=== PATIENT | female | born 1935 | race Caucasian/White ===

== ENCOUNTER → 2017-02-04 | Outpatient (CLI) | payer BC ==
[~2017-02-04] MED LIST: ACET325T30 PO; ALPR-411 PO; AMLO-110 PO; CLOP1TAB15 PO; GABA1CAP5 PO; HYDR2.5L TOP; LEVO50TA6 PO; MRLP17X PO; ONDA4TAB46 PO; OXYC15TA89 PO; OXYSR10 PO; PLV75 PO; POTA99TA PO; PRVC/10 PO; RXC/5 PO; SERT50TA PO; THY30 PO; WARF5TAB7 PO; ZNTT/150 PO
--- NOTE | 2017-02-04 15:18 | DIAGNOSTIC IMAGING REPORT ---
RIGHT FOOT 3 VIEWS CLINICAL HISTORY: Right foot pain. FINDINGS: 3 views of the right foot are obtained. No prior studies are available for comparison at the time of dictation. The skeletal structures are demineralized. No acute/distracted fracture is seen. Mild periostitis is suggested along the second metatarsal shaft on the oblique view. Mild arthritic change is identified at the first metatarsophalangeal joint. Minimal degenerative spurring is seen along the dorsal aspect of the tarsal bones. Diffuse soft tissue edema is noted throughout the foot and ankle. IMPRESSION: 1. Soft tissue edema with no clear radiographic evidence of acute/distracted fracture. 2. Mild periostitis is suggested along the shaft of the second metatarsal. This is nonspecific and could represent stress reaction. Correlate clinically for point tenderness at this site. 3. And mild arthritic change as above. Electronically signed by: El Baez M.D. 02/04/2017 3:16 PM Dictated Date/Time: 02/04/2017 3:13 PM
== END | disposition home or self-care (01) ==
LOC: C.RAD1850 15:02
PROVIDERS: ATTEND Family Medicine
DX: M79.671 Pain in right foot (principal); R60.9 Edema, unspecified

== ENCOUNTER → 2017-02-16 | Outpatient (CLI) | payer BC | END | disposition home or self-care (01) | LOC: C.RDSM 13:58 | PROVIDERS: ATTEND Orthopaedic Surgery Sports Medicine | DX: M79.671 Pain in right foot (principal) ==

== ENCOUNTER → 2017-04-02 | Outpatient (CLI) | payer BC ==
[~2017-04-02] MED LIST changes: -WARF5TAB7 PO
--- NOTE | 2017-04-02 14:39 | DIAGNOSTIC IMAGING REPORT ---
ULTRASOUND RIGHT VENOUS DOPP LOWER EXT UNILAT CLINICAL HISTORY: Right leg swelling COMPARISON STUDY: No previous studies for comparison. FINDINGS: There is a mixed attenuation collection measuring 81 x 52 x 109 mm within the right groin, likely represent a hematoma. Clinical and imaging follow-up is recommended. There is nonocclusive thrombus within the common femoral vein. There is occlusive thrombus within the superficial femoral vein. No thrombus is visualized in the popliteal vein. The proximal trifurcation veins of the calf appear patent. The patient reports she has a known extensive right lower extremity DVT IMPRESSION: 1. Thrombus within the right common femoral vein and right superficial femoral vein. By history, this is subacute/chronic. 2. Large complex right inguinal collection measuring 10 cm in maximal diameter. This likely represents a hematoma Electronically signed by: Johnathan Forde M.D. 04/02/2017 2:37 PM Dictated Date/Time: 04/02/2017 2:30 PM
--- NOTE | 2017-04-02 14:43 | DIAGNOSTIC IMAGING REPORT ---
ULTRASOUND ART DOP LOWER EXT BILAT CLINICAL HISTORY: RIGHT LEG R/O DVT COMPARISON STUDY: None FINDINGS: Real-time as well as Doppler evaluation of the arterial structures of the lower legs was performed. Blood pressures could not be obtained due to extensive deep venous thrombosis. Left leg shows biphasic waveforms throughout the bulk of the arterial structures. Right leg shows monophasic waveforms throughout as well as dampened waveform characteristics. This is suggestive of inflow disease. IMPRESSION: 1. Limited exam 2. Monophasic waveforms throughout the right leg with findings consistent with that of compromised blood flow to the right lower extremity. 3. This is consistent with inflow disease to the right leg 4. No significant stenotic process of the left leg. Electronically signed by: Denzel Bearden M.D. 04/02/2017 2:41 PM Dictated Date/Time: 04/02/2017 2:38 PM
== END | disposition home or self-care (01) ==
LOC: C.ULTR 11:43
PROVIDERS: ATTEND Physician Assistant
DX: M79.604 Pain in right leg (principal); M79.89 Other specified soft tissue disorders; I82.511 Chronic embolism and thrombosis of right femoral vein

== ENCOUNTER → 2017-04-06 | Outpatient (CLI) | payer BC ==
[~2017-04-06] MED LIST changes: +OPTIRAY 320 IV PRN
--- NOTE | 2017-04-06 15:28 | DIAGNOSTIC IMAGING REPORT ---
CT ANGIOGRAM OF THE ABDOMEN AND PELVIS COMBO; CT ANGIOGRAM OF THE LOWER EXTREMITIES COMBO CLINICAL HISTORY: Atherosclerosis. COMPARISON STUDY: Abdominal CT dated 07/26/2016 and 03/20/2016. Bilateral lower extremity arterial ultrasound dated 04/02/2017. TECHNIQUE: Before and following the IV administration of 93 cc of Optiray 320, CT angiogram of the abdomen, pelvis, and lower extremities was performed from the lung bases the distal femora. Images are reviewed in the axial, sagittal, and coronal planes. 3-D MIPS images are created and assessed. IV contrast was administered without complication. The examination is degraded by streak artifact from the left arm which could not be elevated above the abdomen. CT DOSE: 739.47 mGy.cm FINDINGS: Lower chest: The heart is normal in size and without pericardial effusion. There is patchy consolidation and nodularity in the right lower lobe is new from 07/26/2016. Linear scarring in the left lower lobe is unchanged. No pleural effusion is identified. Liver: The contrast-enhanced liver is normal in size, contour, and attenuation. There is mild central intrahepatic or ductal dilatation. The main portal veins appear patent. Gallbladder: Surgically absent noting clips in the gallbladder fossa. Spleen: Normal in size and attenuation noting heterogeneous arterial phase enhancement. Pancreas: Unremarkable. Adrenal glands: Unremarkable. Kidneys: 2 punctate nonobstructing calculi are identified in each kidney on the unenhanced series. The contrast enhanced kidneys are atrophic and without hydronephrosis. The kidneys enhance symmetrically. Abdominal aorta and iliac arteries: There is mild atherosclerotic calcification of the abdominal aorta which is normal in caliber. The abdominal aorta is widely patent. The left common iliac artery, as is a left internal and external iliac arteries are widely patent. Left lower extremity: There is mild to moderate atherosclerotic plaque seen involving the arteries of the left thigh. The left common femoral artery and the left profunda femoris artery are widely patent. The left superficial femoral artery is patent to the level of the distal femur. Right lower extremity: There is mild to moderate atherosclerotic plaque seen involving the arteries of the right thigh. The right common iliac artery is widely patent, as is the right internal iliac artery. There is complete thrombosis of the right external iliac artery which originates approximately 1 cm below the iliac bifurcation. The right common femoral artery is completely occluded. There is reconstitution of flow just below the common femoral artery bifurcation within both the superficial femoral artery and the profundus femoris artery. The remainder of the superficial femoral artery is patent noting significant atherosclerotic plaque and irregularity distally. Major branches of the abdominal aorta: The celiac trunk, superior mesenteric, and inferior mesenteric arteries are widely patent. The hepatic artery arises directly from the abdominal aorta. The splenic artery is patent. There are 2 renal arteries on the left and 3 renal arteries on the right. The renal arteries are widely patent. Bowel: The small bowel and colon are normal in course and caliber. A small duodenal diverticulum is incidentally noted. There is moderate colonic fecal retention. The appendix is normal as visualized. Peritoneum: There is no intraperitoneal free air or abdominal ascites. There is a small fat-containing umbilical hernia. Lymphadenopathy: None. Pelvic viscera: Evaluation of the pelvis is degraded by streak artifact from a right hip arthroplasty. The bladder, uterus, and adnexa are normal as visualized. There is asymmetric atrophy of the right iliopsoas musculature as compared to left as well as the right thigh musculature. There is diffuse induration and thickening of the soft tissues surrounding the right hip. This likely represents a complex joint effusion. This is increasingly complex is compared to 07/26/2016 examination and causes mild mass effect upon the right aspect of the pelvis. This measures approximately 11 x 7.5 cm in maximum axial dimension, and this encases the occluded right lower extremity arteries at this level. Skeletal structures: The Skeletal structures are osteopenic. Mild to moderate lumbosacral spondylosis is observed. Postoperative change is identified in the lumbar spine. No lytic or blastic bony lesions are seen. A right hip arthroplasty is in place. IMPRESSION: 1. There is complete thrombosis of the right external iliac artery and the right common femoral artery with reconstitution just below the common femoral artery bifurcation. See above. 2. There is a large inflammatory process surrounding the right hip/hip arthroplasty. This appears to encase the occluded right lower extremity vessels discussed above and also appears increasingly complex as compared to the 07/26/2016 examination. Correlation with the patient's orthopedic history will be required. 3. Otherwise unremarkable CT angiogram of the abdominal aorta, the major branches of the abdominal aorta, and the visualized left lower extremity arteries. 4. There is patchy/nodular airspace consolidation at the right lung base which is new from 07/26/2016. Correlate clinically for evidence of an infectious/inflammatory pneumonitis. Radiographic follow-up to resolution is recommended. 5. Small bilateral nonobstructing renal calculi. 6. Additional findings as above. Electronically signed by: El Baez M.D. 04/06/2017 3:27 PM Dictated Date/Time: 04/06/2017 2:56 PM
== END | disposition home or self-care (01) ==
LOC: C.CTS 14:15
PROVIDERS: ATTEND Surgery Vascular Surgery
DX: I70.261 Atherosclerosis of native arteries of extremities with gangrene, right leg (principal)

== ENCOUNTER 2017-04-08 10:40 | Observation (INO) | payer BC ==
[2017-04-08] VITALS (11 sets, daily range): BP systolic 119–155; BP diastolic 57–78; PULSE 65–88; TEMP 36.5–36.8; O2SAT 94–99; Ht 160 cm; Wt 44.6 kg
[~2017-04-08] VITALS: Ht 160 cm; Wt 44.6 kg
[~2017-04-08 10:40] MED LIST changes: +CEFAZOLIN 1000MG/55 ML D5W IV SCH; -CLOP1TAB15 PO; -OPTIRAY 320 IV PRN; -OXYC15TA89 PO; -PLV75 PO; +SODIUM CHLORIDE 0.9% 1000ML 1,000 ML IV SCH
--- NOTE | 2017-04-08 11:11 | History and Physical ---
History & Physical Date of Service Apr 08, 2017. History & Physical CC: Right leg pain HPI: Ms. Ariadna Lance says that she is having pain in her right foot for approximately 2 months. She described the pain as constant and burning in nature. She additionally has periods where the pain becomes more intense. She has attempted to elevate her legs, but this has not improved her pain. She occasionally has her leg dependent but does not notice a significant improvement in her pain with this. She is not doing much walking as of late. She uses a walker to get from the bedroom to the bathroom but usually hops on her left leg. She uses a wheelchair for transportation for longer distances. She denies any symptoms of fevers or chills. She does say that she is very tired and fatigued lately. She is having difficulty sleeping due to the pain in her left foot. She denies any chest pain, shortness of breath, nausea, vomiting, fevers, chills. A 12 point review of systems is completed with pertinent positives and negatives as per above. 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 PAST SURGICAL HISTORY: Includes her hip surgeries and her back surgery. SOCIAL HISTORY: She is , lives with her . They just moved in to [facility]. She does not smoke. FAMILY HISTORY: Unobtainable from the patient and not really obtainable otherwise and certainly is clinically not relevant given the overall situation. ALLERGIES: No known drug allergies. Medications are reviewed and include gabapentin, sertraline, alprazolam, amlodipine, Zofran, pravastatin, [place] Thyroid, oxycodone, levothyroxine, potassium chloride, Tylenol, OxyContin, Zantac, MiraLAX. On physical exam, the patient's heart rate is 72 and blood pressure is 106/66. She is awake and alert. She appears uncomfortable. Her neck is supple and trachea is midline. Her lungs are clear to auscultation bilaterally. Her heart is regular rate and rhythm. Her abdomen is soft. Her left femoral pulse is palpable and strong. Her right groin is significant for a firm mass approximately 6 x 4 cm. I was unable to palpate a right femoral pulse. The patient has a palpable left dorsalis pedis pulse. The right lower extremity is significant for dependent rubor of the entire foot. There is half a centimeter eschar over the right eye. fifth toe. There is dusky discoloration at the plantar aspect of the right second toe. The patient has motor and sensation intact in the bilateral lower extremities. The patient underwent an arterial duplex of bilateral lower extremities on April 02, 2017. This was concerning for a lesion of the right common femoral artery with monophasic flow throughout the right leg. There may be concern for inflow disease based on this duplex. The left lower extremity appeared normal. Imp: Right femoral artery occlusion Plan: Patient is admitted for arteriography and possible intervention. I have discussed the risks options and benefits of the procedure with the patient. The patient understands the risks options and benefits and agrees to the procedure.
--- NOTE | 2017-04-08 11:13 | Procedure Note ---
Pre-Mod Sedation Assessment General Date of Moderate Sedation: Apr 08, 2017. Pre-Sedation Airway Assessment Smoking Status: Former Smoker Mallampati Classification: Class I ASA Classification: Class III Notes The planned sedation has been discussed with the patient and consent obtained. I have identified the patient, determined the appropriateness of sedation and have assessed the patient immediately prior to the procedure. All medicine(s) and interventions are by my order.
[2017-04-08] MEDS ORDERED: MIDAZOLAM HCL 1 MG/ML 2ML VIAL ONE ×2 (12:46→14:22)
[2017-04-08] MEDS ORDERED: HEPARIN SOD (PORCINE) 1000 UNIT/ML 10 ML VIAL ONE (12:46)
[2017-04-08] MEDS ORDERED: FENTANYL CITRATE INJ 50 MCG/1 ML 2 ML VIAL ONE ×2 (12:46→14:22)
[2017-04-08 12:58] LABS: BUN/CREATININE RATIO 19.4 (10-20); CREATININE 0.63 mg/dl (0.60-1.20)
[2017-04-08] MEDS ORDERED: MIDAZOLAM HCL 1 MG/ML 2ML VIAL IV ONE ×3 (13:23→14:22)
[2017-04-08] MEDS ORDERED: FENTANYL CITRATE INJ 50 MCG/1 ML 2 ML VIAL IV ONE ×6 (13:25→14:48)
[2017-04-08] MEDS ORDERED: LIDOCAINE HCL 1% 20 ML VIAL INJ ONE (13:29)
[2017-04-08] MEDS ORDERED: HEPARIN SOD (PORCINE) 1000 UNIT/ML 10 ML VIAL IV ONE (13:44)
[2017-04-08] MEDS ORDERED: SODIUM CHLORIDE 0.9% 1000ML 1,000 ML IV SCH (14:56)
[2017-04-08] MEDS ORDERED: ONDANSETRON 4 MG TAB PO PRN (15:00)
[2017-04-08] MEDS ORDERED: IODIXANOL (VISIPAQUE) 270 MG/ML 150ML FLUSH ONE (15:00)
[2017-04-08] MEDS ORDERED: MoRPHine SULFATE 4 MG/ML 1 ML CARP\\VIAL IV PRN (15:00)
[2017-04-08] MEDS ORDERED: ACETAMINOPHEN 325 MG TAB PO PRN (15:00)
[2017-04-08] MEDS ORDERED: CLOPIDOGREL BISULFATE 300 MG TAB PO SCH (15:00)
[2017-04-08] MEDS ORDERED: OXYCODONE HCL IR 5 MG TAB (IMMEDIATE RELEASE) PO PRN (15:00)
[2017-04-08] MEDS ORDERED: RANITIDINE HCL 150 MG TAB PO PRN (15:00)
--- NOTE | 2017-04-08 15:02 | Procedure Note ---
Post-Moderate Sedation Plan General Date of Moderate Sedation Apr 08, 2017. Vital Signs: Vital Signs Past 12 Hours Date Time Temp Pulse Resp B/P (MAP) Pulse Ox O2 Delivery O2 Flow Rate FiO2 04/08/17 13:05 36.7 65 20 142/57 97 Room Air 04/08/17 13:01 04/08/17 11:22 36.7 65 20 142/57 (85) 97 Room Air Review - Discharge Plan Post Moderate Sedation Plan: On clinical assessment, the patient appears to have tolerated the conscious sedation without complications. Patient is recovering as anticipated. Patient will continue to be monitored by nursing and may be discharged when conscious sedation discharge criteria are met.
--- NOTE | 2017-04-08 15:04 | [facility] Post Operative Brief Note ---
Immediate Operative Summary Operative Date Apr 08, 2017. Pre-Operative Diagnosis right common femoral artery and external iliac artery occlusion Post-Operative Diagnosis same Procedure(s) Performed Right Lower Extremity Angiogram, Mechanical Atherectomy Right External Iliac and Common Femoral Artery, Percutaneous Transluminal Angioplasty Right External iliac and Common Femoral Artery, Mechanical Closure Left Femoral Artery, Moderate Concious Sedation 132[address] Pritchard Operations Specialist Surgeon(s) Mariposa Giang MD Estimated Blood Loss 5 ml Findings patent metal model builder and ext iliac artery Specimens none Anesthesia Local with conscious sedation Complication(s) None Disposition
[2017-04-08] MEDS ORDERED: DiphenhydrAMINE HCL 50 MG/ML VIAL ONE (15:06)
[2017-04-08] MEDS ORDERED: DiphenhydrAMINE HCL 50 MG/ML VIAL IV ONE (15:08)
[2017-04-08] MEDS ORDERED: IV FLUIDS COMPLETED PRN (15:45)
--- NOTE | 2017-04-08 15:54 | DIAGNOSTIC IMAGING REPORT ---
DATE OF PROCEDURE: 04/08/2017 PREOPERATIVE DIAGNOSES: Right lower extremity critical limb ischemia with right common femoral and right external iliac artery occlusions. POSTOPERATIVE DIAGNOSES: Right lower extremity critical limb ischemia with right common femoral and right external iliac artery occlusions. PROCEDURES: Left common femoral access, Right lower extremity angiogram, mechanical atherectomy of right external iliac and common femoral arteries, angioplasty of right external iliac and common femoral arteries with 5 x 80 balloon, mechanical closure of the left femoral artery, conscious sedation 102 minutes. SURGEON: Dr. Christiano Pritchard. PROPULSION GENERATOR REPAIRER: Dr. Paula Giang. ESTIMATED BLOOD LOSS: 5 mL. ANESTHESIA: Sedation plus local. CONDITION: Stable. COMPLICATIONS: None. INDICATIONS: Mrs. Ariadna Lance is an 81-year-old woman with history of osteoarthritis of the right hip with possible septic right hip status post hip replacement who was seen in our clinic with 2 months of right foot pain. Her symptoms were consistent with rest pain of the right foot as well as 2 areas, one on her fifth toe and one on her second toe concerning for dry gangrene. She underwent duplex, which showed right common femoral artery occlusion. A CTA was obtained which showed occlusion of the external iliac and common femoral arteries on the right side. The patient was recommended to undergo angiogram with possible atherectomy of her right external iliac and common femoral arteries. Risks, benefits and alternatives were discussed with the patient and she consented to the procedure. DESCRIPTION OF PROCEDURE: The patient was taken to the [facility] OR and placed in the supine position. Her bilateral groins were prepped and draped in the usual sterile fashion. Sedation was administered. She had a strongly palpable left common femoral pulse. An 18 gauge access needle was used to access the left common femoral. A 5-Bur[place] sheath was placed in the left common femoral artery. An 0.035 Glidewire was placed through the 5-[place]ian sheath followed by a pigtail catheter. This was used to obtain a distal abdominal aortogram. The pigtail was changed for a rim catheter which was used to cross the aortic bifurcation. The 0.035 Glidewire was able to be passed into the right internal iliac. The 5-Burundian sheath was upsized for an 8-Bur[place]ian destination sheath. A 0.035 Glidewire was then used to cross the occluded external iliac and common femoral artery. This was passed all the way down into the right superficial femoral artery. A Quick-Cross catheter was placed over the 0.035 Glidewire and the Glidewire removed. An angiogram was obtained that confirmed intraluminal placement in the SFA. The 0.014 Jetstream wire was then passed through the Quick-Cross and the Quick-Cross removed. A 2.1/3.0 mm Jetstream device was brought onto the sterile field. This was placed into the proximal external iliac. We began our mechanical atherectomy there and extended it down to the common femoral artery into the origin of the superficial femoral artery. Several passes were made with the atherectomy device. We then increased to the 3 mm configuration and used this to atherectomize again the external iliac and common femoral arteries. The Jetstream catheter was removed and the angiogram was obtained. There was still some residual areas of stenosis that looked amenable to angioplasty. A 5 x 80 mm [place] balloon was chosen. This was placed into the proximal superficial femoral artery and common femoral artery and was inflated to 4 atmospheres with profiling of the balloon. The remainder of the common femoral and external iliac were also angioplastied with the 5 x 80 balloon. Completion angiogram showed resolution of the areas of disease following angioplasty. Right lower extremity angiogram was obtained which showed SFA was patent as well as the above knee and below-knee popliteal and origins of all 3 tibials. The anterior tibial and posterior tibial were patent to the foot. The peroneal occluded mid tibia. The destination sheath was removed, and a StarClose device used to close the arteriotomy. Manual pressure was held for approximately 10 minutes with good hemostasis. Prior to the procedure, the patient did not have a palpable right common femoral pulse. Following the procedure she did have a palpable right common femoral pulse. She had a weak Doppler signal in her anterior tibial and posterior tibial arteries at the close of the case. The patient was transferred to the PACU in stable condition. There were no immediate complications. Dr. Christiano Pritchard was present for the entire procedure. I, Dr. Pritchard was present and scrubed for the entire procedure. PINKY
[2017-04-08] MEDS: OXYCODONE HCL 10 MG TABCR (OXYCONTIN) PO SCH (20:19)
[2017-04-08] MEDS: ALPRAZOLAM 0.5 MG TAB PO SCH (20:19)
[2017-04-08] MEDS: GABAPENTIN 400 MG CAP PO SCH ×2 (20:20→23:36)
[2017-04-09] MEDS: GABAPENTIN 400 MG CAP PO SCH ×2 (04:10→07:52)
[2017-04-09 04:47] VITALS: BP 106/51; PULSE 67; TEMP 36.8; O2SAT 97
[2017-04-09] MEDS ORDERED: ARMOUR THYROID 30 MG TAB PO SCH (06:00)
[2017-04-09] MEDS ORDERED: LEVOTHYROXINE 50 MCG TAB PO SCH (06:00)
[2017-04-09] MEDS: OXYCODONE HCL 10 MG TABCR (OXYCONTIN) PO SCH (07:52)
[2017-04-09] MEDS: ALPRAZOLAM 0.5 MG TAB PO SCH (07:52)
[2017-04-09 08:03] VITALS: BP 100/65; PULSE 75; TEMP 37.1; O2SAT 97
[2017-04-09] MEDS ORDERED: PRAVASTATIN SOD 10 MG TAB PO SCH (09:00)
[2017-04-09] MEDS ORDERED: AMLODIPINE BESYLATE 5 MG TAB PO SCH (09:00)
[2017-04-09] MEDS ORDERED: POLYETHYLENE (MIRALAX) 17 GM PACK PO SCH (09:00)
[2017-04-09] MEDS ORDERED: POTASSIUM 198 MG PO SCH (09:00)
[2017-04-09] MEDS ORDERED: SERTRALINE HCL 50 MG TAB PO SCH (09:00)
[2017-04-09] MEDS ORDERED: PLV75 PO (09:00)
--- NOTE | 2017-04-09 09:02 | Discharge Instructions ---
Discharge Instructions Date of Service Apr 09, 2017. 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 Instructions / Follow-Up Instructions / Follow-Up SPECIAL CARE INSTRUCTIONS: Medications: * Continue to take your medications as directed. If you have been given a prescription for Plavix, please fill it immediately and take as directed. Incision Care: * Your puncture site may have some bruising and minor swelling for about one week. * You will have a small dressing covering your puncture site. You may remove the dressing after 24 hours and shower. You may let the warm soapy water run over it, but be sure to dry the puncture site well and keep it dry. * DO NOT IMMERSE THE INCISION IN A TUB/POOL/etc. UNTIL HEALED. * Puncture sites should be kept covered with a band-aid until it begins to heal. Restrictions: * Depending on whether you leg or arm was punctured to access the arteries, you will be required to lay flat, hold your arm still, or both, for about 4 hours after the procedure to prevent bleeding. * Limit your activity for the first 48 hours. You may walk and go up and down steps. Avoid excessive bending or movement at the puncture site. Possible Complications: * Excessive Swelling - after blood flow is improved you may notice increased swelling in the lower legs. This is a normal response. This usually depends on the amount of blockages in the leg, how long they have been there prior to your procedure and how much blood flow was restored. Elevating your legs will help to improve this. Please notify our office ([phone] ) if the swelling does not go away after lying in bed overnight. * Infection/Drainage/Bleeding - Drainage or bleeding from the puncture site should be minimal. If you have excessive bleeding or drainage, call our office ([phone]) right away. * Pain - You may experience some mild pain or soreness at your puncture site. If your pain does not improve, please contact our office ([phone]). Call your doctor and seek emergent treatment if you develop: * Temperature above 101 degrees * Any fever or chills * Any redness or purulent drainage from the puncture site * Any new dusky/blue colored toes or feet with coolness or sharp or aching pain. SKIN IRRITATION: * You may experience some redness and/or swelling in the area where radiation was administered. If any skin irritation occurs, please contact your family physician. FOLLOW UP VISIT: Keep any scheduled doctor appointments. Current Hospital Diet Patient's current hospital diet: AHA Diet (Heart Healthy) Discharge Diet Recommended Diet: AHA Diet (Heart Healthy) Procedures Procedures Performed: Right Lower Extremity Angiogram, Mechanical Atherectomy Right External Iliac and Common Femoral Artery, Percutaneous Transluminal Angioplasty Right External iliac and Common Femoral Artery, Mechanical Closure Left Femoral Artery, Moderate Concious Sedation 1323 to 1500 Pending Studies Studies pending at discharge: no Medical Emergencies . Who to Call and When: Medical Emergencies: If at any time you feel your situation is an emergency, please call 911 immediately. . Non-Emergent Contact Non-Emergency issues call your: Primary Care Provider . "Provider Documentation" section prepared by Norma Hollins. . VTE Core Measure Inpt VTE Proph given/why not?: Enoxaparin (Lovenox) [place] Drug Monitoring Program Search Results: patient reviewed within database
--- NOTE | 2017-04-09 09:09 | Progress Note ---
Progress Note Date of Service: Apr 09, 2017. Subjective 81 yo f with multiple medical problems, POD # 1 after R iliac/ comm fem art atherectomy and HOME CARE NURSE, seen in f/u today. Pt states pain in R foot much improved. Denies any other new complaints. Problem List Medical Problems: (1) LLQ abdominal pain Status: Acute (2) Stroke Status: Acute Objective Vital Signs Vital Signs Past 12 Hours Date Time Temp Pulse Resp B/P (MAP) Pulse Ox O2 Delivery O2 Flow Rate FiO2 04/09/17 08:03 37.1 75 16 100/65 (77) 97 Room Air 04/09/17 08:00 Room Air 04/09/17 04:47 36.8 67 18 106/51 (69) 97 Room Air 04/09/17 04:00 Room Air 04/08/17 23:59 Room Air 04/08/17 23:27 36.8 85 18 119/63 (81) 94 Room Air Exam CONST: A&O x3, NAD, chronically ill appearing female, frail CHEST: RRR lungs decreased, but ctab ABD: soft, nontender, + bs x 4 quad EXT: L groin C/D/I, no blood on dressing. + 2 femoral BL, nonpalpable RLE distal pulses, but + DP and PT with doppler. Toes remain ischemic in appearance , + refill in 3rd toe. 5th toe early dry gangrene. R calf soft, nontender, mild erythema from knee to toes. R foot warm Laboratory and Microbiology Results Past 24 Hours Test 04/08/17 11:50 Range/Units Blood Urea Nitrogen 12 7-18 mg/dl Creatinine 0.63 0.60-1.20 mg/dl Est Creatinine Clear Calc Drug Dose 48.6 ml/min Estimated GFR () 96.1 Estimated GFR (Non- 82.9 BUN/Creatinine Ratio 19.4 10-20 ASSESSMENT and PLAN: s/p R iliac and comm fem art atherectomy/HOME CARE NURSE Severe RLE ischemia with rest pain Pt doing well post op. Pain resolved, pulses present. D/C home today( apartment at [facility]). Will see in office in 2 weeks.
[2017-04-09 09:38] VITALS: BP 100/65; PULSE 75; TEMP 37.1; O2SAT 97
[2017-04-09] MEDS ORDERED: CLOPIDOGREL BISULFATE 75 MG TAB PO SCH (17:00)
--- NOTE | 2017-04-10 00:38 | DISCHARGE SUMMARY ---
ADMISSION DIAGNOSIS: Right femoral artery occlusion with rest pain. DISCHARGE DIAGNOSES: 1. Status post mechanical atherectomy and percutaneous transluminal angioplasty of the right external iliac and common femoral arteries. 2. 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 DISCHARGE CONDITION: Stable. CONSULTATIONS IN THE HOSPITAL: Included none. PROCEDURES IN THE HOSPITAL: Included right lower extremity angiography with mechanical atherectomy and DEAF TEACHER of the right external iliac and common femoral arteries performed on 04/08/2017 without any significant complications and an EBL of 5 mL. HISTORY OF PRESENT ILLNESS: Mrs. Lance is an 81-year-old female who began having pain in her right foot approximately 2 months prior. She stated that the pain would become intense at certain times and had not particularly had any color changes until recently. She began having difficulty sleeping due to the pain in her leg when she was lying flat. She primarily has been using a wheelchair for longer distances and has been having difficulty ambulating on her right leg as well due to the discomfort. She was seen in the office after having an arterial ultrasound and was noted to have right common femoral artery occlusion with minimal monophasic flow throughout the right leg. At that point, she was recommended to undergo right lower extremity angiography somewhat urgently, and the procedure, risks, benefits and alternatives were discussed with her as well as her daughter and . The patient expressed understanding and agreement to proceed. HOSPITAL COURSE: The patient was admitted 04/08/2017 after undergoing her right iliac and common femoral artery angiography with intervention. As I said, this was performed without significant complications. She did have distal Dopplers present, although her foot and toe discoloration remained. The patient did have significant decrease in pain in her right foot. She did well postoperatively without any signs of compartment syndrome the following day postop. She did have some improvement in the discoloration of her lower leg and proximal foot. She was felt to be stable enough for discharge at that time. PHYSICAL EXAMINATION: VITAL SIGNS: On day of discharge, her vital signs are as follows: Temperature of 37.1, pulse of 75, respiratory rate of 16, blood pressure of 100/65, pulse oximetry of 97% on room air. CONSTITUTIONAL AND GENERAL: The patient is a thin, frail, chronically ill-appearing elderly female in no acute distress. HEAD: Normocephalic, atraumatic. EYES: EOMI. ENMT: Demonstrates no hearing loss, rhinorrhea, or pharyngeal erythema. NECK: Supple, nontender, with a midline trachea, without masses or crepitus. LUNGS: Demonstrate no dyspnea. They are clear to auscultation bilaterally, although are decreased throughout. CARDIOVASCULAR: Demonstrates nondisplaced apical impulse with a regular rate and rhythm, without murmurs, lifts, heaves, thrills or gallops. Peripheral pulses are full and equal in all extremities unless otherwise noted, specifically they are normal in her carotid, brachial, radial and femoral pulses. Her left lower extremity, distal pulses are present with the Doppler and +2. Her right lower extremity, DP and PT pulses are monophasic but present. She has capillary refill to the toes of her left foot which is nice and warm. Her right foot does have warmth noted until just proximal to her toes. Toes remain purple and mottled. Capillary refill is not present in 4 of her 5 toes and there is early dry gangrene noted on her right fifth toe. ABDOMEN: Soft, nontender, with normoactive bowel sounds in all 4 quadrants, without guarding or rebound. There is no flank or CVA tenderness. EXTREMITIES: Her left groin puncture site is well approximated and no bleeding is noted. NEUROLOGIC: The patient has grossly intact cranial nerves and grossly intact sensation everywhere except her right toes. DIET: Should be a low-cholesterol AHA diet. MEDICATIONS: Were reconciled in the chart and are as per her discharge instruction with the addition of Plavix. FOLLOWUP: Should be with Dr. Pritchard or his PA, Norma Hollins within 2 weeks for reevaluation. The patient was advised to call the office with any other questions or concerns. Thank you for allowing us to participate in the care of this patient.
[2017-04-28] MEDS ORDERED: OXYC15TA89 PO (11:52)
[2017-04-28] MEDS ORDERED: CLOP1TAB15 PO (11:52)
== END 2017-04-09 10:54 | disposition home or self-care (01) ==
LOC: C.ACU 10:40 → UNDOADMOB 15:01 → C.2T 15:01 → ENRESERV 16:56
PROVIDERS: ADMIT Surgery Vascular Surgery; ATTEND Surgery Vascular Surgery
DX: I77.1 Stricture of artery (principal); I99.8 Other disorder of circulatory system; I74.5 Embolism and thrombosis of iliac artery; I74.8 Embolism and thrombosis of other arteries; I96 Gangrene, not elsewhere classified; E03.9 Hypothyroidism, unspecified; F41.9 Anxiety disorder, unspecified

== ENCOUNTER → 2017-04-09 | Day surgery (SDC) | payer BC, OTHER ==
[~2017-04-09] MED LIST changes: +CLOP1TAB15 PO; -HYDR2.5L TOP; +LACTATED RINGER'S 1000ML 1,000 ML IV SCH; +OXYC15TA89 PO; +PLV75 PO
== END ==
LOC: C.ACU 08:04
PROVIDERS: ATTEND Surgery Vascular Surgery

== ENCOUNTER → 2017-04-21 | Outpatient (CLI) | payer BC ==
[~2017-04-21] MED LIST changes: -CEFAZOLIN 1000MG/55 ML D5W IV SCH; -LACTATED RINGER'S 1000ML 1,000 ML IV SCH; -SODIUM CHLORIDE 0.9% 1000ML 1,000 ML IV SCH
--- NOTE | 2017-04-21 13:26 | DIAGNOSTIC IMAGING REPORT ---
RIGHT TOE(S) MIN 2 VIEWS CLINICAL HISTORY: 81 years-old Female presenting with NON HEALING WOUND R 5TH TOE. TECHNIQUE: Frontal and lateral views of the right fifth toe were obtained. COMPARISON: 02/16/2017. FINDINGS: Diffuse osteopenia as on prior exam. This partially limits evaluation for fracture or osteolysis. The phalanges of the fifth toe are intact, best demonstrated on lateral view. No convincing evidence of osteolysis or periosteal reaction to suggest osteomyelitis. No malalignment or radiopaque foreign body. IMPRESSION: 1. Allowing for diffuse osteopenia, no acute osseous injury or evidence of osteomyelitis. Electronically signed by: Dimitri Toribio 04/21/2017 1:25 PM Dictated Date/Time: 04/21/2017 1:21 PM
== END | disposition home or self-care (01) ==
LOC: C.RAD 12:55
PROVIDERS: ATTEND Emergency Medicine
DX: S91.104A Unspecified open wound of right lesser toe(s) without damage to nail, initial encounter (principal); X58.XXXA Exposure to other specified factors, initial encounter

== ENCOUNTER → 2017-04-23 | Outpatient (CLI) | payer BC ==
--- NOTE | 2017-04-23 14:37 | DIAGNOSTIC IMAGING REPORT ---
RIGHT HIP UNILATERAL 2 VIEWS HISTORY:82 yearsFemalePAIN IN RIGHT HIP Right COMPARISON: CTA abdomen and pelvis 04/06/2017, pelvis and right hip radiographs 06/16/2016. The bones are moderately demineralized. TECHNIQUE: 2 views of the right hip. FINDINGS: Right total hip arthroplasty noted. There is no evidence of hardware fracture or loosening. No acute bony fracture or dislocation is seen.No radiopaque foreign body. IMPRESSION: Right hip arthroplasty without evidence of hardware fracture or loosening. No acute fracture or dislocation of the right hip. The above report was generated using voice recognition software. It may contain grammatical, syntax or spelling errors. Electronically signed by: Sergio Montes 04/23/2017 2:35 PM Dictated Date/Time: 04/23/2017 2:32 PM
--- NOTE | 2017-04-23 14:52 | DIAGNOSTIC IMAGING REPORT ---
ARTERIAL DOPPLER ULTRASOUND OF THE RIGHT LOWER EXTREMITY CLINICAL HISTORY: Atherosclerosis with gangrene COMPARISON STUDY: 03/23/2017 FINDINGS: No flow is visualized within the right common femoral artery. There is monophasic flow within the right superficial femoral artery with a delayed upstroke. There is monophasic flow within the popliteal artery, posterior tibial artery, peroneal artery, and anterior tibial artery. No high velocity jets were visualized. There is a large complex right groin mass measuring 15.6 x 9.2 x 13 cm. IMPRESSION: 1. Right common femoral artery occlusion 2. No evidence of superficial femoral artery, popliteal artery, anterior tibial artery, posterior tibial artery, or peroneal artery stenosis 3. Large complex right groin mass. Electronically signed by: Johnathan Forde M.D. 04/23/2017 2:51 PM Dictated Date/Time: 04/23/2017 2:47 PM
--- NOTE | 2017-04-23 14:53 | DIAGNOSTIC IMAGING REPORT ---
DUPLEX AORTA/IVC/ILIACS LTD HISTORY:82 yearsFemaleATHEROSCLEROSIS OF [place] ARTERIES OF EXTREMITIES COMPARISON: CTA 04/06/2017. TECHNIQUE: Multiple real-time sonographic images of the aorta were obtained assessing grayscale appearance, color and spectral flow. FINDINGS: Proximal abdominal aorta measures 1.6 cm, mid abdominal measures 1.4 cm and distal abdominal aorta measures 1.5 cm in AP dimension. Normal waveforms are seen within the abdominal aorta and bilateral iliac vasculature. Peak systolic velocity of the abdominal aorta measures 72 cm/s. Is minimal after trauma plaquing of the abdominal aorta. Evaluation of the iliac arteries however is limited secondary to obscuring bowel gas. The right iliac artery measures 0.9 cm with biphasic waveforms. Peak systolic velocity measured at 114 cm/s. The left iliac artery measures 0.9 cm with peak systolic velocity also measured at 114 cm/s. IVC is patent. IMPRESSION: 1. Minimal atherosclerotic plaquing of the abdominal aorta without evidence of aneurysm. 2. Visualized iliac arteries are within normal limits, however are not well seen secondary to obscuring bowel gas. The above report was generated using voice recognition software. It may contain grammatical, syntax or spelling errors. Electronically signed by: Sergio Montes 04/23/2017 2:52 PM Dictated Date/Time: 04/23/2017 2:46 PM
== END | disposition home or self-care (01) ==
LOC: C.ULTR 13:07
PROVIDERS: ATTEND Physician Assistant
DX: I70.261 Atherosclerosis of native arteries of extremities with gangrene, right leg (principal); M25.551 Pain in right hip; Z96.641 Presence of right artificial hip joint; I74.3 Embolism and thrombosis of arteries of the lower extremities; R22.9 Localized swelling, mass and lump, unspecified

== ENCOUNTER 2017-04-30 07:09 | Inpatient (IN) | payer BC, OTHER ==
[2017-04-28 11:53] VITALS: BMI 19.0
--- NOTE | 2017-04-28 12:50 | PAT Medication Instructions ---
Service Date Apr 28, 2017. Current Home Medication List Acetaminophen (Acetaminophen), 650 MG PO Q6H PRN for Pain Alprazolam (Xanax), 0.5 MG PO TID Amlodipine (Norvasc), 5 MG PO QPM Clopidogrel (Plavix), 75 MG PO QAM Gabapentin (Neurontin), 400 MG PO six times daily Levothyroxine Sodium (Levothyroxine Sodium), 1 TAB PO QAM Ondansetron Hcl (Zofran), 4 MG PO Q8 PRN for Nausea Oxycodone HCl (Oxycodone HCl), 5 MG PO Q12 PRN for Pain Oxycodone Hcl (Oxycontin), 15 MG PO Q8 Polyethylene (Miralax), 1 DOSE PO QAM Potassium (Potassium), 198 MG PO BID Pravastatin Sod (Pravastatin Sodium), 10 MG PO QPM Ranitidine (Zantac), 1 TAB PO DAILY PRN for Nausea Sertraline (Zoloft), 50 MG PO HS Medication Instructions For Your Scheduled Surgery - Per surgeon instructions (last dose of Plavix was 04/26/17): Clopidogrel (Plavix), 75 MG PO QAM - Hold the following medications the morning of surgery: Ranitidine (Zantac), 1 TAB PO DAILY PRN for Nausea Polyethylene (Miralax), 1 DOSE PO QAM Potassium (Potassium), 198 MG PO BID - Take the following medications the morning of surgery with a sip of water: Gabapentin (Neurontin), 400 MG PO six times daily Levothyroxine Sodium (Levothyroxine Sodium), 1 TAB PO QAM Ondansetron Hcl (Zofran), 4 MG PO Q8 PRN for Nausea (if needed) Oxycodone HCl (Oxycodone HCl), 5 MG PO Q12 PRN for Pain (okay to take up to 4 hours prior to surgery if needed) Oxycodone Hcl (Oxycontin), 15 MG PO Q8 (okay to take up to 4 hours prior to surgery if needed) Alprazolam (Xanax), 0.5 MG PO TID Acetaminophen (Acetaminophen), 650 MG PO Q6H PRN for Pain (if needed) - Take the following medications as scheduled the night before surgery: Sertraline (Zoloft), 50 MG PO HS Ranitidine (Zantac), 1 TAB PO DAILY PRN for Nausea (if needed) Pravastatin Sod (Pravastatin Sodium), 10 MG PO QPM Potassium (Potassium), 198 MG PO BID Ondansetron Hcl (Zofran), 4 MG PO Q8 PRN for Nausea (if needed) Oxycodone HCl (Oxycodone HCl), 5 MG PO Q12 PRN for Pain (if needed) Oxycodone Hcl (Oxycontin), 15 MG PO Q8 (if needed) Gabapentin (Neurontin), 400 MG PO six times daily (if needed) Amlodipine (Norvasc), 5 MG PO QPM Alprazolam (Xanax), 0.5 MG PO TID Acetaminophen (Acetaminophen), 650 MG PO Q6H PRN for Pain (if needed) If you have any questions please call us at [phone] or [phone] or [phone]
--- NOTE | 2017-04-28 13:27 | DIAGNOSTIC IMAGING REPORT ---
CHEST PREADMISSION(PA/LAT) CLINICAL HISTORY: PAT preoperative evaluation COMPARISON STUDY: 05/21/2016 FINDINGS: The bones soft tissues and hemidiaphragms are normal. The cardiomediastinal silhouette is normal. The lungs are clear. The pulmonary vasculature is normal. Chronic atelectatic change infrahilar region on the right. IMPRESSION: Chronic change. No acute process. Electronically signed by: Denzel Bearden M.D. 04/28/2017 1:26 PM Dictated Date/Time: 04/28/2017 1:25 PM
[2017-04-28 13:39] LABS: BASO % 1.1 %; BASO ABS # 0.05 K/uL (0-0.2); COMPLETE YES; EOS % 1.3 %; HEMATOCRIT 42.9 % (37-47); IG% 0.2 %; LYMPH % 27.5 %; LYMPH ABS # 1.27 K/uL (1.2-3.4); MEAN CELL VOLUME 86.5 fL (80-100); MEAN CORPUSCULAR HEMOGLOBIN 29.8 pg (25-34); MEAN CORPUSCULAR HGB CONC 34.5 g/dl (32-36); MEAN PLATELET VOLUME 9.4 fL (7.4-10.4); MONO % 18.6 %; NEUT % 51.3 %; PLATELET COUNT 166 K/uL (130-400); RED BLOOD COUNT 4.96 M/uL (4.2-5.4); WHITE BLOOD COUNT 4.62 K/uL (4.8-10.8)
[2017-04-28 13:42] LABS: PARTIAL THROMBOPLASTIN RATIO 1.4; PROTHROMBIN TIME (PATIENT) 10.7 SECONDS (9.0-12.0)
[2017-04-28 14:01] LABS: BUN/CREATININE RATIO 15.3 (10-20); CALCIUM 9.5 mg/dl (8.5-10.1); CREATININE 0.59 mg/dl (0.60-1.20); POTASSIUM 3.9 mmol/L (3.5-5.1)
[~2017-04-30] VITALS: Ht 152.4 cm; Wt 46.7 kg
[2017-04-30] VITALS (37 sets, daily range): BP systolic 107–162; BP diastolic 40–79; PULSE 60–105; TEMP 36.5–37.7; O2SAT 89–100; Ht 152.4 cm; Wt 46.7 kg
[~2017-04-30 07:09] MED LIST changes: +LACTATED RINGER'S 1000ML 1,000 ML IV SCH; -OXYSR10 PO; -PLV75 PO; -THY30 PO
--- NOTE | 2017-04-30 07:17 | History and Physical ---
History & Physical Date of Service Apr 30, 2017. History & Physical CC: Right foot rest pain and gangrene 5th toe HPI: Ms. Ariadna Lance says that she is having pain in her right foot for approximately 2 months. She described the pain as constant and burning in nature. She additionally has periods where the pain becomes more intense. She has attempted to elevate her legs, but this has not improved her pain. She occasionally has her leg dependent but does not notice a significant improvement in her pain with this. She is not doing much walking as of late. She uses a walker to get from the bedroom to the bathroom but usually hops on her left leg. She uses a wheelchair for transportation for longer distances. She underwent mechanical athrectomy of her right ext iliac and common femoral artery with good results. This has subsequently occluded. Now admitted for a limb salvage cross fem bypass. She denies any symptoms of fevers or chills. She does say that she is very tired and fatigued lately. She is having difficulty sleeping due to the pain in her left foot. She denies any chest pain , shortness of breath, nausea, vomiting, fevers, chills. A 12 point review of systems is completed with pertinent positives and negatives as per above. 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 PAST SURGICAL HISTORY: Includes her hip surgeries and her back surgery. SOCIAL HISTORY: She is , lives with her . They just moved in to [facility]. She does not smoke. FAMILY HISTORY: Unobtainable from the patient and not really obtainable otherwise and certainly is clinically not relevant given the overall situation. ALLERGIES: No known drug allergies. Medications are reviewed and include gabapentin, sertraline, alprazolam, amlodipine, Zofran, pravastatin, Gilson Thyroid, oxycodone, levothyroxine, potassium chloride, Tylenol, OxyContin, Zantac, MiraLAX. On physical exam, the patient's heart rate is 72 and blood pressure is 106/66. She is awake and alert. She appears uncomfortable. Her neck is supple and trachea is midline. Her lungs are clear to auscultation bilaterally. Her heart is regular rate and rhythm. Her abdomen is soft. Her left femoral pulse is palpable and strong. Her right groin is significant for a firm mass approximately 6 x 4 cm. I was unable to palpate a right femoral pulse. The patient has a palpable left dorsalis pedis pulse. The right lower extremity is significant for dependent rubor of the entire foot. There is half a centimeter eschar over the right fifth toe with gangrene. There is dusky discoloration at the plantar aspect of the right second toe. The patient has motor and sensation intact in the bilateral lower extremities. Imp: Right external iliac and common femoral artery occlusion Plan: Patient is admitted for a cross fem bypass. I have discussed the risks options and benefits of the procedure with the patient. The patient understands the risks options and benefits and agrees to the procedure.
[2017-04-30] MEDS ORDERED: ATROPINE SULFATE 0.1 MG/ML 5ML SYR IV PRN (07:45)
[2017-04-30] MEDS ORDERED: HYDROmorphone INJ 1 MG/ML SYR IV PRN (07:45)
[2017-04-30] MEDS ORDERED: ONDANSETRON INJ 2 MG/ML 2 ML VIAL IV PRN ×2 (07:45→10:45)
[2017-04-30] MEDS ORDERED: EpHEDrine SULFATE INJ 50 MG/ML AMP IV PRN (07:45)
[2017-04-30] MEDS ORDERED: CEFAZOLIN SOD 1000MG/55 ML D5W IV ONE (08:30)
[2017-04-30] MEDS ORDERED: GELATIN SPONGE SZ 100 ONE (08:35)
[2017-04-30] MEDS ORDERED: THROMBIN 5000 UNITS KIT ONE (08:36)
[2017-04-30] MEDS ORDERED: IODIXANOL (VISIPAQUE) 270 MG/ML 50ML ONE (08:36)
[2017-04-30] MEDS ORDERED: HEPARIN SOD (PORCINE) 1000 UNIT/ML 10 ML VIAL ONE ×2 (08:36→10:33)
[2017-04-30] MEDS ORDERED: PAPAVERINE HCL INJ 30 MG/ML 2 ML VIAL ONE (08:36)
[2017-04-30] MEDS ORDERED: CEFAZOLIN SOD 1 GM VIAL ONE (08:36)
[2017-04-30] MEDS ORDERED: LIDOCAINE HCL 1% 20 ML VIAL ONE (08:36)
[2017-04-30] MEDS ORDERED: PROPOFOL IV EMULSION 10 MG/ML 20 ML VIAL IV ONE (08:39)
[2017-04-30] MEDS ORDERED: PHENYLEPHRINE HCL INJ 10 MG/ML VIAL ONE ×2 (08:39→10:33)
[2017-04-30] MEDS ORDERED: ROCURONIUM BROMIDE 10 MG/ML 5 ML VIAL ONE (08:39)
[2017-04-30] MEDS ORDERED: LIDOCAINE HCL 2% 2 ML VIAL (20MG/ML) ONE (08:39)
[2017-04-30] MEDS ORDERED: FENTANYL CITRATE INJ 50 MCG/1 ML 2 ML VIAL ONE ×2 (08:39→10:33)
[2017-04-30] MEDS ORDERED: NEOSTIGMINE METHYLSULFATE 5 MG/5 ML SYR ONE (08:39)
[2017-04-30] MEDS ORDERED: ONDANSETRON INJ 2 MG/ML 2 ML VIAL ONE (08:39)
[2017-04-30] MEDS ORDERED: GLYCOPYRROLATE INJ 0.2 MG/ML VIAL ONE (08:39)
[2017-04-30] MEDS ORDERED: BUPIVACAINE/EPINEPHRINE 0.5% MPF 1:200,000 10 ML VIAL ONE (08:39)
[2017-04-30] MEDS ORDERED: THROMBIN FOR SOLN 20000 UNIT KIT ONE (09:00)
[2017-04-30] MEDS ORDERED: ESMOLOL HCL 10 MG/ML 10 ML VIAL ONE (10:33)
[2017-04-30] MEDS ORDERED: PROTAMINE SULFATE 10 MG/ML 5 ML VIAL IV ONE (10:41)
[2017-04-30] MEDS ORDERED: RANITIDINE HCL 150 MG TAB PO PRN (10:45)
[2017-04-30] MEDS ORDERED: ACETAMINOPHEN 325 MG TAB PO PRN (10:45)
--- NOTE | 2017-04-30 10:45 | [facility] Post Operative Brief Note ---
Immediate Operative Summary Operative Date Apr 30, 2017. Pre-Operative Diagnosis Right external iliac and common femoral artery occlusion Post-Operative Diagnosis Right external iliac and common femoral artery occlusion Procedure(s) Performed Cross Femoral Bypass Left to Right Surgeon Dr. Pritchard Lead Military Analyst Surgeon(s) Norma Mullins Estimated Blood Loss 50 cc Findings palpable right DP Specimens none per surgeon Anesthesia Gen Complication(s) None Disposition Recovery Room / PACU
[2017-04-30] MEDS: FENTANYL CITRATE INJ 50 MCG/1 ML 2 ML VIAL IV PRN ×4 (11:39→11:54)
--- NOTE | 2017-04-30 12:08 | Anesthesiology Progress Note ---
Anesthesia Post Op Note Date & Time Apr 30, 2017 at 12:08 Vital Signs Pain Intensity: 7 Vital Signs Past 12 Hours Date Time Temp Pulse Resp B/P (MAP) Pulse Ox O2 Delivery O2 Flow Rate FiO2 04/30/17 11:18 36.2 89 14 133/71 100 Mask 10 04/30/17 07:34 97 Room Air Notes Mental Status: alert / awake / arousable, participated in evaluation Pt Amnestic to Procedure: Yes Nausea / Vomiting: adequately controlled Pain: adequately controlled Airway Patency, RR, SpO2: stable & adequate BP & HR: stable & adequate Hydration State: stable & adequate Anesthetic Complications: no major complications apparent plan to discharge to ICU.
--- NOTE | 2017-04-30 12:16 | Anesthesiology Progress Note ---
Anesthesia Progress Note Date of Service Apr 30, 2017. Progress Notes Arterial line placed in ASU II at 905 AM in preparation for fem fem bypass with Dr. Pritchard. Right wrist prepped with cholorhexidine and draped with sterile towels. Site infiltrated with 0.25 cc of 2% lidocaine. 20 G angiocath placed under sterile technique utilizing sterile gloves, surgical hats and masks. Catheter threaded using seldinger technique with return of pulsatile, bright red blood. Site covered with occlusive dressing and taped in place. Waveform consistent with correct arterial placement. After placement, fingers of right hand had normal perfusion. Patient tolerated procedure well without complications. Shyla Gusman MD, PhD Anesthesiologist
[2017-04-30] MEDS ORDERED: D5W AND 1/2NSS 1,000 ML IV SCH (13:15)
[2017-04-30 13:21] LABS: BASO % 0.4 %; BASO ABS # 0.03 K/uL (0-0.2); COMPLETE YES; EOS % 0.5 %; HEMATOCRIT 36.6 % (37-47); IG% 0.3 %; LYMPH % 20.5 %; LYMPH ABS # 1.51 K/uL (1.2-3.4); MEAN CELL VOLUME 86.7 fL (80-100); MEAN CORPUSCULAR HEMOGLOBIN 30.1 pg (25-34); MEAN CORPUSCULAR HGB CONC 34.7 g/dl (32-36); MEAN PLATELET VOLUME 9.1 fL (7.4-10.4); MONO % 16.4 %; NEUT % 61.9 %; PLATELET COUNT 143 K/uL (130-400); RED BLOOD COUNT 4.22 M/uL (4.2-5.4); WHITE BLOOD COUNT 7.36 K/uL (4.8-10.8)
[2017-04-30] MEDS: MoRPHine SULFATE 4 MG/ML 1 ML CARP\\VIAL IV PRN ×2 (13:23→17:29)
[2017-04-30] MEDS: GABAPENTIN 400 MG CAP PO SCH ×4 (13:54→21:34)
[2017-04-30] MEDS: CEFAZOLIN IV 1,000 MG in DEXTROSE 5% 50ML 50 ML IV SCH ×2 (13:55→21:08)
[2017-04-30] MEDS: OXYCODONE HCL 15 MG TABCR (OXYCONTIN) PO SCH ×2 (14:00→21:34)
--- NOTE | 2017-04-30 14:43 | [facility] Operative Report ---
Operative Report Operative Date Apr 30, 2017. Pre-Operative Diagnosis Right external iliac and common femoral artery occlusion Post-Operative Diagnosis Right external iliac and common femoral artery occlusion Procedure(s) Performed Cross Femoral Bypass Left to Right Surgeon Dr. Pritchard Instructional Technology Coach Surgeon(s) Norma Mullins, SOFIA Estimated Blood Loss 50 cc Findings Palpable right DP pulse Specimens none per surgeon Anesthesia Gen Complication(s) None Disposition Recovery Room / PACU Indications This is an 82-year-old white female who had rest pain in her right foot and gangrenous changes to the right fifth toe. Due to her medical condition she had underwent a mechanical atherectomy of her right external iliac artery and common femoral artery with good results. This unfortunately subsequently occluded and she has developed severe rest pain in right foot and worsening of the gangrenous changes of her right fifth toe. Description of Procedure The patient was taken to the operating room placed in supine position. After both groins were prepped and draped in a sterile manner a longitudinal groin incision was made in the left groin. The dissection was carried down through the femoral sheath where the common femoral artery was identified. This was isolated the dissection was carried down past the bifurcation of the common femoral artery into the profunda and superficial femoral arteries. Proximally the common femoral artery was isolated to the inguinal ligament level. The common femoral artery was of good caliber and fairly soft. There is a good pulse in the left common femoral artery Incision was made in the right lower extremity approximately 15-20 cm below the inguinal ligament due to the firm mass that was present anterior and lateral to the right groin. This dissection was carried downward till the superficial femoral artery was identified. It was isolated for proximally 5 cm. At that point the patient was adequately heparinized. An 8 mm ringed propatent graft was brought to the operative field. A counter incision was made above the inguinal ligament on the right side. An 8mm ringed propaten thin walled gore graft was passed from the left groin through the counter incision down to the right thigh incision. The right superficial femoral artery was then clamped proximally and distally. A longitudinal arteriotomy was then made. There is mild plaque seen at that level. A #3 Ravin was then used and was passed proximal and distally. No clot was retrieved. Next the [place]-Sinan graft was then beveled in the appropriate fashion and an end to side anastomosis was accomplished between the Fruit[place]-Sinan graft and the right superficial femoral artery using a CV 6 [place]-Sinan suture. This was done in the usual vascular fashion. Prior to completing the closure back bleeding and forebleeding was allowed to occur. The final few sutures were placed and securely tied. Clamps are then removed. There was flow noticed coming up through the bypass graft. The bypass graft was then irrigated with heparinized saline and clamped at the anastomotic site. Next the left common femoral profunda and superficial femoral arteries were clamped. A longitudinal arteriotomy was started on the common femoral artery and extended downward slightly through the origin of the superficial femoral artery. The [place]-Sinan graft was then pulled the appropriate length and beveled in usual fashion. An end-to-side anastomosis was accomplished between the Fruit[place]-Sinan graft and the left common femoral artery using a CV5 [place]-Sinan suture again in the usual vascular fashion. Prior to completing the closure back bleeding and fore bleeding was allowed to occur. The final few sutures were then placed and securely tied. Clamps were then removed. Good flow was seen through the bypass graft. There was 2 areas of bleeding from the suture site on the left side between 2 sutures. These were controlled with interrupted CV 6 sutures. At that point adequate hemostasis was noted of both suture lines. All 3 wounds showed adequate hemostasis and they were closed in usual fashion using a running 3-0 Vicryl suture for the femoral sheath and a running 3-0 Vicryl suture was for the subcutaneous layer. Mireya were used for skin edges. The heparin was reversed with 10 mg of protamine at the end of procedure. Sterile dressings were applied to the wound. There was a palpable dorsalis pedis pulse in the right foot at the end of this procedure. There was also a palpable pulse in the left dorsalis pedis pulse at the end of the procedure. Patient left the operative room satisfactory condition tolerated procedure well. Norma Hollins Pac assisted due to lack of resident availability and was necessary for prepping, draping, retraction, wound closure defects, subQ and skin closure and was necessary for the case. I attest to the content of the Intraoperative Record and any orders documented therein. Any exceptions are noted below.
[2017-04-30] MEDS: ALPRAZOLAM 0.5 MG TAB PO SCH ×3 (14:55→21:08)
--- NOTE | 2017-04-30 16:20 | Critical Care Consultation ---
Critical Care Consultation Date of Consultation: Apr 30, 2017. Attending Physician: Christiano Pritchard M.D. Reason for Consultation: Vascular Surgery Perioperative monitoring History of Present Illness She was evaluated for worsening limb pain and found to have substantial vascular disease and ischemia. A Cross/Fem Bypass was performed for limb salvage. History is significant for DVT in the past. Other issues include PVD, Chronic Pain, Hx Septic Hip with 6 week course of antibiotics. Other issues include hypothyroidism, constipation and anemia. She is comfortable at the time of my evaluation. No worsening limb pain. No GI/ complaints. No cardiopulmonary complaints. She is appropriate with questioning. Family at bedside to assist. She appears appropriate for the postoperative setting at this time. Past Medical/Surgical History Septic Hip OA Chronic Pain Hypothyroidism Constipation PVD Discogenic Pain and hx of spine surgery Social History Smoking Status: Former Smoker Drug Use: none Marital Status: Occupation Status: retired Allergies Coded Allergies: Adhesives (Verified Allergy, Mild, skin irritation, 04/30/17) bandaids Home Medications Scheduled Alprazolam (Xanax), 0.5 MG PO TID Amlodipine (Norvasc), 5 MG PO QPM Clopidogrel (Plavix), 75 MG PO QAM Gabapentin (Neurontin), 400 MG PO six times daily Levothyroxine Sodium (Levothyroxine Sodium), 1 TAB PO QAM Oxycodone Hcl (Oxycontin), 15 MG PO Q8 Polyethylene (Miralax), 1 DOSE PO QAM Potassium (Potassium), 198 MG PO BID Pravastatin Sod (Pravastatin Sodium), 10 MG PO QPM Sertraline (Zoloft), 50 MG PO HS Scheduled PRN Acetaminophen (Acetaminophen), 650 MG PO Q6H PRN for Pain Ondansetron Hcl (Zofran), 4 MG PO Q8 PRN for Nausea Oxycodone HCl (Oxycodone HCl), 5 MG PO Q12 PRN for Pain Ranitidine (Zantac), 1 TAB PO DAILY PRN for Nausea Current Inpatient Medications Current Inpatient Medications Medications (Trade) Dose Ordered Sig/Jacinta Route Start Time Stop Time Status Last Admin Dose Admin Lactated Ringer's 1,000 ml @ 15 mls/hr Q24H IV 04/30/17 06:00 05/01/17 05:59 04/30/17 07:52 15 MLS/HR Lactated Ringer's 1,000 ml @ 80 mls/hr [id number] IV 04/30/17 06:00 04/30/17 18:00 Morphine Sulfate (MoRPHine SULFATE INJ) If PO analgesic is orde... Q2H PRN IV 04/30/17 10:45 05/14/17 10:44 04/30/17 13:23 2 MG Ondansetron HCl (Zofran Inj) 4 mg Q6H PRN IV 04/30/17 10:45 05/30/17 10:44 Cefazolin Sodium 1000 mg/Dextrose 55 ml @ 100 mls/hr Q8H IV 04/30/17 13:15 04/30/17 21:47 04/30/17 13:55 100 MLS/HR Heparin Sodium (Porcine) (Heparin Sq 5000 Unit/0.5ml) 5,000 unit Q12 SQ 04/30/17 21:00 05/30/17 20:59 Dextrose/Sodium Chloride 1,000 ml @ 125 mls/hr Q8H IV 04/30/17 13:15 04/30/17 21:14 04/30/17 13:33 125 MLS/HR Acetaminophen (Tylenol Tab) 650 mg Q6H PRN PO 04/30/17 10:45 05/30/17 10:44 Alprazolam (Xanax Tab) 0.5 mg TID PO 04/30/17 14:00 05/30/17 13:59 04/30/17 14:55 0.5 MG Amlodipine Besylate (Norvasc Tab) 5 mg QPM PO 04/30/17 21:00 05/30/17 20:59 Gabapentin (Neurontin Cap) 400 mg 6XDQ3H PO 04/30/17 13:00 05/30/17 12:59 04/30/17 13:54 400 MG Levothyroxine Sodium (Synthroid Tab) 50 mcg DAILYBB PO 05/01/17 06:00 05/31/17 05:59 Oxycodone HCl (Roxicodone Immediate Rel Tab) 5 mg Q12 PRN PO 04/30/17 10:45 05/14/17 10:44 Oxycodone HCl (Oxycontin Tab) 15 mg Q8 PO 04/30/17 14:00 05/14/17 13:59 Polyethylene (Miralax Powder Packet) 17 gm QAM PO 05/01/17 09:00 05/31/17 08:59 Pravastatin Sodium (Pravachol Tab) 10 mg QPM PO 04/30/17 21:00 05/30/17 20:59 Ranitidine HCl (zANTac TAB) 150 mg DAILY PRN PO 04/30/17 10:45 05/30/17 10:44 Sertraline HCl (Zoloft Tab) 50 mg HS PO 04/30/17 21:00 05/30/17 20:59 Review of Systems 14 point review negative for new neurological issues. No cardiopulmonary complaints. No GI/ complaints. Pain control is adequate at this point. Extensive polypharm noted. Remains 14 point review is negative. Physical Exam Date Time Temp Pulse Resp B/P (MAP) Pulse Ox O2 Delivery O2 Flow Rate FiO2 04/30/17 14:01 70 20 118/55 (81) 96 137/49 04/30/17 14:00 36.6 70 20 118/55 (76) 96 Room Air 145/53 (83) 04/30/17 13:55 66 21 (76) 94 130/48 04/30/17 13:40 36.7 67 20 (76) 95 128/48 04/30/17 13:31 60 15 107/55 (74) 130/45 04/30/17 13:25 66 20 (83) 98 143/52 04/30/17 13:16 36.6 71 15 133/64 (83) 156/57 04/30/17 13:10 79 12 (90) 99 148/58 04/30/17 13:01 70 13 140/61 (97) 97 147/53 04/30/17 12:55 66 15 (92) 98 160/56 04/30/17 12:46 64 21 122/55 (76) 89 159/51 04/30/17 12:41 126/54 (86) 04/30/17 12:40 Room Air 04/30/17 12:40 36.5 62 20 112/79 (90) 100 Nasal Cannula 2.0 162/46 (84) 04/30/17 12:11 36.7 69 20 122/51 100 Nasal Cannula 2 04/30/17 12:08 60 12 100 04/30/17 12:08 60 12 100 7/14/17 12:08 59 12 7/14/17 12:08 59 12 7/14/17 12:06 114/61 7/14/17 12:06 114/61 7/14/17 12:03 66 23 7/14/17 12:03 67 23 99 7/14/17 12:03 66 23 7/14/17 12:03 67 23 99 7/14/17 12:01 112/53 7/14/17 12:01 112/53 7/14/17 11:58 63 14 7/14/17 11:58 62 14 100 7/14/17 11:58 62 14 100 7/14/17 11:58 63 14 7/14/17 11:56 118/53 7/14/17 11:56 118/53 7/14/17 11:53 62 13 7/14/17 11:53 61 13 100 7/14/17 11:53 61 13 100 7/14/17 11:53 62 13 7/14/17 11:51 127/58 7/14/17 11:51 127/58 7/14/17 11:48 61 14 100 7/14/17 11:48 61 14 7/14/17 11:48 61 14 7/14/17 11:48 61 14 100 7/14/17 11:46 127/56 7/14/17 11:46 127/56 7/14/17 11:43 63 18 100 7/14/17 11:43 62 18 7/14/17 11:43 62 18 7/14/17 11:43 63 18 100 7/14/17 11:41 125/60 7/14/17 11:41 125/60 7/14/17 11:38 64 14 7/14/17 11:38 64 14 100 7/14/17 11:38 64 14 100 7/14/17 11:38 64 14 7/14/17 11:36 138/63 7/14/17 11:36 138/63 7/14/17 11:33 73 14 7/14/17 11:33 73 14 7/14/17 11:33 72 14 100 7/14/17 11:33 72 14 100 7/14/17 11:31 131/65 7/14/17 11:31 131/65 7/14/17 11:28 80 15 100 7/14/17 11:28 80 15 100 04/30/17 11:28 80 15 04/30/17 11:28 80 15 04/30/17 11:26 137/67 04/30/17 11:26 137/67 04/30/17 11:23 82 25 04/30/17 11:23 83 25 100 04/30/17 11:23 82 25 04/30/17 11:23 83 25 100 04/30/17 11:21 132/62 04/30/17 11:21 132/62 04/30/17 11:19 133/71 04/30/17 11:19 133/71 04/30/17 11:18 36.2 89 14 133/71 100 Mask 10 04/30/17 07:34 97 Room Air Gen--frail and elderly woman HEENT--no new focal changes although asymmetry to the face which is chronic Respiratory--exchange is adequate Cardio--rate and volume ok. No JVD GI--OBR and monitor the response --no target issues Neuro--functional and nonfocal today Musculo--no new lesions, erythema, effusions Derm--noted Psych--calm and appropriate with me during the interview. Laboratory Results Last 24 Hours Test 04/30/17 13:09 White Blood Count 7.36 K/uL Red Blood Count 4.22 M/uL Hemoglobin 12.7 g/dL Hematocrit 36.6 % Mean Corpuscular Volume 86.7 fL Mean Corpuscular Hemoglobin 30.1 pg Mean Corpuscular Hemoglobin Concent 34.7 g/dl Platelet Count 143 K/uL Mean Platelet Volume 9.1 fL Neutrophils (%) (Auto) 61.9 % Lymphocytes (%) (Auto) 20.5 % Monocytes (%) (Auto) 16.4 % Eosinophils (%) (Auto) 0.5 % Basophils (%) (Auto) 0.4 % Neutrophils # (Auto) 4.55 K/uL Lymphocytes # (Auto) 1.51 K/uL Monocytes # (Auto) 1.21 K/uL Eosinophils # (Auto) 0.04 K/uL Basophils # (Auto) 0.03 K/uL RDW Standard Deviation 41.7 fL RDW Coefficient of Variation 13.0 % Immature Granulocyte % (Auto) 0.3 % Immature Granulocyte # (Auto) 0.02 K/uL Assessment & Plan PVD s/p revascularization procedure of the LE. She appears clinically compensated and comfortable. 1. Cardio--rate and volume ok. Will track 2. Pulmonary--toilette and track 3. GI--OBR and monitor the response 4. F/E/N--will track appropriates including renal performance. May require bolus of fluids 5. Polypharm--will not deviate from the routine but mindful of the narcotic and neurontin
[2017-04-30] MEDS ORDERED: NURSING VERBAL MED ORDER ONE ×2 (18:00→18:15)
[2017-04-30] MEDS ORDERED: OXYCODONE HCL 15 MG TABCR (OXYCONTIN) PO ONE (18:15)
[2017-04-30] MEDS ORDERED: ALPRAZOLAM 0.5 MG TAB PO ONE (18:15)
[2017-04-30] MEDS ORDERED: POTASSIUM 198 MG PO SCH (21:00)
[2017-04-30] MEDS: PRAVASTATIN SOD 10 MG TAB PO SCH (21:05)
[2017-04-30] MEDS: SERTRALINE HCL 50 MG TAB PO SCH (21:05)
[2017-04-30] MEDS: AMLODIPINE BESYLATE 5 MG TAB PO SCH (21:05)
[2017-04-30] MEDS: HEPARIN SOD 5000 UNIT/0.5 ML CARP SQ SCH (21:12)
[2017-05-01] VITALS (21 sets, daily range): BP systolic 90–136; BP diastolic 39–70; PULSE 81–112; TEMP 36.4–37.7; O2SAT 90–99
[2017-05-01] MEDS: OXYCODONE HCL IR 5 MG TAB (IMMEDIATE RELEASE) PO PRN (02:13)
[2017-05-01 05:35] LABS: BASO % 0.2 %; BASO ABS # 0.02 K/uL (0-0.2); COMPLETE YES; EOS % 0.4 %; HEMATOCRIT 34.5 % (37-47); IG% 0.3 %; LYMPH % 10.2 %; LYMPH ABS # 0.93 K/uL (1.2-3.4); MEAN CELL VOLUME 87.3 fL (80-100); MEAN CORPUSCULAR HEMOGLOBIN 29.1 pg (25-34); MEAN CORPUSCULAR HGB CONC 33.3 g/dl (32-36); MEAN PLATELET VOLUME 9.5 fL (7.4-10.4); MONO % 27.3 %; NEUT % 61.6 %; PLATELET COUNT 124 K/uL (130-400); RED BLOOD COUNT 3.95 M/uL (4.2-5.4); WHITE BLOOD COUNT 9.08 K/uL (4.8-10.8)
[2017-05-01] MEDS: LEVOTHYROXINE 50 MCG TAB PO SCH (05:37)
[2017-05-01] MEDS: OXYCODONE HCL 15 MG TABCR (OXYCONTIN) PO SCH ×3 (05:37→23:19)
[2017-05-01 05:55] LABS: BUN/CREATININE RATIO 12.7 (10-20); CALCIUM 8.1 mg/dl (8.5-10.1); CREATININE 0.61 mg/dl (0.60-1.20); POTASSIUM 3.7 mmol/L (3.5-5.1)
[2017-05-01] MEDS: GABAPENTIN 400 MG CAP PO SCH ×7 (06:32→23:11)
[2017-05-01] MEDS ORDERED: POLYETHYLENE (MIRALAX) 17 GM PACK ONE (07:34)
--- NOTE | 2017-05-01 08:31 | Progress Note ---
Progress Note Date of Service: May 01, 2017. Subjective Patient claims foot is feeling better, Much less pain in foot Problem List Medical Problems: (1) LLQ abdominal pain Status: Acute (2) Stroke Status: Acute Objective Vital Signs Vital Signs Past 12 Hours Date Time Temp Pulse Resp B/P (MAP) Pulse Ox O2 Delivery O2 Flow Rate FiO2 05/01/17 07:46 94 Room Air 05/01/17 07:46 37.7 112 20 122/59 (80) 94 122/52 (75) 05/01/17 06:01 103 20 111/53 (72) 05/01/17 06:00 101 21 115/45 (68) 93 05/01/17 05:01 81 18 108/56 (73) 93 121/42 (68) 05/01/17 05:00 100 22 111/39 (63) 93 05/01/17 04:02 95 Room Air 05/01/17 04:00 100 18 110/42 (64) 95 119/43 (68) 05/01/17 03:01 100 18 107/48 (67) 92 05/01/17 03:00 103 20 119/40 (66) 92 05/01/17 02:00 105 18 129/48 (75) 96 136/48 (77) 05/01/17 01:01 105 20 102/46 (64) 90 05/01/17 01:00 105 25 110/42 (64) 91 05/01/17 00:03 95 Room Air 05/01/17 00:01 107 18 115/61 (79) 95 05/01/17 00:00 37.4 108 17 103/43 (63) 94 102/40 (60) 04/30/17 23:02 105 21 117/52 (73) 04/30/17 23:00 105 25 126/41 (69) 98 04/30/17 22:01 97 17 127/60 (82) 95 123/40 (67) 04/30/17 22:00 105 19 132/42 (72) 95 04/30/17 21:01 98 21 109/48 (68) 04/30/17 21:00 97 20 127/41 (69) 95 Exam Awake and alert Low grade fever. VSS but slightly tachycardic at present. Right foot warm with palpable DP and excellent PT to doppler. Redness of foot much better There is slight erythema along the tunnel of the graft. Drsg intact without drainage Laboratory and Microbiology Results Past 24 Hours Test 04/30/17 13:09 04/30/17 16:08 05/01/17 05:20 Range/Units White Blood Count 7.36 9.08 4.8-10.8 K/uL Red Blood Count 4.22 3.95 4.2-5.4 M/uL Hemoglobin 12.7 11.5 12.0-16.0 g/dL Hematocrit 36.6 34.5 37-47 % Mean Corpuscular Volume 86.7 87.3 80-100 fL Mean Corpuscular Hemoglobin 30.1 29.1 25-34 pg Mean Corpuscular Hemoglobin Concent 34.7 33.3 32-36 g/dl Platelet Count 143 124 130-400 K/uL Mean Platelet Volume 9.1 9.5 7.4-10.4 fL Neutrophils (%) (Auto) 61.9 61.6 % Lymphocytes (%) (Auto) 20.5 10.2 % Monocytes (%) (Auto) 16.4 27.3 % Eosinophils (%) (Auto) 0.5 0.4 % Basophils (%) (Auto) 0.4 0.2 % Neutrophils # (Auto) 4.55 5.58 1.4-6.5 K/uL Lymphocytes # (Auto) 1.51 0.93 1.2-3.4 K/uL Monocytes # (Auto) 1.21 2.48 0.11-0.59 K/uL Eosinophils # (Auto) 0.04 0.04 0-0.5 K/uL Basophils # (Auto) 0.03 0.02 0-0.2 K/uL RDW Standard Deviation 41.7 41.7 36.4-46.3 fL RDW Coefficient of Variation 13.0 12.8 11.5-14.5 % Immature Granulocyte % (Auto) 0.3 0.3 % Immature Granulocyte # (Auto) 0.02 0.03 0.00-0.02 K/uL Bedside Glucose 142 70-90 mg/dl Sodium Level 137 136-145 mmol/L Potassium Level 3.7 3.5-5.1 mmol/L Chloride Level 106 98-107 mmol/L Carbon Dioxide Level 25 21-32 mmol/L Anion Gap 6.0 3-11 mmol/L Blood Urea Nitrogen 8 7-18 mg/dl Creatinine 0.61 0.60-1.20 mg/dl Est Creatinine Clear Calc Drug Dose 48.7 ml/min Estimated GFR () 96.5 Estimated GFR (Non- 83.2 BUN/Creatinine Ratio 12.7 10-20 Random Glucose 113 70-99 mg/dl Calcium Level 8.1 8.5-10.1 mg/dl Imp: Post op cross fem bypass Plan: Doing well. Will transfer to floor Will keep on antibiotics due to slight erythema of the graft tunnel.
[2017-05-01] MEDS: ALPRAZOLAM 0.5 MG TAB PO SCH ×4 (09:20→20:20)
[2017-05-01] MEDS: CEFAZOLIN IV 1,000 MG in DEXTROSE 5% 50ML 50 ML IV SCH ×2 (09:20→16:40)
[2017-05-01] MEDS: POLYETHYLENE (MIRALAX) 17 GM PACK PO SCH (09:22)
[2017-05-01] MEDS: HEPARIN SOD 5000 UNIT/0.5 ML CARP SQ SCH ×2 (09:23→20:17)
--- NOTE | 2017-05-01 09:25 | Critical Care Progress Note ---
Critical Care Progress Note Date of Service May 01, 2017. ICU Day ICU Day Number: 2 Attending Subjective She is calm and doing ok. No cardiopulmonary concerns. Some pain from the procedure but as expected. Perfusion is much better. I spoke with surgeon who is planning to move out of the ICU today. I find no critical care target today. Current SOFA Score SOFA Score Response (Comments) Value PaO2/FiO2 (mmHg) < 400 1 SaO2 / FIO2 221 - 301 1 Platelets (x10) > 150 0 Bilirubin (mg/dL) < 1.2 0 [place] Coma Score 15 0 Level of Hypotension No Hypotension 0 Creatinine (mg/dL) < 1.2 0 Total 2 Assessment & Plan Vascular surgery-- 1. Cardio--rate and volume ok. No additions or changes. 2. Pulmonary--toilette and track 3. GI--OBR 4. Neuro--complex med routine. No changes recommended at this time. Consults & Procedures Consultants: none Procedures: none Data Medications: Current Inpatient Medications Medications (Trade) Dose Ordered Sig/Jacinta Route Start Time Stop Time Status Last Admin Dose Admin Morphine Sulfate (MoRPHine SULFATE INJ) If PO analgesic is orde... Q2H PRN IV 04/30/17 10:45 05/14/17 10:44 04/30/17 17:29 2 MG Ondansetron HCl (Zofran Inj) 4 mg Q6H PRN IV 04/30/17 10:45 05/30/17 10:44 Heparin Sodium (Porcine) (Heparin Sq 5000 Unit/0.5ml) 5,000 unit Q12 SQ 04/30/17 21:00 05/30/17 20:59 04/30/17 21:12 5,000 UNIT Acetaminophen (Tylenol Tab) 650 mg Q6H PRN PO 04/30/17 10:45 05/30/17 10:44 05/01/17 07:38 650 MG Alprazolam (Xanax Tab) 0.5 mg TID PO 04/30/17 14:00 05/30/17 13:59 04/30/17 21:08 0.5 MG Amlodipine Besylate (Norvasc Tab) 5 mg QPM PO 04/30/17 21:00 05/30/17 20:59 04/30/17 21:05 5 MG Gabapentin (Neurontin Cap) 400 mg 6XDQ3H PO 04/30/17 13:00 05/30/17 12:59 05/01/17 06:32 400 MG Levothyroxine Sodium (Synthroid Tab) 50 mcg DAILYBB PO 05/01/17 06:00 05/31/17 05:59 05/01/17 05:37 50 MCG Oxycodone HCl (Roxicodone Immediate Rel Tab) 5 mg Q12 PRN PO 04/30/17 10:45 05/14/17 10:44 05/01/17 02:13 5 MG Oxycodone HCl (Oxycontin Tab) 15 mg Q8 PO 04/30/17 14:00 05/14/17 13:59 05/01/17 05:37 15 MG Polyethylene (Miralax Powder Packet) 17 gm QAM PO 05/01/17 09:00 05/31/17 08:59 Pravastatin Sodium (Pravachol Tab) 10 mg QPM PO 04/30/17 21:00 05/30/17 20:59 04/30/17 21:05 10 MG Ranitidine HCl (zANTac TAB) 150 mg DAILY PRN PO 04/30/17 10:45 05/30/17 10:44 Sertraline HCl (Zoloft Tab) 50 mg HS PO 04/30/17 21:00 05/30/17 20:59 04/30/17 21:05 50 MG Cefazolin Sodium 1000 mg/Dextrose 55 ml @ 100 mls/hr Q8H IV 05/01/17 09:00 05/11/17 08:59 Vital Signs: Date Time Temp Pulse Resp B/P (MAP) Pulse Ox O2 Delivery O2 Flow Rate FiO2 05/01/17 09:04 37.2 90 22 100/50 (67) 93 05/01/17 07:46 94 Room Air 05/01/17 07:46 37.7 112 20 122/59 (80) 94 122/52 (75) 05/01/17 06:01 103 20 111/53 (72) 05/01/17 06:00 101 21 115/45 (68) 93 05/01/17 05:01 81 18 108/56 (73) 93 121/42 (68) 05/01/17 05:00 100 22 111/39 (63) 93 05/01/17 04:02 95 Room Air 05/01/17 04:00 100 18 110/42 (64) 95 119/43 (68) 05/01/17 03:01 100 18 107/48 (67) 92 05/01/17 03:00 103 20 119/40 (66) 92 05/01/17 02:00 105 18 129/48 (75) 96 136/48 (77) 05/01/17 01:01 105 20 102/46 (64) 90 05/01/17 01:00 105 25 110/42 (64) 91 05/01/17 00:03 95 Room Air 05/01/17 00:01 107 18 115/61 (79) 95 05/01/17 00:00 37.4 108 17 103/43 (63) 94 102/40 (60) 04/30/17 23:02 105 21 117/52 (73) 04/30/17 23:00 105 25 126/41 (69) 98 04/30/17 22:01 97 17 127/60 (82) 95 123/40 (67) 04/30/17 22:00 105 19 132/42 (72) 95 04/30/17 21:01 98 21 109/48 (68) 04/30/17 21:00 97 20 127/41 (69) 95 04/30/17 20:01 105 25 119/51 (73) 89 119/41 (67) 04/30/17 20:00 95 Room Air 04/30/17 20:00 37.7 99 20 129/42 (71) 95 04/30/17 19:01 92 18 115/62 (79) 96 04/30/17 19:00 83 19 121/43 (69) 100 04/30/17 18:01 105 21 131/69 (103) 96 133/58 04/30/17 18:00 98 22 (83) 97 123/58 04/30/17 18:00 37.4 70 20 131/69 (89) 96 Room Air 134/58 (83) 04/30/17 17:01 83 20 122/64 (100) 96 136/55 04/30/17 17:00 88 19 (79) 96 123/56 04/30/17 16:30 82 25 (70) 90 113/48 04/30/17 16:01 76 14 111/60 (82) 133/56 04/30/17 16:00 Room Air 04/30/17 16:00 73 17 (84) 94 136/57 04/30/17 16:00 37.2 70 20 123/49 (73) 96 Room Air 116/46 (69) 04/30/17 15:32 76 23 129/60 (74) 92 121/47 04/30/17 15:30 70 16 (71) 113/45 04/30/17 15:02 74 17 123/49 (95) 98 135/56 04/30/17 15:00 72 28 (74) 95 128/47 04/30/17 14:31 69 26 119/52 (73) 137/47 04/30/17 14:30 71 20 (75) 98 134/46 04/30/17 14:01 70 20 118/55 (81) 96 137/49 04/30/17 14:00 36.6 70 20 118/55 (76) 96 Room Air 145/53 (83) 04/30/17 13:55 66 21 (76) 94 130/48 04/30/17 13:40 36.7 67 20 (76) 95 128/48 04/30/17 13:31 60 15 107/55 (74) 130/45 04/30/17 13:25 66 20 (83) 98 143/52 04/30/17 13:16 36.6 71 15 133/64 (83) 156/57 04/30/17 13:10 79 12 (90) 99 148/58 04/30/17 13:01 70 13 140/61 (97) 97 147/53 04/30/17 12:55 66 15 (92) 98 160/56 04/30/17 12:46 64 21 122/55 (76) 89 159/51 04/30/17 12:41 126/54 (86) 04/30/17 12:40 Room Air 04/30/17 12:40 36.5 62 20 112/79 (90) 100 Nasal Cannula 2.0 162/46 (84) 04/30/17 12:11 36.7 69 20 122/51 100 Nasal Cannula 2 04/30/17 12:08 60 12 100 04/30/17 12:08 60 12 100 04/30/17 12:08 59 12 04/30/17 12:08 59 12 7/14/17 12:06 114/61 7/14/17 12:06 114/61 7/14/17 12:03 66 23 7/14/17 12:03 67 23 99 7/14/17 12:03 66 23 7/14/17 12:03 67 23 99 7/14/17 12:01 112/53 7/14/17 12:01 112/53 7/14/17 11:58 63 14 7/14/17 11:58 62 14 100 7/14/17 11:58 62 14 100 7/14/17 11:58 63 14 7/14/17 11:56 118/53 7/14/17 11:56 118/53 7/14/17 11:53 62 13 7/14/17 11:53 61 13 100 7/14/17 11:53 61 13 100 7/14/17 11:53 62 13 7/14/17 11:51 127/58 7/14/17 11:51 127/58 7/14/17 11:48 61 14 100 7/14/17 11:48 61 14 7/14/17 11:48 61 14 7/14/17 11:48 61 14 100 7/14/17 11:46 127/56 7/14/17 11:46 127/56 7/14/17 11:43 63 18 100 7/14/17 11:43 62 18 7/14/17 11:43 62 18 7/14/17 11:43 63 18 100 7/14/17 11:41 125/60 7/14/17 11:41 125/60 7/14/17 11:38 64 14 7/14/17 11:38 64 14 100 7/14/17 11:38 64 14 100 7/14/17 11:38 64 14 7/14/17 11:36 138/63 7/14/17 11:36 138/63 7/14/17 11:33 73 14 7/14/17 11:33 73 14 7/14/17 11:33 72 14 100 7/14/17 11:33 72 14 100 7/14/17 11:31 131/65 7/14/17 11:31 131/65 7/14/17 11:28 80 15 100 7/14/17 11:28 80 15 100 7/14/17 11:28 80 15 7/14/17 11:28 80 15 04/30/17 11:26 137/67 04/30/17 11:26 137/67 04/30/17 11:23 82 25 04/30/17 11:23 83 25 100 04/30/17 11:23 82 25 04/30/17 11:23 83 25 100 04/30/17 11:21 132/62 04/30/17 11:21 132/62 04/30/17 11:19 133/71 04/30/17 11:19 133/71 04/30/17 11:18 36.2 89 14 133/71 100 Mask 10 Laboratory Results: Last 24 Hours Test 04/30/17 13:09 04/30/17 16:08 05/01/17 05:20 White Blood Count 7.36 K/uL 9.08 K/uL Red Blood Count 4.22 M/uL 3.95 M/uL Hemoglobin 12.7 g/dL 11.5 g/dL Hematocrit 36.6 % 34.5 % Mean Corpuscular Volume 86.7 fL 87.3 fL Mean Corpuscular Hemoglobin 30.1 pg 29.1 pg Mean Corpuscular Hemoglobin Concent 34.7 g/dl 33.3 g/dl Platelet Count 143 K/uL 124 K/uL Mean Platelet Volume 9.1 fL 9.5 fL Neutrophils (%) (Auto) 61.9 % 61.6 % Lymphocytes (%) (Auto) 20.5 % 10.2 % Monocytes (%) (Auto) 16.4 % 27.3 % Eosinophils (%) (Auto) 0.5 % 0.4 % Basophils (%) (Auto) 0.4 % 0.2 % Neutrophils # (Auto) 4.55 K/uL 5.58 K/uL Lymphocytes # (Auto) 1.51 K/uL 0.93 K/uL Monocytes # (Auto) 1.21 K/uL 2.48 K/uL Eosinophils # (Auto) 0.04 K/uL 0.04 K/uL Basophils # (Auto) 0.03 K/uL 0.02 K/uL RDW Standard Deviation 41.7 fL 41.7 fL RDW Coefficient of Variation 13.0 % 12.8 % Immature Granulocyte % (Auto) 0.3 % 0.3 % Immature Granulocyte # (Auto) 0.02 K/uL 0.03 K/uL Bedside Glucose 142 mg/dl Sodium Level 137 mmol/L Potassium Level 3.7 mmol/L Chloride Level 106 mmol/L Carbon Dioxide Level 25 mmol/L Anion Gap 6.0 mmol/L Blood Urea Nitrogen 8 mg/dl Creatinine 0.61 mg/dl Est Creatinine Clear Calc Drug Dose 48.7 ml/min Estimated GFR () 96.5 Estimated GFR (Non- 83.2 BUN/Creatinine Ratio 12.7 Random Glucose 113 mg/dl Calcium Level 8.1 mg/dl
--- NOTE | 2017-05-01 11:05 | Orthopedic Consultation ---
Orthopedic Consultation Date of Consultation: May 01, 2017. Attending Physician: Christiano Pritchard M.D. Reason for Consultation: Right hip replacement History of Present Illness Patient's an 82-year-old female. She is admitted to the hospital and had vascular bypass surgery involving her right lower extremity yesterday with Dr. Pritchard. She is a poor historian. She reports soreness in her right hip and thigh area which has been going on for many years. He also notes weakness in her right leg which is also been chronic and is at least been going on since she had revision hip surgery a few years ago. She had a right hip replacement done 20 years ago. She had a revision right hip replacement done several years ago in [place]. Some ill-defined time she has developed weakness in her right leg. She lives with her and gets assistance with her daughter she uses a walker. She denies any change in her hip recently in the past month or so. There is sometimes numbness in her right leg. She denies a history of dislocation or infection. Past Medical/Surgical History Medical Problems: (1) LLQ abdominal pain Status: Acute (2) Stroke Status: Acute Social History Lives with . Smoking Status: Former Smoker Drug Use: none Marital Status: Occupation Status: retired Allergies Coded Allergies: Adhesives (Verified Allergy, Mild, skin irritation, 04/30/17) bandaids Home Medications Scheduled Alprazolam (Xanax), 0.5 MG PO TID Amlodipine (Norvasc), 5 MG PO QPM Clopidogrel (Plavix), 75 MG PO QAM Gabapentin (Neurontin), 400 MG PO six times daily Levothyroxine Sodium (Levothyroxine Sodium), 1 TAB PO QAM Oxycodone Hcl (Oxycontin), 15 MG PO Q8 Polyethylene (Miralax), 1 DOSE PO QAM Potassium (Potassium), 198 MG PO BID Pravastatin Sod (Pravastatin Sodium), 10 MG PO QPM Sertraline (Zoloft), 50 MG PO HS Scheduled PRN Acetaminophen (Acetaminophen), 650 MG PO Q6H PRN for Pain Ondansetron Hcl (Zofran), 4 MG PO Q8 PRN for Nausea Oxycodone HCl (Oxycodone HCl), 5 MG PO Q12 PRN for Pain Ranitidine (Zantac), 1 TAB PO DAILY PRN for Nausea Current Inpatient Medications Current Inpatient Medications Medications (Trade) Dose Ordered Sig/Jacinta Route Start Time Stop Time Status Last Admin Dose Admin Morphine Sulfate (MoRPHine SULFATE INJ) If PO analgesic is orde... Q2H PRN IV 04/30/17 10:45 05/14/17 10:44 04/30/17 17:29 2 MG Ondansetron HCl (Zofran Inj) 4 mg Q6H PRN IV 04/30/17 10:45 05/30/17 10:44 Heparin Sodium (Porcine) (Heparin Sq 5000 Unit/0.5ml) 5,000 unit Q12 SQ 04/30/17 21:00 05/30/17 20:59 05/01/17 09:23 5,000 UNIT Acetaminophen (Tylenol Tab) 650 mg Q6H PRN PO 04/30/17 10:45 05/30/17 10:44 05/01/17 07:38 650 MG Alprazolam (Xanax Tab) 0.5 mg TID PO 04/30/17 14:00 05/30/17 13:59 05/01/17 09:20 0.5 MG Amlodipine Besylate (Norvasc Tab) 5 mg QPM PO 04/30/17 21:00 05/30/17 20:59 04/30/17 21:05 5 MG Gabapentin (Neurontin Cap) 400 mg 6XDQ3H PO 04/30/17 13:00 05/30/17 12:59 05/01/17 09:22 400 MG Levothyroxine Sodium (Synthroid Tab) 50 mcg DAILYBB PO 05/01/17 06:00 05/31/17 05:59 05/01/17 05:37 50 MCG Oxycodone HCl (Roxicodone Immediate Rel Tab) 5 mg Q12 PRN PO 04/30/17 10:45 05/14/17 10:44 05/01/17 02:13 5 MG Oxycodone HCl (Oxycontin Tab) 15 mg Q8 PO 04/30/17 14:00 05/14/17 13:59 05/01/17 05:37 15 MG Polyethylene (Miralax Powder Packet) 17 gm QAM PO 05/01/17 09:00 05/31/17 08:59 05/01/17 09:22 17 GM Pravastatin Sodium (Pravachol Tab) 10 mg QPM PO 04/30/17 21:00 05/30/17 20:59 04/30/17 21:05 10 MG Ranitidine HCl (zANTac TAB) 150 mg DAILY PRN PO 04/30/17 10:45 05/30/17 10:44 Sertraline HCl (Zoloft Tab) 50 mg HS PO 04/30/17 21:00 05/30/17 20:59 04/30/17 21:05 50 MG Cefazolin Sodium 1000 mg/Dextrose 55 ml @ 100 mls/hr Q8H IV 05/01/17 09:00 05/11/17 08:59 05/01/17 09:20 100 MLS/HR Physical Exam Date Time Temp Pulse Resp B/P (MAP) Pulse Ox O2 Delivery O2 Flow Rate FiO2 05/01/17 10:00 37.2 93 17 104/53 (70) 97 05/01/17 09:04 37.2 90 22 100/50 (67) 93 05/01/17 07:46 94 Room Air 05/01/17 07:46 37.7 112 20 122/59 (80) 94 122/52 (75) 05/01/17 06:01 103 20 111/53 (72) 05/01/17 06:00 101 21 115/45 (68) 93 05/01/17 05:01 81 18 108/56 (73) 93 121/42 (68) 05/01/17 05:00 100 22 111/39 (63) 93 05/01/17 04:02 95 Room Air 05/01/17 04:00 100 18 110/42 (64) 95 119/43 (68) 05/01/17 03:01 100 18 107/48 (67) 92 05/01/17 03:00 103 20 119/40 (66) 92 05/01/17 02:00 105 18 129/48 (75) 96 136/48 (77) 05/01/17 01:01 105 20 102/46 (64) 90 05/01/17 01:00 105 25 110/42 (64) 91 05/01/17 00:03 95 Room Air 05/01/17 00:01 107 18 115/61 (79) 95 05/01/17 00:00 37.4 108 17 103/43 (63) 94 102/40 (60) 04/30/17 23:02 105 21 117/52 (73) 04/30/17 23:00 105 25 126/41 (69) 98 04/30/17 22:01 97 17 127/60 (82) 95 123/40 (67) 04/30/17 22:00 105 19 132/42 (72) 95 04/30/17 21:01 98 21 109/48 (68) 04/30/17 21:00 97 20 127/41 (69) 95 04/30/17 20:01 105 25 119/51 (73) 89 119/41 (67) 04/30/17 20:00 95 Room Air 04/30/17 20:00 37.7 99 20 129/42 (71) 95 04/30/17 19:01 92 18 115/62 (79) 96 04/30/17 19:00 83 19 121/43 (69) 100 04/30/17 18:01 105 21 131/69 (103) 96 133/58 04/30/17 18:00 98 22 (83) 97 123/58 04/30/17 18:00 37.4 70 20 131/69 (89) 96 Room Air 134/58 (83) 04/30/17 17:01 83 20 122/64 (100) 96 136/55 04/30/17 17:00 88 19 (79) 96 123/56 04/30/17 16:30 82 25 (70) 90 113/48 04/30/17 16:01 76 14 111/60 (82) 133/56 04/30/17 16:00 Room Air 04/30/17 16:00 73 17 (84) 94 136/57 04/30/17 16:00 37.2 70 20 123/49 (73) 96 Room Air 116/46 (69) 04/30/17 15:32 76 23 129/60 (74) 92 121/47 04/30/17 15:30 70 16 (71) 113/45 04/30/17 15:02 74 17 123/49 (95) 98 135/56 04/30/17 15:00 72 28 (74) 95 128/47 04/30/17 14:31 69 26 119/52 (73) 137/47 04/30/17 14:30 71 20 (75) 98 134/46 04/30/17 14:01 70 20 118/55 (81) 96 137/49 04/30/17 14:00 36.6 70 20 118/55 (76) 96 Room Air 145/53 (83) 04/30/17 13:55 66 21 (76) 94 130/48 17 13:40 36.7 67 20 (76) 95 128/48 17 13:31 60 15 107/55 (74) 130/45 14/17 13:25 66 20 (83) 98 143/52 14/17 13:16 36.6 71 15 133/64 (83) 156/57 1417 13:10 79 12 (90) 99 148/58 04/30/17 13:01 70 13 140/61 (97) 97 147/53 04/30/17 12:55 66 15 (92) 98 160/56 04/30/17 12:46 64 21 122/55 (76) 89 159/51 04/30/17 12:41 126/54 (86) 04/30/17 12:40 Room Air 04/30/17 12:40 36.5 62 20 112/79 (90) 100 Nasal Cannula 2.0 162/46 (84) 04/30/17 12:11 36.7 69 20 122/51 100 Nasal Cannula 2 04/30/17 12:08 60 12 100 04/30/17 12:08 60 12 100 04/30/17 12:08 59 12 04/30/17 12:08 59 12 04/30/17 12:06 114/61 04/30/17 12:06 114/61 04/30/17 12:03 66 23 04/30/17 12:03 67 23 99 04/30/17 12:03 66 23 04/30/17 12:03 67 23 99 04/30/17 12:01 112/53 04/30/17 12:01 112/53 04/30/17 11:58 63 14 04/30/17 11:58 62 14 100 04/30/17 11:58 62 14 100 04/30/17 11:58 63 14 04/30/17 11:56 118/53 04/30/17 11:56 118/53 04/30/17 11:53 62 13 04/30/17 11:53 61 13 100 04/30/17 11:53 61 13 100 04/30/17 11:53 62 13 04/30/17 11:51 127/58 04/30/17 11:51 127/58 04/30/17 11:48 61 14 100 04/30/17 11:48 61 14 04/30/17 11:48 61 14 04/30/17 11:48 61 14 100 04/30/17 11:46 127/56 04/30/17 11:46 127/56 04/30/17 11:43 63 18 100 04/30/17 11:43 62 18 04/30/17 11:43 62 18 04/30/17 11:43 63 18 100 04/30/17 11:41 125/60 04/30/17 11:41 125/60 04/30/17 11:38 64 14 04/30/17 11:38 64 14 100 04/30/17 11:38 64 14 100 04/30/17 11:38 64 14 04/30/17 11:36 138/63 04/30/17 11:36 138/63 04/30/17 11:33 73 14 04/30/17 11:33 73 14 04/30/17 11:33 72 14 100 04/30/17 11:33 72 14 100 04/30/17 11:31 131/65 04/30/17 11:31 131/65 04/30/17 11:28 80 15 100 04/30/17 11:28 80 15 100 04/30/17 11:28 80 15 04/30/17 11:28 80 15 04/30/17 11:26 137/67 04/30/17 11:26 137/67 04/30/17 11:23 82 25 04/30/17 11:23 83 25 100 04/30/17 11:23 82 25 04/30/17 11:23 83 25 100 04/30/17 11:21 132/62 04/30/17 11:21 132/62 04/30/17 11:19 133/71 04/30/17 11:19 133/71 04/30/17 11:18 36.2 89 14 133/71 100 Mask 10 She is sitting in a bedside chair. She requires maximum assist of 2 persons to transfer bed to chair and bed to toilet. Dr. Macho BENJAMIN K of 4 examination of the right leg. She has some erythema of her right foot. She has grossly intact sensation. 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 Pedal pulses are not palpable. She has perhaps 3 out of 5 plantar flexion strength of the right leg. She has 0 out of 5 dorsiflexion strength and her right ankle is stiff. She does not wiggle her toes. She may have 2 out of 5 strength on knee flexion and has 0 or 1 out of 5 strength on knee extension. She can flex her hip slightly against gravity perhaps 3 out of 5. Equinus with hip extension. Hip adduction and abduction are each no more than 3 out of 5. She has a history knee flexion contracture. Her hip can be flexed to about 80. There is no crepitation. She I can internally and externally rotate her hip without difficulty. There is no evidence of instability. Her hip is not tender or warm or red. She does have complaint of discomfort in her right thigh area. Her knee bends to about 90. She is missing perhaps 10-20 of terminal hyperextension. She cannot do a leg raise. She cannot lift her foot off the bed. Laboratory Results Radiographs of the right hip done April 23 show a press-fit total hip arthroplasty without evidence of complication there is no fracture dislocation or obvious loosening or abnormal wear present. Last 24 Hours Test 04/30/17 13:09 04/30/17 16:08 05/01/17 05:20 White Blood Count 7.36 K/uL 9.08 K/uL Red Blood Count 4.22 M/uL 3.95 M/uL Hemoglobin 12.7 g/dL 11.5 g/dL Hematocrit 36.6 % 34.5 % Mean Corpuscular Volume 86.7 fL 87.3 fL Mean Corpuscular Hemoglobin 30.1 pg 29.1 pg Mean Corpuscular Hemoglobin Concent 34.7 g/dl 33.3 g/dl Platelet Count 143 K/uL 124 K/uL Mean Platelet Volume 9.1 fL 9.5 fL Neutrophils (%) (Auto) 61.9 % 61.6 % Lymphocytes (%) (Auto) 20.5 % 10.2 % Monocytes (%) (Auto) 16.4 % 27.3 % Eosinophils (%) (Auto) 0.5 % 0.4 % Basophils (%) (Auto) 0.4 % 0.2 % Neutrophils # (Auto) 4.55 K/uL 5.58 K/uL Lymphocytes # (Auto) 1.51 K/uL 0.93 K/uL Monocytes # (Auto) 1.21 K/uL 2.48 K/uL Eosinophils # (Auto) 0.04 K/uL 0.04 K/uL Basophils # (Auto) 0.03 K/uL 0.02 K/uL RDW Standard Deviation 41.7 fL 41.7 fL RDW Coefficient of Variation 13.0 % 12.8 % Immature Granulocyte % (Auto) 0.3 % 0.3 % Immature Granulocyte # (Auto) 0.02 K/uL 0.03 K/uL Bedside Glucose 142 mg/dl Sodium Level 137 mmol/L Potassium Level 3.7 mmol/L Chloride Level 106 mmol/L Carbon Dioxide Level 25 mmol/L Anion Gap 6.0 mmol/L Blood Urea Nitrogen 8 mg/dl Creatinine 0.61 mg/dl Est Creatinine Clear Calc Drug Dose 48.7 ml/min Estimated GFR () 96.5 Estimated GFR (Non- 83.2 BUN/Creatinine Ratio 12.7 Random Glucose 113 mg/dl Calcium Level 8.1 mg/dl Assessment & Plan Status post revision right total hip replacement Chronic right lower extremity weakness Chronic right leg pain Plan The patient has chronic discomfort in her right revision total hip. I don't see anything acute going on in terms of infection or instability. She is a fairly poor historian. He may have some underlying baseline confusion or dementia. Review of her records reveals that at some point in the last year she was admitted to [facility] and transferred to [place] with a stroke. Her right lower extremity weakness is chronic and could be due to a stroke or could be due to neurological insult related to her prior hip surgeries. I do not think anything needs to be done acutely. She can weight-bear as tolerated on her right leg although I think that she is at a very high risk for falling because of her profound right lower extremity weakness. Neurological consultation could be considered but given the chronic of findings this may not be necessary at this time. Further information could be gathered from the family and that might be helpful. I think that she would benefit from acute inpatient rehabilitation or custodial facility to facilitate her recovery. She may not be suitable for independent living. She can weight-bear as tolerated on her right leg. She might be able to pivot transfer with a walker. Bed to Chair mobility might be all that is possible at this time. She can follow up with my office or her operating surgeon as needed after her discharge.
[2017-05-01 17:30] LABS: HEMATOCRIT 41.4 % (37-47)
--- NOTE | 2017-05-01 18:03 | Medical Consult ---
Consultation Date of Consultation: May 01, 2017. Attending Physician: Christiano Pritchard M.D. History of Present Illness 82 y/o F Hx Chronic RLE pain due to PVD and ischemia. Pain had been intractable for a 2 month period and she was therefore scheduled for a cross- fem bypass. This was completed successfully 05/01. We are evaluating this pt for post-operative medical management. She denies excessive pain at the time of evaluation although she has had occasional significant pain - denies SOB, CP, nausea, vomiting, light- headedness. She had a max temp of 37.7 early AM. Per nursing she has been tachycardic since arriving from the unit with a HR of 100-120. The pt was sitting up and eating avidly as I entered the room. Past Medical/Surgical History 1) PVD - previous iliac, femoral atherectomy 2) CVA 3) Hypothyroid 4) Constipation 5) PVD 6) HTN Family History Could not provide details Social History Smoking Status: Former Smoker Drug Use: none Marital Status: Occupation Status: retired Allergies Coded Allergies: Adhesives (Verified Allergy, Mild, skin irritation, 04/30/17) bandaids Current Inpatient Medications Current Inpatient Medications Medications (Trade) Dose Ordered Sig/Jacinta Route Start Time Stop Time Status Last Admin Dose Admin Morphine Sulfate (MoRPHine SULFATE INJ) If PO analgesic is orde... Q2H PRN IV 04/30/17 10:45 05/14/17 10:44 04/30/17 17:29 2 MG Ondansetron HCl (Zofran Inj) 4 mg Q6H PRN IV 04/30/17 10:45 05/30/17 10:44 Heparin Sodium (Porcine) (Heparin Sq 5000 Unit/0.5ml) 5,000 unit Q12 SQ 04/30/17 21:00 05/30/17 20:59 05/01/17 09:23 5,000 UNIT Acetaminophen (Tylenol Tab) 650 mg Q6H PRN PO 04/30/17 10:45 05/30/17 10:44 05/01/17 07:38 650 MG Alprazolam (Xanax Tab) 0.5 mg TID PO 04/30/17 14:00 05/30/17 13:59 05/01/17 17:04 0.5 MG Amlodipine Besylate (Norvasc Tab) 5 mg QPM PO 04/30/17 21:00 05/30/17 20:59 04/30/17 21:05 5 MG Gabapentin (Neurontin Cap) 400 mg 6XDQ3H PO 04/30/17 13:00 05/30/17 12:59 05/01/17 16:00 400 MG Levothyroxine Sodium (Synthroid Tab) 50 mcg DAILYBB PO 05/01/17 06:00 05/31/17 05:59 05/01/17 05:37 50 MCG Oxycodone HCl (Roxicodone Immediate Rel Tab) 5 mg Q12 PRN PO 04/30/17 10:45 05/14/17 10:44 05/01/17 02:13 5 MG Oxycodone HCl (Oxycontin Tab) 15 mg Q8 PO 04/30/17 14:00 05/14/17 13:59 05/01/17 16:14 15 MG Polyethylene (Miralax Powder Packet) 17 gm QAM PO 05/01/17 09:00 05/31/17 08:59 05/01/17 09:22 17 GM Pravastatin Sodium (Pravachol Tab) 10 mg QPM PO 04/30/17 21:00 05/30/17 20:59 04/30/17 21:05 10 MG Ranitidine HCl (zANTac TAB) 150 mg DAILY PRN PO 04/30/17 10:45 05/30/17 10:44 Sertraline HCl (Zoloft Tab) 50 mg HS PO 04/30/17 21:00 05/30/17 20:59 04/30/17 21:05 50 MG Cefazolin Sodium 1000 mg/Dextrose 55 ml @ 100 mls/hr Q8H IV 05/01/17 09:00 05/11/17 08:59 05/01/17 16:40 100 MLS/HR Review of Systems Constitutional: No fever, No chills, No sweats Eyes: No worsening of vision, No eye pain ENT: No hearing loss, No nasal symptoms Respiratory: No cough, No sputum, No wheezing Cardiovascular: No chest pain, No orthopnea, No PND Abdomen: + pain (At entry site for surgery), No vomiting Musculoskeletal: No joint pain Genitourinary - Female: No dysuria, No urinary frequency, No urinary urgency Neurologic: + weakness, No memory loss, No paralysis Psychiatric: No depression symptoms Endocrine: No fatigue Hematologic / Lymphatic: No abnormal bleeding/bruising Integumentary: + rash (Reports erythema and bruising along LLE ) Allergic / Immunologic: No environmental allergies Physical Exam Date Time Temp Pulse Resp B/P (MAP) Pulse Ox O2 Delivery O2 Flow Rate FiO2 05/01/17 15:31 37.0 107 16 102/63 (76) 95 Room Air 05/01/17 12:00 Room Air 05/01/17 11:00 36.6 82 20 113/64 (80) 99 Room Air 05/01/17 10:00 37.2 93 17 104/53 (70) 97 05/01/17 09:04 37.2 90 22 100/50 (67) 93 05/01/17 07:46 94 Room Air 05/01/17 07:46 37.7 112 20 122/59 (80) 94 122/52 (75) 05/01/17 06:01 103 20 111/53 (72) 05/01/17 06:00 101 21 115/45 (68) 93 05/01/17 05:01 81 18 108/56 (73) 93 121/42 (68) 05/01/17 05:00 100 22 111/39 (63) 93 05/01/17 04:02 95 Room Air 05/01/17 04:00 100 18 110/42 (64) 95 119/43 (68) 05/01/17 03:01 100 18 107/48 (67) 92 05/01/17 03:00 103 20 119/40 (66) 92 05/01/17 02:00 105 18 129/48 (75) 96 136/48 (77) 05/01/17 01:01 105 20 102/46 (64) 90 05/01/17 01:00 105 25 110/42 (64) 91 05/01/17 00:03 95 Room Air 05/01/17 00:01 107 18 115/61 (79) 95 05/01/17 00:00 37.4 108 17 103/43 (63) 94 102/40 (60) 04/30/17 23:02 105 21 117/52 (73) 04/30/17 23:00 105 25 126/41 (69) 98 04/30/17 22:01 97 17 127/60 (82) 95 123/40 (67) 04/30/17 22:00 105 19 132/42 (72) 95 04/30/17 21:01 98 21 109/48 (68) 04/30/17 21:00 97 20 127/41 (69) 95 04/30/17 20:01 105 25 119/51 (73) 89 119/41 (67) 04/30/17 20:00 95 Room Air 04/30/17 20:00 37.7 99 20 129/42 (71) 95 04/30/17 19:01 92 18 115/62 (79) 96 04/30/17 19:00 83 19 121/43 (69) 100 04/30/17 18:01 105 21 131/69 (103) 96 133/58 04/30/17 18:00 98 22 (83) 97 123/58 04/30/17 18:00 37.4 70 20 131/69 (89) 96 Room Air 134/58 (83) General Appearance: WD/WN, no apparent distress Head: normocephalic Eyes: normal inspection, EOMI ENT: normal ENT inspection, hearing grossly normal, TMs normal Neck: supple, thyroid normal Respiratory/Chest: chest non-tender, lungs clear, normal breath sounds Cardiovascular: regular rate, rhythm, no edema, no gallop, no JVD, no murmur, normal peripheral pulses Abdomen/GI: normal bowel sounds, soft, + pertinent finding (There is tenderness at the surgical site) Back: normal inspection, no CVA tenderness, no muscle spasm, normal range of motion Extremities/Musculoskelatal: + pertinent finding (Erythema of RLE - dependent hematoma - skin is taught and warm - distal extrem is erythematous but apparently has improved and there is a good dorsal pulse - the 5th toe is necrotic which is again chronic - LLE shows no abnormalities) 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, no motor/sensory deficits, alert, normal mood/affect, normal reflexes, oriented x 3 Skin: normal color, warm/dry, no rash Laboratory Results Last 24 Hours Test 05/01/17 05:20 05/01/17 17:14 White Blood Count 9.08 K/uL Red Blood Count 3.95 M/uL Hemoglobin 11.5 g/dL 13.8 g/dL Hematocrit 34.5 % 41.4 % Mean Corpuscular Volume 87.3 fL Mean Corpuscular Hemoglobin 29.1 pg Mean Corpuscular Hemoglobin Concent 33.3 g/dl Platelet Count 124 K/uL Mean Platelet Volume 9.5 fL Neutrophils (%) (Auto) 61.6 % Lymphocytes (%) (Auto) 10.2 % Monocytes (%) (Auto) 27.3 % Eosinophils (%) (Auto) 0.4 % Basophils (%) (Auto) 0.2 % Neutrophils # (Auto) 5.58 K/uL Lymphocytes # (Auto) 0.93 K/uL Monocytes # (Auto) 2.48 K/uL Eosinophils # (Auto) 0.04 K/uL Basophils # (Auto) 0.02 K/uL RDW Standard Deviation 41.7 fL RDW Coefficient of Variation 12.8 % Immature Granulocyte % (Auto) 0.3 % Immature Granulocyte # (Auto) 0.03 K/uL Sodium Level 137 mmol/L Potassium Level 3.7 mmol/L Chloride Level 106 mmol/L Carbon Dioxide Level 25 mmol/L Anion Gap 6.0 mmol/L Blood Urea Nitrogen 8 mg/dl Creatinine 0.61 mg/dl Est Creatinine Clear Calc Drug Dose 48.7 ml/min Estimated GFR () 96.5 Estimated GFR (Non- 83.2 BUN/Creatinine Ratio 12.7 Random Glucose 113 mg/dl Calcium Level 8.1 mg/dl Assessment & Plan 82 y/o F Hx Chronic RLE pain due to PVD and ischemia. Pain had been intractable for a 2 month period and she was therefore scheduled for a cross- fem bypass. This was completed successfully 05/01. We are evaluating this pt for post-operative medical management. She denies excessive pain at the time of evaluation although she has had occasional significant pain - denies SOB, CP, nausea, vomiting, light- headedness. She had a max temp of 37.7 early AM. Per nursing she has been tachycardic since arriving from the unit with a HR of 100-120. 1) Post-op - pain control is adequate and there are no significant lab abnormalities post-op - should commence PT/OT - chemical DVT prophylaxis provided. restart Plavix and Statin therapy when possible. Leg is warm and taught with dependent hematoma which is likely expected - she is receiving antibiotics, however, she has had a temp this AM and we will touch base with vascular surgery to discuss clinical findings. Consider expanding coverage. 2) HTN - Cont Norvasc 3) Hypothyroid - cont Synthroid 4) Tachycardia - baseline is not clear - she has not had significant blood loss per labs and stated that her pain was controlled during exam - she has not had a significant temp since early AM. Will monitor and repeat her Hb as read went from 11.5 to 13.8 without transfusion so that we would assume one of the values is spurious. We can transfuse if needed. Total time for this consult including review of labs, meds, surgical and ICU notes - discussion with pt - 33 min - med to follow daily pending DC
[2017-05-01] MEDS ORDERED: NSS + 20MEQ KCL 1000ML 1,000 ML IV SCH (19:00)
[2017-05-01 19:36] LABS: HEMATOCRIT 34.8 % (37-47); MEAN CELL VOLUME 88.3 fL (80-100); MEAN CORPUSCULAR HEMOGLOBIN 29.7 pg (25-34); MEAN CORPUSCULAR HGB CONC 33.6 g/dl (32-36); MEAN PLATELET VOLUME 10.4 fL (7.4-10.4); PLATELET COUNT 114 K/uL (130-400); RED BLOOD COUNT 3.94 M/uL (4.2-5.4); WHITE BLOOD COUNT 9.23 K/uL (4.8-10.8)
[2017-05-01] MEDS: PRAVASTATIN SOD 10 MG TAB PO SCH (20:16)
[2017-05-01] MEDS: SERTRALINE HCL 50 MG TAB PO SCH (20:16)
[2017-05-01] MEDS: AMLODIPINE BESYLATE 5 MG TAB PO SCH (20:20)
[2017-05-02] MEDS: CEFAZOLIN IV 1,000 MG in DEXTROSE 5% 50ML 50 ML IV SCH ×4 (00:37→23:59)
[2017-05-02 04:20] VITALS: BP 93/53; PULSE 93; TEMP 37.1; O2SAT 93
[2017-05-02] MEDS: LEVOTHYROXINE 50 MCG TAB PO SCH (06:30)
[2017-05-02] MEDS: OXYCODONE HCL 15 MG TABCR (OXYCONTIN) PO SCH ×3 (06:30→22:16)
[2017-05-02 07:52] VITALS: BP 104/57; PULSE 85; TEMP 36.9; O2SAT 95
[2017-05-02] MEDS: GABAPENTIN 400 MG CAP PO SCH ×6 (08:09→22:16)
[2017-05-02] MEDS: POLYETHYLENE (MIRALAX) 17 GM PACK PO SCH ×2 (08:09→21:05)
[2017-05-02] MEDS: ALPRAZOLAM 0.5 MG TAB PO SCH ×3 (08:12→21:06)
[2017-05-02] MEDS: HEPARIN SOD 5000 UNIT/0.5 ML CARP SQ SCH ×2 (09:07→21:11)
[2017-05-02 11:04] VITALS: BP 92/52; PULSE 91; TEMP 36.9; O2SAT 94
--- NOTE | 2017-05-02 11:05 | Progress Note ---
Progress Note Date of Service: May 02, 2017. Subjective Slightly confused today. No other complaints. Says foot is better. Problem List Medical Problems: (1) LLQ abdominal pain Status: Acute (2) Stroke Status: Acute Objective Vital Signs Vital Signs Past 12 Hours Date Time Temp Pulse Resp B/P (MAP) Pulse Ox O2 Delivery O2 Flow Rate FiO2 05/02/17 08:00 Room Air 05/02/17 07:52 36.9 85 18 104/57 (73) 95 Room Air 05/02/17 04:20 37.1 93 16 93/53 (66) 93 Room Air 05/02/17 04:20 Room Air 05/02/17 00:00 Room Air 05/01/17 23:15 36.4 101 16 109/70 (83) 93 Room Air Exam Awake and alert. VSS Incisions dry and clean. Good distal flow. No changes in groin or lower abdominal exam. Laboratory and Microbiology Results Past 24 Hours Test 05/01/17 17:14 05/01/17 19:08 Range/Units Hemoglobin 13.8 11.7 12.0-16.0 g/dL Hematocrit 41.4 34.8 37-47 % White Blood Count 9.23 4.8-10.8 K/uL Red Blood Count 3.94 4.2-5.4 M/uL Mean Corpuscular Volume 88.3 80-100 fL Mean Corpuscular Hemoglobin 29.7 25-34 pg Mean Corpuscular Hemoglobin Concent 33.6 32-36 g/dl RDW Standard Deviation 41.7 36.4-46.3 fL RDW Coefficient of Variation 12.9 11.5-14.5 % Platelet Count 114 130-400 K/uL Mean Platelet Volume 10.4 7.4-10.4 fL Microbiology Results 05/01/17 Blood Culture, Received Pending 05/01/17 Blood Culture, Received Pending Imp: Post cross fem bypass Plan: Doing well. Will continue with PT/OT. Will try for rehab Lower abdominal and groin swelling most likely secondary to the tunneling. No evidence of infection.
[2017-05-02] MEDS ORDERED: BISACODYL 10 MG SUPP PR STA (11:09)
[2017-05-02] MEDS ORDERED: BISACODYL 10 MG SUPP PR PRN (11:15)
[2017-05-02] MEDS ORDERED: LACTULOSE SYRUP 20 GM/30 ML UDC PO STA (12:15)
--- NOTE | 2017-05-02 15:09 | Progress Note ---
Subjective Date of Service: May 02, 2017. Subjective Pt evaluation today including: conversation w/ patient, conversation w/ family , physical exam, review of inpatient medication list Pain: right foot pain, moderate PO Intake: adequate, drinking a lot Voiding: no voiding problems patient c/o right foot pain, unchanged since yesterday also, c/o constipation miralax and lactulose earlier, no response, discussed using suppository but she wants to hold off participating in therapy currently denies chest pain or dyspnea Problem List Medical Problems: (1) LLQ abdominal pain Status: Acute (2) Stroke Status: Acute Review of Systems Cardiac: + problem reported (painful and red right foot) Abdomen: + constipation Musculoskeletal: + joint pain (right foot) All Other Systems: Reviewed and Negative Medications Current Inpatient Medications Medications (Trade) Dose Ordered Sig/Jacinta Route Start Time Stop Time Status Last Admin Dose Admin Morphine Sulfate (MoRPHine SULFATE INJ) If PO analgesic is orde... Q2H PRN IV 04/30/17 10:45 05/14/17 10:44 04/30/17 17:29 2 MG Ondansetron HCl (Zofran Inj) 4 mg Q6H PRN IV 04/30/17 10:45 05/30/17 10:44 Heparin Sodium (Porcine) (Heparin Sq 5000 Unit/0.5ml) 5,000 unit Q12 SQ 04/30/17 21:00 05/30/17 20:59 05/02/17 09:07 5,000 UNIT Acetaminophen (Tylenol Tab) 650 mg Q6H PRN PO 04/30/17 10:45 05/30/17 10:44 05/01/17 07:38 650 MG Alprazolam (Xanax Tab) 0.5 mg TID PO 04/30/17 14:00 05/30/17 13:59 05/02/17 13:02 0.5 MG Amlodipine Besylate (Norvasc Tab) 5 mg QPM PO 04/30/17 21:00 05/30/17 20:59 04/30/17 21:05 5 MG Gabapentin (Neurontin Cap) 400 mg [id number] PO 04/30/17 13:00 05/30/17 12:59 05/02/17 12:52 400 MG Levothyroxine Sodium (Synthroid Tab) 50 mcg DAILYBB PO 05/01/17 06:00 8/14/17 05:59 05/02/17 06:30 50 MCG Oxycodone HCl (Roxicodone Immediate Rel Tab) 5 mg Q12 PRN PO 04/30/17 10:45 05/14/17 10:44 05/01/17 02:13 5 MG Oxycodone HCl (Oxycontin Tab) 15 mg Q8 PO 04/30/17 14:00 05/14/17 13:59 05/02/17 13:02 15 MG Pravastatin Sodium (Pravachol Tab) 10 mg QPM PO 04/30/17 21:00 05/30/17 20:59 05/01/17 20:16 10 MG Ranitidine HCl (zANTac TAB) 150 mg DAILY PRN PO 04/30/17 10:45 05/30/17 10:44 Sertraline HCl (Zoloft Tab) 50 mg HS PO 04/30/17 21:00 05/30/17 20:59 05/01/17 20:16 50 MG Cefazolin Sodium 1000 mg/Dextrose 55 ml @ 100 mls/hr Q8H IV 05/01/17 09:00 05/11/17 08:59 05/02/17 08:09 100 MLS/HR Bisacodyl (Dulcolax Supp) 10 mg DAILY PRN [place] 05/02/17 11:15 06/01/17 11:14 Polyethylene (Miralax Powder Packet) 17 gm BID PO 05/02/17 21:00 05/31/17 08:59 Objective Vital Signs Date Time Temp Pulse Resp B/P (MAP) Pulse Ox O2 Delivery O2 Flow Rate FiO2 05/02/17 12:06 Room Air 05/02/17 11:04 36.9 91 16 92/52 (65) 94 Room Air 05/02/17 08:00 Room Air 05/02/17 07:52 36.9 85 18 104/57 (73) 95 Room Air 05/02/17 04:20 37.1 93 16 93/53 (66) 93 Room Air 05/02/17 04:20 Room Air 05/02/17 00:00 Room Air 05/01/17 23:15 36.4 101 16 109/70 (83) 93 Room Air 05/01/17 20:00 Room Air 05/01/17 19:58 36.4 103 16 90/55 (67) 97 Room Air 05/01/17 16:00 Room Air 05/01/17 15:31 37.0 107 16 102/63 (76) 95 Room Air Physical Exam General Appearance: WD/WN, no apparent distress Neck: supple, no adenopathy, no JVD, trachea midline Respiratory/Chest: chest non-tender, lungs clear, normal breath sounds, no respiratory distress, no accessory muscle use Cardiovascular: regular rate, rhythm, no edema, no gallop, no JVD, no murmur Abdomen: normal bowel sounds, non tender, soft, no organomegaly Extremities: normal range of motion, no pedal edema, no calf tenderness, pelvis stable, + slow capillary refill, + pertinent finding (right foot erythematous and warm, pulses cannot be palpated but are easily found with doppler) Neurologic/Psychiatric: fine arts model II-XII nml as tested, no motor/sensory deficits, alert, normal mood/affect, oriented x 3 Skin: + pertinent finding (bruising right groin and thigh) Laboratory Results Last 24 Hours Test 05/01/17 17:14 05/01/17 19:08 Hemoglobin 13.8 g/dL 11.7 g/dL Hematocrit 41.4 % 34.8 % White Blood Count 9.23 K/uL Red Blood Count 3.94 M/uL Mean Corpuscular Volume 88.3 fL Mean Corpuscular Hemoglobin 29.7 pg Mean Corpuscular Hemoglobin Concent 33.6 g/dl RDW Standard Deviation 41.7 fL RDW Coefficient of Variation 12.9 % Platelet Count 114 K/uL Mean Platelet Volume 10.4 fL Assessment and Plan 82 y/o F Hx Chronic RLE pain due to PVD and ischemia. Pain had been intractable for a 2 month period and she was therefore scheduled for a cross- fem bypass. This was completed successfully 05/01. 1) s/p cross fem bypass: right foot is painful but good perfusion, foot red, some bruising and dependent edema in groin and thigh evaluated by Dr. Pritchard today, he is pleased continue empiric antibiotics management per Dr. Pritchard 2) HTN - Cont Norvasc 3) Hypothyroid - cont Synthroid 4) Tachycardia - no severe pain and H/H stable, HR slowly coming down, in the 90 's during my exam and when participating in therapy it was only up to low 100's 5) Constipation: continue miralax BID and can use suppository as needed, drinking fluids, increase activity good bowel sounds, not distended
[2017-05-02 15:33] VITALS: BP 113/65; PULSE 95; TEMP 37; O2SAT 97
[2017-05-02 19:02] VITALS: BP 95/51; PULSE 97; TEMP 37.6; O2SAT 95
[2017-05-02] MEDS: AMLODIPINE BESYLATE 5 MG TAB PO SCH (21:05)
[2017-05-02] MEDS: SERTRALINE HCL 50 MG TAB PO SCH (21:06)
[2017-05-02] MEDS: PRAVASTATIN SOD 10 MG TAB PO SCH (21:06)
[2017-05-02 23:42] VITALS: BP 93/44; PULSE 103; TEMP 36.8; O2SAT 95
[2017-05-03] VITALS (8 sets, daily range): BP systolic 90–112; BP diastolic 53–63; PULSE 83–99; TEMP 36.7–37; O2SAT 92–98
[2017-05-03 06:19] LABS: BASO % 0.3 %; BASO ABS # 0.02 K/uL (0-0.2); COMPLETE YES; EOS % 1.3 %; HEMATOCRIT 30.1 % (37-47); IG% 0.7 %; LYMPH % 15.9 %; LYMPH ABS # 1.08 K/uL (1.2-3.4); MEAN CORPUSCULAR HEMOGLOBIN 29.5 pg (25-34); MEAN CORPUSCULAR HGB CONC 33.6 g/dl (32-36); MEAN PLATELET VOLUME 10.2 fL (7.4-10.4); MONO % 33.1 %; NEUT % 48.7 %; PLATELET COUNT 118 K/uL (130-400); RED BLOOD COUNT 3.42 M/uL (4.2-5.4)
[2017-05-03] MEDS: LEVOTHYROXINE 50 MCG TAB PO SCH (06:27)
[2017-05-03] MEDS: GABAPENTIN 400 MG CAP PO SCH ×6 (06:27→21:22)
[2017-05-03] MEDS: OXYCODONE HCL 15 MG TABCR (OXYCONTIN) PO SCH ×3 (06:28→21:21)
[2017-05-03 06:46] LABS: BUN/CREATININE RATIO 9.3 (10-20); CALCIUM 8.2 mg/dl (8.5-10.1); CREATININE 0.43 mg/dl (0.60-1.20); PHOSPHORUS 2.3 mg/dl (2.5-4.9); POTASSIUM 3.7 mmol/L (3.5-5.1)
[2017-05-03] MEDS: ALPRAZOLAM 0.5 MG TAB PO SCH ×3 (07:31→21:21)
[2017-05-03] MEDS: POLYETHYLENE (MIRALAX) 17 GM PACK PO SCH ×2 (07:31→21:22)
[2017-05-03] MEDS: CEFAZOLIN IV 1,000 MG in DEXTROSE 5% 50ML 50 ML IV SCH ×3 (07:32→23:56)
[2017-05-03] MEDS: HEPARIN SOD 5000 UNIT/0.5 ML CARP SQ SCH ×2 (07:39→21:31)
--- NOTE | 2017-05-03 07:44 | Anesthesiology Progress Note ---
Anesthesia Post Op Note Date & Time May 03, 2017 at 07:43 Vital Signs Vital Signs Past 12 Hours Date Time Temp Pulse Resp B/P (MAP) Pulse Ox O2 Delivery O2 Flow Rate FiO2 05/03/17 04:29 36.9 99 18 112/57 (75) 98 Room Air 05/03/17 04:00 Room Air 05/03/17 00:01 Room Air 05/02/17 23:42 36.8 103 18 93/44 (60) 95 Room Air 05/02/17 20:00 Room Air Notes Mental Status: alert / awake / arousable, participated in evaluation Pt Amnestic to Procedure: Yes Nausea / Vomiting: adequately controlled Pain: adequately controlled Airway Patency, RR, SpO2: stable & adequate BP & HR: stable & adequate Hydration State: stable & adequate Anesthetic Complications: no major complications apparent
[2017-05-03] MEDS: MoRPHine SULFATE 4 MG/ML 1 ML CARP\\VIAL IV PRN (09:50)
[2017-05-03] MEDS: OXYCODONE HCL IR 5 MG TAB (IMMEDIATE RELEASE) PO PRN (11:26)
--- NOTE | 2017-05-03 12:48 | Hospitalist Progress Note ---
Hospitalist Progress Note Date of Service May 03, 2017. Subjective Pt evaluation today including: conversation w/ patient, physical exam, chart review, lab review, review of inpatient medication list Pain: c/o 10/10 pain currently PO Intake: Tolerating PO diet Voiding: no voiding problems Patient complains of severe pain in her abdomen and right foot. She complains of a 10/10 throbbing pain. She also complains of a headache. She also complains of numbness/tingling in her legs which remains unchanged. She complains of general weakness and fatigue. The patient is tolerating a PO diet and states she is moving her bowels and passing gas after surgery. She denies any problems with urination. The patient denies fevers, chills, sweats, chest pain, palpitations, claudication, cough, wheezing, shortness of breath, nausea, vomiting, dysuria, hematuria, urinary retention, paralysis. Additional Comments: See HPI for pertinent positives and negatives. All other systems reviewed and negative. Objective Vital Signs Date Time Temp Pulse Resp B/P (MAP) Pulse Ox O2 Delivery O2 Flow Rate FiO2 05/03/17 12:00 Room Air 05/03/17 08:00 Room Air 05/03/17 07:21 36.7 83 20 94/56 (69) 95 Room Air 05/03/17 04:29 36.9 99 18 112/57 (75) 98 Room Air 05/03/17 04:00 Room Air 05/03/17 00:01 Room Air 05/02/17 23:42 36.8 103 18 93/44 (60) 95 Room Air 05/02/17 20:00 Room Air 05/02/17 19:02 37.6 97 19 95/51 (66) 95 Room Air 05/02/17 16:32 Room Air 05/02/17 15:33 37.0 95 16 113/65 (81) 97 Room Air Physical Exam Notes: General appearance: +Thin. Well-developed, well-nourished, no apparent distress Head: Normocephalic, atraumatic Eyes: Normal inspection, PERRL, EOMI ENT: Normal ENT inspection, hearing grossly normal, pharynx normal Neck: Supple, no JVD, trachea midline Respiratory/Chest: +Decreased breath sounds. Lungs clear to auscultation, normal breath sounds, no respiratory distress Cardiovascular: Regular rate & rhythm, no gallop, no murmur Abdomen/GI: +Diffuse abdominal tenderness. Mild distention. Surgical sites closed with gregg, no erythema or drainage. Normal bowel sounds Extremities/Musculoskeletal: +Right foot with some erythema and edema. Slow cap refill. Pulses on doppler. Neurological/Psych: Alert, normal mood/affect, oriented x 3 Skin: Normal color, warm/dry, no rash Laboratory Results Last 24 Hours Test 05/03/17 05:10 White Blood Count 6.80 K/uL Red Blood Count 3.42 M/uL Hemoglobin 10.1 g/dL Hematocrit 30.1 % Mean Corpuscular Volume 88.0 fL Mean Corpuscular Hemoglobin 29.5 pg Mean Corpuscular Hemoglobin Concent 33.6 g/dl Platelet Count 118 K/uL Mean Platelet Volume 10.2 fL Neutrophils (%) (Auto) 48.7 % Lymphocytes (%) (Auto) 15.9 % Monocytes (%) (Auto) 33.1 % Eosinophils (%) (Auto) 1.3 % Basophils (%) (Auto) 0.3 % Neutrophils # (Auto) 3.31 K/uL Lymphocytes # (Auto) 1.08 K/uL Monocytes # (Auto) 2.25 K/uL Eosinophils # (Auto) 0.09 K/uL Basophils # (Auto) 0.02 K/uL RDW Standard Deviation 42.5 fL RDW Coefficient of Variation 13.0 % Immature Granulocyte % (Auto) 0.7 % Immature Granulocyte # (Auto) 0.05 K/uL Sodium Level 141 mmol/L Potassium Level 3.7 mmol/L Chloride Level 106 mmol/L Carbon Dioxide Level 30 mmol/L Anion Gap 5.0 mmol/L Blood Urea Nitrogen 4 mg/dl Creatinine 0.43 mg/dl Est Creatinine Clear Calc Drug Dose 65.6 ml/min Estimated GFR () 108.3 Estimated GFR (Non- 93.4 BUN/Creatinine Ratio 9.3 Random Glucose 90 mg/dl Calcium Level 8.2 mg/dl Phosphorus Level 2.3 mg/dl Magnesium Level 2.0 mg/dl Albumin 2.5 gm/dl Assessment and Plan 82 y/o female with a history of chronic RLE pain due to PVD and ischemia, HTN, HLD, hypothyroidism, peripheral neuropathy, and anxiety/depression who presents s/p cross femoral bypass with Dr. Pritchard on 04/30 for medical management. -Pain management, DVT prophylaxis, and PT/OT as per primary team -POD #3 Tachycardia--resolved, pt in SR with HR 80s-90s overnight Mild abdominal distention -Pt had bowel movements yesterday, continue to monitor HTN--stable/low normal -Continue Norvasc 5 mg PO qd HLD -Continue pravastatin 10 mg PO qd Hypothyroidism -Continue Synthroid 50 mcg PO qd Peripheral neuropathy -Continue gabapentin 400 mg PO q3h Anxiety/depression -Continue Zoloft 50 mg PO qd and Xanax 0.5 mg PO TID Thank you for this consultation. We will continue to follow.
--- NOTE | 2017-05-03 14:00 | Progress Note ---
Progress Note Date of Service: May 03, 2017. Subjective 82 yo f with multiple medical problems, POD #3 after L to R fem-fem BPG, seen in f/u today. Pt admits pain in lateral side of R foot, but denies any other toe pain. Admits discomfort in incisions. Taking PO well, participating in PT. Problem List Medical Problems: (1) LLQ abdominal pain Status: Acute (2) Stroke Status: Acute Objective Vital Signs Vital Signs Past 12 Hours Date Time Temp Pulse Resp B/P (MAP) Pulse Ox O2 Delivery O2 Flow Rate FiO2 05/03/17 12:00 Room Air 05/03/17 11:20 36.7 85 20 107/62 (77) 97 Room Air 05/03/17 08:00 Room Air 05/03/17 07:21 36.7 83 20 94/56 (69) 95 Room Air 05/03/17 04:29 36.9 99 18 112/57 (75) 98 Room Air 05/03/17 04:00 Room Air Exam CONST: A&O x4, NAD, chronically ill appearing female CHEST: RRR lungs CTAB ABD: soft, tenderness/edema over pelvic area from bypass tunnel. EXT: L groin C/D/I, R thigh wound C/D/I, + local tenderness and swelling. R foot red, warm, +2 edema. 5th toe black plantar surface and tender. Laboratory and Microbiology Results Past 24 Hours Test 05/03/17 05:10 Range/Units White Blood Count 6.80 4.8-10.8 K/uL Red Blood Count 3.42 4.2-5.4 M/uL Hemoglobin 10.1 12.0-16.0 g/dL Hematocrit 30.1 37-47 % Mean Corpuscular Volume 88.0 80-100 fL Mean Corpuscular Hemoglobin 29.5 25-34 pg Mean Corpuscular Hemoglobin Concent 33.6 32-36 g/dl Platelet Count 118 130-400 K/uL Mean Platelet Volume 10.2 7.4-10.4 fL Neutrophils (%) (Auto) 48.7 % Lymphocytes (%) (Auto) 15.9 % Monocytes (%) (Auto) 33.1 % Eosinophils (%) (Auto) 1.3 % Basophils (%) (Auto) 0.3 % Neutrophils # (Auto) 3.31 1.4-6.5 K/uL Lymphocytes # (Auto) 1.08 1.2-3.4 K/uL Monocytes # (Auto) 2.25 0.11-0.59 K/uL Eosinophils # (Auto) 0.09 0-0.5 K/uL Basophils # (Auto) 0.02 0-0.2 K/uL RDW Standard Deviation 42.5 36.4-46.3 fL RDW Coefficient of Variation 13.0 11.5-14.5 % Immature Granulocyte % (Auto) 0.7 % Immature Granulocyte # (Auto) 0.05 0.00-0.02 K/uL Sodium Level 141 136-145 mmol/L Potassium Level 3.7 3.5-5.1 mmol/L Chloride Level 106 98-107 mmol/L Carbon Dioxide Level 30 21-32 mmol/L Anion Gap 5.0 3-11 mmol/L Blood Urea Nitrogen 4 7-18 mg/dl Creatinine 0.43 0.60-1.20 mg/dl Est Creatinine Clear Calc Drug Dose 65.6 ml/min Estimated GFR () 108.3 Estimated GFR (Non- 93.4 BUN/Creatinine Ratio 9.3 10-20 Random Glucose 90 70-99 mg/dl Calcium Level 8.2 8.5-10.1 mg/dl Phosphorus Level 2.3 2.5-4.9 mg/dl Magnesium Level 2.0 1.8-2.4 mg/dl Albumin 2.5 3.4-5.0 gm/dl ASSESSMENT and PLAN: s/p L to R fem fem BPG 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 Continue PT/OT. Will consider d/c when place available in rehab.
[2017-05-03] MEDS: AMLODIPINE BESYLATE 5 MG TAB PO SCH (21:22)
[2017-05-03] MEDS: SERTRALINE HCL 50 MG TAB PO SCH (21:22)
[2017-05-03] MEDS: PRAVASTATIN SOD 10 MG TAB PO SCH (21:23)
[2017-05-04] VITALS (10 sets, daily range): BP systolic 87–107; BP diastolic 50–65; PULSE 72–95; TEMP 36.5–37; O2SAT 93–99
[2017-05-04] MEDS: GABAPENTIN 400 MG CAP PO SCH ×6 (06:34→21:44)
[2017-05-04] MEDS: OXYCODONE HCL 15 MG TABCR (OXYCONTIN) PO SCH ×3 (06:34→21:44)
[2017-05-04] MEDS: LEVOTHYROXINE 50 MCG TAB PO SCH (06:34)
[2017-05-04 07:46] LABS: HEMATOCRIT 31.2 % (37-47); MEAN CELL VOLUME 87.6 fL (80-100); MEAN CORPUSCULAR HEMOGLOBIN 28.4 pg (25-34); MEAN CORPUSCULAR HGB CONC 32.4 g/dl (32-36); PLATELET COUNT 143 K/uL (130-400); RED BLOOD COUNT 3.56 M/uL (4.2-5.4); WHITE BLOOD COUNT 5.25 K/uL (4.8-10.8)
[2017-05-04 08:11] LABS: BUN/CREATININE RATIO 13.1 (10-20); CALCIUM 8.3 mg/dl (8.5-10.1); CREATININE 0.48 mg/dl (0.60-1.20); POTASSIUM 3.8 mmol/L (3.5-5.1)
[2017-05-04] MEDS: POLYETHYLENE (MIRALAX) 17 GM PACK PO SCH ×2 (09:18→21:43)
[2017-05-04] MEDS: HEPARIN SOD 5000 UNIT/0.5 ML CARP SQ SCH ×2 (09:19→21:54)
[2017-05-04] MEDS: ALPRAZOLAM 0.5 MG TAB PO SCH ×3 (10:46→21:44)
[2017-05-04] MEDS: CEFAZOLIN IV 1,000 MG in DEXTROSE 5% 50ML 50 ML IV SCH ×2 (10:47→16:45)
--- NOTE | 2017-05-04 10:55 | Hospitalist Progress Note ---
Hospitalist Progress Note Date of Service May 04, 2017. Subjective Pt evaluation today including: conversation w/ patient, physical exam, chart review, lab review, review of inpatient medication list Pain: 10/10 aching pain PO Intake: Tolerating PO diet Voiding: no voiding problems Patient reports feeling the same as yesterday. She still complains of 10/10 aching pain diffusely across her abdomen/groin area and her right foot. She is tolerating a PO diet well after surgery and denies any difficulties urinating. She is passing gas and reports having several bowel movements yesterday after taking Miralax. The patient denies fevers, chills, sweats, chest pain, palpitations, claudication, cough, wheezing, shortness of breath, nausea, vomiting, dysuria, hematuria, urinary retention, paralysis, weakness, acute numbness and tingling. Additional Comments: See HPI for pertinent positives and negatives. All other systems reviewed and negative. Objective Vital Signs Date Time Temp Pulse Resp B/P (MAP) Pulse Ox O2 Delivery O2 Flow Rate FiO2 05/04/17 08:18 36.8 88 16 105/65 (78) 98 Room Air 05/04/17 08:00 Room Air 05/04/17 04:11 97 Room Air 05/04/17 03:58 36.5 85 14 97/57 (70) 94 Room Air 05/04/17 00:00 37.0 95 19 97/54 (68) 93 Room Air 05/03/17 23:59 97 Room Air 05/03/17 21:33 112/63 (79) 05/03/17 20:00 97 Room Air 05/03/17 19:27 37.0 93 18 90/53 (65) 97 Room Air 05/03/17 16:00 Room Air 05/03/17 15:54 36.9 98 20 98/60 (73) 92 Room Air 05/03/17 12:00 Room Air 05/03/17 11:20 36.7 85 20 107/62 (77) 97 Room Air Physical Exam Notes: General appearance: Well-developed, well-nourished, no apparent distress Head: Normocephalic, atraumatic Eyes: Normal inspection, PERRL, EOMI ENT: Normal ENT inspection, hearing grossly normal, pharynx normal Neck: Supple, no JVD, trachea midline Respiratory/Chest: Lungs clear to auscultation, normal breath sounds, no respiratory distress Cardiovascular: Regular rate & rhythm, no gallop, no murmur Abdomen/GI: +Incisions stapled, c/d/i. Lower abdomen diffusely TTP. Distention resolved. Normal bowel sounds, soft Extremities/Musculoskeletal: +Right foot erythematous with black on 5th toe. 1 + pitting edema RLE. RLE TTP. Good capillary refill. Pulses confirmed on doppler. Neurological/Psych: Alert, normal mood/affect, oriented x 3 Skin: Normal color, warm/dry, no rash Laboratory Results Last 24 Hours Test 05/04/17 07:06 White Blood Count 5.25 K/uL Red Blood Count 3.56 M/uL Hemoglobin 10.1 g/dL Hematocrit 31.2 % Mean Corpuscular Volume 87.6 fL Mean Corpuscular Hemoglobin 28.4 pg Mean Corpuscular Hemoglobin Concent 32.4 g/dl RDW Standard Deviation 42.2 fL RDW Coefficient of Variation 13.0 % Platelet Count 143 K/uL Mean Platelet Volume 10.0 fL Sodium Level 140 mmol/L Potassium Level 3.8 mmol/L Chloride Level 105 mmol/L Carbon Dioxide Level 29 mmol/L Anion Gap 6.0 mmol/L Blood Urea Nitrogen 6 mg/dl Creatinine 0.48 mg/dl Est Creatinine Clear Calc Drug Dose 62.7 ml/min Estimated GFR () 104.4 Estimated GFR (Non- 90.1 BUN/Creatinine Ratio 13.1 Random Glucose 83 mg/dl Calcium Level 8.3 mg/dl Assessment and Plan 82 y/o female with a history of chronic RLE pain due to PVD and ischemia, HTN, HLD, hypothyroidism, peripheral neuropathy, and anxiety/depression who presents s/p cross femoral bypass with Dr. Pritchard on 04/30 for medical management. -Pain management, DVT prophylaxis, and PT/OT as per primary team -POD #4 Tachycardia--resolved, pt in SR with HR 70s-90s overnight. Some faster rates shown on tele but these appear to be artifact Mild abdominal distention--resolved -Pt with several bowel movements, passing gas HTN--stable/low normal -Continue Norvasc 5 mg PO qd HLD -Continue pravastatin 10 mg PO qd Hypothyroidism -Continue Synthroid 50 mcg PO qd Peripheral neuropathy -Continue gabapentin 400 mg PO q3h Anxiety/depression -Continue Zoloft 50 mg PO qd and Xanax 0.5 mg PO TID Thank you for this consultation. We will continue to follow.
--- NOTE | 2017-05-04 13:41 | Progress Note ---
Progress Note Date of Service: May 04, 2017. Subjective No complaints. Problem List Medical Problems: (1) LLQ abdominal pain Status: Acute (2) Stroke Status: Acute Objective Vital Signs Vital Signs Past 12 Hours Date Time Temp Pulse Resp B/P (MAP) Pulse Ox O2 Delivery O2 Flow Rate FiO2 05/04/17 12:00 Room Air 05/04/17 11:33 36.5 72 18 90/50 (63) 95 05/04/17 08:18 36.8 88 16 105/65 (78) 98 Room Air 05/04/17 08:00 Room Air 05/04/17 04:11 97 Room Air 05/04/17 03:58 36.5 85 14 97/57 (70) 94 Room Air Exam Awake and alert Patient on commode. VSS Afebrile. Moderate swelling left leg Good distal flow Intake & Output 8-Hour Column 05/04/17 05/05/17 05/05/17 16:00 00:00 08:00 Intake Total 80 ml Balance 80 ml 24-Hour Column 05/05/17 08:00 Intake Total 80 ml Balance 80 ml Laboratory and Microbiology Results Past 24 Hours Test 05/04/17 07:06 Range/Units White Blood Count 5.25 4.8-10.8 K/uL Red Blood Count 3.56 4.2-5.4 M/uL Hemoglobin 10.1 12.0-16.0 g/dL Hematocrit 31.2 37-47 % Mean Corpuscular Volume 87.6 80-100 fL Mean Corpuscular Hemoglobin 28.4 25-34 pg Mean Corpuscular Hemoglobin Concent 32.4 32-36 g/dl RDW Standard Deviation 42.2 36.4-46.3 fL RDW Coefficient of Variation 13.0 11.5-14.5 % Platelet Count 143 130-400 K/uL Mean Platelet Volume 10.0 7.4-10.4 fL Sodium Level 140 136-145 mmol/L Potassium Level 3.8 3.5-5.1 mmol/L Chloride Level 105 98-107 mmol/L Carbon Dioxide Level 29 21-32 mmol/L Anion Gap 6.0 3-11 mmol/L Blood Urea Nitrogen 6 7-18 mg/dl Creatinine 0.48 0.60-1.20 mg/dl Est Creatinine Clear Calc Drug Dose 62.7 ml/min Estimated GFR () 104.4 Estimated GFR (Non- 90.1 BUN/Creatinine Ratio 13.1 10-20 Random Glucose 83 70-99 mg/dl Calcium Level 8.3 8.5-10.1 mg/dl Imp: Post fem fem bypass Plan: Will transfer to floor Await rehab eval
--- NOTE | 2017-05-04 15:47 | Progress Note ---
Progress Note Date of Service May 04, 2017. Progress Note I assisted Dr Pritchard with [facility] Femoral Bypass Left to Right on , d/t lack of resident availability.
[2017-05-04] MEDS: OXYCODONE HCL IR 5 MG TAB (IMMEDIATE RELEASE) PO PRN (16:48)
[2017-05-04] MEDS: PRAVASTATIN SOD 10 MG TAB PO SCH (21:45)
[2017-05-04] MEDS: SERTRALINE HCL 50 MG TAB PO SCH (21:45)
[2017-05-04] MEDS: AMLODIPINE BESYLATE 5 MG TAB PO SCH (21:45)
[2017-05-05] MEDS: CEFAZOLIN IV 1,000 MG in DEXTROSE 5% 50ML 50 ML IV SCH ×3 (01:29→17:33)
[2017-05-05] MEDS: OXYCODONE HCL 15 MG TABCR (OXYCONTIN) PO SCH ×3 (05:42→20:27)
[2017-05-05] MEDS: LEVOTHYROXINE 50 MCG TAB PO SCH (05:42)
[2017-05-05] MEDS: GABAPENTIN 400 MG CAP PO SCH ×6 (06:28→20:29)
[2017-05-05 07:40] LABS: HEMATOCRIT 31.9 % (37-47); MEAN CELL VOLUME 88.9 fL (80-100); MEAN CORPUSCULAR HEMOGLOBIN 28.4 pg (25-34); MEAN PLATELET VOLUME 9.9 fL (7.4-10.4); PLATELET COUNT 154 K/uL (130-400); RED BLOOD COUNT 3.59 M/uL (4.2-5.4); WHITE BLOOD COUNT 4.45 K/uL (4.8-10.8)
[2017-05-05 07:57] VITALS: BP 118/68; PULSE 74; TEMP 36.7; O2SAT 97
[2017-05-05 08:18] LABS: BUN/CREATININE RATIO 11.7 (10-20); CALCIUM 8.5 mg/dl (8.5-10.1); CREATININE 0.47 mg/dl (0.60-1.20); POTASSIUM 3.8 mmol/L (3.5-5.1)
[2017-05-05] MEDS: POLYETHYLENE (MIRALAX) 17 GM PACK PO SCH ×2 (08:55→20:21)
[2017-05-05] MEDS: ALPRAZOLAM 0.5 MG TAB PO SCH ×3 (08:55→20:27)
[2017-05-05] MEDS: HEPARIN SOD 5000 UNIT/0.5 ML CARP SQ SCH ×2 (08:58→20:38)
[2017-05-05 10:03] VITALS: O2SAT 97
--- NOTE | 2017-05-05 12:08 | Progress Note ---
Subjective Date of Service: May 05, 2017. Subjective Pt evaluation today including: conversation w/ patient, physical exam, chart review, lab review, review of studies, review of inpatient medication list Reported feeling tired after physical therapy, Was up and walk in the hallway with help Report right lower extremity pain has been fairly controlled Deny diarrhea or constipation, Generally has been improving Problem List Medical Problems: (1) LLQ abdominal pain Status: Acute (2) Stroke Status: Acute Review of Systems Constitutional: No fever, No chills, No sweats, No weight loss, No weakness, No fatigue, No problem reported Eyes: No worsening of vision, No eye pain, No redness, No discharge, No diplopia ENT: No hearing loss, No unusual epistaxis, No nasal symptoms, No sore throat, No tinnitus, No dental problems, No trouble swallowing Respiratory: No cough, No sputum, No wheezing, No shortness of breath, No dyspnea on exertion, No dyspnea at rest, No hemoptysis Cardiac: No chest pain, No orthopnea, No PND, No edema, No claudication, No palpitations Abdomen: No pain, No nausea, No vomiting, No diarrhea, No constipation Musculoskeletal: + see HPI, No joint pain, No muscle pain, No swelling, No calf pain Female : No dysuria, No urinary frequency, No hematuria, No incontinence, No abnormal vaginal bleeding, No vaginal discharge Neurologic: No memory loss, No paralysis, No weakness, No numbness/tingling, No vertigo, No balance problems Psychiatric: No depression symptoms, No anhedonism, No anxiety, No insomnia, No substance abuse Heme: No abnormal bleeding/bruising, No clotting problems, No swollen lymph nodes, No night sweats Endo: No fatigue, No excessive thirst, No excessive urination Skin: No rash, No itch, No new/changing skin lesions, No color change, No bleeding Objective Vital Signs Date Time Temp Pulse Resp B/P (MAP) Pulse Ox O2 Delivery O2 Flow Rate FiO2 05/05/17 10:03 97 Room Air 05/05/17 07:57 36.7 74 13 118/68 (85) 97 Room Air 05/04/17 23:46 Room Air 05/04/17 23:46 97/57 (70) 05/04/17 23:00 36.8 74 16 88/53 (65) 93 Room Air 87/50 (62) 05/04/17 21:40 74 100/60 (73) 05/04/17 16:00 Room Air 05/04/17 15:56 36.7 78 16 107/65 (79) 99 Room Air 05/04/17 13:54 36.5 72 18 95 2.0 Physical Exam General Appearance: WD/WN, no apparent distress, + thin Eyes: normal inspection, PERRL, EOMI, sclerae normal ENT: normal ENT inspection, hearing grossly normal, pharynx normal Neck: supple, no adenopathy, thyroid normal, no JVD, no carotid bruits, trachea midline Respiratory/Chest: chest non-tender, normal breath sounds, no respiratory distress, no accessory muscle use, + decreased breath sounds Cardiovascular: regular rate, rhythm, no edema, no gallop, no JVD, no murmur Abdomen: normal bowel sounds, non tender, soft, no organomegaly, no pulsatile mass Extremities: normal range of motion, non-tender, normal inspection, no calf tenderness, normal capillary refill, pelvis stable, + pertinent finding (right lower extremity and foot mild swelling, is not getting worse compared to yesterday) Neurologic/Psychiatric: 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, no motor/sensory deficits, alert, normal mood/affect, oriented x 3 Skin: normal color, warm/dry, no rash Lymphatic: no adenopathy Laboratory Results Last 24 Hours Test 05/05/17 07:20 White Blood Count 4.45 K/uL Red Blood Count 3.59 M/uL Hemoglobin 10.2 g/dL Hematocrit 31.9 % Mean Corpuscular Volume 88.9 fL Mean Corpuscular Hemoglobin 28.4 pg Mean Corpuscular Hemoglobin Concent 32.0 g/dl RDW Standard Deviation 41.8 fL RDW Coefficient of Variation 12.9 % Platelet Count 154 K/uL Mean Platelet Volume 9.9 fL Sodium Level 141 mmol/L Potassium Level 3.8 mmol/L Chloride Level 107 mmol/L Carbon Dioxide Level 29 mmol/L Anion Gap 5.0 mmol/L Blood Urea Nitrogen 6 mg/dl Creatinine 0.47 mg/dl Est Creatinine Clear Calc Drug Dose 64.0 ml/min Estimated GFR () 105.1 Estimated GFR (Non- 90.7 BUN/Creatinine Ratio 11.7 Random Glucose 85 mg/dl Calcium Level 8.5 mg/dl Assessment and Plan 82 y/o female s/p cross femoral bypass with Dr. Pritchard on 04/30, hospitalist team was consulted for medical management. History of chronic RLE pain due to PVD and ischemia, HTN, HLD, hypothyroidism, peripheral neuropathy, and anxiety/depression -Post op , Pain management, DVT prophylaxis, and PT/OT and discharge plan as per primary team -POD #5 Tachycardia--resolved, Mild abdominal distention, resolved HTN, stable HLD Hypothyroidism Peripheral neuropathy Anxiety/depression The above condition is stable, continue current care Patient reported has toe problem, I recommended her to be seen by podiatry, she would like to talk to her family doctor and then go Discharge planning: uncertain (this will be per primary team)
--- NOTE | 2017-05-05 14:21 | Progress Note ---
Progress Note Date of Service: May 05, 2017. Subjective No complaints. Ambulated around [place] today. Problem List Medical Problems: (1) LLQ abdominal pain Status: Acute (2) Stroke Status: Acute Objective Vital Signs Vital Signs Past 12 Hours Date Time Temp Pulse Resp B/P (MAP) Pulse Ox O2 Delivery O2 Flow Rate FiO2 05/05/17 10:03 97 Room Air 05/05/17 07:57 36.7 74 13 118/68 (85) 97 Room Air Exam VSS Afebrile Incisions clean Right foot with palp DP Foot looks better Right fifth toe gangrenous on plantar surface only. Intake & Output 8-Hour Column 05/05/17 05/06/17 05/06/17 16:00 00:00 08:00 Intake Total 360 ml Balance 360 ml 24-Hour Column 05/06/17 08:00 Intake Total 360 ml Balance 360 ml Laboratory and Microbiology Results Past 24 Hours Test 05/05/17 07:20 Range/Units White Blood Count 4.45 4.8-10.8 K/uL Red Blood Count 3.59 4.2-5.4 M/uL Hemoglobin 10.2 12.0-16.0 g/dL Hematocrit 31.9 37-47 % Mean Corpuscular Volume 88.9 80-100 fL Mean Corpuscular Hemoglobin 28.4 25-34 pg Mean Corpuscular Hemoglobin Concent 32.0 32-36 g/dl RDW Standard Deviation 41.8 36.4-46.3 fL RDW Coefficient of Variation 12.9 11.5-14.5 % Platelet Count 154 130-400 K/uL Mean Platelet Volume 9.9 7.4-10.4 fL Sodium Level 141 136-145 mmol/L Potassium Level 3.8 3.5-5.1 mmol/L Chloride Level 107 98-107 mmol/L Carbon Dioxide Level 29 21-32 mmol/L Anion Gap 5.0 3-11 mmol/L Blood Urea Nitrogen 6 7-18 mg/dl Creatinine 0.47 0.60-1.20 mg/dl Est Creatinine Clear Calc Drug Dose 64.0 ml/min Estimated GFR () 105.1 Estimated GFR (Non- 90.7 BUN/Creatinine Ratio 11.7 10-20 Random Glucose 85 70-99 mg/dl Calcium Level 8.5 8.5-10.1 mg/dl Imp: Post cross fem bypass Plan: Continue PT. Await rehab placement.
[2017-05-05 15:20] VITALS: BP 97/60; PULSE 83; TEMP 36.7; O2SAT 96
[2017-05-05] MEDS: SERTRALINE HCL 50 MG TAB PO SCH (20:28)
[2017-05-05] MEDS: OXYCODONE HCL IR 5 MG TAB (IMMEDIATE RELEASE) PO PRN (20:28)
[2017-05-05] MEDS: AMLODIPINE BESYLATE 5 MG TAB PO SCH (20:28)
[2017-05-05] MEDS: PRAVASTATIN SOD 10 MG TAB PO SCH (20:29)
[2017-05-05 20:34] VITALS: BP 114/58; PULSE 87
[2017-05-05 23:30] VITALS: BP_SYST 91; BP_SYST 92; BP_DIAS 53; PULSE 77; TEMP 37; O2SAT 96
[2017-05-06] MEDS: CEFAZOLIN IV 1,000 MG in DEXTROSE 5% 50ML 50 ML IV SCH ×2 (01:32→09:54)
[2017-05-06] MEDS: LEVOTHYROXINE 50 MCG TAB PO SCH (05:49)
[2017-05-06] MEDS: OXYCODONE HCL 15 MG TABCR (OXYCONTIN) PO SCH ×3 (05:50→21:15)
[2017-05-06] MEDS: GABAPENTIN 400 MG CAP PO SCH ×6 (06:28→21:15)
[2017-05-06 06:57] LABS: HEMATOCRIT 32.2 % (37-47); MEAN CELL VOLUME 89.7 fL (80-100); MEAN CORPUSCULAR HEMOGLOBIN 29.5 pg (25-34); MEAN CORPUSCULAR HGB CONC 32.9 g/dl (32-36); MEAN PLATELET VOLUME 9.9 fL (7.4-10.4); PLATELET COUNT 167 K/uL (130-400); RED BLOOD COUNT 3.59 M/uL (4.2-5.4); WHITE BLOOD COUNT 4.54 K/uL (4.8-10.8)
[2017-05-06 07:27] LABS: BUN/CREATININE RATIO 15.2 (10-20); CALCIUM 8.7 mg/dl (8.5-10.1); CREATININE 0.46 mg/dl (0.60-1.20); POTASSIUM 4.3 mmol/L (3.5-5.1)
[2017-05-06 07:51] VITALS: BP 98/62; PULSE 71; TEMP 36.5; O2SAT 98
[2017-05-06 08:05] VITALS: O2SAT 98
[2017-05-06] MEDS: POLYETHYLENE (MIRALAX) 17 GM PACK PO SCH ×2 (09:00→21:08)
[2017-05-06] MEDS: HEPARIN SOD 5000 UNIT/0.5 ML CARP SQ SCH ×2 (09:54→21:18)
[2017-05-06] MEDS: ALPRAZOLAM 0.5 MG TAB PO SCH ×3 (09:54→21:15)
--- NOTE | 2017-05-06 11:13 | Progress Note ---
Subjective Date of Service: May 06, 2017. Subjective Pt evaluation today including: conversation w/ patient, physical exam, chart review, lab review, review of studies, review of inpatient medication list Reportedly was having diarrhea yesterday, seems getting worse today, Feeling mild generalized weakness Eating okay, deny abdominal pain Problem List Medical Problems: (1) LLQ abdominal pain Status: Acute (2) Stroke Status: Acute Review of Systems Constitutional: + fatigue, No fever, No chills, No sweats, No weight loss, No weakness, No problem reported Eyes: No worsening of vision, No eye pain, No redness, No discharge, No diplopia ENT: No hearing loss, No unusual epistaxis, No nasal symptoms, No sore throat, No tinnitus, No dental problems, No trouble swallowing Respiratory: No cough, No sputum, No wheezing, No shortness of breath, No dyspnea on exertion, No dyspnea at rest, No hemoptysis Cardiac: No chest pain, No orthopnea, No PND, No edema, No claudication, No palpitations Abdomen: + diarrhea, No pain, No nausea, No vomiting, No constipation Musculoskeletal: No joint pain, No muscle pain, No swelling, No calf pain Female : No dysuria, No urinary frequency, No hematuria, No incontinence, No abnormal vaginal bleeding, No vaginal discharge Neurologic: No memory loss, No paralysis, No weakness, No numbness/tingling, No vertigo, No balance problems Psychiatric: No depression symptoms, No anhedonism, No anxiety, No insomnia, No substance abuse Heme: No abnormal bleeding/bruising, No clotting problems, No swollen lymph nodes, No night sweats Endo: No fatigue, No excessive thirst, No excessive urination Skin: No rash, No itch, No new/changing skin lesions, No color change, No bleeding Objective Vital Signs Date Time Temp Pulse Resp B/P (MAP) Pulse Ox O2 Delivery O2 Flow Rate FiO2 05/06/17 08:05 98 Room Air 05/06/17 07:51 36.5 71 14 98/62 (74) 98 Room Air 05/05/17 23:40 Room Air 05/05/17 23:30 37.0 77 16 92/53 (66) 96 Room Air 91/53 (66) 05/05/17 20:34 87 114/58 (76) 05/05/17 15:30 Room Air 05/05/17 15:20 36.7 83 16 97/60 (72) 96 Room Air Physical Exam General Appearance: WD/WN, no apparent distress, + thin Eyes: normal inspection, PERRL, EOMI, sclerae normal ENT: normal ENT inspection, hearing grossly normal, pharynx normal Neck: supple, no adenopathy, thyroid normal, no JVD, no carotid bruits, trachea midline Respiratory/Chest: chest non-tender, normal breath sounds, no respiratory distress, no accessory muscle use, + decreased breath sounds Cardiovascular: regular rate, rhythm, no edema, no gallop, no JVD, no murmur Abdomen: normal bowel sounds, non tender, soft, no organomegaly, no pulsatile mass Extremities: normal range of motion, non-tender, normal inspection, no pedal edema, no calf tenderness, normal capillary refill, pelvis stable 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, no motor/sensory deficits, alert, normal mood/affect, oriented x 3 Skin: normal color, warm/dry, no rash, + pertinent finding (no obvious red/hot in right lower ext) Lymphatic: no adenopathy Laboratory Results Last 24 Hours Test 05/06/17 06:26 05/06/17 11:02 White Blood Count 4.54 K/uL Red Blood Count 3.59 M/uL Hemoglobin 10.6 g/dL Hematocrit 32.2 % Mean Corpuscular Volume 89.7 fL Mean Corpuscular Hemoglobin 29.5 pg Mean Corpuscular Hemoglobin Concent 32.9 g/dl RDW Standard Deviation 42.7 fL RDW Coefficient of Variation 13.0 % Platelet Count 167 K/uL Mean Platelet Volume 9.9 fL Sodium Level 142 mmol/L Potassium Level 4.3 mmol/L Chloride Level 107 mmol/L Carbon Dioxide Level 30 mmol/L Anion Gap 5.0 mmol/L Blood Urea Nitrogen 7 mg/dl Creatinine 0.46 mg/dl Est Creatinine Clear Calc Drug Dose 65.4 ml/min Estimated GFR () 105.9 Estimated GFR (Non- 91.3 BUN/Creatinine Ratio 15.2 Random Glucose 85 mg/dl Calcium Level 8.7 mg/dl Assessment and Plan 82 y/o female s/p cross femoral bypass with Dr. Pritchard on 04/30, hospitalist team was consulted for medical management. History of chronic RLE pain due to PVD and ischemia, HTN, HLD, hypothyroidism, peripheral neuropathy, and anxiety/depression -Post op , Pain management, DVT prophylaxis, and PT/OT and discharge plan as per primary team -POD #6 - Right lower extremity mild red, was thought possible cellulitis, has been on Ancef for 6 days, I have been watching patient for 3 days, I don't believe there was cellulitis going on, therefore was stop Ancef IV. diarrhea, will check Cdiff in stool, check bmp, mag Tachycardia--resolved, Mild abdominal distention, resolved HTN, stable HLD Hypothyroidism Peripheral neuropathy Anxiety/depression The above condition is stable, continue current care Patient reported has toe problem, I recommended her to be seen by podiatry, she would like to talk to her family doctor Continued [facility] stay due to: home environment unsafe for pt Discharge planning: rehab hospital, uncertain (this will be per primary team)
[2017-05-06 12:19] LABS: BUN/CREATININE RATIO 13.8 (10-20); CALCIUM 8.4 mg/dl (8.5-10.1); CREATININE 0.53 mg/dl (0.60-1.20); POTASSIUM 3.9 mmol/L (3.5-5.1)
[2017-05-06] MEDS: OXYCODONE HCL IR 5 MG TAB (IMMEDIATE RELEASE) PO PRN (12:38)
[2017-05-06 15:00] VITALS: BP 95/56; PULSE 80; TEMP 36.6; O2SAT 98
--- NOTE | 2017-05-06 15:02 | Progress Note ---
Progress Note Date of Service: May 06, 2017. Subjective 82 yo f s/p L - R fem fem Bypass, POD #6, seen in f/u today. Denies any new complaints. Problem List Medical Problems: (1) LLQ abdominal pain Status: Acute (2) Stroke Status: Acute Objective Vital Signs Vital Signs Past 12 Hours Date Time Temp Pulse Resp B/P (MAP) Pulse Ox O2 Delivery O2 Flow Rate FiO2 05/06/17 09:00 Room Air 05/06/17 08:05 98 Room Air 05/06/17 07:51 36.5 71 14 98/62 (74) 98 Room Air Exam CONST: A&O x3, NAD, chronically ill appearing female CHEST: RR lungs decreased, but ctab ABD: soft, nontender, + bs x 4 quad EXT: incisions c/d/i, no erythema or ecchymosis noted over incisions. R foot/ leg significantly less erythema and edema. still with +2 edema lower leg and ankle. +2 DP and dopplerable, 5th toe gangrenous plantar surface. Warm and pink Intake & Output 8-Hour Column 05/06/17 05/07/17 05/07/17 16:00 00:00 08:00 Intake Total 280 ml Balance 280 ml 24-Hour Column 05/07/17 08:00 Intake Total 280 ml Balance 280 ml Laboratory and Microbiology Results Past 24 Hours Test 05/06/17 06:26 05/06/17 11:49 Range/Units White Blood Count 4.54 4.8-10.8 K/uL Red Blood Count 3.59 4.2-5.4 M/uL Hemoglobin 10.6 12.0-16.0 g/dL Hematocrit 32.2 37-47 % Mean Corpuscular Volume 89.7 80-100 fL Mean Corpuscular Hemoglobin 29.5 25-34 pg Mean Corpuscular Hemoglobin Concent 32.9 32-36 g/dl RDW Standard Deviation 42.7 36.4-46.3 fL RDW Coefficient of Variation 13.0 11.5-14.5 % Platelet Count 167 130-400 K/uL Mean Platelet Volume 9.9 7.4-10.4 fL Sodium Level 142 141 136-145 mmol/L Potassium Level 4.3 3.9 3.5-5.1 mmol/L Chloride Level 107 107 98-107 mmol/L Carbon Dioxide Level 30 29 21-32 mmol/L Anion Gap 5.0 5.0 3-11 mmol/L Blood Urea Nitrogen 7 7 7-18 mg/dl Creatinine 0.46 0.53 0.60-1.20 mg/dl Est Creatinine Clear Calc Drug Dose 65.4 56.8 ml/min Estimated GFR () 105.9 101.1 Estimated GFR (Non- 91.3 87.2 BUN/Creatinine Ratio 15.2 13.8 10-20 Random Glucose 85 146 70-99 mg/dl Calcium Level 8.7 8.4 8.5-10.1 mg/dl Magnesium Level 2.0 1.8-2.4 mg/dl ASSESSMENT adn PLAN: 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 Ok for d/c to [facility] when bed available.
[2017-05-06] MEDS: AMLODIPINE BESYLATE 5 MG TAB PO SCH (21:09)
[2017-05-06] MEDS: PRAVASTATIN SOD 10 MG TAB PO SCH (21:12)
[2017-05-06] MEDS: SERTRALINE HCL 50 MG TAB PO SCH (21:13)
[2017-05-06 21:19] VITALS: BP 102/62; PULSE 79
[2017-05-06 22:53] VITALS: BP 110/62; PULSE 73; TEMP 36.8; O2SAT 95
[2017-05-07] MEDS: OXYCODONE HCL 15 MG TABCR (OXYCONTIN) PO SCH ×3 (06:35→21:58)
[2017-05-07] MEDS: LEVOTHYROXINE 50 MCG TAB PO SCH (06:35)
[2017-05-07] MEDS: GABAPENTIN 400 MG CAP PO SCH ×6 (06:35→22:03)
[2017-05-07 06:48] LABS: HEMATOCRIT 35.2 % (37-47); MEAN CELL VOLUME 88.9 fL (80-100); MEAN CORPUSCULAR HGB CONC 32.7 g/dl (32-36); MEAN PLATELET VOLUME 9.2 fL (7.4-10.4); PLATELET COUNT 170 K/uL (130-400); RED BLOOD COUNT 3.96 M/uL (4.2-5.4)
[2017-05-07 07:57] VITALS: BP 126/68; PULSE 72; TEMP 36.6; O2SAT 97
[2017-05-07] MEDS: POLYETHYLENE (MIRALAX) 17 GM PACK PO SCH ×2 (08:24→22:04)
[2017-05-07] MEDS: ALPRAZOLAM 0.5 MG TAB PO SCH ×3 (08:27→21:58)
[2017-05-07] MEDS: HEPARIN SOD 5000 UNIT/0.5 ML CARP SQ SCH ×2 (08:28→22:05)
--- NOTE | 2017-05-07 10:41 | Hospitalist Progress Note ---
Hospitalist Progress Note Date of Service May 07, 2017. Subjective Pt evaluation today including: conversation w/ patient, physical exam, chart review, lab review, review of inpatient medication list Pain: 7/10 aching pain PO Intake: Tolerating PO diet Voiding: no voiding problems Patient reports feeling okay. She complains of a 7/10 aching pain in her lower abdomen, right groin and right foot. She states that the pain and redness in her right foot has been improving. She notes having some diarrhea yesterday, but states she has not had a bowel movement since then. She also notes numbness /tingling in her RLE that in unchanged from before the surgery. She complains of weakness and fatigue. The patient denies fevers, chills, sweats, chest pain , palpitations, claudication, cough, wheezing, shortness of breath, nausea, vomiting, dysuria, hematuria, urinary retention, paralysis, new/acute numbness and tingling. Additional Comments: See HPI for pertinent positives and negatives. All other systems reviewed and negative. Objective Vital Signs Date Time Temp Pulse Resp B/P (MAP) Pulse Ox O2 Delivery O2 Flow Rate FiO2 05/07/17 07:57 36.6 72 16 126/68 (87) 97 Room Air 05/06/17 23:23 Room Air 05/06/17 22:53 36.8 73 14 110/62 (78) 95 Room Air 05/06/17 21:19 79 102/62 (75) 05/06/17 15:15 Room Air 05/06/17 15:00 36.6 80 16 95/56 (69) 98 Room Air Physical Exam Notes: General appearance: Well-developed, well-nourished, no apparent distress Head: Normocephalic, atraumatic Eyes: Normal inspection, PERRL, EOMI ENT: Normal ENT inspection, hearing grossly normal, pharynx normal Neck: Supple, no JVD, trachea midline Respiratory/Chest: Lungs clear to auscultation, normal breath sounds, no respiratory distress Cardiovascular: Regular rate & rhythm, no gallop, no murmur Abdomen/GI: +Lower abdomen TTP, especially at incision sites. Incisions w/ gregg, c/d/i. RLQ incision site has several small vesicles with erythematous base around incision. These are new and had not been present at my last evaluation 05/04. Normal bowel sounds, soft Extremities/Musculoskeletal: +RLE TTP. 1-2+ pitting edema. Erythema of right foot improved. Right 5th toe black. Neurological/Psych: Alert, normal mood/affect, oriented x 3 Skin: Normal color, warm/dry, no rash Laboratory Results Last 24 Hours Test 05/06/17 11:49 05/07/17 06:23 Sodium Level 141 mmol/L Potassium Level 3.9 mmol/L Chloride Level 107 mmol/L Carbon Dioxide Level 29 mmol/L Anion Gap 5.0 mmol/L Blood Urea Nitrogen 7 mg/dl Creatinine 0.53 mg/dl Est Creatinine Clear Calc Drug Dose 56.8 ml/min Estimated GFR () 101.1 Estimated GFR (Non- 87.2 BUN/Creatinine Ratio 13.8 Random Glucose 146 mg/dl Calcium Level 8.4 mg/dl Magnesium Level 2.0 mg/dl White Blood Count 5.80 K/uL Red Blood Count 3.96 M/uL Hemoglobin 11.5 g/dL Hematocrit 35.2 % Mean Corpuscular Volume 88.9 fL Mean Corpuscular Hemoglobin 29.0 pg Mean Corpuscular Hemoglobin Concent 32.7 g/dl RDW Standard Deviation 42.6 fL RDW Coefficient of Variation 13.0 % Platelet Count 170 K/uL Mean Platelet Volume 9.2 fL Assessment and Plan 82 y/o female with a history of chronic RLE pain due to PVD and ischemia, HTN, HLD, hypothyroidism, peripheral neuropathy, and anxiety/depression who presents s/p cross femoral bypass with Dr. Pritchard on 04/30 for medical management. -Pain management, DVT prophylaxis, and PT/OT as per primary team -POD #7 -Awaiting [facility] Tachycardia--resolved. Moved to med/surg Mild abdominal distention--resolved -Pt with several bowel movements, passing gas Diarrhea--appears to be resolved -C. diff pending if able to move bowels HTN--stable/low normal -Continue Norvasc 5 mg PO qd HLD -Continue pravastatin 10 mg PO qd Hypothyroidism -Continue Synthroid 50 mcg PO qd Peripheral neuropathy -Continue gabapentin 400 mg PO q3h Anxiety/depression -Continue Zoloft 50 mg PO qd and Xanax 0.5 mg PO TID Thank you for this consultation. We will continue to follow.
--- NOTE | 2017-05-07 13:48 | Discharge Instructions ---
Discharge Instructions Date of Service May 07, 2017. 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 Additional Information Patient informed of condition: Yes Advance Directives: No DNR: No Level of Care: Acute Rehab Communicable Disease: No Prognosis: Improving Marcum Catheter: No Instructions / Follow-Up Instructions / Follow-Up Call [phone] to schedule a follow up appointment if one not already scheduled. ACTIVITY RECOMMENDATIONS: See Above SPECIAL CARE INSTRUCTIONS: Call your doctor if: * Temperature above 101 degrees * Pain not relieved by pain medicine ordered * There is increased drainage or redness from any incision * You have any unanswered questions or concerns. Current Hospital Diet Patient's current hospital diet: AHA Diet (Heart Healthy) Discharge Diet Recommended Diet: AHA Diet (Heart Healthy) Procedures Procedures Performed: Cross Femoral Bypass Left to Right Pending Studies Studies pending at discharge: no Medical Emergencies . Who to Call and When: Medical Emergencies: If at any time you feel your situation is an emergency, please call 911 immediately. . Non-Emergent Contact Non-Emergency issues call your: Primary Care Provider, Surgeon Call Non-Emergent contact if: temperature is above 101, wound has increased drainage, wound has increased redness . . "Provider Documentation" section prepared by Christiano Pritchard. . Core Measure Problem Core Measures: None [place] Drug Monitoring Program Search Results: no issues identified
--- NOTE | 2017-05-07 14:33 | Progress Note ---
Progress Note Date of Service: May 07, 2017. Subjective Ambulated in [place] today VSS Afebrile Incision clean and dry Good distal flow Problem List Medical Problems: (1) LLQ abdominal pain Status: Acute (2) Stroke Status: Acute Objective Vital Signs Vital Signs Past 12 Hours Date Time Temp Pulse Resp B/P (MAP) Pulse Ox O2 Delivery O2 Flow Rate FiO2 05/07/17 08:15 Room Air 05/07/17 07:57 36.6 72 16 126/68 (87) 97 Room Air Intake & Output 8-Hour Column 05/07/17 05/08/17 05/08/17 16:00 00:00 08:00 Intake Total 420 ml Balance 420 ml 24-Hour Column 05/08/17 08:00 Intake Total 420 ml Balance 420 ml Laboratory and Microbiology Results Past 24 Hours Test 05/07/17 06:23 Range/Units White Blood Count 5.80 4.8-10.8 K/uL Red Blood Count 3.96 4.2-5.4 M/uL Hemoglobin 11.5 12.0-16.0 g/dL Hematocrit 35.2 37-47 % Mean Corpuscular Volume 88.9 80-100 fL Mean Corpuscular Hemoglobin 29.0 25-34 pg Mean Corpuscular Hemoglobin Concent 32.7 32-36 g/dl RDW Standard Deviation 42.6 36.4-46.3 fL RDW Coefficient of Variation 13.0 11.5-14.5 % Platelet Count 170 130-400 K/uL Mean Platelet Volume 9.2 7.4-10.4 fL Imp: Post cross fem bypass Plan: Await rehab placement
[2017-05-07 15:17] VITALS: BP 96/56; PULSE 82; TEMP 36.8; O2SAT 96
[2017-05-07] MEDS: OXYCODONE HCL IR 5 MG TAB (IMMEDIATE RELEASE) PO PRN (15:47)
--- NOTE | 2017-05-07 16:17 | Progress Note ---
Progress Note Date of Service May 07, 2017. Progress Note Patient will be covered by the hospitalist group starting today at 5pm. I will be unavailable from that time. Her d/c paper work is completed. She will just need a d/c order from them to transfer her to rehab.
[2017-05-07 22:01] VITALS: BP 110/60
[2017-05-07] MEDS: AMLODIPINE BESYLATE 5 MG TAB PO SCH (22:01)
[2017-05-07] MEDS: PRAVASTATIN SOD 10 MG TAB PO SCH (22:03)
[2017-05-07] MEDS: SERTRALINE HCL 50 MG TAB PO SCH (22:03)
[2017-05-07 23:18] VITALS: BP 108/56; PULSE 78; TEMP 36.7; O2SAT 95
[2017-05-08] MEDS: OXYCODONE HCL 15 MG TABCR (OXYCONTIN) PO SCH ×3 (05:58→22:08)
[2017-05-08] MEDS: LEVOTHYROXINE 50 MCG TAB PO SCH (05:58)
[2017-05-08] MEDS: GABAPENTIN 400 MG CAP PO SCH ×6 (05:58→21:57)
[2017-05-08 07:06] VITALS: BP 93/53; PULSE 63; TEMP 36.6; O2SAT 91
[2017-05-08] MEDS: POLYETHYLENE (MIRALAX) 17 GM PACK PO SCH ×2 (08:54→21:50)
[2017-05-08] MEDS: HEPARIN SOD 5000 UNIT/0.5 ML CARP SQ SCH ×2 (08:56→22:09)
[2017-05-08] MEDS: ALPRAZOLAM 0.5 MG TAB PO SCH ×3 (09:01→21:55)
--- NOTE | 2017-05-08 10:23 | Hospitalist Progress Note ---
Hospitalist Progress Note Date of Service May 08, 2017. Subjective Pt evaluation today including: conversation w/ patient, physical exam, chart review, lab review, review of inpatient medication list Pain: 5/10 abdominal pain, 7/10 right foot pain PO Intake: Tolerating PO diet Voiding: no voiding problems Patient reports feeling well. She states that her abdominal pain has improved and is currently a 5/10 aching pain in the lower abdomen at the incision sites. She states that her right foot pain remains unchanged and is a 7/10 aching pain, and this is exacerbated when she bears weight on the right foot. The weakness in her RLE is the same. She states she did not sleep well last night, but is otherwise fine. She is tolerating a PO diet well and urinating without difficulties. She denies any more diarrhea. She states she had a bowel movement yesterday and today, and the stool was more formed and normal. The patient denies fevers, chills, sweats, chest pain, palpitations, claudication, cough, wheezing, shortness of breath, nausea, vomiting, dysuria, hematuria, urinary retention, paralysis, acute/new numbness and tingling. Additional Comments: See HPI for pertinent positives and negatives. All other systems reviewed and negative. Objective Vital Signs Date Time Temp Pulse Resp B/P (MAP) Pulse Ox O2 Delivery O2 Flow Rate FiO2 05/08/17 08:45 Room Air 05/08/17 07:06 36.6 63 16 93/53 (66) 91 Room Air 05/07/17 23:32 Room Air 05/07/17 23:18 36.7 78 18 108/56 (73) 95 05/07/17 22:01 110/60 (77) 05/07/17 15:35 Room Air 05/07/17 15:17 36.8 82 16 96/56 (69) 96 Room Air Physical Exam Notes: General appearance: Well-developed, well-nourished, no apparent distress Head: Normocephalic, atraumatic Eyes: Normal inspection, PERRL, EOMI ENT: Normal ENT inspection, hearing grossly normal, pharynx normal Neck: Supple, no JVD, trachea midline Respiratory/Chest: Lungs clear to auscultation, normal breath sounds, no respiratory distress Cardiovascular: Regular rate & rhythm, no gallop, no murmur Abdomen/GI: +Lower abdomen mildly TTP around incisions. Incisions w/gregg, c /d/i. The small vesicles around the RLQ incision site today appear to be scab- like. Normal bowel sounds, soft Extremities/Musculoskeletal: +RLE TTP. 1+ pitting edema. Erythema of right foot improved. Right 5th toe black. Neurological/Psych: Alert, normal mood/affect, oriented x 3 Skin: Normal color, warm/dry, no rash Assessment and Plan 82 y/o female with a history of chronic RLE pain due to PVD and ischemia, HTN, HLD, hypothyroidism, peripheral neuropathy, and anxiety/depression who presents s/p cross femoral bypass with Dr. Pritchard on 04/30 for medical management. -Pain management, DVT prophylaxis, and PT/OT as per primary team -POD #8 -Awaiting [facility] insurance authorization Tachycardia--resolved. Moved to med/surg Mild abdominal distention--resolved -Pt with several bowel movements, passing gas Diarrhea--appears to be resolved -C. diff pending HTN--stable/low normal -Continue Norvasc 5 mg PO qd HLD -Continue pravastatin 10 mg PO qd Hypothyroidism -Continue Synthroid 50 mcg PO qd Peripheral neuropathy -Continue gabapentin 400 mg PO q3h Anxiety/depression -Continue Zoloft 50 mg PO qd and Xanax 0.5 mg PO TID Thank you for this consultation. We will continue to follow.
[2017-05-08 15:18] VITALS: BP 93/64; PULSE 76; TEMP 36.7; O2SAT 97
[2017-05-08] MEDS: SERTRALINE HCL 50 MG TAB PO SCH (21:55)
[2017-05-08] MEDS: PRAVASTATIN SOD 10 MG TAB PO SCH (21:56)
[2017-05-08] MEDS: AMLODIPINE BESYLATE 5 MG TAB PO SCH (21:56)
[2017-05-08 22:00] VITALS: BP 127/74; PULSE 74
[2017-05-08 23:00] VITALS: BP 109/64; PULSE 77; TEMP 36.6; O2SAT 94
[2017-05-09] MEDS: LEVOTHYROXINE 50 MCG TAB PO SCH (06:09)
[2017-05-09] MEDS: GABAPENTIN 400 MG CAP PO SCH ×6 (06:10→21:44)
[2017-05-09] MEDS: OXYCODONE HCL 15 MG TABCR (OXYCONTIN) PO SCH ×3 (06:11→21:44)
[2017-05-09 07:09] VITALS: BP 108/62; PULSE 73; TEMP 36.7; O2SAT 95
[2017-05-09] MEDS: ALPRAZOLAM 0.5 MG TAB PO SCH ×3 (08:35→21:05)
[2017-05-09] MEDS: POLYETHYLENE (MIRALAX) 17 GM PACK PO SCH ×2 (08:36→20:50)
[2017-05-09] MEDS: HEPARIN SOD 5000 UNIT/0.5 ML CARP SQ SCH ×2 (08:39→20:52)
--- NOTE | 2017-05-09 09:28 | Hospitalist Progress Note ---
Hospitalist Progress Note Date of Service May 09, 2017. Subjective Pt evaluation today including: conversation w/ patient, physical exam, chart review, lab review, review of inpatient medication list Pain: 4/10 cramping upper abdominal pain PO Intake: Tolerating PO diet Voiding: no voiding problems Patient reports feeling tired. She states she did not sleep well again last night. She had developed some crampy upper abdominal pain last night that she rated an 8/10. She also noted some mild nausea at that time. This morning, she states the pain is better and is currently a 4/10 cramping pain. Her nausea has also resolved and she is eating breakfast. The patient was concerned about constipation as she states she hasn't had a bowel movement in a few days, but nursing reports that she did in fact move her bowels yesterday. She states the areas of her incisions are no longer bothering her much unless palpated. Her right foot pain, numbness and tingling has remained the same, and she describes walking on that foot as "walking on broken glass." The patient denies fevers, chills, sweats, chest pain, palpitations, claudication, cough, wheezing, shortness of breath, vomiting, dysuria, hematuria, urinary retention, paralysis, weakness. Additional Comments: See HPI for pertinent positives and negatives. All other systems reviewed and negative. Objective Vital Signs Date Time Temp Pulse Resp B/P (MAP) Pulse Ox O2 Delivery O2 Flow Rate FiO2 05/09/17 07:09 36.7 73 16 108/62 (77) 95 Room Air 05/08/17 23:00 36.6 77 16 109/64 (79) 94 Room Air 05/08/17 22:50 Room Air 05/08/17 22:00 74 127/74 (91) 05/08/17 15:50 Room Air 05/08/17 15:18 36.7 76 18 93/64 (74) 97 Room Air Physical Exam Notes: General appearance: Well-developed, well-nourished, no apparent distress Head: Normocephalic, atraumatic Eyes: Normal inspection, PERRL, EOMI ENT: Normal ENT inspection, hearing grossly normal, pharynx normal Neck: Supple, no JVD, trachea midline Respiratory/Chest: Lungs clear to auscultation, normal breath sounds, no respiratory distress Cardiovascular: Regular rate & rhythm, no gallop, no murmur Abdomen/GI: +Lower abdomen mildly TTP around incisions. Upper abdomen non- tender. Incisions w/gregg, c/d/i. The small vesicles around the RLQ incision site appear to be scab-like. Normal bowel sounds, soft Extremities/Musculoskeletal: +RLE TTP. 1+ pitting edema. Erythema of right foot improved. Right 5th toe black. Neurological/Psych: +Disoriented to time. Knew the year but not the month, stating it was July. Alert, normal mood/affect, oriented x 2 Skin: Normal color, warm/dry, no rash Assessment and Plan 82 y/o female with a history of chronic RLE pain due to PVD and ischemia, HTN, HLD, hypothyroidism, peripheral neuropathy, and anxiety/depression who presents s/p cross femoral bypass with Dr. Pritchard on 04/30 for medical management. -Pain management, DVT prophylaxis, and PT/OT as per primary team -POD #9 -Awaiting [facility] insurance authorization Tachycardia--resolved. Moved to med/surg Mild abdominal distention--resolved -Pt with several bowel movements, passing gas Diarrhea--appears to be resolved -C. diff pending HTN--stable/low normal -Continue Norvasc 5 mg PO qd HLD -Continue pravastatin 10 mg PO qd Hypothyroidism -Continue Synthroid 50 mcg PO qd Peripheral neuropathy -Continue gabapentin 400 mg PO q3h Anxiety/depression -Continue Zoloft 50 mg PO qd and Xanax 0.5 mg PO TID Thank you for this consultation. We will continue to follow.
[2017-05-09 15:24] VITALS: BP 110/65; PULSE 86; TEMP 36.8; O2SAT 94
[2017-05-09 20:51] VITALS: BP 111/58
[2017-05-09] MEDS: PRAVASTATIN SOD 10 MG TAB PO SCH (20:54)
[2017-05-09] MEDS: SERTRALINE HCL 50 MG TAB PO SCH (20:54)
[2017-05-09] MEDS: AMLODIPINE BESYLATE 5 MG TAB PO SCH (20:55)
[2017-05-10 00:15] VITALS: BP 122/65; PULSE 80; TEMP 36.6; O2SAT 95
[2017-05-10] MEDS: LEVOTHYROXINE 50 MCG TAB PO SCH (06:19)
[2017-05-10] MEDS: GABAPENTIN 400 MG CAP PO SCH ×6 (06:19→21:23)
[2017-05-10] MEDS: OXYCODONE HCL 15 MG TABCR (OXYCONTIN) PO SCH ×3 (06:27→21:23)
[2017-05-10 07:14] LABS: HEMATOCRIT 33.4 % (37-47); MEAN CELL VOLUME 88.8 fL (80-100); MEAN CORPUSCULAR HGB CONC 32.6 g/dl (32-36); MEAN PLATELET VOLUME 9.4 fL (7.4-10.4); PLATELET COUNT 177 K/uL (130-400); RED BLOOD COUNT 3.76 M/uL (4.2-5.4); WHITE BLOOD COUNT 4.42 K/uL (4.8-10.8)
[2017-05-10] MEDS: POLYETHYLENE (MIRALAX) 17 GM PACK PO SCH ×2 (08:16→21:00)
[2017-05-10] MEDS: HEPARIN SOD 5000 UNIT/0.5 ML CARP SQ SCH ×2 (08:19→21:18)
[2017-05-10] MEDS: ALPRAZOLAM 0.5 MG TAB PO SCH ×3 (08:19→21:23)
[2017-05-10 08:24] VITALS: BP 108/64; PULSE 65; TEMP 36.5; O2SAT 99
--- NOTE | 2017-05-10 09:37 | Progress Note ---
Progress Note Date of Service: May 10, 2017. Subjective 82 yo f S/P L to R fem fem BPG, seen in f/u today. Pt admits chronic pain and numbness of RLE, but states nothing new. Ambulating in hallway presently. Problem List Medical Problems: (1) LLQ abdominal pain Status: Acute (2) Stroke Status: Acute Objective Vital Signs Vital Signs Past 12 Hours Date Time Temp Pulse Resp B/P (MAP) Pulse Ox O2 Delivery O2 Flow Rate FiO2 05/10/17 08:24 36.5 65 16 108/64 (79) 99 Room Air 05/10/17 07:55 Room Air 05/10/17 00:15 36.6 80 18 122/65 (84) 95 Room Air 05/10/17 00:15 Room Air Exam CONST: A&O x3, NAD, frail, chronically ill appearing female CHEST: RRR lungs decreased, but ctab ABD: soft, + bs x 4 quad, Mildly tender over bypass tunnel with mild edema as well EXT: Incisions C/D/I with gregg with mild local edema and tenderness. No significant periwound erythema or drainage noted. BLE palpable distal pulses. R foot warm and pink, 5th toe plantar surface with dry gangrene. Toes erythematous/ruborous, brisk cap refill Laboratory and Microbiology Results Past 24 Hours Test 05/10/17 06:38 Range/Units White Blood Count 4.42 4.8-10.8 K/uL Red Blood Count 3.76 4.2-5.4 M/uL Hemoglobin 10.9 12.0-16.0 g/dL Hematocrit 33.4 37-47 % Mean Corpuscular Volume 88.8 80-100 fL Mean Corpuscular Hemoglobin 29.0 25-34 pg Mean Corpuscular Hemoglobin Concent 32.6 32-36 g/dl RDW Standard Deviation 42.5 36.4-46.3 fL RDW Coefficient of Variation 13.1 11.5-14.5 % Platelet Count 177 130-400 K/uL Mean Platelet Volume 9.4 7.4-10.4 fL ASSESSMENT and PLAN: s/p L to R fem fem BPG Severe PAD/comm fem art occlusion with rest pain Pt improving daily. Ambulating well. Ready for d/c to rehab when placed.
[2017-05-10 09:45] VITALS: BP 121/62; PULSE 88
[2017-05-10] MEDS: OXYCODONE HCL IR 5 MG TAB (IMMEDIATE RELEASE) PO PRN (12:10)
[2017-05-10 15:31] VITALS: BP 110/58; PULSE 82; TEMP 36.8; O2SAT 96
--- NOTE | 2017-05-10 16:03 | Progress Note ---
Subjective Date of Service: May 10, 2017. Subjective Pt evaluation today including: conversation w/ patient, physical exam, lab review, conversation w/ method consultant, review of inpatient medication list Pain: controlled PO Intake: adequate Voiding: no voiding problems discussed with Vascular Surgery this AM, Dr. Pritchard out of town, asked to take over as primary since attending not available agreed to take patient on service, d/w vascular PA who will write d/c summary patient doing well, moving bowels, looking to go to rehab d/w CM, denial of rehab was overturned, can go to [facility] tomorrow Problem List Medical Problems: (1) LLQ abdominal pain Status: Acute (2) Stroke Status: Acute Review of Systems Constitutional: + weakness, + fatigue All Other Systems: Reviewed and Negative Medications Current Inpatient Medications Medications (Trade) Dose Ordered Sig/Jacinta Route Start Time Stop Time Status Last Admin Dose Admin Morphine Sulfate (MoRPHine SULFATE INJ) If PO analgesic is orde... Q2H PRN IV 04/30/17 10:45 05/14/17 10:44 05/03/17 09:50 1 MG Ondansetron HCl (Zofran Inj) 4 mg Q6H PRN IV 04/30/17 10:45 05/30/17 10:44 Heparin Sodium (Porcine) (Heparin Sq 5000 Unit/0.5ml) 5,000 unit Q12 SQ 04/30/17 21:00 05/30/17 20:59 05/10/17 08:19 5,000 UNIT Acetaminophen (Tylenol Tab) 650 mg Q6H PRN PO 04/30/17 10:45 05/30/17 10:44 05/01/17 07:38 650 MG Alprazolam (Xanax Tab) 0.5 mg TID PO 04/30/17 14:00 05/30/17 13:59 05/10/17 13:48 0.5 MG Gabapentin (Neurontin Cap) 400 mg [id number] PO 04/30/17 13:00 05/30/17 12:59 05/10/17 15:50 400 MG Levothyroxine Sodium (Synthroid Tab) 50 mcg DAILYBB PO 05/01/17 06:00 05/31/17 05:59 05/10/17 06:19 50 MCG Oxycodone HCl (Roxicodone Immediate Rel Tab) 5 mg Q12 PRN PO 04/30/17 10:45 05/14/17 10:44 05/10/17 12:10 5 MG Oxycodone HCl (Oxycontin Tab) 15 mg Q8 PO 04/30/17 14:00 05/14/17 13:59 05/10/17 13:48 15 MG Pravastatin Sodium (Pravachol Tab) 10 mg QPM PO 04/30/17 21:00 05/30/17 20:59 05/09/17 20:54 10 MG Ranitidine HCl (zANTac TAB) 150 mg DAILY PRN PO 04/30/17 10:45 05/30/17 10:44 05/09/17 20:54 150 MG Sertraline HCl (Zoloft Tab) 50 mg HS PO 04/30/17 21:00 05/30/17 20:59 05/09/17 20:54 50 MG Bisacodyl (Dulcolax Supp) 10 mg DAILY PRN VA 05/02/17 11:15 06/01/17 11:14 Polyethylene (Miralax Powder Packet) 17 gm BID PO 05/02/17 21:00 05/31/17 08:59 05/10/17 08:16 17 GM Amlodipine Besylate (Norvasc Tab) 2.5 mg QPM PO 05/06/17 21:00 05/30/17 20:59 05/09/17 20:55 2.5 MG Objective Vital Signs Date Time Temp Pulse Resp B/P (MAP) Pulse Ox O2 Delivery O2 Flow Rate FiO2 05/10/17 15:31 36.8 82 16 110/58 (75) 96 Room Air 05/10/17 09:45 88 05/10/17 08:24 36.5 65 16 108/64 (79) 99 Room Air 05/10/17 07:55 Room Air 05/10/17 00:15 36.6 80 18 122/65 (84) 95 Room Air 05/10/17 00:15 Room Air 05/09/17 20:51 111/58 (75) Physical Exam General Appearance: WD/WN, no apparent distress Eyes: normal inspection, EOMI, sclerae normal Respiratory/Chest: chest non-tender, lungs clear, normal breath sounds, no respiratory distress, no accessory muscle use Cardiovascular: regular rate, rhythm, no edema, no gallop, no JVD, no murmur Abdomen: normal bowel sounds, non tender, soft, no organomegaly Extremities: normal range of motion, non-tender, normal inspection, no pedal edema, no calf tenderness, pelvis stable Neurologic/Psychiatric: 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 tested, alert, normal mood/affect, oriented x 3, + motor weakness (generalized) Skin: normal color, warm/dry, no rash Laboratory Results Last 24 Hours Test 05/10/17 06:38 White Blood Count 4.42 K/uL Red Blood Count 3.76 M/uL Hemoglobin 10.9 g/dL Hematocrit 33.4 % Mean Corpuscular Volume 88.8 fL Mean Corpuscular Hemoglobin 29.0 pg Mean Corpuscular Hemoglobin Concent 32.6 g/dl RDW Standard Deviation 42.5 fL RDW Coefficient of Variation 13.1 % Platelet Count 177 K/uL Mean Platelet Volume 9.4 fL Assessment and Plan 82 y/o female with a history of chronic RLE pain due to PVD and ischemia, HTN, HLD, hypothyroidism, peripheral neuropathy, and anxiety/depression who presents s/p cross femoral bypass with Dr. Pritchard on 04/30 for medical management. -Pain management, DVT prophylaxis, and PT/OT as per vascular surgery -POD #10 -Awaiting [facility] insurance authorization, denial overturned today, to [facility] tomorrow Tachycardia--resolved Mild abdominal distention--resolved -Pt with several bowel movements, passing gas Diarrhea--appears to be resolved -C. diff pending, no sample as of yet HTN--stable/low normal -Continue Norvasc 5 mg PO qd HLD -Continue pravastatin 10 mg PO qd Hypothyroidism -Continue Synthroid 50 mcg PO qd Peripheral neuropathy -Continue gabapentin 400 mg PO q3h Anxiety/depression -Continue Zoloft 50 mg PO qd and Xanax 0.5 mg PO TID took over as primary today, plan to d/c tomorrow Continued [facility] stay due to: home environment unsafe for pt Discharge planning: rehab hospital, uncertain (this will be per primary team)
[2017-05-10 21:20] VITALS: BP 114/65; PULSE 70
[2017-05-10] MEDS: AMLODIPINE BESYLATE 5 MG TAB PO SCH (21:22)
[2017-05-10] MEDS: SERTRALINE HCL 50 MG TAB PO SCH (21:23)
[2017-05-10] MEDS: PRAVASTATIN SOD 10 MG TAB PO SCH (21:23)
[2017-05-10 23:30] VITALS: BP 118/65; PULSE 71; TEMP 36.9; O2SAT 96
[2017-05-11] MEDS: OXYCODONE HCL 15 MG TABCR (OXYCONTIN) PO SCH (06:20)
[2017-05-11] MEDS: GABAPENTIN 400 MG CAP PO SCH ×2 (06:20→10:18)
[2017-05-11] MEDS: LEVOTHYROXINE 50 MCG TAB PO SCH (06:20)
[2017-05-11] MEDS: POLYETHYLENE (MIRALAX) 17 GM PACK PO SCH (07:19)
[2017-05-11 08:10] VITALS: BP 120/60; PULSE 72; TEMP 36.4; O2SAT 98
[2017-05-11] MEDS: HEPARIN SOD 5000 UNIT/0.5 ML CARP SQ SCH (08:54)
[2017-05-11] MEDS: ALPRAZOLAM 0.5 MG TAB PO SCH (08:55)
[2017-05-11] MEDS: OXYCODONE HCL IR 5 MG TAB (IMMEDIATE RELEASE) PO PRN (09:13)
--- NOTE | 2017-05-11 09:45 | Progress Note ---
Progress Note Date of Service: May 11, 2017. Subjective 82 yo f s/p L to R fem fem BPG, seen in f/u today. Pt very anxious, states is worried about going to rehab. States had large BM this morning. Denies any new pain or new complaints. Problem List Medical Problems: (1) LLQ abdominal pain Status: Acute (2) Stroke Status: Acute Objective Vital Signs Vital Signs Past 12 Hours Date Time Temp Pulse Resp B/P (MAP) Pulse Ox O2 Delivery O2 Flow Rate FiO2 05/11/17 08:10 36.4 72 12 120/60 (80) 98 05/11/17 00:55 Room Air 05/10/17 23:30 36.9 71 16 118/65 (82) 96 Room Air Exam CONST: A&O x3, NAD, frail, chronically ill appearing female CHEST: RRR lungs clear ABD: soft, + mild tenderness over bypass graft low abd/pelvis. EXT: Incisions C/D/I with gregg. Gregg removed today, no dehiscence. Steri strips placed. R foot with +2 DP pulse and excellent doppler signals. ASSESSMENT and PLAN: s/p fem fem BPG Severe PAD/ comm fem art occlusion with rest pain/gangrene Pt doing well post op. OK for d/c from vascular standpoint. Will see pt in office in another 2 weeks.
[2017-05-11 11:14] VITALS: BP 120/60; PULSE 72; TEMP 36.4; O2SAT 98
--- NOTE | 2017-05-12 07:29 | Discharge Summary ---
Discharge Summary Date of Service May 11, 2017. Discharge Summary Admission Date: Apr 30, 2017 at 09:12 Discharge Date: May 11, 2017 Discharge Disposition: Rehab Principal Diagnosis: Severe peripheral vascular disease, s/p cross femoral bypass Problems/Secondary Diagnoses: Constipation HTN Anxiety Procedures: Cross femoral bypass Consultations: Vascular surgery Medication Reconciliation Continued Medications: Acetaminophen (Acetaminophen) 325 Mg Tab 650 MG PO Q6H PRN for Pain Alprazolam (Xanax) 0.5 Mg Tab 0.5 MG PO TID, TAB Amlodipine (Norvasc) 5 Mg Tab 5 MG PO QPM, TAB Clopidogrel (Plavix) 75 Mg Tab 75 MG PO QAM, TAB last dose april 26, 2017 - stopped per dr rico (pr pt and family report) Gabapentin (Neurontin) 400 Mg Cap 400 MG PO six times daily , CAP 2 cap in am 2 cap at 2 pm 2 cap at 8 pm Levothyroxine Sodium (Levothyroxine Sodium) 50 Mcg Tab 1 TAB PO QAM for 30 Days, #30 TAB 5 Refills Ondansetron Hcl (Zofran) 4 Mg Tab 4 MG PO Q8 PRN for Nausea, TAB Oxycodone HCl (Oxycodone HCl) 5 Mg Tab 5 MG PO Q12 PRN for Pain Oxycodone Hcl (Oxycontin) 15 Mg Tab 15 MG PO Q8, TAB Polyethylene (Miralax) 17 Gm Pow 1 DOSE PO QAM Potassium (Potassium) 99 Mg Tab 198 MG PO BID Pravastatin Sod (Pravastatin Sodium) 10 Mg Tab 10 MG PO QPM Ranitidine (Zantac) 150 Mg Tab 1 TAB PO DAILY PRN for Nausea for 30 Days, #30 TAB 3 Refills Sertraline (Zoloft) 50 Mg Tab 50 MG PO HS, TAB Discharge Exam Patient feeling well the morning of discharge, she had a large BM so no issues with constipation. She was ambulating around the room with assistance. She admitted to being nervous about going to rehab but I assured her it was in her best interest. Family at the bedside. Review of Systems: Constitutional: No fever, No chills, No sweats, No weight loss, No weakness , No fatigue, No problem reported Eyes: No worsening of vision, No eye pain, No redness, No discharge, No diplopia, No problem reported ENT: No hearing loss, No unusual epistaxis, No nasal symptoms, No sore throat, No tinnitus, No dental problems, No trouble swallowing, No problem reported Respiratory: No cough, No sputum, No wheezing, No shortness of breath, No dyspnea on exertion, No dyspnea at rest, No hemoptysis, No problem reported Cardiovascular: No chest pain, No orthopnea, No PND, No edema, No claudication, No palpitations, No problem reported Abdomen: + constipation (resolved today), No pain, No nausea, No vomiting, No diarrhea, No GI bleeding, No problem reported Musculoskeletal: + joint pain (right leg), No muscle pain, No swelling, No calf pain, No problem reported Genitourinary - Female: No dysuria, No urinary frequency, No urinary urgency , No urinary incontinence Neurologic: + numbness/tingling (feet), No memory loss, No paralysis, No weakness, No vertigo, No balance problems, No problem reported Psychiatric: + anxiety, No depression symptoms, No anhedonism, No insomnia, No substance abuse, No problem reported Endocrine: No fatigue, No excessive thirst, No excessive urination, No problem reported Hematologic / Lymphatic: No abnormal bleeding/bruising, No clotting problems , No swollen lymph nodes, No night sweats, No problem reported Integumentary: No rash, No itch, No new/changing skin lesions, No color change, No bleeding, No problem reported Physical Exam: General Appearance: WD/WN, no apparent distress Eyes: normal inspection, EOMI, sclerae normal ENT: normal ENT inspection, hearing grossly normal, pharynx normal Neck: supple, no adenopathy, no JVD, trachea midline Respiratory/Chest: chest non-tender, lungs clear, normal breath sounds, no respiratory distress, no accessory muscle use Cardiovascular: regular rate, rhythm, no edema, no gallop, no JVD, no murmur , normal peripheral pulses Abdomen / GI: normal bowel sounds, non tender, soft, no organomegaly Extremities: normal inspection, no calf tenderness, normal capillary refill , no pedal edema, normal range of motion, pelvis stable Neurologic/Psychiatric: principal statistical scientist II-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 Rico on 04/30 s/p Cross Femoral Bypass: refer to operative record for full details of the procedure -Pain management, DVT prophylaxis, and PT/OT as per vascular surgery -POD #11 - patient did reasonably well after surgery, she had some issues with constipation that resolved with Miralax - she participated with therapy - recommended for rehab, initially insurance denied [facility] but the decision was overturned in appeal - discharged to [facility] in stable condition on 05/11 Tachycardia--resolved Mild abdominal distention--resolved -Pt moved bowels the morning of discharge Diarrhea--appears to be resolved - C diff was ordered but no sample provided, doubt C diff since diarrhea resolved HTN--stable/low normal -Continue Norvasc 5 mg PO qd HLD -Continue pravastatin 10 mg PO qd Hypothyroidism -Continue Synthroid 50 mcg PO qd Peripheral neuropathy -Continue gabapentin 400 mg PO q3h Anxiety/depression -Continue Zoloft 50 mg PO qd and Xanax 0.5 mg PO TID Total Time Spent: Less than 30 minutes This includes examination of the patient, discharge planning, medication reconciliation, and communication with other providers. Discharge Instructions Please refer to the electronic Patient Visit Report (Discharge Instructions) for additional information. Follow-Up Dr. Rico in 1-2 weeks Additional Copies To Rowan Herrera M.D.; Christiano Rico M.D.
== END 2017-05-11 11:45 | DRG 254 ==
LOC: C.ACU 07:09 → C.MSICU 09:12 → ENRESERV 12:15 → C.2T 05-01 08:38 → ENRESERV 05-01 10:46 → C.MSN 05-04 15:58
PROVIDERS: ADMIT Surgery Vascular Surgery; ATTEND Internal Medicine
PROC: 041L0JH Bypass Left Femoral Artery to Right Femoral Artery with Synthetic Substitute, Open Approach (ICD-10-PCS; principal; 2017-04-30 09:00)
DX: I70.261 Atherosclerosis of native arteries of extremities with gangrene, right leg (principal); M16.10 Unilateral primary osteoarthritis, unspecified hip; Z86.73 Personal history of transient ischemic attack (TIA), and cerebral infarction without residual deficits; I10 Essential (primary) hypertension; Z87.891 Personal history of nicotine dependence; E03.9 Hypothyroidism, unspecified; R00.0 Tachycardia, unspecified; G62.9 Polyneuropathy, unspecified; E78.5 Hyperlipidemia, unspecified

== ENCOUNTER → 2017-06-23 | Outpatient (CLI) | payer BC ==
[~2017-06-23] MED LIST changes: -LACTATED RINGER'S 1000ML 1,000 ML IV SCH
--- NOTE | 2017-06-23 11:33 | DIAGNOSTIC IMAGING REPORT ---
RIGHT FOOT MIN 3 VIEWS ROUTINE CLINICAL HISTORY: FOOT INJURY Right trauma. Pain. COMPARISON: None. DISCUSSION: Diffuse osteoporosis. Mild generalized soft tissue edema. Possible hairline nondisplaced cortical fractures bases proximal phalanges of the second and third toes. No evidence of dislocation. Degenerative change of the interphalangeal joints throughout. IMPRESSION: 1. Diffuse osteoporosis. 2. Generalized degenerative change. 3. Probable nondisplaced cortical hairline fractures bases of the second and third proximal phalanges. The above report was generated using voice recognition software. It may contain grammatical, syntax or spelling errors. Electronically signed by: Denzel Bearden M.D. 06/23/2017 11:31 AM Dictated Date/Time: 06/23/2017 11:30 AM
== END | disposition home or self-care (01) ==
LOC: C.RAD 11:04
PROVIDERS: ATTEND Internal Medicine Gastroenterology
DX: S99.921A Unspecified injury of right foot, initial encounter (principal); X58.XXXA Exposure to other specified factors, initial encounter; M81.0 Age-related osteoporosis without current pathological fracture; R93.7 Abnormal findings on diagnostic imaging of other parts of musculoskeletal system

== ENCOUNTER → 2017-07-13 | Outpatient (CLI) | payer BC ==
--- NOTE | 2017-07-13 16:14 | DIAGNOSTIC IMAGING REPORT ---
R LOWER EXT NONJOINT W/O CLINICAL HISTORY: 82 years-old Female with RT FOOT PAIN,PLANTAR FASCIITIS. Acute right hindfoot and ankle pain with redness and tenderness. An within the region of the plantar fascia and fifth toe. COMPARISON: Right foot radiographs 06/23/2017. TECHNIQUE: Multiplanar, multi sequence MRI of the right hindfoot was performed without contrast. FINDINGS: LATERAL LIGAMENT COMPLEX: The anterior talofibular ligament is thickened with intermediate signal compatible with chronic sprain. The calcaneofibular ligament and posterior talofibular ligaments are intact. SYNDESMOTIC LIGAMENTS: The anterior-inferior tibiofibular ligament, interosseous membrane and posterior-inferior tibiofibular ligaments are intact. DELTOID LIGAMENT COMPLEX: The superficial and deep components of the deltoid ligament are intact. ANTERIOR TENDONS: The tibialis anterior, extensor hallucis longus and extensor digitorum longus tendons are normal in position, morphology and signal. LATERAL TENDONS: The peroneus longus is thickened with intermediate signal along its inferomalleolar course compatible with moderate tendinosis. The peroneus brevis tendon appears intact. MEDIAL TENDONS: There is thickening with intermediate signal of the tibialis posterior tendon along its inframalleolar course compatible with moderate tendinosis. The Flexor digitorum longus and flexor hallucis longus tendons are intact. PLANTAR FASCIA: There is spurring of the plantar attachment site about the calcaneus with moderate thickening of both the medial and lateral bundles of the plantar fascia with moderate degree of surrounding edema compatible with acute on chronic plantar fasciitis. No evidence of plantar fascial nodules. ACHILLES TENDON: The Achilles tendon is normal in position, morphology and signal. No associated bursitis. SINUS TARSI: There is normal fat signal within the sinus tarsi. The interosseous and cervical ligaments are normal. The navicular-calcaneal (spring) ligament is without acute abnormality. TARSAL TUNNEL: There are no obstructing lesions within the tarsal tunnel. BONE MARROW: Multifocal degenerative changes are noted throughout the midfoot and hindfoot. Multifocal areas of mild to moderate edema like marrow signal are noted throughout the mid foot. There is severe bone marrow edema noted involving the calcaneus at the posterior facet with a linear nondisplaced fracture line seen on image 10 of the sagittal PD series involving the calcaneus just inferior to the posterior facet. Multifocal joint space narrowing and marginal spurring is also noted throughout the midfoot and hindfoot. No osteochondral defect of the talar dome identified. No intra-articular body. SOFT TISSUES: There is moderate to extensive soft tissue edema throughout the lower leg and foot with moderate atrophy of the intrinsic musculature about the foot. IMPRESSION: 1. Acute to subacute appearing nondisplaced fracture of the posterior calcaneal body just inferior to the posterior facet with extensive associated bone marrow edema. 2. Nonspecific moderate to extensive soft tissue edema about the lower leg and foot. Differential considerations would include cellulitis, venous stasis or lymphedema. 3. Moderate atrophy of the intrinsic musculature of the foot which can be seen in cases of long-standing diabetes mellitus. 4. Multifocal degenerative changes as above with acute on chronic plantar fasciitis. 5. Tibialis posterior and peroneal longus tendinosis. The above report was generated using voice recognition software. It may contain grammatical, syntax or spelling errors. Electronically signed by: Sergio Montes M.D. 07/13/2017 4:12 PM Dictated Date/Time: 07/13/2017 3:24 PM
== END | disposition home or self-care (01) ==
LOC: C.MRI 13:56
PROVIDERS: ATTEND Podiatrist Primary Podiatric Medicine
DX: S96.811A Strain of other specified muscles and tendons at ankle and foot level, right foot, initial encounter (principal); S82.891A Other fracture of right lower leg, initial encounter for closed fracture; X58.XXXA Exposure to other specified factors, initial encounter

== ENCOUNTER → 2017-12-21 | Outpatient (CLI) | payer OTHER ==
[~2017-12-21] MED LIST changes: +ACET-1346 PO; -ACET325T30 PO; +GABA-1220 PO; -GABA1CAP5 PO; +RANI150T85 PO; -ZNTT/150 PO
--- NOTE | 2017-12-21 15:30 | DIAGNOSTIC IMAGING REPORT ---
CT SCAN OF THE RIGHT FOOT WITHOUT IV CONTRAST CLINICAL HISTORY: Calcaneal fracture. COMPARISON STUDY: Radiographs of the right foot dated 06/23/2017. MRI of the right foot dated 07/13/2017. TECHNIQUE: CT scan of the right foot is performed from the ankle joint to the base of the foot. Images are reviewed in the axial, sagittal, and coronal planes. IV contrast was not administered for this examination. A dose lowering technique was utilized adhering to the principles of ALARA. CT DOSE: 255.83 mGy.cm FINDINGS: The skeletal structures are heterogeneously osteopenic. This significantly degrades the examination. Subtle nondistracted fracture is suggested involving the anterior process of the calcaneus. Fracture is also likely seen within the anterior and mid body of the calcaneus. No significant periostitis is identified. There is no significant loss of height. Subtle fractures are suggested involving the shafts of the second and third proximal phalanges. No additional fracture is clearly identified; however, this is not well evaluated. The ankle mortise appears intact. No fracture is suspected at the ankle joint. There is no ankle joint effusion. Soft tissue swelling is present throughout the forefoot, greatest dorsally. IMPRESSION: 1. There is severe heterogeneous osteopenia which significantly compromise is the examination and degrades diagnostic utility. 2. No distracted fracture is seen. 3. Subtle calcaneal fracture is questioned, but difficult to assess. This was much better seen on the 06/23/2017 MRI. There is no periostitis identified. 4. Subtle fractures of the second and third phalanges are suggested. These were better characterized on previous x-rays. Dictated: 12/21/2017 3:10 PM Transcribed: 12/21/2017 3:29 PM SHERLEY_Michael Electronically signed by: El Baez M.D. 12/21/2017 3:33 PM Dictated Date/Time: 12/21/2017 3:10 PM
== END | disposition home or self-care (01) ==
LOC: C.CTS 14:46
PROVIDERS: ATTEND Podiatrist Primary Podiatric Medicine
DX: M85.871 Other specified disorders of bone density and structure, right ankle and foot (principal)

== ENCOUNTER → 2018-05-10 | Outpatient (CLI) | payer OTHER ==
[~2018-05-10] MED LIST changes: -AMLO-110 PO; +AMLO5TAB3 PO
--- NOTE | 2018-05-12 18:39 | DIAGNOSTIC IMAGING REPORT ---
LUMBAR SPINE 3 VIEWS HISTORY: LOW BACK PAIN COMPARISON: Right hip 04/23/2017. FINDINGS: There is no fracture. Prior cholecystectomy. The sacrum appears intact. There is a Coflex device at the L3-L4 interspinous space. This appears to be in good position. There is mild disc space narrowing at L3-L4. Mild facet degenerative changes seen within the lower lumbar spine. There is 3 mm of anterolisthesis of L3 on L4. There appears to be a permeative appearance to the right acetabulum superiorly. This appears to have progressed. 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 IMPRESSION: 1. No fractures within the lumbar spine. 2. Mild degenerative disc disease at L3-L4 with grade I anterolisthesis. This is likely chronic. 3. There appears to be a permeative appearance to the right acetabulum superiorly. This appears to have progressed. This could be related to foreign body reaction from the right hip prosthesis. However, a pathologic lesion could also have a similar appearance. Electronically signed by: Jose Thompson M.D. 05/12/2018 6:38 PM Dictated Date/Time: 05/12/2018 6:32 PM
== END | disposition home or self-care (01) ==
LOC: C.RDSM 13:58
PROVIDERS: ATTEND Orthopaedic Surgery
DX: M25.551 Pain in right hip (principal); M54.5 Low back pain; M51.36 Other intervertebral disc degeneration, lumbar region; M25.561 Pain in right knee

== ENCOUNTER → 2018-05-31 | Outpatient (CLI) | payer OTHER ==
[~2018-05-31] MED LIST changes: +GADAVIST IV PRN
--- NOTE | 2018-05-31 16:32 | DIAGNOSTIC IMAGING REPORT ---
LUMBAR SPINE COMBINATION HISTORY: Pain LOW BACK AND RIGHT LEG PAIN TECHNIQUE: Multiplanar multisequence MRI of the lumbar spine was performed both before and after the intravenous administration of contrast. COMPARISON: None. FINDINGS: For the purpose of the report the L5-S1 disc space will be located on axial image 23 of 25. Moderate degenerative disc change throughout. Grade 1 anterolisthesis L3 on L4. 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 No major compromise of the spinal canal based on the sagittal images. Operative changes consistent with posterior laminectomy at the L3 level. L1-L2: No significant central canal or neural foraminal narrowing. L2-L3: Minimal disc bulge. L3-L4: Findings of posterior laminectomy and fusion. Mild postoperative deformity of the thecal sac. Mild broad-based disc bulge. Findings a slightly accentuated by the grade 1 anterolisthesis of L3 on L4. Minimal narrowing neuroforamina bilaterally. L4-L5: No significant central canal or neural foraminal narrowing. L5-S1: No significant central canal or neural foraminal narrowing. IMPRESSION: 1. Grade 1 anterolisthesis of L3 on L4 with evidence for posterior laminectomy and fusion at the L3-L4 level. 2. Mild deformity of the thecal sac at L3-L4 and a postoperative basis, with a minimal disc bulge at L2-L3. 3. No evidence for significant component of spinal or foraminal stenosis. The above report was generated using voice recognition software. It may contain grammatical, syntax or spelling errors. Electronically signed by: Denzel Bearden M.D. 05/31/2018 4:30 PM Dictated Date/Time: 05/31/2018 4:25 PM
== END | disposition home or self-care (01) ==
LOC: C.MRI 14:56
PROVIDERS: ATTEND Orthopaedic Surgery
DX: M54.5 Low back pain (principal); M79.604 Pain in right leg

== ENCOUNTER 2019-06-26 21:14 | Inpatient (IN) ==
[2019-06-26] MEDS ORDERED: SODIUM CHLORIDE 0.9% 500 ML IV SCH (22:00)
[2019-06-26 22:17] LABS: Basophils # (auto) 0.03 K/uL (0-0.2); Basophils % (auto) 0.3 %; Eosinophils # (auto) 0.07 K/uL (0-0.5); Eosinophils % (auto) 0.7 %; Hemoglobin 17.1 g/dL (12.0-16.0); Immature Granulocytes # (auto) 0.04 K/uL (0.00-0.02); Immature Granulocytes % (auto) 0.4 %; Lymphocytes # (auto) 1.35 K/uL (1.2-3.4); Lymphocytes % (auto) 13.1 %; Mean Corpuscular Hgb Conc 35.6 g/dL (32-36); Mean Corpuscular Volume 86.2 fL (80-100); Monocytes # (auto) 1.16 K/uL (0.11-0.59); Monocytes % (auto) 11.3 %; Neutrophils # (auto) 7.62 K/uL (1.4-6.5); Neutrophils % (auto) 74.2 %; Platelet Count 159 K/uL (130-400); RDW Coefficient of Variation 13.9 % (11.5-14.5); RDW Standard Deviation 43.5 fL (36.4-46.3); Red Blood Count 5.57 M/uL (4.2-5.4); White Blood Count 10.27 K/uL (4.8-10.8)
[2019-06-26] MEDS ORDERED: IOVERSOL 100ml IV PRN (22:20)
[2019-06-26 22:22] LABS: iSTAT Creatinine 0.6 mg/dl (0.6-1.3); iSTAT Hemoglobin 16.3 g/dl (12.0-16.0); iSTAT Ionized Calcium 1.06 mmol/l (1.12-1.32); iSTAT Potassium 3.7 mEq/L (3.3-5.0)
--- NOTE | 2019-06-26 22:47 | CT Scan Report ---
CT abd pelvis IV con only CLINICAL HISTORY: 84 years-old Female presenting with eval for bowel obst. TECHNIQUE: Multidetector CT of the abdomen and pelvis was performed after the administration of intra venous contrast. IV contrast: 94 mL of Optiray 320. One or more dose lowering techniques were used co nsistent with the principles of ALARA (as low as reasonably achievable), including automatic exposure control, mA or kV adjustment to individual patient size, and/or use of iterative reconstruction. COMPARISON: 04/06/2017. CT DOSE (mGy.cm): The estimated cumulative dose is 231.56 mGy.cm. 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 Cholecystectomy clips. Image quality is limited by a portion of the hepatic dome and a portion of the spleen excluded from f [id number] due to elevation of the hemidiaphragms at the time of image acquisition. Lung bases: Normal heart size. No pericardial or pleural effusion. Minimal dependent changes likely a telectasis. Liver: Normal morphology. No liver lesion. Patent hepatic vasculature. Biliary: Mild biliary ductal prominence likely a reservoir effect in the post cholecystectomy state. Gallbladder surgically absent. Pancreas: Normal. Mild prominence of the pancreatic duct diffusely. Spleen: Normal. Adrenal glands: Normal. Kidneys and ureters: Few cysts noted. Punctate nonobstructing calculi in the left kidney. No hydronep hrosis. Ureters nondistended. No evidence of a recently passed calculus. Bladder: The configuration of the bladder suggests pelvic ligamentous laxity. Bladder otherwise stevo l. Pelvic organs: Uterus and ovaries grossly normal though poorly evaluated given the phase of contrast. Bowel: Mild stool burden throughout normal caliber colon. The appendix is grossly normal and unchange d from prior. Distended loop of small bowel in the superior pelvis with a diameter of 4 cm. Feces wit hin this loop of small bowel consistent with delayed transit. Focal downstream stenosis with decompre ssed the stool ileum in the right mid abdomen. There may be wall thickening at the site of stenosis s uggesting a stricture. A discontinuous loop of small bowel slightly more superiorly is slightly less distended though with a somewhat similar appearance containing feces and measuring nearly 3 cm in serg meter. There is an apparent peritoneal nodule or a cystic outpouching adjacent to this second transit ion site measuring 13 mm (series 3 image 193). Peritoneal cavity: Small free fluid in the pelvis. No free intraperitoneal gas. Lymph nodes: No enlarged lymph nodes in the abdomen or pelvis. Vasculature: Atherosclerosis of the normal caliber abdominal aorta. IVC patent. A femoral-femoral byp ass graft is patent. Occlusion of the right external iliac artery. Abdominal wall: Normal. Musculoskeletal: Total right hip arthroplasty. Osteopenia. Postsurgical changes of the lumbar spine w ithin the interspinous spacer. IMPRESSION: 1. Partial small bowel obstruction at 2 sites in the ileum, where there is distention and focal fece s. 2. At the more severe site of partial small bowel obstruction, suspected stricture versus, less like ly, adhesions. Stricture is favored given the appearance of small bowel wall thickening at the downst ream site of stenosis. 3. The etiology of the apparent second site of partial small bowel obstruction is not as clear. It m ay be related to the adjacent cystic peritoneal implant or focal outpouching. Differential considerat ions include a metastatic peritoneal implant or small bowel diverticulum or Meckel's diverticulum. 4. Patent femoral-femoral bypass graft. Electronically signed by: Dimitri Toribio M.D. 06/26/2019 10:44 PM
[2019-06-26 22:56] LABS: Albumin Globulin Ratio 0.9 (0.9-2); Albumin Level 3.9 gm/dl (3.4-5.0); BUN Creatinine Ratio 18.9 (10-20); Bilirubin,Total 0.6 mg/dl (0.2-1); Calcium 9.7 mg/dl (8.5-10.1); Creatinine Clr Calc Pharmacy 39.7 ml/min; Est GFR (African American) 86.4; Est GFR (Non-African American) 74.6; Globulin 4.2 gm/dl (2.5-4.0); Potassium 3.7 mmol/L (3.5-5.1); Total Protein 8.1 gm/dl (6.4-8.2)
--- NOTE | 2019-06-27 00:24 | Emergency Department Note ---
Entered by Gisselle Lynch acting as a scribe for Rodo Burleson MD History of Present Illness General Chief complaint: Abdominal Pain Stated complaint: AB PAIN Time Seen by Provider: 06/26/19 21:34 Source: patient and family History of Present Illness Onset (ago): hour(s) 6 Location: abdomen Severity: severe and similar to prior episodes Pain Consistency: + other (Worsening) Maximum Pain Intensity: 2 Quality: + other (Abdominal pain) Exacerbated By: + movement Associated symptoms: + nausea/vomiting (Positive nausea. Negative vomiting.), + shortness of breath and + other (Positive back pain. Negative abnormal urinary symptoms, bloody stool and any recent abdominal trauma.); no chest pain The patient is a 84 year old female presenting to the Emergency Department complaining of worsening abdominal pain starting 6 hours ago. The patient reports that she has severe abdominal pain. She explains that she is nauseous. She states that she has experienced these symptoms before and when she last experienced these symptoms she was diagnosed with a partial bowel obstruction. She notes that she feels like she needs to have a bowel movement but cant go. She adds that she become short of breath when she walks around. The patients family reports that the patient regularly takes Plavix. They state that the patient last had a bowel obstruction 4 years ago. They note that the patient resides at [facility]. They add that the patient had lumbar surgery and sometimes complains of back pain. The patient denies vomiting, chest pain, abnormal urinary symptoms, bloody stool and any recent abdominal trauma. Home Medications Home Medications Medication Instructions Recorded Confirmed Type alprazolam 0.5 mg tablet 0.5 mg PO BID PRN tab 05/30/19 06/26/19 History amlodipine 2.5 mg tablet 2.5 mg PO QPM tab 05/30/19 06/27/19 History clopidogrel 75 mg tablet 75 mg PO QAM tab 05/30/19 06/27/19 History levothyroxine 50 mcg tablet 50 mcg PO QAM tab 05/30/19 06/27/19 History oxycodone 5 mg capsule 5 mg PO DIRECTED PRN cap MDD 5 05/30/19 06/26/19 History TABS/DAY polyethylene glycol 3350 17 17 g PO QAM gm 05/30/19 06/27/19 History gram/dose oral powder pravastatin 10 mg tablet 10 mg PO QPM tab 05/30/19 06/27/19 History ranitidine 150 mg capsule 150 mg PO DIRECTED PRN cap 05/30/19 06/26/19 H istory sertraline 50 mg tablet 50 mg PO QPM #30 tab 05/30/19 06/27/19 History B complex-minerals [Stress B Plus 1 tab PO DAILY 06/26/19 06/27/19 History Zinc] Ultra-Ostivone 2 tab PO DAILY 06/26/19 06/27/19 History acetaminophen [Tylenol] 650 mg PO Q6H PRN 06/26/19 06/26/19 History ascorbic acid (vitamin C) [Vitamin 500 mg PO DAILY 06/26/19 06/27/19 History C] cholecalciferol (vitamin D3) 1,000 unit PO DAILY 06/26/19 06/27/19 History [Vitamin D3] cranberry 1,000 mg PO DAILY 06/26/19 06/27/19 History gabapentin 300 mg PO BID 06/26/19 06/27/19 History multivitamin 1 tab PO DAILY 06/26/19 06/27/19 History omega 3-fih-[id number]-fish oil [Fish Oil] 1 cap PO DAILY 06/26/19 06/27/19 History ondansetron HCl [Zofran] 4 mg PO Q8 PRN 06/26/19 06/26/19 History potassium 99 mg PO BID 06/26/19 06/27/19 History vit A-vit [id number] [Zinc 1 beck PO DAILY 06/26/19 06/27/19 History (with A and C) Lozenges] vitamin K2 120 mcg PO DAILY 06/26/19 06/27/19 History Allergies Allergy/AdvReac Type Severity Reaction Status Date / Time adhesive Allergy Mild skin Verified 06/26/19 23:53 irritation Past Med/Surg History Medical History Allergic rhinitis due to dust Allergic rhinitis due to pollen Bilateral sensorineural hearing loss Hearing difficulty of both ears Hearing loss Hearing loss of left ear due to cerumen impaction Impacted cerumen of left ear Diffuse pain in right lower extremity Lumbosacral radiculopathy at L5 Small vessel disease, cerebrovascular Anemia (Chronic) DVT (deep venous thrombosis) (Resolved) History of small bowel obstruction Peripheral vascular disease Surgical History History of hip replacement (Resolved) History of back surgery History of cholecystectomy History of ear surgery History of tubal ligation Family History Sister FHx: deafness or hearing loss Mother Breast cancer Cardiac disorder Father Cardiac disorder Other Family history non-contributory Social History Current Living Situation: Alf current occupational status: retired Feels Safe at Home: Yes Smoking Status: Former smoker Review of Systems See HPI for pertinent positives & negatives. and A total of 10 systems reviewed and were otherwise negative Physical Exam Vital Signs Vital Signs - 24 hr 06/26/19 21:21 06/26/19 23:30 Temperature 36.3 C L Temperature Source Oral Sepsis Recent Fever Within 48 Hours No Sepsis New/Unexplained Change in Mental Status No Sepsis Action Taken by Nursing No Action Required Pulse Rate 82 Pulse Rate [Finger] 82 80 Pulse Rhythm [Finger] Regular Pulse Strength [Finger] Normal Respiratory Rate 18 16 Respiratory Effort / Characteristics Non-Labored Respiratory Depth Normal Respiratory Pattern Regular Blood Pressure 146/74 H Blood Pressure [Right Arm] 146/74 H 160/87 H Blood Pressure Mean 98 Blood Pressure Mean [Right Arm] 98 111 Blood Pressure Position [Right Arm] Lying Pulse Oximetry 99 95 Oxygen Delivery Method Room Air Room Air General: Non-ill appearing older female in no acute distress. HEENT: Normal cephalic atraumatic. Pupils are equal round and reactive to light. Extraocular movements are intact. Oropharynx is pink with moist mucous membranes. No swelling of the mouth lips or tongue. Neck: Supple with a midline trachea. No meningeal signs or stiffness, no JVD or bruits. No Stridor. Chest: Clear to auscultation bilaterally. No wheezes or rhonchi. No increased work of breathing. Heart: regular rate and rhythm. Abdomen: Soft nontender, nondistended without rebound guarding or rigidity. Gortex graph felt above the lower abdomen. Extremities: No cyanosis clubbing or edema. No calf tenderness or asymmetry. Well perfused appearing. Good capillary refill. Spine/Back. Non tender to palpation. No CVA tenderness Skin: Good turgor without rashes. Neurologic exam: Cranial nerves two through 12 are intact. Motor and sensation are intact and symmetrical throughout. Course 2135: The patient was evaluated in room B11B, and a complete history and physical examination were performed. 2329: I reevaluated the patient at this time. 4: I discussed the patients case with Dr. Winnie HUNTER hospitalist. He will evaluate the patient for further management. Consultations Consultation #1: I discussed the patients case with Dr. Winnie HUNTER hospitalist. He will evaluate the patient for further management. Time: 23:34 Administered Medications Ioversol (Optiray 320 100ml) 94 ml IV ONCE PRN PRN Reason: Interaction Checking Stop: 06/30/19 22:19 Last Admin: 06/26/19 22:20 Dose: 94 ml Documented by: [id number] Discontinued Medications Sodium Chloride (Nss) 500 mls @ 999 mls/hr IV .Q31M ROLLY Stop: 06/26/19 22:30 Last Infusion: 06/26/19 23:17 Dose: 0 mls/hr Documented by: [id number] Admin: 06/26/19 22:12 Dose: 999 mls/hr Documented by: [id number] Medical Decision Making Differential Diagnosis Differentials include bowel obstruction, anyeurism, infection, cardiac disease and electrolyte or metabolic abnormality amongst others. Medical Records Attestation: I reviewed the patient's medical records. Home Medications Current Medication List: was personally reviewed by me Laboratory Data Attestation: I reviewed the patient's lab results. Result diagrams: 06/26/19 22:10 06/26/19 22:10 Lab Results 06/26/19 06/26/19 06/26/19 Range/Units 22:08 22:10 22:10 WBC 10.27 (4.8-10.8) K/uL RBC 5.57 H (4.2-5.4) M/uL Hgb 17.1 H (12.0-16.0) g/dL POC Hgb 16.3 H (12.0-16.0) g/dl Hct 48.0 H (37-47) % POC Hct 48 H (37-47) % MCV 86.2 (80-100) fL MCH 30.7 (25-34) pg MCHC 35.6 (32-36) g/dL RDW Std Deviation 43.5 (36.4-46.3) fL RDW Coeff of Apollo 13.9 (11.5-14.5) % Plt Count 159 (130-400) K/uL MPV 10.0 (7.4-10.4) fL Immature Gran % (Auto) 0.4 % Neut % (Auto) 74.2 % Lymph % (Auto) 13.1 % Hardeman % (Auto) 11.3 % Eos % (Auto) 0.7 % Baso % (Auto) 0.3 % Immature Gran # (Auto) 0.04 H (0.00-0.02) K/uL Neut # (Auto) 7.62 H (1.4-6.5) K/uL Lymph # (Auto) 1.35 (1.2-3.4) K/uL Hardeman # (Auto) 1.16 H (0.11-0.59) K/uL Eos # (Auto) 0.07 (0-0.5) K/uL Baso # (Auto) 0.03 (0-0.2) K/uL POC Sodium 141 (135-144) mEq/L Sodium 141 (136-145) mmol/L POC Potassium 3.7 (3.3-5.0) mEq/L Potassium 3.7 (3.5-5.1) mmol/L POC Chloride 102 (101-112) mEq/L Chloride 105 (98-107) mmol/L Carbon Dioxide 27 (21-32) mmol/L POC Total CO2 23 L (24-31) mEq/l Anion Gap 10.0 (3-11) POC Anion Gap 20.0 (16-25) mmol/L POC BUN 14 (7-18) mg/dl BUN 14 (7-18) mg/dl Creatinine 0.73 (0.6-1.2) mg/dl POC Creatinine 0.6 (0.6-1.3) mg/dl Est Cr Clr Drug Dosing 39.7 ml/min Est GFR ( Amer) 86.4 Est GFR (Non-Af Amer) 74.6 BUN/Creatinine Ratio 18.9 (10-20) Glucose 101 H (70-99) mg/dl POC Glucose (other) 105 H (70-99) mg/dl Calcium 9.7 (8.5-10.1) mg/dl POC Ioniz Calcium Tate 1.06 L (1.12-1.32) mmol/l Total Bilirubin 0.6 (0.2-1) mg/dl AST 16 (15-37) U/L ALT 19 (12-78) U/L Alkaline Phosphatase 90 (45-117) U/L Troponin I (0-0.045) ng/ml Total Protein 8.1 (6.4-8.2) gm/dl Albumin 3.9 (3.4-5.0) gm/dl Globulin 4.2 H (2.5-4.0) gm/dl Albumin/Globulin Ratio 0.9 (0.9-2) Lipase 85 (73-393) U/L Urine Color Urine Appearance (Clear) Urine pH (4.5-7.5) Ur Specific Barnard (1.000-1.030) Urine Protein (Negative) Urine Glucose (UA) (Negative) Urine Ketones (Negative) Urine Blood (Negative) Urine Nitrite (Negative) Urine Bilirubin (Negative) Urine Urobilinogen (Negative) Ur Leukocyte Esterase (Negative) Urine WBC (Auto) (0-5) /hpf Urine RBC (Auto) (0-4) /hpf U Hyaline Cast (Auto) (0-5) /lpf U Epithel Cells (Auto) (0-5) /lpf Urine Bacteria (Auto) (Negative) 06/26/19 06/27/19 Range/Units 22:10 00:02 WBC (4.8-10.8) K/uL RBC (4.2-5.4) M/uL Hgb (12.0-16.0) g/dL POC Hgb (12.0-16.0) g/dl Hct (37-47) % POC Hct (37-47) % MCV (80-100) fL MCH (25-34) pg MCHC (32-36) g/dL RDW Std Deviation (36.4-46.3) fL RDW Coeff of Apollo (11.5-14.5) % Plt Count (130-400) K/uL MPV (7.4-10.4) fL Immature Gran % (Auto) % Neut % (Auto) % Lymph % (Auto) % Hardeman % (Auto) % Eos % (Auto) % Baso % (Auto) % Immature Gran # (Auto) (0.00-0.02) K/uL Neut # (Auto) (1.4-6.5) K/uL Lymph # (Auto) (1.2-3.4) K/uL Hardeman # (Auto) (0.11-0.59) K/uL Eos # (Auto) (0-0.5) K/uL Baso # (Auto) (0-0.2) K/uL POC Sodium (135-144) mEq/L Sodium (136-145) mmol/L POC Potassium (3.3-5.0) mEq/L Potassium (3.5-5.1) mmol/L POC Chloride (101-112) mEq/L Chloride (98-107) mmol/L Carbon Dioxide (21-32) mmol/L POC Total CO2 (24-31) mEq/l Anion Gap (3-11) POC Anion Gap (16-25) mmol/L POC BUN (7-18) mg/dl BUN (7-18) mg/dl Creatinine (0.6-1.2) mg/dl POC Creatinine (0.6-1.3) mg/dl Est Cr Clr Drug Dosing ml/min Est GFR ( Amer) Est GFR (Non-Af Amer) BUN/Creatinine Ratio (10-20) Glucose (70-99) mg/dl POC Glucose (other) (70-99) mg/dl Calcium (8.5-10.1) mg/dl POC Ioniz Calcium Tate (1.12-1.32) mmol/l Total Bilirubin (0.2-1) mg/dl AST (15-37) U/L ALT (12-78) U/L Alkaline Phosphatase (45-117) U/L Troponin I < 0.015 (0-0.045) ng/ml Total Protein (6.4-8.2) gm/dl Albumin (3.4-5.0) gm/dl Globulin (2.5-4.0) gm/dl Albumin/Globulin Ratio (0.9-2) Lipase (73-393) U/L Urine Color Yellow Urine Appearance Clear (Clear) Urine pH >= 9.0 H (4.5-7.5) Ur Specific Barnard 1.044 H (1.000-1.030) Urine Protein Negative (Negative) Urine Glucose (UA) Negative (Negative) Urine Ketones Negative (Negative) Urine Blood Negative (Negative) Urine Nitrite Negative (Negative) Urine Bilirubin Negative (Negative) Urine Urobilinogen Negative (Negative) Ur Leukocyte Esterase 2+ H (Negative) Urine WBC (Auto) >30 H (0-5) /hpf Urine RBC (Auto) 0-4 (0-4) /hpf U Hyaline Cast (Auto) 0 (0-5) /lpf U Epithel Cells (Auto) 0-5 (0-5) /lpf Urine Bacteria (Auto) 4+ H (Negative) Imaging Data Radiologist's Impression: Radiology results as stated below per my review and the radiologist's interpretation: CT abd pelvis IV con only CLINICAL HISTORY: 84 years-old Female presenting with eval for bowel obst. TECHNIQUE: Multidetector CT of the abdomen and pelvis was performed after the administration of intravenous contrast. IV contrast: 94 mL of Optiray 320. One or more dose lowering techniques were used consistent with the principles of ALARA (as low as reasonably achievable), including automatic exposure control, mA or kV adjustment to individual patient size, and/or use of iterative reconstruction. COMPARISON: 04/06/2017. CT DOSE (mGy.cm): The estimated cumulative dose is 231.56 mGy.cm. FINDINGS: Grain Sampler topogram: Orthopedic hardware. Cholecystectomy clips. Image quality is limited by a portion of the hepatic dome and a portion of the spleen excluded from [id number] due to elevation of the hemidiaphragms at the time of image acquisition. Lung bases: Normal heart size. No pericardial or pleural effusion. Minimal dependent changes likely atelectasis. Liver: Normal morphology. No liver lesion. Patent hepatic vasculature. Biliary: Mild biliary ductal prominence likely a reservoir effect in the post cholecystectomy state. Gallbladder surgically absent. Pancreas: Normal. Mild prominence of the pancreatic duct diffusely. Spleen: Normal. Adrenal glands: Normal. Kidneys and ureters: Few cysts noted. Punctate nonobstructing calculi in the left kidney. No hydronephrosis. Ureters nondistended. No evidence of a recently passed calculus. Bladder: The configuration of the bladder suggests pelvic ligamentous laxity. Bladder otherwise normal. Pelvic organs: Uterus and ovaries grossly normal though poorly evaluated given the phase of contrast. Bowel: Mild stool burden throughout normal caliber colon. The appendix is grossly normal and unchanged from prior. Distended loop of small bowel in the superior pelvis with a diameter of 4 cm. Feces within this loop of small bowel consistent with delayed transit. Focal downstream stenosis with decompressed the stool ileum in the right mid abdomen. There may be wall thickening at the site of stenosis suggesting a stricture. A discontinuous loop of small bowel slightly more superiorly is slightly less distended though with a somewhat similar appearance containing feces and measuring nearly 3 cm in diameter. There is an apparent peritoneal nodule or a cystic outpouching adjacent to this second transition site measuring 13 mm (series 3 image 193). Peritoneal cavity: Small free fluid in the pelvis. No free intraperitoneal gas. Lymph nodes: No enlarged lymph nodes in the abdomen or pelvis. Vasculature: Atherosclerosis of the normal caliber abdominal aorta. IVC patent. A femoral-femoral bypass graft is patent. Occlusion of the right external iliac artery. Abdominal wall: Normal. Musculoskeletal: Total right hip arthroplasty. Osteopenia. Postsurgical changes of the lumbar spine within the interspinous spacer. IMPRESSION: 1. Partial small bowel obstruction at 2 sites in the ileum, where there is distention and focal feces. 2. At the more severe site of partial small bowel obstruction, suspected stricture versus, less likely, adhesions. Stricture is favored given the appearance of small bowel wall thickening at the downstream site of stenosis. 3. The etiology of the apparent second site of partial small bowel obstruction is not as clear. It may be related to the adjacent cystic peritoneal implant or focal outpouching. Differential considerations include a metastatic peritoneal implant or small bowel diverticulum or Meckel's diverticulum. 4. Patent femoral-femoral bypass graft. Electronically signed by: Dimitri Toribio M.D. 06/26/2019 10:44 PM ECG Data Attestation: I personally reviewed and interpreted this ECG as follows: Indication: abdominal pain Rate (beats per minute): 75 Rhythm: normal sinus Findings: + other (Poor R wave progression); no acute ischemic change and no ectopy Comparison ECG Date: from () Change: no significant change Blood Pressure Blood Pressure Findings: Elevated blood pressure Blood Pressure Disposition: further management by hospitalist [facility] Narrative This patient comes in as described above. She has had intermittent significant abdominal pain today. She has a history of having small bowel obstructions and adhesions. She did have a tubal ligation but no other abdominal surgeries according to her son-in-law who is a physician. She has had intermittent small bowel obstructions but the last one was 3 or 4 years ago. She presented similarly. She was fine earlier today. No fever or chills. No fall or trauma. No recent illness. IV access was established and she was hydrated with a 500 cc IV normal saline bolus. She was kept n.p.o. She has no white count or fever to suggest infection. She has no acute electrolyte or metabolic abnormalities. EKG does not suggest acute coronary syndrome or any significant arrhythmia. Her CAT scan does show partial small bowel obstruction with 2 areas where she has either adhesions or strictures. I do think she needs to be admitted for bowel rest and IV hydration. The family is in agreement with this. I have consult Dr. Minor who will see her in the ER for these measures. Impression & Plan SBO (small bowel obstruction), Diffuse abdominal pain, joint terminal attack controller (current) use of antithrombotics/antiplatelets, Adhesion of intestine Discharge Plan Visit Data *Final* Discharge Date/Time: 06/27/19 00:54 Chief Complaint: Abdominal Pain Stated Complaint: AB PAIN ED Provider: Rodo Burleson Discharge Problem: SBO (small bowel obstruction), Diffuse abdominal pain, senior care (current) use of antithrombotics/antiplatelets, Adhesion of intestine Patient Disposition: Admitted As Inpatient Discharge Instructions Interventions: ED Discharge Assessment Last Done: 06/27/19 00:54 The scribe's documentation has been prepared under my direction and personally reviewed by me in its entirety. I confirm that the note above accurately reflects all work, treatment, procedures, and medical decision making performed by me.
--- NOTE | 2019-06-27 00:34 | History & Physical Report ---
Date of Service June 27, 2019 Assessment & Plan (1) SBO (small bowel obstruction): Mrs. Lance is a very pleasant 84 year old female with a past medical history of recurrent small bowel obstruction, hypothyroidism, hypertension, peripheral vascular disease, history of DVT, and depression who presents to the emergency department due to abdominal pain. ED course: 500 mL bolus of normal saline Partial small bowel obstruction -Admit to med/surg -CT abdomen and pelvis showed a partial small bowel obstruction at two sites in the ileum -> Suspected cause of the more severe site is stricture (more likely) versus adhesions -> Suspected cause of the second site of obstruction -> cystic peritoneal implant versus small bowel diverticulum -No vomiting, no electrolyte abnormalities noted. Patient had BM earlier today -N.p.o. with maintenance IVF at 80 mls per hour -No indication for NG tube at this time -IV Acetaminophen ordered for pain control -> can increase regimen if pt reports pain, however appeared comfortable at the time of my assessment -General surgery consulted, appreciate recommendations Positive UA -Urine positive for leukocyte esterase, white blood cells, bacteria -> sent for culture -Patient asymptomatic, no indication for treatment Hypothyroidism -Continue home Synthroid Peripheral vascular disease -s/p femoralfemoral bypass graft -Continue home Plavix and pravastatin Hypertension -Continue home amlodipine Low back pain with radiculopathy -Continue home gabapentin -hold home prn oxycodone given SBO Depression and anxiety -Continue home sertraline and PRN alprazolam Ambulatory dysfunction -Secondary to prior calcaneal fracture of right foot, in addition to fractures of second and third phalanges -Patient uses walker to ambulate History of DVT -Not currently on anticoagulation CODE STATUS: Full DVT prophylaxis: 30 mg Lovenox SQ daily Disposition: Admit to med/surg (2) Hypothyroidism: (3) Peripheral vascular disease: (4) Hypertension: (5) Depression: (6) Low back pain: (7) Ambulatory dysfunction: History of Present Illness Chief Complaint: Abdominal Pain Primary Care Provider: Rowan Herrera MD Mrs. Lance is a very pleasant 84 year old female with a past medical history of recurrent small bowel obstruction, hypothyroidism, hypertension, peripheral vascular disease, history of DVT, and depression who presents to the emergency department due to abdominal pain. Mrs. Lance states that the abdominal pain began suddenly at 3 PM this afternoon. She states that the pain was initially intermittent, however at approximately 6:45 PM, it worsened, prompting her to come to the emergency department. She states that she has had numerous small bowel obstructions in the past, and used to get them approximately twice per year. She states that her last small bowel obstruction was 5 years ago. She states that the pain that she is feeling is similar to her prior bowel obstructions. She reports nausea, but denies any vomiting. She states her last bowel movement was this morning, and she typically has a bowel movement twice a day. She states that she has felt the urge to have a bowel movement, but has not been able to since this morning. With regards to her prior bowel obstructions, she used to follow with GI in [place]. There was no cause found for her recurrent bowel obstructions. There was speculation that it may be related to Crohn's disease, and she took a one-week course of steroids, which she states helped, and that she did not have trouble with bowel obstructions for years after that. Past medical history: Recurrent small bowel obstruction, hypothyroidism, hypertension, peripheral vascular disease, history of DVT, low back pain, R foot fracture, and depression Past surgical history: Tubal ligation, cholecystectomy, right hip replacement with revision, back surgery, arterial fem-fem bypass Medications: Alprazolam, amlodipine, clopidogrel, gabapentin, levothyroxine, oxycodone, potassium chloride, pravastatin, sertraline, Zantac Allergies: No known drug allergies Social history: Lives at home, and assisted living with her . Occasional smoker, smoking 2 to 3 cigarettes/day, quit several years ago. Minimal alcohol use. No recreational drugs. Allergies Allergy/AdvReac Type Severity Reaction Status Date / Time adhesive Allergy Mild skin Verified 06/26/19 23:53 irritation Home Medications Home Medications Medication Instructions Recorded Confirmed Type alprazolam 0.5 mg tablet 0.5 mg PO BID PRN tab 05/30/19 06/26/19 History amlodipine 2.5 mg tablet 2.5 mg PO QPM tab 05/30/19 06/27/19 History clopidogrel 75 mg tablet 75 mg PO QAM tab 05/30/19 06/27/19 History levothyroxine 50 mcg tablet 50 mcg PO QAM tab 05/30/19 06/27/19 History oxycodone 5 mg capsule 5 mg PO DIRECTED PRN cap MDD 5 05/30/19 06/26/19 History TABS/DAY polyethylene glycol 3350 17 17 g PO QAM gm 05/30/19 06/27/19 History gram/dose oral powder pravastatin 10 mg tablet 10 mg PO QPM tab 05/30/19 06/27/19 History ranitidine 150 mg capsule 150 mg PO DIRECTED PRN cap 05/30/19 06/26/19 History sertraline 50 mg tablet 50 mg PO QPM #30 tab 05/30/19 06/27/19 History B complex-minerals [Stress B Plus 1 tab PO DAILY 06/26/19 06/27/19 History Zinc] Ultra-Ostivone 2 tab PO DAILY 06/26/19 06/27/19 History acetaminophen [Tylenol] 650 mg PO Q6H PRN 06/26/19 06/26/19 History ascorbic acid (vitamin C) [Vitamin 500 mg PO DAILY 06/26/19 06/27/19 History C] cholecalciferol (vitamin D3) 1,000 unit PO DAILY 06/26/19 06/27/19 History [Vitamin D3] cranberry 1,000 mg PO DAILY 06/26/19 06/27/19 History gabapentin 300 mg PO BID 06/26/19 06/27/19 History multivitamin 1 tab PO DAILY 06/26/19 06/27/19 History omega 9-hht-lls-fish oil [Fish Oil] 1 cap PO DAILY 06/26/19 06/27/19 History ondansetron HCl [Zofran] 4 mg PO Q8 PRN 06/26/19 06/26/19 History potassium 99 mg PO BID 06/26/19 06/27/19 History vit A-vit P-lzca-ryofhqqj [Zinc 1 beck PO DAILY 06/26/19 06/27/19 History (with A and C) Lozenges] vitamin K2 120 mcg PO DAILY 06/26/19 06/27/19 History Past Med/Surg History Medical History Allergic rhinitis due to dust Allergic rhinitis due to pollen Bilateral sensorineural hearing loss Hearing difficulty of both ears Hearing loss Hearing loss of left ear due to cerumen impaction Impacted cerumen of left ear Diffuse pain in right lower extremity Lumbosacral radiculopathy at L5 Small vessel disease, cerebrovascular Anemia (Chronic) DVT (deep venous thrombosis) (Resolved) History of small bowel obstruction Peripheral vascular disease Surgical History History of hip replacement (Resolved) History of back surgery History of cholecystectomy History of ear surgery History of tubal ligation Family History Sister FHx: deafness or hearing loss Mother Breast cancer Cardiac disorder Father Cardiac disorder Other Family history non-contributory Social History Preferred Language: Faroese 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: Effective 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 Beliefs That Will Affect Care: None Current Living Situation: Spouse and Personal Care Facility Current Living Situation Comment: assisted living at [facility] current occupational status: retired Other Information That Helps Us Care for You: No Feels Safe at Home: Yes Safety Concerns: Feels Safe At This Time Smoking Status: Former smoker Do You Dip or Chew Tobacco: No ; Second Hand Exposure: Yes (, quit years ago) ; Tobacco Cessation Education Requested by Patient: No Hx Alcohol Use: Yes Alcohol type: wine Hx Substance Use: Yes substance use type: marijuana and other Last Used Substance Other:: medical marijuana over a year ago, Hemp 3 months ago Review of Systems Constitutional: + weight loss (4-5 pounds over several months); no fever, no chills, no fatigue, no weakness and no anorexia Respiratory: no cough, no dyspnea and no wheezing Cardiovascular: no chest pain, no palpitations, no syncope, no edema and no calf pain Gastrointestinal: + abdominal pain and + nausea; no vomiting and no diarrhea/loose stools Genitourinary: no dysuria, no urinary frequency and no urinary urgency Integumentary: no rash Physical Exam Constitutional: WD/WN, vitals as above cooperative and comfortable Eyes: PERRL, conjunctivae normal, anicteric sclerae ENMT: external ear and nose normal, oropharynx normal Respiratory: normal respiratory effort, lungs clear to auscultation Cardiovascular: RRR, no murmur, no edema Gastrointestinal (Abdomen): Inspection/Auscultation: abdomen not distended Percussion/Palpation: + abdomen tender (TTP across upper abdomen) and abdomen soft; no guarding and abdomen not rigid Skin: no rashes, warm and dry Neurologic: 5/5 power in b/l UE and left LE. Right LE w/4/5 power - pt states secondary to fracture and resultant weakness of right leg Psychiatric: A+Ox3, euthymic affect Results & Data Vital Signs (Past 12 Hours) Vital Signs Temp Pulse Pulse Resp BP BP Pulse Ox 06/26/19 21:21 36.3 C L 82 82 18 146/74 H 146/74 H 99 Code Status & VTE Plan VTE Prophylaxis Plan VTE Prophylaxis will be ordered: Yes Supervising Physician Co-Signing Physician Notes Patient was seen and examined by me personally. I reviewed the chart, the orders and discussed the case in detail with Dr. Stormy Lancaster MD . I read this H&P and agree with its contents to entirety. PG Care Time/CCT Total # of Minutes Spent Total Time Spent with Patient: Total time spent is greater than 50% in coordination of care (as documented) at patient's floor/unit and/or counseling patient: Resident Activity Tracking Resident Involvement: Resident Care Provided Care Provided: Adult Hospital Medicine
[2019-06-27 00:40] LABS: Appearance Urine Clear (Clear); Bacteria Urine Automated 4+ (Negative); Bilirubin Urine Negative (Negative); Blood Urine Negative (Negative); Cast Urine Automated 0 /lpf (0-5); Color Urine Yellow; Epithelial Cell Urine Auto 0-5 /lpf (0-5); Glucose Urine UA Negative (Negative); Ketones Urine Negative (Negative); Leukocyte Esterase Urine 2+ (Negative); Nitrite Urine Negative (Negative); Protein Urine Negative (Negative); RBC Urine Automated 0-4 /hpf (0-4); Specific Gravity Urine 1.044 (1.000-1.030); Urobilinogen Urine Negative (Negative); WBC Urine Automated >30 /hpf (0-5); pH Urine >= 9.0 (4.5-7.5)
[2019-06-27] MEDS ORDERED: ACETAMINOPHEN 650 MG/65 ML VIAL IV PRN (01:12)
[2019-06-27] MEDS ORDERED: ONDANSETRON INJ 2 MG/ML 2 ML VIAL IV PRN (01:12)
[2019-06-27] MEDS ORDERED: ALPRAZolam 0.5 MG TABLET PO PRN (01:12)
[2019-06-27] MEDS: LACTATED RINGER'S 1,000 ML IV SCH ×2 (01:30→13:50)
[2019-06-27] MEDS: LEVOTHYROXINE SODIUM 50 MCG TABLET PO SCH (06:02)
[2019-06-27] MEDS: ENOXAPARIN INJ 30 MG/0.3 ML SYR SQ SCH (08:49)
[2019-06-27 09:03] LABS: Hematocrit (blood only) 45.3 % (37-47); Hemoglobin 15.9 g/dL (12.0-16.0); Mean Corpuscular Hgb Conc 35.1 g/dL (32-36); Mean Corpuscular Volume 86.3 fL (80-100); Mean Platelet Volume 10.1 fL (7.4-10.4); Platelet Count 142 K/uL (130-400); RDW Coefficient of Variation 13.9 % (11.5-14.5); RDW Standard Deviation 43.5 fL (36.4-46.3); Red Blood Count 5.25 M/uL (4.2-5.4); White Blood Count 7.44 K/uL (4.8-10.8)
--- NOTE | 2019-06-27 09:24 | Surgery Consultation ---
Date of Consultation June 27, 2019 Assessment & Plan (1) Partial small bowel obstruction: This is an 84y F who presents to the [facility] on 06/26 with complaints of abdominal pain. Workup in the ED included a CT scan that revealed partial small bowel obstruction at two sites with concern for suspected stricture vs adhesions. Currently the patient endorses that her pain is much improved, denies nausea, and is passing flatus. She feels as though she may need to have a bowel movement. No indication for NGT right now. Recommend patient be connected with a reconcilement clerk as an outpatient. Would await return of meaningful bowel function and recommend slow diet advancement. We will follow along with you, no need for surgical intervention at this time as patient is progressing. Supervising Physician Co-Signing Physician Notes Patient seen and examined, labs and imaging reviewed, agree with above. 84-year-old female with history of bowel obstructions in the past, at one point believed to be secondary to Crohn's disease. She has not had an episode in 5 years, however yesterday she started having abdominal cramping and obstipation. She had a CT scan which showed equalization of the small bowel and possible stricture in her distal ileum consistent with a small bowel obstruction. It did appear to be chronic in nature. Today she feels a little bit better she is tolerating clear liquids. She has not passed flatus, however her abdomen is less distended and she is not having as much pain. Abdomen soft, minimally distended, nontender Labs unremarkable CT scan reviewed Recurrent small bowel obstruction, no urgent operative indication at this time Continue clear liquids until return of bowel function Recommend GI consultation either as an inpatient or outpatient. Surgery will follow History of Present Illness Attending Physician: Zenaida Nina MD History of Present Illness This is an 84y F with a PMH of PVD and fem-fem bypass on plavix, DVT, hip replacement, hypothyroidism, and depression who presents to the [facility] ED on the evening of 06/26/19 with severe abdominal pain. The patient states that her pain developed around 3pm yesterday and progressively worsened prompting her to be evaluated in the ED. She states that the pain feels like a ripping/twisting feeling like a band across her upper abdomen. She has a significant history of similar attacks in the past, her first starting in 2005, occurring 1-3 times a year until 2013. Per her report she always experiences this same pain and it is associated with vomiting. She states that these episodes have always been treated conservatively without operative intervention, sometimes requiring an NGT. She states that she was worked up at extensively at [place] and per patient they never found an answer to why this was happening. At one point there was concern for Crohns and the patient says she agreed to a 1 wk treatment with steroids and has not had an episode until this current hospitalization. She was followed by a GI in the past in [facility] in [place] and since moving here 3 years ago has not established care with a GI physician. She reports her last colonoscopy was 4 years ago. Abdominal surgical history includes a cholecystectomy and tubal ligation. Patient reports passing a bowel movement yesterday and that historically they are regular at home, and she does takes Miralax a couple times a week. She endorsed some nausea with this episode and distention, but no emesis. Her last meal was yesterday around 2pm and she ate chicken, mashed potatoes, and asparagus. Surgery was consulted as her CT scan in the ED revealed concern for partial small bowel obstruction at 2 sites in the ileum, at the more severe site of partial small bowel obstruction, suspected stricture versus, less likely, adhesions. Allergies Allergy/AdvReac Type Severity Reaction Status Date / Time adhesive Allergy Mild skin Verified 06/26/19 23:53 irritation Home Medications Home Medications Medication Instructions Recorded Confirmed Type alprazolam 0.5 mg tablet 0.5 mg PO BID PRN tab 05/30/19 06/26/19 History amlodipine 2.5 mg tablet 2.5 mg PO QPM tab 05/30/19 06/27/19 History clopidogrel 75 mg tablet 75 mg PO QAM tab 05/30/19 06/27/19 History levothyroxine 50 mcg tablet 50 mcg PO QAM tab 05/30/19 06/27/19 History oxycodone 5 mg capsule 5 mg PO DIRECTED PRN cap MDD 5 05/30/19 06/26/19 History TABS/DAY polyethylene glycol 3350 17 17 g PO QAM gm 05/30/19 06/27/19 History gram/dose oral powder pravastatin 10 mg tablet 10 mg PO QPM tab 05/30/19 06/27/19 History ranitidine 150 mg capsule 150 mg PO DIRECTED PRN cap 05/30/19 06/26/19 History sertraline 50 mg tablet 50 mg PO QPM #30 tab 05/30/19 06/27/19 History B complex-minerals [Stress B Plus 1 tab PO DAILY 06/26/19 06/27/19 History Zinc] Ultra-Ostivone 2 tab PO DAILY 06/26/19 06/27/19 History acetaminophen [Tylenol] 650 mg PO Q6H PRN 06/26/19 06/26/19 History ascorbic acid (vitamin C) [Vitamin 500 mg PO DAILY 06/26/19 06/27/19 History C] cholecalciferol (vitamin D3) 1,000 unit PO DAILY 06/26/19 06/27/19 History [Vitamin D3] cranberry 1,000 mg PO DAILY 06/26/19 06/27/19 History gabapentin 300 mg PO BID 06/26/19 06/27/19 History multivitamin 1 tab PO DAILY 06/26/19 06/27/19 History omega 6-toz-nik-fish oil [Fish Oil] 1 cap PO DAILY 06/26/19 06/27/19 History ondansetron HCl [Zofran] 4 mg PO Q8 PRN 06/26/19 06/26/19 History potassium 99 mg PO BID 06/26/19 06/27/19 History vit A-vit M-iisd-otdsekuv [Zinc 1 beck PO DAILY 06/26/19 06/27/19 History (with A and C) Lozenges] vitamin K2 120 mcg PO DAILY 06/26/19 06/27/19 History Patient History Medical History Allergic rhinitis due to dust Allergic rhinitis due to pollen Bilateral sensorineural hearing loss Hearing difficulty of both ears Hearing loss Hearing loss of left ear due to cerumen impaction Impacted cerumen of left ear Diffuse pain in right lower extremity Lumbosacral radiculopathy at L5 Small vessel disease, cerebrovascular Anemia (Chronic) DVT (deep venous thrombosis) (Resolved) History of small bowel obstruction Peripheral vascular disease Surgical History History of hip replacement (Resolved) History of back surgery History of cholecystectomy History of ear surgery History of tubal ligation Family History Sister FHx: deafness or hearing loss Mother Breast cancer Cardiac disorder Father Cardiac disorder Other Family history non-contributory Social History Preferred Language: Swedish 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: 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 Beliefs That Will Affect Care: None marital status: Current Living Situation: Spouse and Personal Care Facility Current Living Situation Comment: assisted living at [facility] current occupational status: retired Other Information That Helps Us Care for You: No Feels Safe at Home: Yes Safety Concerns: Feels Safe At This Time Smoking Status: Former smoker Do You Dip or Chew Tobacco: No ; Second Hand Ex posure: Yes (, quit years ago) ; Tobacco Cessation Education Requested by Patient: No Hx Alcohol Use: Yes Alcohol type: wine Hx Substance Use: Yes substance use type: marijuana and other Last Used Sub stance Other:: medical marijuana over a year ago, Hemp 3 months ago Review of Systems Constitutional: as per Subjective / HPI Gastrointestinal: + abdominal pain (across upper abdomen), + bloating and + nausea; no vomiting Physical Exam Physical Exam: awake/alert/ mobile to and from the restroom with assistance of her walker Constitutional: well developed, well nourished, cooperative and comfortable; no acute distress and not ill appearing Respiratory: normal respiratory effort; no respiratory distress Cardiovascular: Rate/Rhythm: regular rate Gastrointestinal (Abdomen): Inspection/Auscultation: abdomen normal to inspection; abdomen not distended Percussion/Palpation: + abdomen tender (mildly) and abdomen soft Results & Data Vital Signs (Past 12 Hours) Vital Signs Temp Pulse Pulse Resp BP BP Pulse Ox 06/27/19 08:19 36.4 C L 70 16 107/58 L 97 06/27/19 01:05 36.6 C 86 18 149/107 H 100 06/27/19 00:54 79 18 132/66 97 06/26/19 23:30 80 16 160/87 H 95 06/26/19 21:21 36.3 C L 82 82 18 146/74 H 146/[address] abd pelvis IV con only CLINICAL HISTORY: 84 years-old Female presenting with eval for bowel obst. TECHNIQUE: Multidetector CT of the abdomen and pelvis was performed after the administration of intravenous contrast. IV contrast: 94 mL of Optiray 320. One or more dose lowering techniques were used consistent with the principles of ALARA (as low as reasonably achievable), including automatic exposure control, mA or kV adjustment to individual patient size, and/or use of iterative reconstruction. COMPARISON: 04/06/2017. CT DOSE (mGy.cm): The estimated cumulative dose is 231.56 mGy.cm. FINDINGS: Promotions Intern topogram: Orthopedic hardware. Cholecystectomy clips. Image quality is limited by a portion of the hepatic dome and a portion of the spleen excluded from [id number] due to elevation of the hemidiaphragms at the time of image acquisition. Lung bases: Normal heart size. No pericardial or pleural effusion. Minimal dependent changes likely atelectasis. Liver: Normal morphology. No liver lesion. Patent hepatic vasculature. Biliary: Mild biliary ductal prominence likely a reservoir effect in the post cholecystectomy state. Gallbladder surgically absent. Pancreas: Normal. Mild prominence of the pancreatic duct diffusely. Spleen: Normal. Adrenal glands: Normal. Kidneys and ureters: Few cysts noted. Punctate nonobstructing calculi in the left kidney. No hydronephrosis. Ureters nondistended. No evidence of a recently passed calculus. Bladder: The configuration of the bladder suggests pelvic ligamentous laxity. Bladder otherwise normal. Pelvic organs: Uterus and ovaries grossly normal though poorly evaluated given the phase of contrast. Bowel: Mild stool burden throughout normal caliber colon. The appendix is grossly normal and unchanged from prior. Distended loop of small bowel in the superior pelvis with a diameter of 4 cm. Feces within this loop of small bowel consistent with delayed transit. Focal downstream stenosis with decompressed the stool ileum in the right mid abdomen. There may be wall thickening at the site of stenosis suggesting a stricture. A discontinuous loop of small bowel slightly more superiorly is slightly less distended though with a somewhat similar appearance containing feces and measuring nearly 3 cm in diameter. There is an apparent peritoneal nodule or a cystic outpouching adjacent to this second transition site measuring 13 mm (series 3 image 193). Peritoneal cavity: Small free fluid in the pelvis. No free intraperitoneal gas. Lymph nodes: No enlarged lymph nodes in the abdomen or pelvis. Vasculature: Atherosclerosis of the normal caliber abdominal aorta. IVC patent. A femoral-femoral bypass graft is patent. Occlusion of the right external iliac artery. Abdominal wall: Normal. Musculoskeletal: Total right hip arthroplasty. Osteopenia. Postsurgical changes of the lumbar spine within the interspinous spacer. IMPRESSION: 1. Partial small bowel obstruction at 2 sites in the ileum, where there is distention and focal feces. 2. At the more severe site of partial small bowel obstruction, suspected stricture versus, less likely, adhesions. Stricture is favored given the appearance of small bowel wall thickening at the downstream site of stenosis. 3. The etiology of the apparent second site of partial small bowel obstruction is not as clear. It may be related to the adjacent cystic peritoneal implant or focal outpouching. Differential considerations include a metastatic peritoneal implant or small bowel diverticulum or Meckel's diverticulum. 4. Patent femoral-femoral bypass graft. Electronically signed by: Dimitri Toribio M.D. 06/26/2019 10:44 PM PG Care Time/CCT Total # of Minutes Spent Total Time Spent with Patient: Total time spent is greater than 50% in coordination of care (as documented) at patient's floor/unit and/or counseling patient:
[2019-06-27 09:31] LABS: BUN Creatinine Ratio 16.1 (10-20); Calcium 9.1 mg/dl (8.5-10.1); Creatinine Clr Calc Pharmacy 46.5 ml/min; Est GFR (African American) 94.6; Est GFR (Non-African American) 81.6; Magnesium 2.3 mg/dl (1.8-2.4); Potassium 3.9 mmol/L (3.5-5.1)
[2019-06-27] MEDS: OMEGA-3 (PURIFIED FISH OIL) 1 GM CAP PO SCH (12:23)
[2019-06-27] MEDS: MULTIVITAMIN TAB PO SCH (12:23)
[2019-06-27] MEDS: ASCORBIC ACID 500 MG TAB PO SCH (12:24)
[2019-06-27] MEDS: GABAPENTIN 300 MG CAP PO SCH ×2 (12:24→20:21)
[2019-06-27] MEDS: CLOPIDOGREL BISULFATE 75 MG TAB PO SCH (12:25)
[2019-06-27] MEDS: OXYCODONE HCL IR 5 MG TAB (IMMEDIATE RELEASE) PO SCH ×2 (14:14→18:19)
--- NOTE | 2019-06-27 14:48 | History & Physical Bridge Note ---
Date of Service June 27, 2019 History & Physical Bridge Note I have examined the patient, reviewed the History & Physical and in the interval since the performance of the History & Physical I have noted the following changes of clinical significance: Abdominal pain is improving. Pt. is passing gas but has not had a BM yet. Denies nausea/vomiting. Advanced to CLD for lunch -- will continue this diet for dinner. Will need close outpatient follow up with GI - pt. plans to establish care with Dr. Velásquez for evaluation. She has not been evaluated by GI in this area. Will discuss need to possible exploratory laparoscopy with general surgery to evaluate multiple findings, including adjacent cystic peritoneal implant vs. focal outpouching (?metastatic peritoneal implant vs. diverticuli) and stricture related to ?IBD. Plan to monitor patient over the next 24 hours; possible discharge on 06/28 pend ing improvement in SBO. Will order KUB and labs in the AM. Supervising Physician Co-Signing Physician Notes PA Supervision Note: I did not personally see or examine the patient today, but I verified all nayak points of NASREEN Sibley's assessment and plan with the following exceptions/additions: None
[2019-06-27] MEDS: SERTRALINE HCL 50 MG TABLET PO SCH ×2 (20:21→20:32)
[2019-06-27] MEDS ORDERED: PRAVASTATIN SOD 10 MG TAB PO SCH (21:00)
[2019-06-27] MEDS ORDERED: AMLODIPINE BESYLATE 5 MG TAB PO SCH (21:00)
[2019-06-28] MEDS: LACTATED RINGER'S 1,000 ML IV SCH (02:30)
[2019-06-28] MEDS: LEVOTHYROXINE SODIUM 50 MCG TABLET PO SCH (06:09)
[2019-06-28 06:12] LABS: Hemoglobin 14.1 g/dL (12.0-16.0); Mean Corpuscular Hgb Conc 34.4 g/dL (32-36); Mean Corpuscular Volume 86.7 fL (80-100); Platelet Count 125 K/uL (130-400); RDW Coefficient of Variation 14.2 % (11.5-14.5); RDW Standard Deviation 44.6 fL (36.4-46.3); Red Blood Count 4.73 M/uL (4.2-5.4); White Blood Count 6.33 K/uL (4.8-10.8)
[2019-06-28 06:44] LABS: Albumin Level 3.1 gm/dl (3.4-5.0); Calcium 8.5 mg/dl (8.5-10.1); Creatinine Clr Calc Pharmacy 54.4 ml/min; Est GFR (African American) 99.6; Magnesium 2.2 mg/dl (1.8-2.4); Potassium 3.4 mmol/L (3.5-5.1)
[2019-06-28 06:54] LABS: Bilirubin,Total 0.7 mg/dl (0.2-1); Globulin 3.2 gm/dl (2.5-4.0); Total Protein 6.3 gm/dl (6.4-8.2)
--- NOTE | 2019-06-28 07:11 | XRay Report ---
XR KUB/Abdomen 1 view CLINICAL HISTORY: Rule out obstruction pain COMPARISON STUDY: No previous studies for comparison. FINDINGS: Nonobstructive bowel pattern. Air-filled small bowel suggests mild nonobstructive ileus. Postoperative changes of the lower lumbar spine and right hip. IMPRESSION: Minimal to very mild nonobstructive ileus. The above report was generated using voice recognition software. It may contain grammatical, syntax or spelling errors. Electronically signed by: Denzel Bearden M.D. 06/28/2019 7:10 AM
[2019-06-28] MEDS ORDERED: POTASSIUM CHLORIDE 20 MEQ TABCR PO ONE (08:09)
[2019-06-28] MEDS: CLOPIDOGREL BISULFATE 75 MG TAB PO SCH (09:26)
[2019-06-28] MEDS: OMEGA-3 (PURIFIED FISH OIL) 1 GM CAP PO SCH (09:26)
[2019-06-28] MEDS: MULTIVITAMIN TAB PO SCH (09:26)
[2019-06-28] MEDS: GABAPENTIN 300 MG CAP PO SCH (09:27)
[2019-06-28] MEDS: ASCORBIC ACID 500 MG TAB PO SCH (09:27)
[2019-06-28] MEDS: ENOXAPARIN INJ 30 MG/0.3 ML SYR SQ SCH (11:36)
--- NOTE | 2019-06-28 11:48 | Surgery Progress Note ---
Date of Service June 28, 2019 Assessment & Plan (1) Partial small bowel obstruction: KUB this AM revealed minimal to very mild non obstructive ileus Patient endorses passing a large BM today after KUB She is tolerating clears without pain or nausea. Okay to advance diet slowly as tolerates Encourage activity as able with assistance Will need GI follow up as outpatient No acute surgical needs at this time Supervising Physician Co-Signing Physician Notes pnt s&e, agree with above. resolved sbo, h/o multiple in past. advance diet, outpatient GI follow up. Surgery will sign off. Subjective Patient endorses passing a large bowel movement this morning. Tolerating a clear liquid diet without nausea. States she has not had any abdominal pains today and says she feels less distended. Wishes to ambulate the halls with assistance if able. Physical Exam Physical Exam: awake/alert/conversational/sitting in chair Gastrointestinal (Abdomen): Inspection/Auscultation: + abdomen distended (mildly) Percussion/Palpation: abdomen soft Results & Data Vital Signs (Past 12 Hours) Vital Signs Temp Pulse Resp BP Pulse Ox 06/28/19 07:44 36.3 C L 79 16 117/63 96 XR KUB/Abdomen 1 view CLINICAL HISTORY: Rule out obstruction pain COMPARISON STUDY: No previous studies for comparison. FINDINGS: Nonobstructive bowel pattern. Air-filled small bowel suggests mild nonobstructive ileus. Postoperative changes of the lower lumbar spine and right hip. IMPRESSION: Minimal to very mild nonobstructive ileus. The above report was generated using voice recognition software. It may contain grammatical, syntax or spelling errors. Electronically signed by: Denzel Bearden M.D. 06/28/2019 7:10 AM PG Care Time/CCT Total # of Minutes Spent Total Time Spent with Patient: Total time spent is greater than 50% in coordination of care (as documented) at patient's floor/unit and/or counseling patient:
--- NOTE | 2019-06-28 17:37 | Discharge Summary ---
Date of Service June 28, 2019 Admission HPI Per Admitting Provider Mrs. Lance is a very pleasant 84 year old female with a past medical history of recurrent small bowel obstruction, hypothyroidism, hypertension, peripheral vascular disease, history of DVT, and depression who presents to the emergency department due to abdominal pain. Mrs. Lance states that the abdominal pain began suddenly at 3 PM this afternoon. She states that the pain was initially intermittent, however at approximately 6:45 PM, it worsened, prompting her to come to the emergency department. She states that she has had numerous small bowel obstructions in the past, and used to get them approximately twice per year. She states that her last small bowel obstruction was 5 years ago. She states that the pain that she is feeling is similar to her prior bowel obstructions. She reports nausea, but denies any vomiting. She states her last bowel movement was this morning, and she typically has a bowel movement twice a day. She states that she has felt the urge to have a bowel movement, but has not been able to since this morning. With regards to her prior bowel obstructions, she used to follow with GI in [place]. There was no cause found for her recurrent bowel obstructions. There was speculation that it may be related to Crohn's disease, and she took a one-week course of steroids, which she states helped, and that she did not have trouble with bowel obstructions for years after that. Admission Exam Per Admitting Provider Constitutional: WD/WN, vitals as above cooperative and comfortable Eyes: PERRL, conjunctivae normal, anicteric sclerae ENMT: external ear and nose normal, oropharynx normal Respiratory: normal respiratory effort, lungs clear to auscultation Cardiovascular: RRR, no murmur, no edema Gastrointestinal (Abdomen): Inspection/Auscultation: abdomen not distended Percussion/Palpation: + abdomen tender (TTP across upper abdomen) and abdomen soft; no guarding and abdomen not rigid Skin: no rashes, warm and dry Neurologic: 5/5 power in b/l UE and left LE. Right LE w/4/5 power - pt states secondary to fracture and resultant weakness of right leg Psychiatric: A+Ox3, euthymic affect Principal Diagnosis Small Bowel Obstruction Discharge Exam General: Resting comfortably HEENT: NC/AT; PERRLA with EOMI; [place] conjunctiva, MMM. No erythema of posterior pharynx Neck: Supple and nontender Cardiac: RRR Lungs: CTA bilaterally Abdomen: Bowel normoactive X 4; Nontender to palpation Extremities: Warm. No edema present Neuro: No focal weakness Skin: No rash Discharge Data Allergies Allergy/AdvReac Type Severity Reaction Status Date / Time adhesive Allergy Mild skin Verified 06/26/19 23:53 irritation Consultations 06/26/19 23:24 ED Decision to Admit Stat 06/27/19 01:12 Consult General Surgery Routine Ordered Studies 06/26/19 21:46 CT abd pelvis IV con only Stat KUB 06/28/19 Hospital Course (1) SBO (small bowel obstruction): CT abdomen and pelvis showed a partial small bowel obstruction at two sites in the ileum; concern for stricture along with peritoneal implant or focal outpouching -- CT reported possible metastatic peritoneal lesion as per Radiology. Gen surg consulted, appreciate input. Pt. did not require NG tube. NPO with IV fluids at admission; advanced to CLD on 06/27. Had a BM on 06/28; advanced to FLD then regular diet on 06/28. UC pos for 70K colonies gram neg bacilli; she was asymptomatic - no indication for treatment. Recommend follow up with GI for further evaluation -- appt with Dr. Velásquez scheduled on 07/05. Will need to consider exploratory laparotomy due to CT findings. (2) Hypothyroidism: Continued home med. (3) Peripheral vascular disease: S/p femoralfemoral bypass graft Continued home statin and Plavix. (4) Hypertension: Continued home Amlodipine. (5) Depression: Continued home sertraline with benzo prn. (6) Low back pain: Continued home gabapentin. Resumed Oxycodone due to chronic pain. (7) Ambulatory dysfunction: Secondary to prior calcaneal fracture of right foot, in addition to fractures of second and third phalanges Did not require PT/OT evaluation. (8) History of DVT (deep vein thrombosis): Lovenox daily. Discharged to home on 06/28/19. Total Time Total Time Spent Total Time Spent (In Minutes): >30 minutes Discharge Plan Discharge Items Patient Disposition: Home - Self-Care Reason For Visit: SBO Discharge Diagnosis: Small Bowel Obstruction Condition on Discharge: Good Activity: As commented below Exercise/Sports: Gradually increase as tolerated Non-emergency contact: Primary Care Provider and Water Service Dispatcher Call non-emergency contact if: you have any medication questions, your symptoms worsen, your pain is not controlled, your pain is worsening, your pain is unusual for you, your pain is concerning for you and you have a fever Follow-up/Referrals: Rodo Velásquez [Physician] - 07/05/19 11:00 am (Please, follow up with Dr. Velásquez on WednesdayJuly 05 at 11:00 am. *If you need to change this appointment, call the office at [phone].) Rowan Herrear MD [Primary Care Provider] - 07/06/19 10:50 am (Please, follow up at Dr. Rowan Herrera' office with her dental chairside assistant, Kiersten Hong PA-C, on July 06 at 10:50 am. *If you need to change this appointment, call the office at [phone].) Diet: Regular Diet Comment: Advance diet as tolerated very slowly at home. Addtl Attending Provider Instructions: 1. Small Bowel Obstruction * Now resolved, no indication for further monitoring. * Please continue regular diet at home. * Please follow up with Dr. Velásquze as scheduled on 07/05/19. 2. Please follow up with primary care provider on 07/06/19. Pending Studies at Discharge: Yes Studies:: Urine culture is pending. Stand-Alone Forms: My [facility] Medications and DC Order Prescriptions: Continued sertraline 50 mg tablet 50 mg PO QPM Qty: 30 RF: 0 polyethylene glycol 3350 17 gram/dose powder 17 g PO QAM RF: 0 ranitidine HCl 150 mg capsule 150 mg PO DIRECTED PRN (Reason: ABD PAIN) RF: 0 oxycodone 5 mg capsule 5 mg PO DIRECTED MDD 5 TABS/DAY PRN (Reason: Pain) RF: 0 levothyroxine 50 mcg tablet 50 mcg PO QAM RF: 0 pravastatin 10 mg tablet 10 mg PO QPM RF: 0 alprazolam [Xanax] 0.5 mg tablet 0.5 mg PO BID PRN (Reason: PANIC ATTACKS) RF: 0 clopidogrel 75 mg tablet 75 mg PO QAM RF: 0 amlodipine 2.5 mg tablet 2.5 mg PO QPM RF: 0 ondansetron HCl [Zofran] 4 mg Tablet 4 mg PO Q8 PRN (Reason: Nausea And Vomiting) RF: 0 potassium 99 mg Tablet 99 mg PO BID RF: 0 gabapentin 300 mg Capsule 300 mg PO BID RF: 0 multivitamin Tablet 1 tab PO DAILY RF: 0 acetaminophen [Tylenol] 325 mg Tablet 650 mg PO Q6H PRN (Reason: Pain) RF: 0 ascorbic acid (vitamin C) [Vitamin C] 500 mg Tablet 500 mg PO DAILY RF: 0 Stress B Plus Zinc Tablet 1 tab PO DAILY RF: 0 cranberry 500 mg Capsule 1,000 mg PO DAILY RF: 0 cholecalciferol (vitamin D3) [Vitamin D3] 1,000 unit Capsule 1,000 unit PO DAILY RF: 0 Zinc (with A and C) Lozenges Lozenge 1 beck PO DAILY RF: 0 omega [id number]-fish oil [Fish Oil] 1,000 mg (120 mg-180 mg) Capsule 1 cap PO DAILY RF: 0 vitamin K2 40 mcg Tablet 120 mcg PO DAILY RF: 0 Ultra-Ostivone 2 tab PO DAILY RF: 0 Discharge Orders: Discharge Order (Routine); Ordered 06/28/19 Ordered By: Mary Davidson/Other Patient Handouts: Obstruction Sm Bowel Admission Data Admit Date/Time: 06/27/19 00:20 Attending Provider: Zenaida Nina Admit Provider: Stormy Lancaster Primary Care Provider: Rowan Herrera Other Providers: Ronn Minor ; Tavares Lai Other Interventions: Discharge Summary Assessment (RN) Last Done: 06/28/19 18:45 DC Date/Time DO NOT enter until pt leaves facility: 06/28/19 20:38 Supervising Physician Co-Signing Physician Notes PA Supervision Note: I did not personally see or examine the patient today, but I verified all nayak points of NASREEN Sibley's assessment and plan with the following exceptions/additions: None
== END 2019-06-28 20:38 | disposition home or self-care (01) | DRG 390 ==
LOC: ED 21:14 → 3E 06-27 00:20 → SUATTDRO 06-27 00:20 → 3E 06-27 00:54

== ENCOUNTER 2022-09-30 11:45 | Observation (INO) ==
[2022-09-30] MEDS: SODIUM CHLORIDE 0.9% 1000ML 1,000 ML IV SCH ×2 (14:03→23:06)
[2022-09-30 14:15] LABS: Basophils # (auto) 0.05 K/uL (0-0.2); Basophils % (auto) 0.5 %; Eosinophils # (auto) 0.13 K/uL (0-0.50); Eosinophils % (auto) 1.4 %; Hematocrit (blood only) 38.5 % (34.1-44.9); Hemoglobin 13.5 g/dl (12.0-16.0); Immature Granulocytes # (auto) 0.05 K/uL (0.00-0.02); Immature Granulocytes % (auto) 0.5 %; Lymphocytes # (auto) 1.27 K/uL (1.2-3.4); Lymphocytes % (auto) 13.7 %; Mean Corpuscular Hgb Conc 35.1 g/dL (32.0-36.0); Mean Corpuscular Volume 85.6 fL (80.0-100.0); Monocytes # (auto) 1.72 K/uL (0.24-0.82); Monocytes % (auto) 18.6 %; Neutrophils # (auto) 6.02 K/uL (1.4-6.5); Neutrophils % (auto) 65.3 %; Platelet Count 149 K/uL (130-400); RDW Coefficient of Variation 13.2 % (11.5-14.5); RDW Standard Deviation 41.3 fL (36.4-46.3); White Blood Count 9.24 K/ul (4.8-10.8)
[2022-09-30] MEDS ORDERED: oxyCODONE/APAP 7.5/325MG TAB PO STA (14:29)
[2022-09-30] MEDS ORDERED: fentaNYL citrate 100 MCG/2 ML VIAL IV STA ×2 (14:29→16:54)
[2022-09-30] MEDS ORDERED: GABAPENTIN 300 MG CAP PO STA (14:29)
--- NOTE | 2022-09-30 14:30 | XRay Report ---
XR chest 1V portable HISTORY: 87 years-old Female trauma acute chest trauma COMPARISON: 04/28/2017 TECHNIQUE: Semisupine AP view of the chest FINDINGS: Cardiac silhouette is within normal limits. Unchanged hilar contours. There is no pneumothorax, pleur al effusion, airspace consolidation or overt pulmonary edema. Degenerative changes of the shoulders a nd spine. IMPRESSION: No acute process. ACT 112: Negative or not required by law. The above report was generated using voice recognition software. It may contain grammatical, syntax o r spelling errors. Electronically signed by: Robin Montes M.D. 09/30/2022 2:29 PM
--- NOTE | 2022-09-30 14:35 | Emergency Department Note ---
History of Present Illness General Chief complaint: Fall Stated complaint: FALL, KNEE INJURY, FOOT INJURY Time Seen by Provider: 09/30/22 12:48 Source: patient Mode of arrival: ambulatory Limitations: no limitations History of Present Illness Provider complaint: Altered mental status Maximum Pain Intensity: 7 This is an 87-year-old female brought in with family at bedside due to concern for altered mentation that began last night. They state patient did fall on Wednesday, however seemed at baseline after the fall. Patient does have chronic back pain and difficulty using the right lower extremity. It is mostly unusable and she tends to use it only to help with balance and otherwise drags it with walking. It is held chronically in external rotation per family. She states when she fell she leaned forward over her walker too far and fell forward becoming twisting up on the walker. She denies head injury or LOC. Patient states she was able to get up with assistance. Patient did recently have a spinal stimulator placed due to her chronic spine issues and chronic pain. This was removed yesterday at [place]. No recent fevers or URI symptoms. Patient denies chest pain, abdominal pain, headache. Family states patient did complain of a headache earlier. No nausea or vomiting. Patient states she does have pain at the right knee ever since the fall with attempts at moving it. She was noted to have an abrasion on the right lanza. Given the recent procedure, her Plavix had been stopped. This was supposed to be restarted today. Patient was also recently started on Flexeril due to her low back pain and failure of any improvement in her pain with the spinal stimulator. Patient does use several medications daily for pain including gabapentin and Percocet. Home Medications Medication Instructions Recorded Confirmed Type alprazolam 0.5 mg tablet (Xanax) 0.5 mg PO DIRECTED PRN 05/30/19 09/30/22 History NERVOUSNESS/SLEEP clopidogrel 75 mg tablet 75 mg PO QAM 05/30/19 09/30/22 History levothyroxine 50 mcg tablet 50 mcg PO QAM 05/30/19 09/30/22 History polyethylene glycol 3350 17 17 g PO QAM 05/30/19 09/30/22 History gram/dose oral powder pravastatin 10 mg tablet 10 mg PO QPM 05/30/19 09/30/22 History acetaminophen 325 mg tablet 650 mg PO Q6H PRN Pain 06/26/19 09/30/22 History (Tylenol) gabapentin 300 mg capsule See Rx Instructions .Route .COMPLEX 06/26/19 09/30/22 History Magic Mouthwash Liquid 15 ml PO Q2H PRN MOUTH ULCERS 09/30/22 09/30/22 History cyclobenzaprine 5 mg tablet 5 mg PO DIRECTED PRN RIGHT SIDE 09/30/22 09/30/22 History NECK PAIN diclofenac sodium 1 % topical gel 4 g topical Q12H PRN Pain 09/30/22 09/30/22 History famotidine 20 mg tablet 20 mg PO HS 09/30/22 09/30/22 History nystatin 100,000 unit/gram topical 1 applic topical BID PRN SKIN 09/30/22 09/30/22 History powder IRRITATION UNDER BREASTS nystatin-triamcinolone 100,000 1 applic topical BID PRN 09/30/22 09/30/22 History unit/g-0.1 % topical cream CANDIDIASIS ondansetron HCl 4 mg tablet 4 mg PO Q8H PRN NAUSEA/VOMITING 09/30/22 09/30/22 History oxycodone-acetaminophen 2.5 mg-325 1 tab PO DAILY PRN BREAKTHROUGH 09/30/22 09/30/22 History mg tablet (Percocet) PAIN oxycodone-acetaminophen 5 mg-325 0.5 tab PO BID 09/30/22 09/30/22 History mg tablet (Percocet) oxycodone-acetaminophen 7.5 mg-325 1 tab PO TID PRN Pain 09/30/22 09/30/22 History mg tablet (Percocet) oxymetazoline 0.05 % nasal spray 3 spray intranasal Q8H PRN 09/30/22 09/30/22 History (Afrin (oxymetazoline)) EPISTAXIS psyllium husk 0.52 gram capsule 0.52 g PO DAILY PRN Constipation 09/30/22 09/30/22 History (Fiber (psyllium husk)) sodium chloride-aloe vera nasal 1 applic topical Q6H PRN EPISTAXIS 09/30/22 09/30/22 History gel (Arboles Saline nasal gel) Allergies Allergy/AdvReac Type Severity Reaction Status Date / Time adhesive Allergy Mild skin Verified 09/30/22 16:24 irritation Past Med/Surg History Medical History Allergic rhinitis due to dust Bilateral sensorineural hearing loss DVT (deep venous thrombosis) History of small bowel obstruction Lumbosacral radiculopathy at L5 Peripheral vascular disease Sensorineural hearing loss of both ears Small vessel disease, cerebrovascular Surgical History History of back surgery History of cholecystectomy History of ear surgery History of hip replacement History of tubal ligation Family History Sister FHx: deafness or hearing loss Mother Breast cancer Cardiac disorder Father Cardiac disorder Other Family history non-contributory Social History Smoking Status: Former smoker Smoking End Date: 1959; Second Hand Exposure: No; Hx Alcohol Use: Yes Alcohol type: wine Hx Substance Use: No Preferred Language: Belgian 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: Effective 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: No Beliefs That Will Affect Care: None marital status: Current Living Situation: Spouse and Personal Care Facility Current Living Situation Comment: assisted living at [facility] current occupational status: retired Other Information That Helps Us Care for You: No Feels Safe at Home: Yes Safety Concerns: Feels Safe At This Time Assistive Devices: Walker Review of Systems A total of 10 systems reviewed and were otherwise negative All systems reviewed & are unremarkable except as noted in HPI & below Physical Exam Vital Signs Vital Signs - 24 hr 09/30/22 11:58 09/30/22 12:34 09/30/22 12:35 Temperature 36.1 C L Temperature Source Temporal Artery Scan Pulse Rate 100 H 100 H 108 H Pulse Rate from SpO2 Sensor 104 H Pulse Rhythm Regular Pulse Strength Normal Respiratory Rate 20 19 19 Respiratory Effort / Characteristics Non-Labored Spontaneous Respiratory Depth Normal Respiratory Pattern Regular Blood Pressure 145/79 H 154/64 H Blood Pressure Mean 101 94 Blood Pressure Position Sitting Pulse Oximetry 98 98 96 Oxygen Delivery Method Room Air Room Air Sepsis Recent Fever Within 48 Hours No Sepsis New/Unexplained Change in Mental Status No Sepsis Action Taken by Nursing No Action Required 09/30/22 12:40 09/30/22 12:50 09/30/22 13:00 Temperature Temperature Source Pulse Rate 88 88 Pulse Rate from SpO2 Sensor 88 88 Pulse Rhythm Pulse Strength Respiratory Rate 18 16 Respiratory Effort / Characteristics Respiratory Depth Respiratory Pattern Blood Pressure 146/69 H Blood Pressure Mean 94 Blood Pressure Position Pulse Oximetry 97 97 Oxygen Delivery Method Sepsis Recent Fever Within 48 Hours Sepsis New/Unexplained Change in Mental Status Sepsis Action Taken by Nursing 09/30/22 13:00 09/30/22 13:10 09/30/22 13:20 Temperature Temperature Source Pulse Rate 88 105 H 92 H Pulse Rate from SpO2 Sensor 89 105 H 89 Pulse Rhythm Pulse Strength Respiratory Rate 20 22 16 Respiratory Effort / Characteristics Respiratory Depth Respiratory Pattern Blood Pressure Blood Pressure Mean Blood Pressure Position Pulse Oximetry 96 99 100 Oxygen Delivery Method Sepsis Recent Fever Within 48 Hours Sepsis New/Unexplained Change in Mental Status Sepsis Action Taken by Nursing 09/30/22 13:30 09/30/22 13:30 09/30/22 13:40 Temperature Temperature Source Pulse Rate 91 H 84 Pulse Rate from SpO2 Sensor 89 83 Pulse Rhythm Pulse Strength Respiratory Rate 13 20 Respiratory Effort / Characteristics Respiratory Depth Respiratory Pattern Blood Pressure 143/63 H Blood Pressure Mean 89 Blood Pressure Position Pulse Oximetry 99 97 Oxygen Delivery Method Sepsis Recent Fever Within 48 Hours Sepsis New/Unexplained Change in Mental Status Sepsis Action Taken by Nursing 09/30/22 13:50 09/30/22 14:00 09/30/22 14:00 Temperature Temperature Source Pulse Rate 89 95 H Pulse Rate from SpO2 Sensor 88 Pulse Rhythm Pulse Strength Respiratory Rate 23 17 Respiratory Effort / Characteristics Respiratory Depth Respiratory Pattern Blood Pressure 145/70 H Blood Pressure Mean 95 Blood Pressure Position Pulse Oximetry 96 Oxygen Delivery Method Sepsis Recent Fever Within 48 Hours Sepsis New/Unexplained Change in Mental Status Sepsis Action Taken by Nursing 09/30/22 14:10 09/30/22 14:20 09/30/22 14:38 Temperature Temperature Source Pulse Rate 86 95 H 134 H Pulse Rate from SpO2 Sensor Pulse Rhythm Pulse Strength Respiratory Rate 24 27 H 20 Respiratory Effort / Characteristics Respiratory Depth Respiratory Pattern Blood Pressure Blood Pressure Mean Blood Pressure Position Pulse Oximetry Oxygen Delivery Method Sepsis Recent Fever Within 48 Hours Sepsis New/Unexplained Change in Mental Status Sepsis Action Taken by Nursing 09/30/22 14:40 09/30/22 14:50 09/30/22 15:00 Temperature Temperature Source Pulse Rate 110 H 115 H 109 H Pulse Rate from SpO2 Sensor 110 H Pulse Rhythm Pulse Strength Respiratory Rate 21 30 H 28 H Respiratory Effort / Characteristics Respiratory Depth Respiratory Pattern Blood Pressure Blood Pressure Mean Blood Pressure Position Pulse Oximetry 100 Oxygen Delivery Method Sepsis Recent Fever Within 48 Hours Sepsis New/Unexplained Change in Mental Status Sepsis Action Taken by Nursing 09/30/22 15:10 09/30/22 15:20 09/30/22 15:30 Temperature Temperature Source Pulse Rate 103 H 102 H 102 H Pulse Rate from SpO2 Sensor 103 H 102 H 101 H Pulse Rhythm Pulse Strength Respiratory Rate 23 20 17 Respiratory Effort / Characteristics Respiratory Depth Respiratory Pattern Blood Pressure Blood Pressure Mean Blood Pressure Position Pulse Oximetry 99 97 99 Oxygen Delivery Method Sepsis Recent Fever Within 48 Hours Sepsis New/Unexplained Change in Mental Status Sepsis Action Taken by Nursing 09/30/22 15:40 09/30/22 15:43 09/30/22 15:43 Temperature Temperature Source Pulse Rate 110 H 106 H Pulse Rate from SpO2 Sensor 107 H 105 H Pulse Rhythm Pulse Strength Respiratory Rate 29 H 18 Respiratory Effort / Characteristics Respiratory Depth Respiratory Pattern Blood Pressure 154/74 H Blood Pressure Mean 100 Blood Pressure Position Pulse Oximetry 95 98 Oxygen Delivery Method Sepsis Recent Fever Within 48 Hours Sepsis New/Unexplained Change in Mental Status Sepsis Action Taken by Nursing 09/30/22 15:50 09/30/22 16:00 09/30/22 16:01 Temperature Temperature Source Pulse Rate 99 H 97 H Pulse Rate from SpO2 Sensor 99 H 97 H Pulse Rhythm Pulse Strength Respiratory Rate 21 23 Respiratory Effort / Characteristics Respiratory Depth Respiratory Pattern Blood Pressure 124/48 L Blood Pressure Mean 73 Blood Pressure Position Pulse Oximetry 100 100 Oxygen Delivery Method Sepsis Recent Fever Within 48 Hours Sepsis New/Unexplained Change in Mental Status Sepsis Action Taken by Nursing 09/30/22 16:01 09/30/22 16:10 09/30/22 16:20 Temperature Temperature Source Pulse Rate 97 H 91 H 95 H Pulse Rate from SpO2 Sensor 98 H 92 H 94 H Pulse Rhythm Pulse Strength Respiratory Rate 24 18 23 Respiratory Effort / Characteristics Respiratory Depth Respiratory Pattern Blood Pressure Blood Pressure Mean Blood Pressure Position Pulse Oximetry 98 100 93 Oxygen Delivery Method Sepsis Recent Fever Within 48 Hours Sepsis New/Unexplained Change in Mental Status Sepsis Action Taken by Nursing 09/30/22 16:30 09/30/22 16:30 Temperature Temperature Source Pulse Rate 95 H Pulse Rate from SpO2 Sensor 94 H Pulse Rhythm Pulse Strength Respiratory Rate 16 Respiratory Effort / Characteristics Respiratory Depth Respiratory Pattern Blood Pressure 129/62 Blood Pressure Mean 84 Blood Pressure Position Pulse Oximetry 90 Oxygen Delivery Method Sepsis Recent Fever Within 48 Hours Sepsis New/Unexplained Change in Mental Status Sepsis Action Taken by Nursing GENERAL: alert, well appearing, well nourished, no distress, non-toxic HEAD: nc/at, no berrios signs, no raccoon eyes EYE EXAM: normal conjunctiva, PERRL and EOM's grossly intact OROPHARYNX: no exudate, no erythema, lips, buccal mucosa, and tongue normal and mucous membranes are moist NECK: supple, no nuchal rigidity, no adenopathy, non-tender LUNGS: Clear to auscultation. Normal chest wall mechanics, no w/r/r HEART: no murmurs, S1 normal and S2 normal CHEST WALL: No crepitus, no step-off, no pain with palpation over the ribs ABDOMEN: abdomen soft, non-tender, normo-active bowel sounds, no masses, no rebound or guarding. BACK: Back is symmetrical on inspection and there is no deformity, no midline tenderness, no CVA tenderness. Bandaid over puncture site removed and area well appearing, no surrounding erythema, no discharge or drainage. SKIN: no rashes and no bruising UPPER EXTREMITIES: upper extremities are grossly normal. FROM, nml pulses b/l. LOWER EXTREMITIES: No pitting edema. nml pulses b/l. Right lower extremity held in external rotation which family states is chronic. Obvious edema and joint effusion noted at the right knee, no ecchymosis, tender with palpation, decreased range of motion secondary to pain. Superficial abrasion noted to right pretibial region. Right ankle wrapped with an Jean Claude wrap, upon removing this and inspecting the area, no obvious deformity or trauma. Patient had no bony tenderness with palpation at the ankle or right foot. Sensation intact, patient able to wiggle toes NEURO EXAM: Normal sensorium, cranial nerves II-XII grossly intact, normal speech, no gross weakness of arms, no gross weakness of legs. Gross sensation intact. Course Course 1522: Family updated on results. We did roll the patient to examine her back, back is nontender with palpation, small puncture wound noted in the left paraspinal region, no surrounding erythema, no crepitus, no drainage. 1555: CARIN Fish who works with Dr. Wilson called back. He will make him aware of patient to advise. 1615: Discussed with Dr. Wilson who recommends transfer for surgery. 1625: Updated patient and daughter at bedside. Daughter concerned due to advanced age, comorbidities, and risk of surgery. She did put her on speaker phone and we updated him. He would like to discuss with a surgical colleague prior to making decision. 1640: Family decided they would not likely patient transferred and would like to pursue conservative treatment instead of surgery. Patient also does not want surgery. Will admit here for pain control and ortho eval and likely placement into rehab. They feel confusion noted last night and this morning has resolved and feel it was likely from the initiation of flexeril. Hospitalist contacted and Dr. Wilson updated. Positive COVID noted, however likely residual positive from known COVID infection in August. Administered Medications Acetaminophen (Acetaminophen 325 Mg Tab) 650 mg PO Q6H PRN PRN Reason: Pain Stop: 10/30/22 17:50 Last Admin: 09/30/22 23:10 Dose: 650 mg Documented By: CATHI Clopidogrel Bisulfate ([facility]opidogrel Bis[facility]ate 75 Mg Tab) [facility] [place]: 10/31/22 08:59 Last Admin: 10/02/22 09:02 Dose: 75 mg Documented By: FRANCISCO J Admin: 10/01/22 14:54 Dose: 75 mg Documented By: [id number] Cyclobenzaprine HCl (Cyclobenzaprine Hcl 5 Mg Tab) 5 mg PO DAILY PRN PRN Reason: RIGHT SIDE NECK PAIN Stop: 10/30/22 17:50 Last Admin: 09/30/22 23:05 Dose: 5 mg Documented By: CATHI Enoxaparin Sodium (Enoxaparin Inj 40 Mg/0.4 Ml Syr) 40 mg SQ [facility] Stop: 10/30/22 22:14 Last Admin: 10/01/22 20:05 Dose: 40 mg Documented By: Admin: 09/30/22 22:49 Dose: 40 mg Documented By: CATHI Famotidine (Famotidine 20 Mg Tab) 20 mg PO [facility] Stop: 10/30/22 20:59 Last Admin: 10/01/22 20:05 Dose: 20 mg Documented By: Admin: 09/30/22 22:45 Dose: 20 mg Documented By: CATHI Gabapentin (Gabapentin 300 Mg Cap) [facility] [place]: 10/31/22 08:59 Last Admin: 10/02/22 09:02 Dose: 600 mg Documented By: FRANCISCO J Admin: 10/01/22 08:43 Dose: 600 mg Documented By: [id number] Gabapentin (Gabapentin 300 Mg Cap) 300 mg PO BID@1400,1800 [facility] Stop: 10/31/22 18:50 Last Admin: 10/01/22 19:18 Dose: Not Given Documented By: [id number] Sodium Chloride (Nss 1000ml) 1,000 mls @ 125 mls/hr IV .Q8H [facility] Stop: 10/30/22 13:44 Last Admin: 10/02/22 04:33 Dose: 125 mls/hr Documented By: Infusion: 10/02/22 01:49 Dose: 0 mls/hr Documented By: Admin: 10/01/22 17:49 Dose: 125 mls/hr Documented By: [id number] Infusion: 10/01/22 17:49 Dose: 125 mls/hr Documented By: [id number] Admin: 10/01/22 17:41 Dose: 125 mls/hr Documented By: [id number] Infusion: 10/01/22 16:31 Dose: 125 mls/hr Documented By: [id number] Admin: 10/01/22 07:12 Dose: 125 mls/hr Documented By: Infusion: 10/01/22 07:06 Dose: 125 mls/hr Documented By: Admin: 09/30/22 23:06 Dose: 125 mls/hr Documented By: Infusion: 09/30/22 22:03 Dose: 125 mls/hr Documented By: Admin: 09/30/22 14:03 Dose: 125 mls/hr Documented By: [facility] Levothyroxine Sodium (Levothyroxine Sodium 50 Mcg Tablet) 50 mcg PO DAILYBB [facility] Stop: 10/31/22 06:29 Last Admin: 10/02/22 05:24 Dose: 50 mcg Documented By: Admin: 10/01/22 07:12 Dose: 50 mcg Documented By: ESG Oxycodone/Acetaminophen (Oxycodone/Apap 7.5/325mg Tab) 1 tab PO DAILY@1400,1800 [facility] Stop: 10/15/22 17:59 Last Admin: 10/01/22 17:48 Dose: 1 tab Documented By: [id number] Oxycodone/Acetaminophen (Oxycodone/Acetaminophen 5mg/325mg Tab) 0.5 tab PO 0600,1000,2200 [facility] Stop: 10/15/22 21:59 Last Admin: 10/02/22 09:15 Dose: 0.5 tab Documented By: FRANCISCO J Admin: 10/02/22 05:24 Dose: 0.5 tab Documented By: Admin: 10/01/22 22:20 Dose: 0.5 tab Documented By: NANY Polyethylene Glycol (Polyethylene (Miralax) 17 Gm Pack) 17 gm PO QAM [facility] Stop: 10/31/22 08:59 Last Admin: 10/02/22 09:03 Dose: Not Given Documented By: FRANCISCO J Admin: 10/01/22 14:55 Dose: Not Given Documented By: [id number] Pravastatin Sodium (Pravastatin Sod 10 Mg Tab) 10 mg PO QPM [facility] Stop: 10/30/22 20:59 Last Admin: 10/01/22 20:05 Dose: 10 mg Documented By: Admin: 09/30/22 22:46 Dose: 10 mg Documented By: CATHI Discontinued Medications Fentanyl Citrate (Fentanyl Citrate 100 Mcg/2 Ml Vial) 25 mcg IV NOW STA Stop: 09/30/22 14:30 Last Admin: 09/30/22 14:48 Dose: 25 mcg Documented By: RAMEZ Fentanyl Citrate (Fentanyl Citrate 100 Mcg/2 Ml Vial) 25 mcg IV NOW STA Stop: 09/30/22 16:55 Last Admin: 09/30/22 17:13 Dose: 25 mcg Documented By: RAMEZ Gabapentin (Gabapentin 300 Mg Cap) 300 mg PO NOW STA Stop: 09/30/22 14:30 Last Admin: 09/30/22 14:51 Dose: 300 mg Documented By: RAMEZ Gabapentin (Gabapentin 300 Mg Cap) 300 mg PO BID@1400,2100 [facility] Stop: 10/30/22 21:59 Last Admin: 10/01/22 18:44 Dose: 300 mg Documented By: [id number] Admin: 10/01/22 14:54 Dose: 300 mg Documented By: [id number] Admin: 09/30/22 22:46 Dose: 300 mg Documented By: CATHI Morphine Sulfate (Morphine Sulfate 2 Mg/Ml Carp) Confirm Administered Dose 2 mg .ROUTE .STK-MED ONE Stop: 09/30/22 21:27 Last Admin: 09/30/22 21:30 Dose: 2 mg Documented By: CATHI Oxycodone/Acetaminophen (Oxycodone/Apap 7.5/325mg Tab) 1 tab PO NOW STA Stop: 09/30/22 14:30 Last Admin: 09/30/22 14:51 Dose: 1 tab Documented By: RAMEZ Oxycodone/Acetaminophen (Oxycodone/Apap 7.5/325mg Tab) 1 tab PO TID PRN PRN Reason: Pain Stop: 10/14/22 17:50 Last Admin: 10/01/22 15:08 Dose: 1 tab Documented By: [id number] Oxycodone/Acetaminophen (Oxycodone/Acetaminophen 5mg/325mg Tab) 0.5 tab PO BID [facility] Stop: 10/14/22 21:59 Last Admin: 10/01/22 10:40 Dose: 0.5 tab Documented By: [id number] Admin: 09/30/22 22:47 Dose: 0.5 tab Documented By: CATHI Medical Decision Making Differential Diagnosis Differential diagnoses includes but is not limited to toxic, metabolic, infectious, traumatic, cardiac, neurologic, hematologic, psychiatric and inflammatory etiologies. Medical Records Attestation: I reviewed the patient's medical records. Home Medications Current Medication List: was personally reviewed by me Laboratory Data Attestation: I reviewed the patient's lab results. Result diagrams: 10/02/22 07:11 10/02/22 07:11 Lab Results 09/30/22 09/30/22 09/30/22 Range/Units 14:00 14:00 14:00 WBC 9.24 (4.8-10.8) K/ul RBC 4.50 (3.93-5.22) M/uL Hgb 13.5 (12.0-16.0) g/dl Hct 38.5 (34.1-44.9) % MCV 85.6 (80.0-100.0) fL MCH 30.0 (25.0-34.0) pg MCHC 35.1 (32.0-36.0) g/dL RDW Std Deviation 41.3 (36.4-46.3) fL RDW Coeff of Apollo 13.2 (11.5-14.5) % Plt Count 149 (130-400) K/uL MPV 10.0 (9.4-12.3) fL Immature Gran % (Auto) 0.5 % Neut % (Auto) 65.3 % Lymph % (Auto) 13.7 % Griggs % (Auto) 18.6 % Eos % (Auto) 1.4 % Baso % (Auto) 0.5 % Neut # (Auto) 6.02 (1.4-6.5) K/uL Lymph # (Auto) 1.27 (1.2-3.4) K/uL Griggs # (Auto) 1.72 H (0.24-0.82) K/uL Eos # (Auto) 0.13 (0-0.50) K/uL Baso # (Auto) 0.05 (0-0.2) K/uL Immature Gran # (Auto) 0.05 H (0.00-0.02) K/uL Sodium 137 (136-145) mmol/L Potassium 4.3 (3.5-5.1) mmol/L Chloride 101 (98-107) mmol/L Carbon Dioxide 28 (21-32) mmol/L Anion Gap 8 (3-11) BUN 11 (6-23) mg/dl Creatinine 0.58 L (0.6-1.2) mg/dl Est Cr Clr Drug Dosing 51.4 ml/min Est GFR ( Amer) 94.7 ml/min Est GFR (Non-Af Amer) 81.7 ml/min BUN/Creatinine Ratio 19.0 (10-20) Glucose 101 H (70-99(Fasting)) mg/dl Calcium 9.2 (8.5-10.1) mg/dl Magnesium 2.2 (1.7-2.4) mg/dl Total Bilirubin 0.9 (0.2-1.0) mg/dl AST 13 (13-39) U/L ALT 11 (7-52) U/L Alkaline Phosphatase 68 (34-104) U/L Troponin I High Sens 4.3 (0-14) pg/ml Total Protein 7.7 (6.0-8.3) gm/dl Albumin 4.3 (3.4-5.0) gm/dl Globulin 3.4 (2.5-4.0) gm/dl Albumin/Globulin Ratio 1.3 (0.9-2) Lipase 7 L (11-82) U/L TSH 0.980 (0.300-4.500) uIu/ml Urine Color Urine Appearance (Clear) Urine pH (4.5-7.5) Ur Specific Sophia (1.000-1.030) Urine Protein (Negative) Urine Glucose (UA) (Negative) Urine Ketones (Negative) Urine Blood (Negative) Urine Nitrite (Negative) Urine Bilirubin (Negative) Urine Urobilinogen (Negative) Ur Leukocyte Esterase (Negative) SARS-CoV-2 (PCR) (Negative) Influenza Type A (PCR) (Neg) Influenza Type B (PCR) (Neg) RSV (RT-PCR) (Neg) 09/30/22 09/30/22 Range/Units 15:39 15:44 WBC (4.8-10.8) K/ul RBC (3.93-5.22) M/uL Hgb (12.0-16.0) g/dl Hct (34.1-44.9) % MCV (80.0-100.0) fL MCH (25.0-34.0) pg MCHC (32.0-36.0) g/dL RDW Std Deviation (36.4-46.3) fL RDW Coeff of Apollo (11.5-14.5) % Plt Count (130-400) K/uL MPV (9.4-12.3) fL Immature Gran % (Auto) % Neut % (Auto) % Lymph % (Auto) % Griggs % (Auto) % Eos % (Auto) % Baso % (Auto) % Neut # (Auto) (1.4-6.5) K/uL Lymph # (Auto) (1.2-3.4) K/uL Griggs # (Auto) (0.24-0.82) K/uL Eos # (Auto) (0-0.50) K/uL Baso # (Auto) (0-0.2) K/uL Immature Gran # (Auto) (0.00-0.02) K/uL Sodium (136-145) mmol/L Potassium (3.5-5.1) mmol/L Chloride (98-107) mmol/L Carbon Dioxide (21-32) mmol/L Anion Gap (3-11) BUN (6-23) mg/dl Creatinine (0.6-1.2) mg/dl Est Cr Clr Drug Dosing ml/min Est GFR ( Amer) ml/min Est GFR (Non-Af Amer) ml/min BUN/Creatinine Ratio (10-20) Glucose (70-99(Fasting)) mg/dl Calcium (8.5-10.1) mg/dl Magnesium (1.7-2.4) mg/dl Total Bilirubin (0.2-1.0) mg/dl AST (13-39) U/L ALT (7-52) U/L Alkaline Phosphatase (34-104) U/L Troponin I High Sens (0-14) pg/ml Total Protein (6.0-8.3) gm/dl Albumin (3.4-5.0) gm/dl Globulin (2.5-4.0) gm/dl Albumin/Globulin Ratio (0.9-2) Lipase (11-82) U/L TSH (0.300-4.500) uIu/ml Urine Color Yellow Urine Appearance Clear (Clear) Urine pH 7.0 (4.5-7.5) Ur Specific Sophia 1.012 (1.000-1.030) Urine Protein Negative (Negative) Urine Glucose (UA) Negative (Negative) Urine Ketones Negative (Negative) Urine Blood Negative (Negative) Urine Nitrite Negative (Negative) Urine Bilirubin Negative (Negative) Urine Urobilinogen Negative (Negative) Ur Leukocyte Esterase Negative (Negative) SARS-CoV-2 (PCR) POSITIVE A* (Negative) Influenza Type A (PCR) Negative (Neg) Influenza Type B (PCR) Negative (Neg) RSV (RT-PCR) Negative (Neg) Imaging Data Radiologist's Impression: Ankle X-Ray 09/30/22 13:42 XR ankle RT 2V CLINICAL HISTORY: Right ankle pain following trauma. COMPARISON: Right ankle radiographs November 03, 2018. FINDINGS: No acute fracture is identified. Sensitivity is diminished given osteopenia. Talar dome is intact. The appearance of the right ankle is similar to prior radiographs. IMPRESSION: 1. No acute fracture or dislocation within the right ankle. 2. Osteopenia. This decreases sensitivity for detection of fractures but none are identified. ACT 112: Negative or not required by law. Electronically signed by: Meño Goncalves M.D. 09/30/2022 3:01 PM Chest X-Ray 09/30/22 13:42 XR chest 1V portable HISTORY: 87 years-old Female trauma acute chest trauma COMPARISON: 04/28/2017 TECHNIQUE: Semisupine AP view of the chest FINDINGS: Cardiac silhouette is within normal limits. Unchanged hilar contours. There is no pneumothorax, pleural effusion, airspace consolidation or overt pulmonary edema. Degenerative changes of the shoulders and spine. IMPRESSION: No acute process. ACT 112: Negative or not required by law. The above report was generated using voice recognition software. It may contain grammatical, syntax or spelling errors. Electronically signed by: Robin Montes M.D. 09/30/2022 2:[address] 09/30/22 13:[address] DOSE: HISTORY: Fall. trauma TECHNIQUE: Multiaxial CT images of the head were performed without the use of intravenous contrast. Automated exposure control was utilized for this study. A dose lowering technique was utilized adhering to the principles of ALARA. Comparison: Head CT 07/26/2016. Findings: The paranasal sinuses and mastoid air cells are clear. The calvarium and skull base are intact. There is no mass, hematoma, midline shift, acute infarct. White matter hypodensity is nonspecific but suggestive of microvascular ischemic change. The ventricles and sulci demonstrate mild age-related involutional changes. Impression: No acute intracranial abnormality. Atrophy and microvascular ischemic changes. ACT 112: Negative or not required by law. Electronically signed by: Jose Thompson M.D. 09/30/2022 3:06 PM Knee X-Ray 09/30/22 13:42 XR knee RT 1 or 2V routine CLINICAL HISTORY: Trauma. Right knee pain. COMPARISON STUDY: Right knee 03/10/2022. FINDINGS: The bones are osteopenic. There is an impacted fracture within the distal metaphysis of the right femur. This does not appear to extend to the articular surface. The visualized tibia and fibula appear intact. Mild chondrocalcinosis. There is soft tissue swelling within the right knee. There is an associated lipohemarthrosis. IMPRESSION: Impacted distal right femoral fracture. ACT 112: Negative or not required by law. Electronically signed by: Jose Thompson M.D. 09/30/2022 3:[address] 09/30/22 13:43 CT SCAN OF THE CERVICAL SPINE CLINICAL HISTORY: Trauma. Fall. COMPARISON STUDY: No priors. TECHNIQUE: CT scan of the cervical spine is performed from the skull base to the upper thoracic spine. Images are reviewed in the axial, sagittal, and coronal planes. IV contrast was not administered for this examination. A dose lowering technique was utilized adhering to the principles of ALARA. CT DOSE: 1015.75 mGy.cm FINDINGS: Skeletal structures: The skeletal structures are osteopenia. There is no evidence of fracture or subluxation involving the cervical spine. Vertebral body height and alignment are maintained. There is straightening of the cervical lordosis. Multilevel partial bony fusion is seen throughout the cervical spine. The odontoid process and lateral masses are intact. The atlantoaxial articulation is preserved noting mild productive degenerative change. The spinous processes appear intact. There is mild multilevel cervical spondylosis. Facet arthropathy is noted at several levels. Intervertebral discs: There is moderate disc space narrowing at all cervical levels between C3-C4 and C6-C7. Central canal: Tiny posterior disc osteophyte complexes are seen at most cervical levels. This may contribute to mild acquired compromise of the central canal. Soft tissues: The prevertebral and paraspinous soft tissues are within normal limits. The thyroid gland is atrophic. Calvarium: The visualized calvarium at the skull base appears intact. Brain parenchyma: Partially visualized brain parenchyma at the skull base is within normal limits. Sinuses and mastoids: There is mild mucosal thickening within the sphenoid sinuses. There is a moderate right mastoid effusion. The left mastoid air cells are well pneumatized. Lung apices: Clear as visualized. IMPRESSION: 1. There is no evidence of fracture or subluxation involving the cervical spine. 2. Osteopenia and spondylitic change as above. ACT 112: Negative or not required by law. Electronically signed by: El Baez M.D. 09/30/2022 2:47 PM ECG Data Attestation: I personally reviewed and interpreted this ECG as follows: Indication: + other Rate (beats per minute): 96 Rhythm: + normal sinus ECG Intervals/blocks: + Normal QRS and + Normal QT ECG [place]: + Normal ECG ST segments: + Nonspecific ST abnormalities MDM Narrative An order was placed for continuous cardiac monitoring. The monitor shows a rate of __88_ with _normal sinus__ rhythm. This is an 87 yo female with extensive PMHx who presents with family due to acute confusion and recent fall with right knee pain/swelling. Patient afebrile and VS stable. Patient recently off her plavix for a procedure and didn't restart it until after the fall. Patient denied CHI or LOC with fall, but has had increased right knee pain/swelling. Given age, trauma, ams, and comorbidities, labs drawn and sent, patient sent for CT/xray imaging, urine collected, and pt monitored on tele. Patient found to have right distal femur fracture. THis was discussed with [facility] who recommended transfer. This was discussed with family and pt at bedside. After additional discussion, pt and family opted to pursue conservative nonsurgical treatment and did not wish for transfer. I feel this is reasonable given age and risk. HOspitalist contacted and ortho updated. Impression & Plan Acute confusion, Fall, Acute pain of right knee, Femur fracture, right Discharge Plan Visit Data Chief Complaint: Fall Stated Complaint: FALL, KNEE INJURY, FOOT INJURY ED Provider: María Hdz Discharge Problem: Acute confusion, Fall, Acute pain of right knee, Femur fracture, right Patient Disposition: Admitted As Inpatient Discharge Instructions Interventions: ED Discharge Assessment Last Done: 09/30/22 20:27
[2022-09-30 14:36] LABS: Albumin Globulin Ratio 1.3 (0.9-2); Albumin Level 4.3 gm/dl (3.4-5.0); Bilirubin,Total 0.9 mg/dl (0.2-1.0); Calcium 9.2 mg/dl (8.5-10.1); Creatinine Clr Calc Pharmacy 51.4 ml/min; Est GFR (African American) 94.7 ml/min; Est GFR (Non-African American) 81.7 ml/min; Globulin 3.4 gm/dl (2.5-4.0); Magnesium 2.2 mg/dl (1.7-2.4); Potassium 4.3 mmol/L (3.5-5.1); Total Protein 7.7 gm/dl (6.0-8.3)
[2022-09-30 14:45] LABS: Troponin I High Sensitivity 4.3 pg/ml (0-14)
--- NOTE | 2022-09-30 14:47 | Electrocardiogram Report ---
Test Reason : Blood Pressure : / mmHG Vent. 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
--- NOTE | 2022-09-30 14:49 | CT Scan Report ---
CT SCAN OF THE CERVICAL SPINE CLINICAL HISTORY: Trauma. Fall. COMPARISON STUDY: No priors. TECHNIQUE: CT scan of the cervical spine is performed from the skull base to the upper thoracic spine . Images are reviewed in the axial, sagittal, and coronal planes. IV contrast was not administered fo r this examination. A dose lowering technique was utilized adhering to the principles of ALARA. CT DOSE: 1015.75 mGy.cm FINDINGS: Skeletal structures: The skeletal structures are osteopenia. There is no evidence of fracture or subl uxation involving the cervical spine. Vertebral body height and alignment are maintained. There is s traightening of the cervical lordosis. Multilevel partial bony fusion is seen throughout the cervical spine. The odontoid process and lateral masses are intact. The atlantoaxial articulation is preserve d noting mild productive degenerative change. The spinous processes appear intact. There is mild mult ilevel cervical spondylosis. Facet arthropathy is noted at several levels. Intervertebral discs: There is moderate disc space narrowing at all cervical levels between C3-C4 and C6-C7. Central canal: Tiny posterior disc osteophyte complexes are seen at most cervical levels. This may co ntribute to mild acquired compromise of the central canal. Soft tissues: The prevertebral and paraspinous soft tissues are within normal limits. The thyroid gla nd is atrophic. Calvarium: The visualized calvarium at the skull base appears intact. Brain parenchyma: Partially visualized brain parenchyma at the skull base is within normal limits. Sinuses and mastoids: There is mild mucosal thickening within the sphenoid sinuses. There is a modera te right mastoid effusion. The left mastoid air cells are well pneumatized. Lung apices: Clear as visualized. IMPRESSION: 1. There is no evidence of fracture or subluxation involving the cervical spine. 2. Osteopenia and spondylitic change as above. ACT 112: Negative or not required by law. Electronically signed by: El Baez M.D. 09/30/2022 2:47 PM
--- NOTE | 2022-09-30 15:02 | XRay Report ---
XR ankle RT 2V CLINICAL HISTORY: Right ankle pain following trauma. COMPARISON: Right ankle radiographs November 03, 2018. FINDINGS: No acute fracture is identified. Sensitivity is diminished given osteopenia. Talar dome is intact. The appearance of the right ankle is similar to prior radiographs. IMPRESSION: 1. No acute fracture or dislocation within the right ankle. 2. Osteopenia. This decreases sensitivity for detection of fractures but none are identified. ACT 112: Negative or not required by law. Electronically signed by: Meño Goncalves M.D. 09/30/2022 3:01 PM
--- NOTE | 2022-09-30 15:08 | CT Scan Report ---
HEAD CT NONCONTRAST CT DOSE: HISTORY: Fall. trauma TECHNIQUE: Multiaxial CT images of the head were performed without the use of intravenous contrast. A utomated exposure control was utilized for this study. A dose lowering technique was utilized adheri ng to the principles of ALARA. Comparison: Head CT 07/26/2016. Findings: The paranasal sinuses and mastoid air cells are clear. The calvarium and skull base are int act. There is no mass, hematoma, midline shift, acute infarct. White matter hypodensity is nonspecifi c but suggestive of microvascular ischemic change. The ventricles and sulci demonstrate mild age-rela jc involutional changes. Impression: No acute intracranial abnormality. Atrophy and microvascular ischemic changes. ACT 112: Negative or not required by law. Electronically signed by: Jose Thompson M.D. 09/30/2022 3:06 PM
--- NOTE | 2022-09-30 15:09 | XRay Report ---
XR knee RT 1 or 2V routine CLINICAL HISTORY: Trauma. Right knee pain. COMPARISON STUDY: Right knee 03/10/2022. FINDINGS: The bones are osteopenic. There is an impacted fracture within the distal metaphysis of the right femur. This does not appear to extend to the articular surface. The visualized tibia and fibul a appear intact. Mild chondrocalcinosis. There is soft tissue swelling within the right knee. There i s an associated lipohemarthrosis. IMPRESSION: Impacted distal right femoral fracture. ACT 112: Negative or not required by law. Electronically signed by: Jose Thompson M.D. 09/30/2022 3:07 PM
[2022-09-30 16:11] LABS: Appearance Urine Clear (Clear); Bilirubin Urine Negative (Negative); Blood Urine Negative (Negative); Color Urine Yellow; Glucose Urine UA Negative (Negative); Ketones Urine Negative (Negative); Leukocyte Esterase Urine Negative (Negative); Nitrite Urine Negative (Negative); Protein Urine Negative (Negative); Specific Gravity Urine 1.012 (1.000-1.030); Urobilinogen Urine Negative (Negative)
[2022-09-30 16:45] LABS: Influenza A virus by PCR Negative (Neg); Influenza B virus by PCR Negative (Neg); RSV by PCR Negative (Neg)
[2022-09-30 16:51] LABS: SARS CoV2 RNA(COVID-19) Ceph POSITIVE (Negative)
[2022-09-30] MEDS ORDERED: OXYMETAZOLINE 0.05% 30 ML BTL PRN (17:51)
[2022-09-30] MEDS ORDERED: [UNRECOGNIZED DRUG - OTHER] TOP PRN (17:51)
[2022-09-30] MEDS ORDERED: oxyCODONE/APAP 7.5/325MG TAB PO PRN (17:51)
[2022-09-30] MEDS ORDERED: oxyCODONE/ACETAMINOPHEN 5mg/325mg TAB PO PRN (17:51)
[2022-09-30] MEDS ORDERED: CYCLOBENZAPRINE HCL 5 MG TAB PO PRN (17:51)
[2022-09-30] MEDS ORDERED: NYSTATIN/TRIAMCIN CR 15 GM TUBE EXT PRN (17:51)
[2022-09-30] MEDS ORDERED: NYSTATIN POWDER 15GM BTL EXT PRN (17:51)
[2022-09-30] MEDS ORDERED: DICLOFENAC SOD 1% GEL 100 GM TUBE EXT PRN (17:51)
[2022-09-30] MEDS ORDERED: SODIUM CHLORIDE ALOE VERA TOP PRN (17:51)
--- NOTE | 2022-09-30 19:15 | History & Physical Report ---
Date of Service September 30, 2022 Assessment & Plan (1) Fall: Plan: 87 yo female with Impacted distal right femoral fracture. Patient was offered to be transferred to [facility] for surgical repair, owever, given age and current quality of life. Family opted to go for conservative management. Will continue pain management on enoxaparin. (2) Hypertension: Plan: noted in PMH. Not on any BP meds. will monitor (3) Depression: Plan: resume home meds (4) Hypothyroidism: Plan: resume home meds History of Present Illness Chief Complaint: fall Primary Care Provider: CATRINA Fletcher This is an 87-year-old female brought in with family at bedside due to concern for altered mentation that began last night.At time of interview, family is no longer at bedside. History obtained via chart reviwe and discussion with ED provider. Patient had a fall on Wednesday. Patient reported havingchronic back pain and difficulty using the right lower extremity. It is mainly unusable and only uses it for balance, nd drags while she walks. It is held chronically in external rotation per family. She states when she fell she leaned forward over her walker too far and fell forward becoming twisting up on the walker. She denies head injury or LOC. No recent fevers or URI symptoms. Patient denies chest pain, abdominal pain, headache. Family states patient did complain of a headache earlier. No nausea or vomiting. Patient states she does have pain at the right knee ever since the fall with attempts at moving it. Allergies Allergy/AdvReac Type Severity Reaction Status Date / Time adhesive Allergy Mild skin Verified 09/30/22 16:24 irritation Home Medications Medication Instructions Recorded Confirmed Type alprazolam 0.5 mg tablet (Xanax) 0.5 mg PO DIRECTED PRN 05/30/19 09/30/22 History NERVOUSNESS/SLEEP clopidogrel 75 mg tablet 75 mg PO QAM 05/30/19 09/30/22 History levothyroxine 50 mcg tablet 50 mcg PO QAM 05/30/19 09/30/22 History polyethylene glycol 3350 17 17 g PO QAM 05/30/19 09/30/22 History gram/dose oral powder pravastatin 10 mg tablet 10 mg PO QPM 05/30/19 09/30/22 History acetaminophen 325 mg tablet 650 mg PO Q6H PRN Pain 06/26/19 09/30/22 History (Tylenol) gabapentin 300 mg capsule See Rx Instructions .Route .COMPLEX 06/26/19 09/30/22 History Magic Mouthwash Liquid 15 ml PO Q2H PRN MOUTH ULCERS 09/30/22 09/30/22 History cyclobenzaprine 5 mg tablet 5 mg PO DIRECTED PRN RIGHT SIDE 09/30/22 09/30/22 History NECK PAIN diclofenac sodium 1 % topical gel 4 g topical Q12H PRN Pain 09/30/22 09/30/22 History famotidine 20 mg tablet 20 mg PO HS 09/30/22 09/30/22 History nystatin 100,000 unit/gram topical 1 applic topical BID PRN SKIN 09/30/22 09/30/22 History powder IRRITATION UNDER BREASTS nystatin-triamcinolone 100,000 1 applic topical BID PRN 09/30/22 09/30/22 History unit/g-0.1 % topical cream CANDIDIASIS ondansetron HCl 4 mg tablet 4 mg PO Q8H PRN NAUSEA/VOMITING 09/30/22 09/30/22 History oxycodone-acetaminophen 2.5 mg-325 1 tab PO DAILY PRN BREAKTHROUGH 09/30/22 09/30/22 History mg tablet (Percocet) PAIN oxycodone-acetaminophen 5 mg-325 0.5 tab PO BID 09/30/22 09/30/22 History mg tablet (Percocet) oxycodone-acetaminophen 7.5 mg-325 1 tab PO TID PRN Pain 09/30/22 09/30/22 History mg tablet (Percocet) oxymetazoline 0.05 % nasal spray 3 spray intranasal Q8H PRN 09/30/22 09/30/22 History (Afrin (oxymetazoline)) EPISTAXIS psyllium husk 0.52 gram capsule 0.52 g PO DAILY PRN Constipation 09/30/22 09/30/22 History (Fiber (psyllium husk)) sodium chloride-aloe vera nasal 1 applic topical Q6H PRN EPISTAXIS 09/30/22 09/30/22 History gel ([place] Saline nasal gel) Past Med/Surg History Medical History Allergic rhinitis due to dust Bilateral sensorineural hearing loss DVT (deep venous thrombosis) History of small bowel obstruction Lumbosacral radiculopathy at L5 Peripheral vascular disease Sensorineural hearing loss of both ears Small vessel disease, cerebrovascular Surgical History History of back surgery History of cholecystectomy History of ear surgery History of hip replacement History of tubal ligation Family History Sister FHx: deafness or hearing loss Mother Breast cancer Cardiac disorder Father Cardiac disorder Other Family history non-contributory Social History Smoking Status: Former smoker Smoking End Date: 1959; Second Hand Exposure: No; Hx Alcohol Use: Yes Alcohol type: wine Hx Substance Use: No Preferred Language: Turkmen 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: Effective 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 Physical Exam Constitutional: WD/WN, vitals as above Eyes: PERRL, conjunctivae normal, anicteric sclerae ENMT: external ear and nose normal, oropharynx normal Neck: trachea midline, no thyromegaly Cardiovascular: RRR, no murmur, no edema Gastrointestinal (Abdomen): normal bowel sounds, soft, nontender, no hepatosplenomegaly Musculoskeletal: Hip: + hip abnormal to inpsection Neurologic: PERRL, EOMI, accommodation nl, no face palsy, no dysarthria Psychiatric: Orientation: alert and oriented to person Lymphatic: no cervical or axillary lymphadenopathy Results & Data Results & Data ([facility]) Vital Signs (Past 12 Hours) Vital Signs Temp Pulse Resp BP Pulse Ox O2 Del Method 09/30/22 16:30 95 H 16 90 09/30/22 16:30 129/62 09/30/22 16:20 95 H 23 93 09/30/22 16:10 91 H 18 100 09/30/22 16:01 97 H 24 98 09/30/22 16:01 124/48 L 09/30/22 16:00 97 H 23 100 09/30/22 15:50 99 H 21 100 09/30/22 15:43 106 H 18 98 09/30/22 15:43 154/74 H 09/30/22 15:40 110 H 29 H 95 09/30/22 15:30 102 H 17 99 09/30/22 15:20 102 H 20 97 09/30/22 15:10 103 H 23 99 09/30/22 15:00 109 H 28 H 100 09/30/22 14:50 115 H 30 H 09/30/22 14:40 110 H 21 09/30/22 14:38 134 H 20 09/30/22 14:20 95 H 27 H 09/30/22 14:10 86 24 09/30/22 14:00 95 H 17 09/30/22 14:00 145/70 H 09/30/22 13:50 89 23 96 09/30/22 13:40 84 20 97 09/30/22 13:30 91 H 13 99 09/30/22 13:30 143/63 H 09/30/22 13:20 92 H 16 100 09/30/22 13:10 105 H 22 99 09/30/22 13:00 88 20 96 09/30/22 13:00 146/69 H 09/30/22 12:50 88 16 97 09/30/22 12:40 88 18 97 09/30/22 12:35 108 H 19 96 09/30/22 12:34 100 H 19 154/64 H 98 Room Air 09/30/22 11:58 36.1 C L 100 H 20 145/79 H 98 Room Air PG Care Time/CCT Total # of Minutes Spent Total Time Spent with Patient: Total time spent is greater than 50% in coordination of care (as documented) at patient's floor/unit and/or counseling patient: Coding Level of Care Code 73987 Initial Inpt Care Lvl 3 Diagnoses Fall W19.XXXA Hypertension I10 Depression F32.9 Hypothyroidism E03.9
[2022-09-30] MEDS ORDERED: MoRPHine SULFATE 2 MG/ML CARP IV STA (21:22)
[2022-09-30] MEDS ORDERED: MoRPHine SULFATE 2 MG/ML CARP ONE (21:26)
[2022-09-30] MEDS ORDERED: ONDANSETRON 4 MG OD TAB PO PRN (21:56)
[2022-09-30] MEDS ORDERED: FIRST - Mouthwash BLM 119 ML PO PRN (22:34)
[2022-09-30] MEDS ORDERED: PSYLLIUM or GUAR GUM FIBER POWDER PACKET PO PRN (22:35)
[2022-09-30] MEDS: FAMOTIDINE 20 MG TAB PO SCH (22:45)
[2022-09-30] MEDS: GABAPENTIN 300 MG CAP PO SCH (22:46)
[2022-09-30] MEDS: PRAVASTATIN SOD 10 MG TAB PO SCH (22:46)
[2022-09-30] MEDS: oxyCODONE/ACETAMINOPHEN 5mg/325mg TAB PO SCH (22:47)
[2022-09-30] MEDS: ENOXAPARIN INJ 40 MG/0.4 ML SYR SQ SCH (22:49)
[2022-09-30] MEDS: ACETAMINOPHEN 325 MG TAB PO PRN (23:10)
[2022-10-01] MEDS: LEVOTHYROXINE SODIUM 50 MCG TABLET PO SCH (07:12)
[2022-10-01] MEDS: SODIUM CHLORIDE 0.9% 1000ML 1,000 ML IV SCH ×3 (07:12→17:49)
[2022-10-01] MEDS: GABAPENTIN 300 MG CAP PO SCH ×4 (08:43→19:18)
[2022-10-01] MEDS: ALPRAZolam 0.5 MG TABLET PO PRN (10:32)
[2022-10-01] MEDS: oxyCODONE/ACETAMINOPHEN 5mg/325mg TAB PO SCH ×2 (10:40→22:20)
[2022-10-01 11:35] LABS: Hematocrit (blood only) 31.2 % (34.1-44.9); Hemoglobin 10.8 g/dl (12.0-16.0); Mean Corpuscular Hgb Conc 34.6 g/dL (32.0-36.0); Mean Corpuscular Volume 86.7 fL (80.0-100.0); Mean Platelet Volume 10.5 fL (9.4-12.3); Platelet Count 126 K/uL (130-400); RDW Coefficient of Variation 13.2 % (11.5-14.5); RDW Standard Deviation 42.2 fL (36.4-46.3); White Blood Count 6.59 K/ul (4.8-10.8)
[2022-10-01 11:52] LABS: BUN Creatinine Ratio 16.3 (10-20); Calcium 8.2 mg/dl (8.5-10.1); Creatinine Clr Calc Pharmacy 65.3 ml/min; Est GFR (African American) 104.5 ml/min; Est GFR (Non-African American) 90.2 ml/min; Potassium 3.7 mmol/L (3.5-5.1)
--- NOTE | 2022-10-01 13:45 | Progress Notes ---
DATE OF SERVICE: 10/01/2022 SUBJECTIVE: The patient is an 87-year-old female, who I was consulted to see regarding a right dista l femur fracture. The patient is in assisted living at [facility]. She was trying to help her when her walker collapsed and she fell apparently landing on her right leg. This happened on Wednesday. She had immediate pain. She was in the process of getting a spinal cord stimulator trial at [facility] [place]. She went to [facility] and had this done earlier in the week. Her knee hurt her. She has a his tory of a spinal cord tumor, which was removed. This resulted in dysfunction of the right lower extr emity to the point where it is nonfunctional and "drags behind her when she walks." She does not see m to bear full or complete weight on that leg. She has also had a right hip replacement done previou [facility]. She experienced mental status changes yesterday and her family brought her to the ER where she was evaluated. She has been diagnosed with a fracture of the right distal femur. She has also had i n the past revascularization of the right lower extremity done by Dr. Pritchard. 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 PAST MEDICAL HISTORY: Noted on the chart. She does have a history of a DVT, bowel obstruction, and peripheral vascular disease. MEDICATIONS: Noted and include Plavix. Her son-in-law, who is a physician reports that she had an abrasion on the right lanza area, but no op en areas over the knee area. She is currently in a long leg posterior splint, which appears to be in good position without causing any problems. There is tenderness to palpation of the thigh and espec ially of the distal femur. There is tenderness of the ankle as well. She can wiggle her toes, but r eally cannot move her ankle and she cannot dorsiflex her toes beyond neutral. She has intact sensati on. Her capillary refill is 2 seconds or less. The foot is warm and her DP pulse is 1+. The splint is not putting any pressure on her toes. There is intact ability to passively range her right hip w ithout significant discomfort. X-rays of the ankle showed significant osteopenia, but no acute fracture. Radiographs of the right k nee show an impacted distal femoral fracture with reasonable alignment. The distal fragment is small . Osteopenia. IMPRESSION: Right distal femur fracture. PLAN: Findings are discussed. We talked about operative and nonoperative management. The functiona l status of the limb is limited. She does have the ability to ambulate to meals, etc. using a walker , but spends most of her time seated or in bed. Surgical fixation would be problematic given the sma ll distal fragment as well as the osteopenia. She also has the total joint replacement up above to d eal with as well. X-rays of the right hip are ordered. Nonoperative management is a possibility. T his would require mobilization in some type of splint or long leg cast. We talked about casting. We talked about risks, benefits, rehab recovery, pros and cons of operative and nonoperative management and agreed upon a trial of conservative treatment. Check vitamin D level. She can eat. She is on Lovenox for DVT prophylaxis. We will coordinate care with medical team. Job ID: [id number]
--- NOTE | 2022-10-01 13:58 | XRay Report ---
XR hip RT min 2V CLINICAL HISTORY: Right hip pain. COMPARISON STUDY: Right hip 03/10/2022. FINDINGS: There is a right total hip arthroplasty again noted. Mild periprosthetic lucency along the medial aspect of the acetabular cup is again noted. No acute fracture or dislocation within the right hip. Surgical clips are seen within the medial aspect of the proximal thigh. IMPRESSION: 1. No acute fracture or dislocation within the right hip. 2. Mild periprosthetic lucency along the medial aspect of the acetabular cup is again noted. This sug gests loosening. ACT 112: Negative or not required by law. Electronically signed by: Jose Thompson M.D. 10/01/2022 1:56 PM
[2022-10-01] MEDS: CLOPIDOGREL BISULFATE 75 MG TAB PO SCH (14:54)
[2022-10-01] MEDS: POLYETHYLENE (MIRALAX) 17 GM PACK PO SCH (14:55)
[2022-10-01] MEDS: oxyCODONE/APAP 7.5/325MG TAB PO SCH (17:48)
[2022-10-01] MEDS: FAMOTIDINE 20 MG TAB PO SCH (20:05)
[2022-10-01] MEDS: ENOXAPARIN INJ 40 MG/0.4 ML SYR SQ SCH (20:05)
[2022-10-01] MEDS: PRAVASTATIN SOD 10 MG TAB PO SCH (20:05)
[2022-10-01] MEDS ORDERED: oxyCODONE/ACETAMINOPHEN 5mg/325mg TAB PO SCH (21:00)
--- NOTE | 2022-10-01 22:29 | Hospitalist Progress Note ---
Date of Service October 01, 2022 Assessment & Plan (1) Fall: Plan: 87 yo female with Impacted distal right femoral fracture. Patient was offered to be transferred to [facility] for surgical repair, owever, given age and current quality of life. Family opted to go for conservative management. Will continue pain management on enoxaparin. Ortho consulted on 10/01, will place cast possibly on 10/02 (2) Hypertension: Plan: noted in PMH. Not on any BP meds. will monitor (3) Depression: Plan: resume home meds (4) Hypothyroidism: Plan: resume home meds Admission and Anticipated Discharge Date Admission Date: September 30, 2022 Subjective 87 yo female is lying comfortably. Patient has no complaints at this moment. Review of Systems Review of Systems: All systems reviewed & are unremarkable except as noted in HPI & below Physical Exam Constitutional: WD/WN, vitals as above Eyes: PERRL, conjunctivae normal, anicteric sclerae ENMT: external ear and nose normal, oropharynx normal Neck: trachea midline, no thyromegaly Cardiovascular: RRR, no murmur, no edema Gastrointestinal (Abdomen): normal bowel sounds, soft, nontender, no hepatosplenomegaly Musculoskeletal: Hip: + hip abnormal to inpsection Neurologic: PERRL, EOMI, accommodation nl, no face palsy, no dysarthria Psychiatric: Orientation: alert and oriented to person Lymphatic: no cervical or axillary lymphadenopathy Results & Data Results & Data ([facility]) Vital Signs (Past 12 Hours) Vital Signs Temp Pulse Resp BP Pulse Ox O2 Del Method 10/01/22 22:18 36.8 C 78 18 107/60 97 Room Air 10/01/22 18:28 37.2 C 106 H 18 154/77 H 96 Room Air PG Care Time/CCT Total # of Minutes Spent Total Time Spent with Patient: Total time spent is greater than 50% in coordination of care (as documented) at patient's floor/unit and/or counseling patient: Coding Level of Care Code 76135 Subseq Hosp Care Lvl 2 Diagnoses Fall W19.XXXA Hypertension I10 Depression F32.9 Hypothyroidism E03.9 Time Spent (min) 25
[2022-10-02] MEDS: SODIUM CHLORIDE 0.9% 1000ML 1,000 ML IV SCH ×3 (04:33→22:19)
[2022-10-02] MEDS: oxyCODONE/ACETAMINOPHEN 5mg/325mg TAB PO SCH ×3 (05:24→22:19)
[2022-10-02] MEDS: LEVOTHYROXINE SODIUM 50 MCG TABLET PO SCH (05:24)
[2022-10-02 07:36] LABS: Hematocrit (blood only) 30.4 % (34.1-44.9); Hemoglobin 10.5 g/dl (12.0-16.0); Mean Corpuscular Hemoglobin 29.7 pg (25.0-34.0); Mean Corpuscular Hgb Conc 34.5 g/dL (32.0-36.0); Mean Corpuscular Volume 86.1 fL (80.0-100.0); Mean Platelet Volume 10.3 fL (9.4-12.3); Platelet Count 141 K/uL (130-400); RDW Coefficient of Variation 13.2 % (11.5-14.5); RDW Standard Deviation 41.9 fL (36.4-46.3); Red Blood Count 3.53 M/uL (3.93-5.22); White Blood Count 6.58 K/ul (4.8-10.8)
[2022-10-02 07:58] LABS: BUN Creatinine Ratio 15.2 (10-20); C Reactive Protein 12.56 mg/dl (0-0.5); Calcium 7.8 mg/dl (8.5-10.1); Creatinine Clr Calc Pharmacy 61.1 ml/min; Est GFR (African American) 102.2 ml/min; Est GFR (Non-African American) 88.2 ml/min; Potassium 3.7 mmol/L (3.5-5.1)
[2022-10-02] MEDS: GABAPENTIN 300 MG CAP PO SCH ×3 (09:02→17:54)
[2022-10-02] MEDS: CLOPIDOGREL BISULFATE 75 MG TAB PO SCH (09:02)
[2022-10-02] MEDS: POLYETHYLENE (MIRALAX) 17 GM PACK PO SCH (09:03)
[2022-10-02] MEDS: oxyCODONE/APAP 7.5/325MG TAB PO SCH ×2 (14:16→17:53)
--- NOTE | 2022-10-02 14:44 | Progress Notes ---
DATE OF SERVICE: 10/02/2022 Followup evaluation of her right distal femur fracture. X-rays of the right hip show an artificial h ip in place without any evidence of significant complication or fracture and no dislocation. The rig ht leg is evaluated. With assistance, the splint is removed. There is moderate swelling of the knee . There are some skin wrinkles present on the lower leg. There is a 1-cm superficial abrasion with perhaps a skin tear on the lanza without any exposed bone or bleeding. This is clean and covered with Xeroform and a gauze pad. The leg was rewrapped with waterproof cast padding, double thick and then a long leg posterior splint from the gluteal crease all the way down to the toes is applied without any undue pressure on any bony prominence. Extra padding was placed around the malleoli, heel, and k nee. The ankle was in somewhat of a fixed equinus posture. She can wiggle her toes and feel her toe s. The toes are warm with good capillary refill. She reports some tenderness to palpation of the to es, but they are not swollen. Her knee is tender and swollen. The leg is otherwise not tender. She did have a little bit of tenderness over the medial malleolus, but this was inconsistent. An anteri or slab splint was applied and the knee was held in 20 to 30 degrees of flexion, which is where it bonilla d been. IMPRESSION: Right distal femoral fracture. PLAN: She is getting Lovenox for DVT prophylaxis. Immobilize until swelling subsides and then cast. That can be done here if she remains an inpatient or as an outpatient. She is not able to bear any weight and will probably need to use a bedside commode or bedpan. She could be transferred bed to [facility] with assistance, but should keep her leg elevated. Not a good surgical situation given the quality of the bone and the very distal location of the fract ure. It does appear to be impacted and so may have some degree of stability. Job ID: [id number]
[2022-10-02] MEDS: ENOXAPARIN INJ 40 MG/0.4 ML SYR SQ SCH (22:18)
[2022-10-02] MEDS: PRAVASTATIN SOD 10 MG TAB PO SCH (22:19)
[2022-10-02] MEDS: FAMOTIDINE 20 MG TAB PO SCH (22:19)
--- NOTE | 2022-10-02 22:43 | Hospitalist Progress Note ---
Date of Service October 02, 2022 Assessment & Plan (1) Fall: Plan: 87 yo female with Impacted distal right femoral fracture. Patient was offered to be transferred to [facility] for surgical repair, [place], given age and current quality of life. Family opted to go for conservative management. Will continue pain management on enoxaparin. Ortho consulted on 10/01, cast placed on 10/02 will monitor BMs (2) Hypertension: Plan: noted in PMH. Not on any BP meds. will monitor (3) Depression: Plan: resume home meds (4) Hypothyroidism: Plan: resume home meds Admission and Anticipated Discharge Date Admission Date: September 30, 2022 Subjective Patient is comfortable. Review of Systems Review of Systems: All systems reviewed & are unremarkable except as noted in HPI & below Physical Exam Constitutional: WD/WN, vitals as above Eyes: PERRL, conjunctivae normal, anicteric sclerae ENMT: external ear and nose normal, oropharynx normal Neck: trachea midline, no thyromegaly Cardiovascular: RRR, no murmur, no edema Gastrointestinal (Abdomen): normal bowel sounds, soft, nontender, no hepatosplenomegaly Musculoskeletal: Hip: + hip abnormal to inpsection Neurologic: PERRL, EOMI, accommodation nl, no face palsy, no dysarthria Psychiatric: Orientation: alert and oriented to person Lymphatic: no cervical or axillary lymphadenopathy Results & Data Results & Data ([facility]) Vital Signs (Past 12 Hours) Vital Signs Temp Pulse Resp BP Pulse Ox O2 Del Method 10/02/22 21:49 36.7 C 89 18 121/64 96 Room Air 10/02/22 15:25 36.9 C 86 20 132/74 97 Room Air PG Care Time/CCT Total # of Minutes Spent Total Time Spent with Patient: Total time spent is greater than 50% in coordination of care (as documented) at patient's floor/unit and/or counseling patient: Coding Level of Care Code 81009 Subseq Hosp Care Lvl 2 Diagnoses Fall W19.XXXA Hypertension I10 Depression F32.9 Hypothyroidism E03.9
[2022-10-03] MEDS: ACETAMINOPHEN 325 MG TAB PO PRN ×2 (04:30→14:29)
[2022-10-03] MEDS: SODIUM CHLORIDE 0.9% 1000ML 1,000 ML IV SCH ×3 (04:30→21:16)
[2022-10-03] MEDS: oxyCODONE/ACETAMINOPHEN 5mg/325mg TAB PO SCH ×3 (05:15→21:14)
[2022-10-03] MEDS: LEVOTHYROXINE SODIUM 50 MCG TABLET PO SCH (05:16)
[2022-10-03] MEDS: CLOPIDOGREL BISULFATE 75 MG TAB PO SCH (08:53)
[2022-10-03] MEDS: GABAPENTIN 300 MG CAP PO SCH ×3 (08:54→17:18)
[2022-10-03] MEDS: POLYETHYLENE (MIRALAX) 17 GM PACK PO SCH (08:55)
[2022-10-03] MEDS: oxyCODONE/APAP 7.5/325MG TAB PO SCH ×2 (12:59→17:18)
[2022-10-03] MEDS: ALPRAZolam 0.5 MG TABLET PO PRN (21:14)
[2022-10-03] MEDS: FAMOTIDINE 20 MG TAB PO SCH (21:15)
[2022-10-03] MEDS: PRAVASTATIN SOD 10 MG TAB PO SCH (21:15)
[2022-10-03] MEDS: ENOXAPARIN INJ 40 MG/0.4 ML SYR SQ SCH (21:16)
--- NOTE | 2022-10-03 22:16 | Hospitalist Progress Note ---
Date of Service October 03, 2022 Assessment & Plan (1) Fall: Plan: 87 yo female with Impacted distal right femoral fracture. Patient was offered to be transferred to [facility] for surgical repair, however, Family opted to go for conservative management given age and current quality of life. Conservative management included: casting of her leg. Patient will require followup with [facility]. continue pain management/ bowel regimen on enoxaparin. Ortho consulted on 10/01, cast placed on 10/02 Discharged plan for 121/8. Pickup already scheduled. (2) Hypertension: Plan: noted in PMH. Not on any BP meds. will monitor (3) Depression: Plan: resume home meds (4) Hypothyroidism: Plan: resume home meds Admission and Anticipated Discharge Date Admission Date: September 30, 2022 Subjective 87 yo femalereports that her pain is better controlled. She has no new complaints today. Review of Systems Review of Systems: All systems reviewed & are unremarkable except as noted in HPI & below Physical Exam Constitutional: WD/WN, vitals as above Eyes: PERRL, conjunctivae normal, anicteric sclerae ENMT: external ear and nose normal, oropharynx normal Neck: trachea midline, no thyromegaly Cardiovascular: RRR, no murmur, no edema Gastrointestinal (Abdomen): normal bowel sounds, soft, nontender, no hepatosplenomegaly Musculoskeletal: cast placed on affected extremitiy Neurologic: PERRL, EOMI, accommodation nl, no face palsy, no dysarthria Psychiatric: Orientation: alert and oriented to person Lymphatic: no cervical or axillary lymphadenopathy Results & Data Results & Data ([facility]) Vital Signs (Past 12 Hours) Vital Signs Temp Pulse Resp BP Pulse Ox O2 Del Method 10/03/22 17:36 36.6 C 82 16 146/76 H 96 Room Air PG Care Time/CCT Total # of Minutes Spent Total Time Spent with Patient: Total time spent is greater than 50% in coordination of care (as documented) at patient's floor/unit and/or counseling patient: Coding Level of Care Code 78907 Subseq Hosp Care Lvl 2 Diagnoses Fall W19.XXXA Hypertension I10 Depression F32.9 Hypothyroidism E03.9 Time Spent (min) 25
[2022-10-04] MEDS: ACETAMINOPHEN 325 MG TAB PO PRN (04:12)
[2022-10-04] MEDS: oxyCODONE/ACETAMINOPHEN 5mg/325mg TAB PO SCH ×2 (05:28→09:34)
[2022-10-04] MEDS: LEVOTHYROXINE SODIUM 50 MCG TABLET PO SCH (05:29)
[2022-10-04] MEDS: SODIUM CHLORIDE 0.9% 1000ML 1,000 ML IV SCH (06:39)
[2022-10-04] MEDS: POLYETHYLENE (MIRALAX) 17 GM PACK PO SCH (08:10)
[2022-10-04] MEDS ORDERED: CHOLECALCIFEROL 1,000 UNITS 25 MCG TAB PO SCH (09:00)
[2022-10-04] MEDS: GABAPENTIN 300 MG CAP PO SCH (09:37)
[2022-10-04] MEDS: CLOPIDOGREL BISULFATE 75 MG TAB PO SCH (09:37)
== END 2022-10-04 10:03 ==
LOC: ED 11:45 → SUATTDRO 17:59 → 3E 17:59 → INTOOBSV 17:59 → 3E 20:27
DX: Z79.899 Other long term (current) drug therapy; G89.29 Other chronic pain; W19.XXXA Unspecified fall, initial encounter; M54.9 Dorsalgia, unspecified; I10 Essential (primary) hypertension; E03.9 Hypothyroidism, unspecified; Z79.890 Hormone replacement therapy; S72.401A Unspecified fracture of lower end of right femur, initial encounter for closed fracture; Z87.891 Personal history of nicotine dependence; R41.0 Disorientation, unspecified

== ENCOUNTER 2022-11-30 20:21 | Observation (INO) ==
[2022-11-30 22:11] LABS: Hematocrit (blood only) 41.9 % (37.0-47.0); Hemoglobin 14.6 g/dl (12.0-16.0); Mean Corpuscular Hemoglobin 29.2 pg (25.0-34.0); Mean Corpuscular Hgb Conc 34.8 g/dL (32.0-36.0); Mean Corpuscular Volume 83.8 fL (80.0-100.0); Mean Platelet Volume 11.4 fL (9.4-12.4); Platelet Count 111 K/uL (130-400); RDW Coefficient of Variation 13.3 % (11.5-14.5); RDW Standard Deviation 40.6 fL (36.4-46.3); White Blood Count 8.85 K/ul (4.8-10.8)
[2022-11-30 22:18] LABS: Albumin Level 3.8 gm/dl (3.4-5.0); Basophils # (auto) 0.02 K/uL (0-0.2); Basophils % (auto) 0.2 %; Bilirubin,Total 0.7 mg/dl (0.2-1.0); Eosinophils # (auto) 0.01 K/uL (0-0.50); Eosinophils % (auto) 0.1 %; Immature Granulocytes # (auto) 0.03 K/uL (0.01-0.20); Immature Granulocytes % (auto) 0.3 %; Lymphocytes # (auto) 0.36 K/uL (1.2-3.4); Lymphocytes % (auto) 4.1 %; Monocytes # (auto) 0.82 K/uL (0.11-0.59); Monocytes % (auto) 9.3 %; Neutrophils # (auto) 7.61 K/uL (1.40-6.50); Potassium 3.6 mmol/L (3.5-5.1)
[2022-11-30 22:26] LABS: Albumin Globulin Ratio 1.2 (0.9-2); BUN Creatinine Ratio 28.6 (10-20); Creatinine Clr Calc Pharmacy 48.9 ml/min; Est GFR (African American) 95.8 ml/min; Est GFR (Non-African American) 82.7 ml/min; Globulin 3.1 gm/dl (2.5-4.0); Total Protein 6.9 gm/dl (6.0-8.3)
[2022-11-30] MEDS: SODIUM CHLORIDE 0.9% 1000ML 1,000 ML IV SCH (22:50)
--- NOTE | 2022-11-30 23:28 | Emergency Department Note ---
Impression & Plan Abdominal pain, Acute UTI (urinary tract infection), Dehydration, Enteritis ED Provider Note ED Provider Note NAME: DENZEL AQUINO AGE:87 SEX: Female : 1935 ARRIVES VIA: INFORMANT: Patient ED PROVIDER(s): María Hdz DO CHIEF COMPLAINT: Abdominal pain HPI: This is an 87-year-old female presents emergency room due to concern for abdominal pain. Patient states she has had intermittent cramping there is been slowly worsening over the last 3 days. She also notes decreased stooling and has not had a bowel movement in 3 days. She states she is still passing gas. She states has had some intermittent nausea but no vomiting. She denies fevers or chills. Patient denies any recent change in medications. Patient states she also has back pain. She states this is different compared to prior. She denies any recent falls or trauma. PAST MEDICAL HISTORY:See Below PAST SURGICAL HISTORY:See Below FAMILY HISTORY:See Below SOCIAL HISTORY:See Below HOME MEDICATIONS:See Below ALLERGIES:See Below VITALS:See Below PHYSICAL EXAMINATION: GENERAL: alert, well appearing, well nourished, no distress, non-toxic EYE EXAM: normal conjunctiva, PERRL and EOM's grossly intact OROPHARYNX: no exudate, no erythema, lips, buccal mucosa, and tongue normal and mucous membranes are dry NECK: supple, no nuchal rigidity, no adenopathy, non-tender LUNGS: Clear to auscultation. Normal chest wall mechanics, no w/r/r HEART: no murmurs, S1 normal and S2 normal ABDOMEN: abdomen soft, generalized discomfort with palpation, normo-active bowel sounds, no masses, no rebound or guarding. Dull to percussion. BACK: Back is symmetrical on inspection and there is no deformity, no midline tenderness, no CVA tenderness. SKIN: no rashes, petechiae, orbruising UPPER EXTREMITIES: upper extremities are grossly normal. FROM, nml pulses b/l. LOWER EXTREMITIES: No pitting edema. FROM, nml pulses b/l. NEURO EXAM: Normal sensorium, cranial nerves II-XII grossly intact, normal speech, no facial droop,nogross weakness of arms, no gross weakness of legs. Gross sensation intact. No ataxia. Vital Signs: reviewed and remarkable Differential Diagnosis: Differential diagnoses includes but is not limited to gastritis, peptic ulcer disease, GERD, gallbladder disease, pancreatitis, small bowel obstruction, acute coronary syndrome, pericarditis, ischemic bowel, irritable bowel disease, irritable bowel syndrome, appendicitis, diverticulitis, malignancy, hernia, urinary tract infection, perforation, trauma, infectious. MEDICAL DECISION MAKING: This is an 87 yo female who presents c/o abdominal pain and nausea. Patient afebrile and VS stable. Labs drawn and sent and IV established. Patient monitored in tele. EKG obtained and interpreted by me. Patient sent for CT imaging due to advanced age, PMHx, c/o abd pain, and poor historian. Patient found to have UTI which may explain symptoms. After review of prior culture, pt started on IV rocephin. CT with enteritis per overnight rad read. VS stable. Patient given careful IVF rehydration. Given multiple reasons for abdominal pain, mild confusion, and dehydration, case discussed with hospitalist for additional evaluation. Consultation(s): 0112: Discussed with Dr. Gaston. ER Treatment Provided: See below Diagnostics Interpreted By Me: -ECG: sinus tachycardia at 108, LBBB, nml axis, no acute ST/T wave changes -Cardiac Monitoring: An order was placed for continuous cardiac monitoring. The monitor shows a rate of 98 with normal sinus rhythm. -Laboratory studies: As stated above and show below. -Imaging studies: [] Triage Nursing Note Reviewed Prior/Outside Records Reviewed Procedures: [] Critical Care: [] Past Med/Surg History Medical History Allergic rhinitis due to dust Bilateral sensorineural hearing loss DVT (deep venous thrombosis) History of small bowel obstruction Lumbosacral radiculopathy at L5 Peripheral vascular disease Sensorineural hearing loss of both ears Small vessel disease, cerebrovascular Surgical History History of back surgery History of cholecystectomy History of ear surgery History of hip replacement History of tubal ligation Family History Sister FHx: deafness or hearing loss Mother Breast cancer Cardiac disorder Father Cardiac disorder Other Family history non-contributory Social History Smoking Status: Never smoker Tobacco Type: Cigarettes Second Hand Exposure: No; Hx Alcohol Use: No Hx Substance Use: No Preferred Language: Bolivian 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: Effective Hand Profiler Required: No Beliefs That Will Affect Care: None marital status: Current Living Situation: Personal Care Facility Current Living Situation Comment: assisted living at [facility] current occupational status: retired Feels Safe at Home: Yes Assistive Devices: Walker Assistive Devices Comment: RLE immobilizer Allergies Allergies Allergy/AdvReac Type Severity Reaction Status Date / Time adhesive Allergy Mild skin Verified 09/30/22 16:24 irritation Home Meds Home Medications Medication Instructions Recorded Confirmed clopidogrel 75 mg tablet 75 mg PO QAM 05/30/19 09/30/22 levothyroxine 50 mcg tablet 50 mcg PO QAM 05/30/19 09/30/22 polyethylene glycol 3350 17 17 g PO QAM 05/30/19 09/30/22 gram/dose oral powder pravastatin 10 mg tablet 10 mg PO QPM 05/30/19 09/30/22 acetaminophen 325 mg tablet 650 mg PO Q6H PRN Pain 06/26/19 09/30/22 (Tylenol) gabapentin 300 mg capsule See Rx Instructions .Route .COMPLEX 06/26/19 09/30/22 Magic Mouthwash Liquid 15 ml PO Q2H PRN MOUTH ULCERS 09/30/22 09/30/22 cyclobenzaprine 5 mg tablet 5 mg PO DIRECTED PRN RIGHT SIDE 09/30/22 09/30/22 NECK PAIN diclofenac sodium 1 % topical gel 4 g topical Q12H PRN Pain 09/30/22 09/30/22 famotidine 20 mg tablet 20 mg PO HS 09/30/22 09/30/22 nystatin 100,000 unit/gram topical 1 applic topical BID PRN SKIN 09/30/22 09/30/22 powder IRRITATION UNDER BREASTS nystatin-triamcinolone 100,000 1 applic topical BID PRN 09/30/22 09/30/22 unit/g-0.1 % topical cream CANDIDIASIS ondansetron HCl 4 mg tablet 4 mg PO Q8H PRN NAUSEA/VOMITING 09/30/22 09/30/22 oxymetazoline 0.05 % nasal spray 3 spray intranasal Q8H PRN 09/30/22 09/30/22 (Afrin (oxymetazoline)) EPISTAXIS psyllium husk 0.52 gram capsule 0.52 g PO DAILY PRN Constipation 09/30/22 09/30/22 (Fiber (psyllium husk)) sodium chloride-aloe vera nasal 1 applic topical Q6H PRN EPISTAXIS 09/30/22 09/30/22 gel ([place] Saline nasal gel) Previous Rx's Medication Instructions Recorded alprazolam 0.5 mg tablet (Xanax) 0.5 mg PO DIRECTED PRN 10/04/22 NERVOUSNESS/SLEEP #7 tabs cholecalciferol (vitamin D3) 25 25 mcg PO DAILY #30 tabs 10/04/22 mcg (1,000 unit) tablet enoxaparin 40 mg/0.4 mL 40 mg (0.4 mL) subcut DAILY #12 mL 10/04/22 subcutaneous syringe (Lovenox) oxycodone-acetaminophen 2.5 mg-325 1 tab PO DAILY PRN BREAKTHROUGH 10/04/22 mg tablet (Percocet) PAIN #7 tabs oxycodone-acetaminophen 5 mg-325 0.5 tab PO BID #7 tabs 10/04/22 mg tablet (Percocet) oxycodone-acetaminophen 7.5 mg-325 1 tab PO TID PRN Pain #7 tabs 10/04/22 mg tablet (Percocet) Results & Data (ED) Vital Signs Vital Signs - 24 hr 11/30/22 20:27 11/30/22 20:37 11/30/22 20:28 Temperature 36.9 C Temperature Source Oral Pulse Rate 105 H 109 H Pulse Rate from SpO2 Sensor Pulse Rhythm Regular Pulse Strength Normal Respiratory Rate 20 Respiratory Effort / Characteristics Non-Labored Spontaneous Respiratory Depth Normal Respiratory Pattern Regular Blood Pressure 140/76 140/76 Blood Pressure Mean 97 97 Blood Pressure Position Lying Pulse Oximetry 96 Oxygen Delivery Method Room Air Sepsis Recent Fever Within 48 Hours No Sepsis New/Unexplained Change in Mental Status N/A Sepsis Action Taken by Nursing No Action Required 11/30/22 20:29 11/30/22 20:30 11/30/22 21:00 Temperature Temperature Source Pulse Rate 108 H 116 H 103 H Pulse Rate from SpO2 Sensor 105 H 118 H 102 H Pulse Rhythm Pulse Strength Respiratory Rate 17 16 21 Respiratory Effort / Characteristics Respiratory Depth Respiratory Pattern Blood Pressure Blood Pressure Mean Blood Pressure Position Pulse Oximetry 96 95 Oxygen Delivery Method Sepsis Recent Fever Within 48 Hours Sepsis New/Unexplained Change in Mental Status Sepsis Action Taken by Nursing 11/30/22 21:30 11/30/22 22:00 11/30/22 22:30 Temperature Temperature Source Pulse Rate 95 H 92 H 93 H Pulse Rate from SpO2 Sensor 95 H 93 H 93 H Pulse Rhythm Pulse Strength Respiratory Rate 18 24 18 Respiratory Effort / Characteristics Respiratory Depth Respiratory Pattern Blood Pressure Blood Pressure Mean Blood Pressure Position Pulse Oximetry 92 95 92 Oxygen Delivery Method Sepsis Recent Fever Within 48 Hours Sepsis New/Unexplained Change in Mental Status Sepsis Action Taken by Nursing 12/01/22 00:38 Temperature Temperature Source Pulse Rate 90 Pulse Rate from SpO2 Sensor Pulse Rhythm Pulse Strength Respiratory Rate Respiratory Effort / Characteristics Respiratory Depth Respiratory Pattern Blood Pressure Blood Pressure Mean Blood Pressure Position Pulse Oximetry Oxygen Delivery Method Sepsis Recent Fever Within 48 Hours Sepsis New/Unexplained Change in Mental Status Sepsis Action Taken by Nursing Laboratory Data 11/30/22 21:02 11/30/22 21:02 Lab Results 11/30/22 11/30/22 11/30/22 Range/Units 21:02 21:02 22:40 WBC 8.85 (4.8-10.8) K/ul RBC 5.00 (4.20-5.40) M/uL Hgb 14.6 (12.0-16.0) g/dl Hct 41.9 (37.0-47.0) % MCV 83.8 (80.0-100.0) fL MCH 29.2 (25.0-34.0) pg MCHC 34.8 (32.0-36.0) g/dL RDW Std Deviation 40.6 (36.4-46.3) fL RDW Coeff of Apollo 13.3 (11.5-14.5) % Plt Count 111 L (130-400) K/uL MPV 11.4 (9.4-12.4) fL Immature Gran % (Auto) 0.3 % Neut % (Auto) 86.0 % Lymph % (Auto) 4.1 % Tripp % (Auto) 9.3 % Eos % (Auto) 0.1 % Baso % (Auto) 0.2 % Neut # (Auto) 7.61 H (1.40-6.50) K/uL Lymph # (Auto) 0.36 L (1.2-3.4) K/uL Tripp # (Auto) 0.82 H (0.11-0.59) K/uL Eos # (Auto) 0.01 (0-0.50) K/uL Baso # (Auto) 0.02 (0-0.2) K/uL Immature Gran # (Auto) 0.03 (0.01-0.20) K/uL Sodium 138 (136-145) mmol/L Potassium 3.6 (3.5-5.1) mmol/L Chloride 102 (98-107) mmol/L Carbon Dioxide 27 (21-32) mmol/L Anion Gap 9 (3-11) BUN 16 (6-23) mg/dl Creatinine 0.56 L (0.6-1.2) mg/dl Est Cr Clr Drug Dosing 48.9 ml/min Est GFR ( Amer) 95.8 ml/min Est GFR (Non-Af Amer) 82.7 ml/min BUN/Creatinine Ratio 28.6 H (10-20) Glucose 142 H (70-99(Fasting)) mg/dl Calcium 9.0 (8.5-10.1) mg/dl Total Bilirubin 0.7 (0.2-1.0) mg/dl AST 24 (13-39) U/L ALT 21 (7-52) U/L Alkaline Phosphatase 81 (34-104) U/L Total Protein 6.9 (6.0-8.3) gm/dl Albumin 3.8 (3.4-5.0) gm/dl Globulin 3.1 (2.5-4.0) gm/dl Albumin/Globulin Ratio 1.2 (0.9-2) Lipase 8 L (11-82) U/L Urine Color Yellow Urine Appearance Cloudy A (Clear) Urine pH 8.0 H (4.5-7.5) Ur Specific [place] 1.018 (1.000-1.030) Urine Protein Trace H (Negative) Urine Glucose (UA) Negative (Negative) Urine Ketones Trace H (Negative) Urine Blood Negative (Negative) Urine Nitrite Positive A (Negative) Urine Bilirubin Negative (Negative) Urine Urobilinogen Negative (Negative) Ur Leukocyte Esterase 3+ H (Negative) Urine WBC (Auto) >30 H (0-5) /hpf Urine RBC (Auto) 10-30 H (0-4) /hpf U Hyaline Cast (Auto) 1-5 (0-5) /lpf U Epithel Cells (Auto) >30 H (0-5) /lpf Urine Bacteria (Auto) 1+ H (Negative) SARS-CoV-2 (PCR) (Negative) Influenza Type A (PCR) (Neg) Influenza Type B (PCR) (Neg) RSV (RT-PCR) (Neg) 12/01/22 Range/Units 01:03 WBC (4.8-10.8) K/ul RBC (4.20-5.40) M/uL Hgb (12.0-16.0) g/dl Hct (37.0-47.0) % MCV (80.0-100.0) fL MCH (25.0-34.0) pg MCHC (32.0-36.0) g/dL RDW Std Deviation (36.4-46.3) fL RDW Coeff of Apollo (11.5-14.5) % Plt Count (130-400) K/uL MPV (9.4-12.4) fL Immature Gran % (Auto) % Neut % (Auto) % Lymph % (Auto) % Tripp % (Auto) % Eos % (Auto) % Baso % (Auto) % Neut # (Auto) (1.40-6.50) K/uL Lymph # (Auto) (1.2-3.4) K/uL Tripp # (Auto) (0.11-0.59) K/uL Eos # (Auto) (0-0.50) K/uL Baso # (Auto) (0-0.2) K/uL Immature Gran # (Auto) (0.01-0.20) K/uL Sodium (136-145) mmol/L Potassium (3.5-5.1) mmol/L Chloride (98-107) mmol/L Carbon Dioxide (21-32) mmol/L Anion Gap (3-11) BUN (6-23) mg/dl Creatinine (0.6-1.2) mg/dl Est Cr Clr Drug Dosing ml/min Est GFR ( Amer) ml/min Est GFR (Non-Af Amer) ml/min BUN/Creatinine Ratio (10-20) Glucose (70-99(Fasting)) mg/dl Calcium (8.5-10.1) mg/dl Total Bilirubin (0.2-1.0) mg/dl AST (13-39) U/L ALT (7-52) U/L Alkaline Phosphatase (34-104) U/L Total Protein (6.0-8.3) gm/dl Albumin (3.4-5.0) gm/dl Globulin (2.5-4.0) gm/dl Albumin/Globulin Ratio (0.9-2) Lipase (11-82) U/L Urine Color Urine Appearance (Clear) Urine pH (4.5-7.5) Ur Specific [place] (1.000-1.030) Urine Protein (Negative) Urine Glucose (UA) (Negative) Urine Ketones (Negative) Urine Blood (Negative) Urine Nitrite (Negative) Urine Bilirubin (Negative) Urine Urobilinogen (Negative) Ur Leukocyte Esterase (Negative) Urine WBC (Auto) (0-5) /hpf Urine RBC (Auto) (0-4) /hpf U Hyaline Cast (Auto) (0-5) /lpf U Epithel Cells (Auto) (0-5) /lpf Urine Bacteria (Auto) (Negative) SARS-CoV-2 (PCR) NEGATIVE (Negative) Influenza Type A (PCR) Negative (Neg) Influenza Type B (PCR) Negative (Neg) RSV (RT-PCR) Negative (Neg) Administered Medications Acetaminophen (Acetaminophen 325 Mg Tab) 650 mg PO Q4H PRN PRN Reason: pain/fever Stop: 12/31/22 07:10 Last Admin: 12/02/22 08:24 Dose: 650 mg Documented By: Admin: 12/01/22 21:04 Dose: 650 mg Documented By: Admin: 12/01/22 15:13 Dose: 650 mg Documented By: Admin: 12/01/22 09:16 Dose: 650 mg Documented By: MAGI Alprazolam (Alprazolam 0.5 Mg Tablet) 0.5 mg PO Q12H PRN PRN Reason: Anxiety Stop: 12/31/22 15:34 Last Admin: 12/02/22 10:34 Dose: 0.5 mg Documented By: Admin: 12/01/22 21:04 Dose: 0.5 mg Documented By: Admin: 12/01/22 17:25 Dose: 0.5 mg Documented By: MAGI Enoxaparin Sodium (Enoxaparin Inj 40 Mg/0.4 Ml Syr) 40 mg SQ Q24H ROLLY Stop: 12/31/22 07:10 Last Admin: 12/02/22 08:24 Dose: 40 mg Documented By: Admin: 12/01/22 09:04 Dose: 40 mg Documented By: MAGI Piperacillin Sod/Tazobactam (Sod 4.5 gm/ Dextrose) 120 mls @ 30 mls/hr IV Q8H [facility]; Protocol Stop: 12/08/22 13:59 Last Admin: 12/02/22 14:59 Dose: 30 mls/hr Documented By: Infusion: 12/02/22 10:05 Dose: 0 mls/hr Documented By: Admin: 12/02/22 05:57 Dose: 30 mls/hr Documented By: Infusion: 12/02/22 01:22 Dose: 0 mls/hr Documented By: Admin: 12/01/22 21:22 Dose: 30 mls/hr Documented By: Infusion: 12/01/22 18:20 Dose: 0 mls/hr Documented By: Admin: 12/01/22 14:19 Dose: 30 mls/hr Documented By: MAGI Potassium Chloride/Sodium Chloride (Normal Saline W/20 Meq Kcl) 20 meq in 1,000 mls @ 80 mls/hr IV .[id number] [facility]; Protocol Stop: 12/31/22 07:10 Last Admin: 12/02/22 09:35 Dose: 80 mls/hr Documented By: Infusion: 12/02/22 09:35 Dose: 80 mls/hr Documented By: Admin: 12/01/22 21:05 Dose: 80 mls/hr Documented By: Infusion: 12/01/22 21:05 Dose: 80 mls/hr Documented By: Admin: 12/01/22 09:05 Dose: 80 mls/hr Documented By: MAGI Lidocaine (Lidocaine 5% 1 Patch) 2 patch TD QAM [facility] Stop: 01/01/23 09:29 Last Admin: 12/02/22 10:20 Dose: 2 patch Documented By: MAGI Oxycodone HCl (Oxycodone Hcl Ir 5 Mg Tab (Immediate Release)) 5 mg PO Q6H [facility] Stop: 12/16/22 16:59 Last Admin: 12/02/22 17:03 Dose: 5 mg Documented By: MAGI Discontinued Medications Sodium Chloride (Nss 1000ml) 1,000 mls @ 125 mls/hr IV .Q8H ROLLY Stop: 12/30/22 22:14 Last Admin: 12/01/22 07:22 Dose: Not Given Documented By: Infusion: 12/01/22 07:22 Dose: 0 mls/hr Documented By: Admin: 11/30/22 22:50 Dose: 125 mls/hr Documented By: [id number] Acetaminophen (Ofirmev) 1,000 mg in 100 mls @ 400 mls/hr IV NOW STA Stop: 12/01/22 00:07 Last Infusion: 12/01/22 02:00 Dose: 0 mls/hr Documented By: Admin: 12/01/22 00:35 Dose: 400 mls/hr Documented By: TAWANA Ceftriaxone Sodium 1,000 mg/ (Dextrose) 50 mls @ 100 mls/hr IV NOW STA Stop: 12/01/22 00:42 Last Infusion: 12/01/22 06:02 Dose: 0 mls/hr Documented By: Admin: 12/01/22 03:00 Dose: 100 mls/hr Documented By: TAWANA Piperacillin Sod/Tazobactam Sod (Zosyn) 4.5 gm in 120 mls @ 240 mls/hr IV NOW STA; Protocol Stop: 12/01/22 02:20 Last Infusion: 12/01/22 07:23 Dose: 0 mls/hr Documented By: Admin: 12/01/22 05:39 Dose: 240 mls/hr Documented By: TAWANA Ioversol (Optiray 350 100ml) 100 ml IV ONCE ONE Stop: 12/01/22 00:29 Last Admin: 12/01/22 00:28 Dose: 84 ml Documented By: BUBBA Oxycodone HCl (Oxycodone Hcl Ir 5 Mg Tab (Immediate Release)) 5 mg PO NOW STA Stop: 12/02/22 10:41 Last Admin: 12/02/22 11:26 Dose: 5 mg Documented By: MAGI Piperacillin Sod/Tazobactam Sod (Piperacillin/Tazobactam 4.5 Gm/120ml D5w) Confirm Administered Dose 4.5 gm IV .STK-MED ONE Stop: 12/01/22 05:29 Last Admin: 12/01/22 07:22 Dose: Not Given Documented By: AU Imaging Data Radiologist's Impression: CT abdomen and pelvis with contrast: Plan is concerning for bronchitis with pneumonitis and tiny consolidation at the right lung base. Findings concerning for antral gastritis and distal esophagitis. There was concern for enteritis and terminal ileitis which may be infectious or inflammatory etiologies. Sitting or mesenteric adenitis. Hepatic steatosis. Status postcholecystectomy. There is a 5 mm fat-containing umbilical hernia. Scars on status post femorofemoral bypass graft in place which is widely patent. Status post right hip arthroplasty. The appendix is normal. No evidence of free air or free fluid. Moderate disc degeneration L3- 4. Comparison made to prior CT scan of abdomen pelvis from June 26, 2019. Radiologist: Lina Gallego MD Discharge Plan Visit Data Chief Complaint: Abdominal Pain Stated Complaint: ABDOMINAL PAIN ED Provider: María Hdz Discharge Problem: Abdominal pain, Acute UTI (urinary tract infection), Dehydration, Enteritis Patient Disposition: Admitted As Inpatient Condition: Good Discharge Instructions Interventions: ED Discharge Assessment Last Done: 12/01/22 06:18
[2022-11-30] MEDS ORDERED: ACETAMINOPHEN 1,000 MG/100 ML VIAL IV STA (23:53)
[2022-11-30 23:58] LABS: Appearance Urine Cloudy (Clear); Bacteria Urine Automated 1+ (Negative); Bilirubin Urine Negative (Negative); Blood Urine Negative (Negative); Color Urine Yellow; Epithelial Cell Urine Auto >30 /lpf (0-5); Glucose Urine UA Negative (Negative); Ketones Urine Trace (Negative); Leukocyte Esterase Urine 3+ (Negative); Nitrite Urine Positive (Negative); Specific Gravity Urine 1.018 (1.000-1.030); Urobilinogen Urine Negative (Negative); WBC Urine Automated >30 /hpf (0-5)
[2022-12-01 00:01] LABS: Protein Urine Trace (Negative)
[2022-12-01] MEDS ORDERED: cefTRIAXone SODIUM 1,000 MG in DEXTROSE 5% AD-VAN 50 ML IV STA (00:13)
[2022-12-01] MEDS ORDERED: OPTIRAY 350 100ml IV ONE (00:28)
--- NOTE | 2022-12-01 01:46 | History & Physical Report ---
Date of Service December 01, 2022 Assessment & Plan (1) Acute confusion: (2) Enteritis: (3) Gastritis: (4) Mesenteric adenitis: (5) Esophagitis: (6) Sensorineural hearing loss of both ears: (7) History of DVT (deep vein thrombosis): (8) Hypothyroidism: (9) Peripheral vascular disease: (10) Hypertension: (11) Depression: (12) SBO (small bowel obstruction): Plan acute confusion/abdominal pain- Patient was unable to give specifics related to exact location of the pain other than saying her generalized abdominal There was initial referral concerns regarding urinary tract infection, however, patient does not have any complaint of urinary symptoms or lower pelvic pain. CT with primarily GI abnormal findings Patient does show some mild signs of dehydration, and will continue NSS at 125 mils per hour We will hold off on pain medications unless absolutely necessary. Patient has varying amounts of Percocet on her med rec, which will not be renewed at this time Question whether part of her confusion and abdominal pain is secondary to narcotic use GI/antral gastritis/distal esophagitis/enteritis/terminal ileitis/mesenteric adenitis- May be secondary to viral process, however, in conjunction with bronchitis/pneumonitis, there may be a bacterial component as well Continue famotidine 20 mg at bedtime Bronchitis/pneumonitis- Noted on CT, and patient is mildly hypoxic with a pulse ox of 90-92% on room air Unfortunately patient is confused, and cannot give an adequate description of her specific symptoms To cover GI and pulmonary issues, patient was placed on ceftriaxone IV in the ED for UTI, however, would for empiric treatment place on Zosyn 4.5 g IV every 8 hours and follow symptoms Hypothyroidism- Continue levothyroxine 50 mcg every morning Peripheral vascular disease/widely patent femoral-femoral bypass graft- Continue clopidogrel 75 mg daily DVT prophylaxis- Continue Lovenox 40 mg subcu daily History of Present Illness Chief Complaint: The patient presents to the emergency department due to concerns regarding severe abdominal pain, described as intermittent cramping that is slowly worsening over the past 3 to 4 days, with last bowel movement being 3 days ago Primary Care Provider: CATRINA Fletcher The patient is an 87-year-old female with a past medical history including right femur fracture, urinary tract infection, eustachian tube dysfunction, sensorineural hearing loss bilaterally, history of DVT, history of partial small bowel obstruction, intestinal adhesions, depression, hypertension, peripheral vascular disease, hypothyroidism, small bowel obstruction and cerebrovascular small vessel disease. She presents to the emergency department symptoms as noted above. CT scan of abdomen and pelvis with contrast revealed the following: Concerns for bronchitis with pneumonitis and tiny consolidation of the right lung base, antral gastritis and distal esophagitis, enteritis and terminal ileitis which may be of infectious or inflammatory etiologies, sitting or mesenteric adenitis, and hepatic steatosis, 5 mm fat-containing umbilical hernia. Patient is also status post femorofemoral bypass with widely patent graft The patient was given by the ED the following: Ceftriaxone 1 g IV, Tylenol 1 g IV, normal saline at 125 mils per hour Allergies Allergy/AdvReac Type Severity Reaction Status Date / Time adhesive Allergy Mild skin Verified 09/30/22 16:24 irritation Home Medications Medication Instructions Recorded Confirmed Type clopidogrel 75 mg tablet 75 mg PO QAM 05/30/19 09/30/22 History levothyroxine 50 mcg tablet 50 mcg PO QAM 05/30/19 09/30/22 History polyethylene glycol 3350 17 17 g PO QAM 05/30/19 09/30/22 History gram/dose oral powder pravastatin 10 mg tablet 10 mg PO QPM 05/30/19 09/30/22 History acetaminophen 325 mg tablet 650 mg PO Q6H PRN Pain 06/26/19 09/30/22 History (Tylenol) gabapentin 300 mg capsule See Rx Instructions .Route .COMPLEX 06/26/19 09/30/22 History Magic Mouthwash Liquid 15 ml PO Q2H PRN MOUTH ULCERS 09/30/22 09/30/22 History cyclobenzaprine 5 mg tablet 5 mg PO DIRECTED PRN RIGHT SIDE 09/30/22 09/30/22 History NECK PAIN diclofenac sodium 1 % topical gel 4 g topical Q12H PRN Pain 09/30/22 09/30/22 History famotidine 20 mg tablet 20 mg PO HS 09/30/22 09/30/22 History nystatin 100,000 unit/gram topical 1 applic topical BID PRN SKIN 09/30/22 09/30/22 History powder IRRITATION UNDER BREASTS nystatin-triamcinolone 100,000 1 applic topical BID PRN 09/30/22 09/30/22 History unit/g-0.1 % topical cream CANDIDIASIS ondansetron HCl 4 mg tablet 4 mg PO Q8H PRN NAUSEA/VOMITING 09/30/22 09/30/22 History oxymetazoline 0.05 % nasal spray 3 spray intranasal Q8H PRN 09/30/22 09/30/22 History (Afrin (oxymetazoline)) EPISTAXIS psyllium husk 0.52 gram capsule 0.52 g PO DAILY PRN Constipation 09/30/22 09/30/22 History (Fiber (psyllium husk)) sodium chloride-aloe vera nasal 1 applic topical Q6H PRN EPISTAXIS 09/30/22 09/30/22 History gel ([place] Saline nasal gel) alprazolam 0.5 mg tablet (Xanax) 0.5 mg PO DIRECTED PRN 10/04/22 09/30/22 Rx NERVOUSNESS/SLEEP #7 tabs cholecalciferol (vitamin D3) 25 25 mcg PO DAILY #30 tabs 10/04/22 Rx mcg (1,000 unit) tablet enoxaparin 40 mg/0.4 mL 40 mg (0.4 mL) subcut DAILY #12 mL 10/04/22 Rx subcutaneous syringe (Lovenox) oxycodone-acetaminophen 2.5 mg-325 1 tab PO DAILY PRN BREAKTHROUGH 10/04/22 09/30/22 Rx mg tablet (Percocet) PAIN #7 tabs oxycodone-acetaminophen 5 mg-325 0.5 tab PO BID #7 tabs 10/04/22 09/30/22 Rx mg tablet (Percocet) oxycodone-acetaminophen 7.5 mg-325 1 tab PO TID PRN Pain #7 tabs 10/04/22 09/30/22 Rx mg tablet (Percocet) Past Med/Surg History Medical History Allergic rhinitis due to dust Bilateral sensorineural hearing loss DVT (deep venous thrombosis) History of small bowel obstruction Lumbosacral radiculopathy at L5 Peripheral vascular disease Sensorineural hearing loss of both ears Small vessel disease, cerebrovascular Surgical History History of back surgery History of cholecystectomy History of ear surgery History of hip replacement History of tubal ligation Family History Sister FHx: deafness or hearing loss Mother Breast cancer Cardiac disorder Father Cardiac disorder Other Family history non-contributory Social History Smoking Status: Former smoker Tobacco Type: Cigarettes Second Hand Exposure: No; Hx Alcohol Use: Yes Alcohol type: wine Hx Substance Use: No Preferred Language: Greek 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: Effective Chemical Processing Technician Required: No Beliefs That Will Affect Care: None marital status: Current Living Situation: Spouse and Personal Care Facility Current Living Situation Comment: assisted living at [facility] current occupational status: retired Feels Safe at Home: Yes Assistive Devices: Walker Review of Systems Review of Systems: The patient denies chest pain, palpitations, shortness of breath, dyspnea on exertion, cough, lower extremity swelling, sore throat, fevers, chills, sweats, vomiting, blood in urine or stool, dysuria, urinary frequency or urgency, lightheadedness, dizziness, headache, loss of consciousness, rash, abnormal bruising or bleeding, imbalance, focal weakness, numbness or tingling in arms or legs, generalized arthralgias or myalgias, back or neck pain, or night sweats. The review of systems is otherwise negative other than for that already noted above, and at least 10 systems have been reviewed. Physical Exam Physical Exam: The patient is awake, alert and oriented 3, well developed and well nourished, normocephalic and atraumatic, lying in bed and in no acute distress. HEENT--PERRL, EOMI, mucous membranes and oropharynx mildly dry. Neck--supple. No JVD. No bruits. Thyroid normal, trachea midline, no adenopathy. Heart--normal S1 and S2. No murmurs, rubs or gallops. Lungs--clear bilaterally, no respiratory distress, no accessory muscle use. Abdomen--normal bowel sounds and soft. Generalized mild tenderness.. Nond istended, no hernias or masses, no organomegaly. Extremities--no cyanosis or clubbing. No edema. Dermatologic--normal skin turgor, normal color, no abnormal lymph nodes, no rash. Neurologic--cranial nerves II through XII grossly intact. Rheumatologic--normal range of motion. Psychiatric--normal affect. Results & Data Results & Data ([facility]) Vital Signs (Past 12 Hours) Vital Signs Temp Pulse Resp BP Pulse Ox O2 Del Method 12/01/22 00:38 90 11/30/22 22:30 93 H 18 92 11/30/22 22:00 92 H 24 95 11/30/22 21:30 95 H 18 92 11/30/22 21:00 103 H 21 11/30/22 20:30 116 H 16 95 11/30/22 20:29 108 H 17 96 11/30/22 20:28 140/76 11/30/22 20:37 109 H 11/30/22 20:27 36.9 C 105 H 20 140/76 96 Room Air Laboratory Results Laboratory Results WBC 8.85 K/ul (4.8-10.8) 11/30/22 21:02 RBC 5.00 M/uL (4.20-5.40) 11/30/22 21:02 Hgb 14.6 g/dl (12.0-16.0) 11/30/22 21:02 Hct 41.9 % (37.0-47.0) 11/30/22 21:02 MCV 83.8 fL (80.0-100.0) 11/30/22 21:02 MCH 29.2 pg (25.0-34.0) 11/30/22 21: MCHC 34.8 g/dL (32.0-36.0) 11/30/22 21:02 RDW Std Deviation 40.6 fL (36.4-46.3) 11/30/22 21: RDW Coeff of Apollo 13.3 % (11.5-14.5) 11/30/22 21:02 Plt Count 111 K/uL (130-400) L 11/30/22 21:02 MPV 11.4 fL (9.4-12.4) 11/30/22 21:02 Immature Gran % (Auto) 0.3 % 11/30/22 21:02 Neut % (Auto) 86.0 % 11/30/22 21:02 Lymph % (Auto) 4.1 % 11/30/22 21: Stearns % (Auto) 9.3 % 11/30/22 21:02 Eos % (Auto) 0.1 % 11/30/22 21:02 Baso % (Auto) 0.2 % 11/30/22 21:02 Neut # (Auto) 7.61 K/uL (1.40-6.50) H 11/30/22 21:02 Lymph # (Auto) 0.36 K/uL (1.2-3.4) L 11/30/22 21:02 Stearns # (Auto) 0.82 K/uL (0.11-0.59) H 11/30/22 21:02 Eos # (Auto) 0.01 K/uL (0-0.50) 11/30/22 21:02 Baso # (Auto) 0.02 K/uL (0-0.2) 11/30/22 21:02 Immature Gran # (Auto) 0.03 K/uL (0.01-0.20) 11/30/22 21:02 Sodium 138 mmol/L (136-145) 11/30/22 21:02 Potassium 3.6 mmol/L (3.5-5.1) 11/30/22 21:02 Chloride 102 mmol/L (98-107) 11/30/22 21:02 Carbon Dioxide 27 mmol/L (21-32) 11/30/22 21:02 Anion Gap 9 (3-11) 11/30/22 21:02 BUN 16 mg/dl (6-23) 11/30/22 21:02 Creatinine 0.56 mg/dl (0.6-1.2) L 11/30/22 21:02 Est Cr Clr Drug Dosing 48.9 ml/min 11/30/22 21:02 Est GFR ( Amer) 95.8 ml/min 11/30/22 21:02 Est GFR (Non-Af Amer) 82.7 ml/min 11/30/22 21:02 BUN/Creatinine Ratio 28.6 (10-20) H 11/30/22 21:02 Glucose 142 mg/dl (70-99(Fasting)) H 11/30/22 21:02 Calcium 9.0 mg/dl (8.5-10.1) 11/30/22 21:02 Total Bilirubin 0.7 mg/dl (0.2-1.0) 11/30/22 21:02 AST 24 U/L (13-39) 11/30/22 21:02 ALT 21 U/L (7-52) 11/30/22 21:02 Alkaline Phosphatase 81 U/L (34-104) 11/30/22 21:02 Total Protein 6.9 gm/dl (6.0-8.3) 11/30/22 21:02 Albumin 3.8 gm/dl (3.4-5.0) 11/30/22 21:02 Globulin 3.1 gm/dl (2.5-4.0) 11/30/22 21:02 Albumin/Globulin Ratio 1.2 (0.9-2) 11/30/22 21:02 Lipase 8 U/L (11-82) L 11/30/22 21:02 Urine Color Yellow 11/30/22 22:40 Urine Appearance Cloudy (Clear) A 11/30/22 22:40 Urine pH 8.0 (4.5-7.5) H 11/30/22 22:40 Ur Specific [place] 1.018 (1.000-1.030) 11/30/22 22:40 Urine Protein Trace (Negative) H 11/30/22 22:40 Urine Glucose (UA) Negative (Negative) 11/30/22 22:40 Urine Ketones Trace (Negative) H 11/30/22 22:40 Urine Blood Negative (Negative) 11/30/22 22:40 Urine Nitrite Positive (Negative) A 11/30/22 22:40 Urine Bilirubin Negative (Negative) 11/30/22 22:40 Urine Urobilinogen Negative (Negative) 11/30/22 22:40 Ur Leukocyte Esterase 3+ (Negative) H 11/30/22 22:40 Urine WBC (Auto) >30 /hpf (0-5) H 11/30/22 22:40 Urine RBC (Auto) 10-30 /hpf (0-4) H 11/30/22 22:40 U Hyaline Cast (Auto) 1-5 /lpf (0-5) 11/30/22 22:40 U Epithel Cells (Auto) >30 /lpf (0-5) H 11/30/22 22:40 Urine Bacteria (Auto) 1+ (Negative) H 11/30/22 22:40 SARS-CoV-2 (PCR) NEGATIVE (Negative) 12/01/22 01:03 Influenza Type A (PCR) Negative (Neg) 12/01/22 01:03 Influenza Type B (PCR) Negative (Neg) 12/01/22 01:03 RSV (RT-PCR) Negative (Neg) 12/01/22 01:03 Code Status & VTE Plan Code Status Full code VTE Prophylaxis Plan VTE Prophylaxis will be ordered: Yes PG Care Time/CCT Total # of Minutes Spent Total Time Spent with Patient: Total time spent is greater than 50% in coordination of care (as documented) at patient's floor/unit and/or counseling patient: Coding Level of Care Code 48569 INT INP/OBS CARE 3/75MIN Diagnoses Acute confusion R41.0 Enteritis K52.9 Gastritis K29.70 Mesenteric adenitis I88.0 Esophagitis K20.90 Sensorineural hearing loss of both ears H90.3 History of DVT (deep vein thrombosis) Z86.718 Hypothyroidism E03.9 Peripheral vascular disease I73.9 Hypertension I10 Depression F32.9 SBO (small bowel obstruction) K56.609
[2022-12-01] MEDS ORDERED: PIPERACILLIN/TAZOBACTAM 4.5 GM/120 ML BAG IV STA (01:51)
[2022-12-01 03:55] LABS: Influenza A virus by PCR Negative (Neg); Influenza B virus by PCR Negative (Neg); RSV by PCR Negative (Neg); SARS CoV2 RNA(COVID-19) Ceph NEGATIVE (Negative)
[2022-12-01] MEDS ORDERED: PIPERACILLIN/TAZOBACTAM 4.5 GM/120ML D5W IV ONE (05:28)
[2022-12-01] MEDS ORDERED: ONDANSETRON INJ 2 MG/ML 2 ML VIAL IV PRN (07:11)
[2022-12-01] MEDS: SODIUM CHLORIDE 0.9% 1000ML 1,000 ML IV SCH (07:22)
--- NOTE | 2022-12-01 07:58 | CT Scan Report ---
ABDOMEN AND PELVIS CT WITH IV CONTRAST CT DOSE: 266.59 mGy.cm HISTORY: Acute generalized abdominal pain abd pain TECHNIQUE: Multiaxial CT images of the abdomen and pelvis were performed following the IV administrat ion of 84 cc of Optiray, A dose lowering technique was utilized adhering to the principles of ALARA. COMPARISON STUDY: Hip radiographs 10/01/2022, CT abdomen and pelvis 06/26/2019 FINDINGS: Mild cardiomegaly. Subsegmental bibasilar atelectasis with mild bronchial wall thickening a nd mucous plugging. No pneumatosis or pneumoperitoneum. The spleen measures within the upper limits o f normal at 12 cm. Mildly atrophic pancreas. The pancreatic duct measures up to 4 mm, stable from angie or. Cholecystectomy is likely postsurgical biliary ductal dilation. The liver is otherwise unremarkab le. Patent portal vein. Unremarkable adrenal glands. 3 mm nonobstructing calculus of the inferior pole right kidney. There are a few small cysts of the ki dneys bilaterally. There are approximately 3 nonobstructing calculi of the inferior pole left kidney measure up to approximately 2 to 3 mm. No ureteral calculi or hydronephrosis identified. Urinary blad shannan wall thickening with partial distention. Atherosclerosis of the aorta and branch vessels. 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 No lymphadenopathy id entified. Asymmetric atrophy of the right psoas and iliacs muscles. Asymmetric heterogeneity with brigid cifications within the right iliacus muscle on image 333 series 3. Streak artifact from the right hip arthroplasty limits evaluation of the adjacent tissues. There is a complex right hip joint effusion with stranding extending into the abductor musculature. Suggested l oosening of the acetabular cup again noted. A spacer is noted between the spinous processes at L3-L4. Likely chronic T9 compression deformity. Fluid-filled distal esophagus and stomach. Numerous fluid-f illed loops of small bowel measure within the upper limits of normal at 2.6 cm. No discrete transitio n point identified. Mild circumferential wall thickening is noted involving several loops of small williams wel. Mild colonic fecal retention. Hyperdense material noted within a noninflamed appendix. IMPRESSION: 1. Numerous air and fluid-filled loops of small bowel with associated small bowel wall thickening and borderline dilation is suggestive of a partial small bowel obstruction versus nonspecific enteritis. Follow-up is needed. 2. No pneumoperitoneum. 3. 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 4. Nonobstructing bilateral nephrolithiasis. 5. Additional findings as above. ACT 112: Negative or not required by law. The above report was generated using voice recognition software. It may contain grammatical, syntax o r spelling errors. Electronically signed by: Robin Montes M.D. 12/01/2022 7:56 AM
[2022-12-01] MEDS: ENOXAPARIN INJ 40 MG/0.4 ML SYR SQ SCH (09:04)
[2022-12-01] MEDS: NSS + 20MEQ KCL 20 MEQ/1,000 ML BAG IV SCH ×2 (09:05→21:05)
[2022-12-01] MEDS: ACETAMINOPHEN 325 MG TAB PO PRN ×3 (09:16→21:04)
[2022-12-01] MEDS: PIPERACILLIN/TAZOBACTAM 4.5 GM in DEXTROSE 5% 100 ML IV SCH ×2 (14:19→21:22)
[2022-12-01] MEDS ORDERED: oxyCODONE HCL IR 5 MG TAB (IMMEDIATE RELEASE) PO PRN (15:34)
[2022-12-01] MEDS: ALPRAZolam 0.5 MG TABLET PO PRN ×2 (17:25→21:04)
--- NOTE | 2022-12-01 18:48 | XRay Report ---
KUB CLINICAL HISTORY: Abdominal pain. COMPARISON STUDY: KUB June 28, [address] of the abdomen and pelvis performed earlier today. FINDINGS: Cholecystectomy clips, right hip arthroplasty and lumbar spine Coflex device are incidental ly noted. On the initial images, the nasogastric tube is coiled back upon itself. On subsequent image s, the tip projects over the body of the stomach. The tube could be advanced an additional 3 cm. A fe w prominent right lower quadrant small bowel loops are noted. Moderate stool within the rectum is pre sent. IMPRESSION: 1. Tip of nasogastric tube projects over the body of the stomach. The tube could be advanced an addit ional 3 cm. 2. Several prominent small bowel loops, as shown on prior CT. Findings could reflect a nonspecific en teritis or partial small bowel obstruction. ACT 112: Negative or not required by law. Electronically signed by: Meño Goncalves M.D. 12/01/2022 6:46 PM
--- NOTE | 2022-12-02 04:42 | Electrocardiogram Report ---
Test Reason : Blood Pressure : / mmHG Vent. Rate : 108 BPM Atrial Rate : 108 BPM P-R Int : 144 ms QRS Dur : 120 ms QT Int : 364 ms P-R-T Axes : 063 061 141 degrees QTc Int : 487 ms Sinus tachycardia Left bundle branch block Abnormal ECG When compared with ECG of 30-SEP-2022 13:57, No significant change Confirmed by Sacha Zavala ([id number]) on 12/02/2022 4:42:01 AM Referred By: REFERRED SELF Confirmed By:Sacha Zavala
[2022-12-02] MEDS: PIPERACILLIN/TAZOBACTAM 4.5 GM in DEXTROSE 5% 100 ML IV SCH ×3 (05:57→21:35)
[2022-12-02 07:48] LABS: Albumin Globulin Ratio 1.3 (0.9-2); Albumin Level 3.5 gm/dl (3.4-5.0); BUN Creatinine Ratio 12.1 (10-20); Bilirubin,Total 0.5 mg/dl (0.2-1.0); Calcium 7.9 mg/dl (8.5-10.1); Creatinine Clr Calc Pharmacy 47.2 ml/min; Est GFR (African American) 94.7 ml/min; Est GFR (Non-African American) 81.7 ml/min; Globulin 2.6 gm/dl (2.5-4.0); Potassium 3.4 mmol/L (3.5-5.1); Total Protein 6.1 gm/dl (6.0-8.3)
[2022-12-02 08:03] LABS: Hematocrit (blood only) 37.8 % (37.0-47.0); Hemoglobin 12.9 g/dl (12.0-16.0); Mean Corpuscular Hemoglobin 29.1 pg (25.0-34.0); Mean Corpuscular Hgb Conc 34.1 g/dL (32.0-36.0); Mean Corpuscular Volume 85.1 fL (80.0-100.0); Mean Platelet Volume 11.2 fL (9.4-12.4); Platelet Count 90 K/uL (130-400); RDW Coefficient of Variation 13.4 % (11.5-14.5); RDW Standard Deviation 41.6 fL (36.4-46.3); Red Blood Count 4.44 M/uL (4.20-5.40); White Blood Count 3.28 K/ul (4.8-10.8)
[2022-12-02 08:05] LABS: Basophils # (auto) 0.03 K/uL (0-0.2); Basophils % (auto) 0.9 %; Eosinophils # (auto) 0.03 K/uL (0-0.50); Eosinophils % (auto) 0.9 %; Immature Granulocytes # (auto) 0.05 K/uL (0.01-0.20); Immature Granulocytes % (auto) 1.5 %; Lymphocytes # (auto) 0.75 K/uL (1.2-3.4); Lymphocytes % (auto) 22.9 %; Monocytes # (auto) 0.75 K/uL (0.11-0.59); Monocytes % (auto) 22.9 %; Neutrophils # (auto) 1.67 K/uL (1.40-6.50); Neutrophils % (auto) 50.9 %
[2022-12-02] MEDS: ENOXAPARIN INJ 40 MG/0.4 ML SYR SQ SCH (08:24)
[2022-12-02] MEDS: ACETAMINOPHEN 325 MG TAB PO PRN (08:24)
[2022-12-02] MEDS: NSS + 20MEQ KCL 20 MEQ/1,000 ML BAG IV SCH ×2 (09:35→20:44)
[2022-12-02] MEDS: LIDOCAINE 5% 1 PATCH TD SCH (10:20)
[2022-12-02 10:24] LABS: C Reactive Protein 4.01 mg/dl (0-0.5)
[2022-12-02] MEDS: ALPRAZolam 0.5 MG TABLET PO PRN ×2 (10:34→20:43)
[2022-12-02] MEDS ORDERED: oxyCODONE HCL IR 5 MG TAB (IMMEDIATE RELEASE) PO STA (10:40)
--- NOTE | 2022-12-02 11:09 | Gastrointestinal Consultation ---
Date of Consultation December 02, 2022 Assessment & Plan (1) Partial small bowel obstruction: CT findings of PSBO vs enteritis -Continue Supportive care -Continue NPO status, Agree with NG tube if patient can tolerate -Protonix 40 mg daily -Daily KUB -Treatment of hip effusion and other non-GI CT abnormalities per primary team Supervising Physician Co-Signing Physician Notes Agree with SOFIA Spence as above Discussed with patient's daughter and Son-in-law (Dr. Nair) Per family, patient has had 4 BM's today Resting comfortably, NAD Continue current therapy and supportive care Consider KUB in the AM, but reportedly has had multiple BM's and no abdominal pain. History of Present Illness Reason for Consultation: abdominal pain, SBO Attending Physician: Yusuf Powell History of Present Illness Patient is an 87 yo female with PMH of DVT, depression, HTN, and cerebrovascular disease on care home Plavix. The patient presented to the ED due to abdominal pain. She reportedly had been experiencing abdominal pain x 3 days along with constipation. She reports nausea and upper abdominal pain today. She is confused during my evaluation. CT abdomen/pelvis showed concerns for subsegmental bibasilar atelectasis with mild bronchial wall thickening and mucous plugging. Findings also indicated a complex right hip joint effusion with stranding extending into the abductor musculature with loosening of the acetabular cup. She was noted to have a fluid- filled distal esophagus and stomach with numerous fluid-filled loops of small bowel and no transition point noted. There is mild circumferential wall thickening of the small bowel and mild colonic fecal retention. The appendenix contained hyperdense material inside with a non-inflamed appendix. Per hospitalist documentation, there was hypoxia at the time of admission and clinical concern for bronchitis/pneumonitis. IV Zosyn was started. An NG was placed. A follow-up xray indicated: 1. Tip of nasogastric tube projects over the body of the stomach. The tube could be advanced an additional 3 cm. 2. Several prominent small bowel loops, as shown on prior CT. Findings could reflect a nonspecific enteritis or partial small bowel obstruction. Allergies Allergy/AdvReac Type Severity Reaction Status Date / Time adhesive Allergy Mild skin Verified 09/30/22 16:24 irritation Home Medications Medication Instructions Recorded Confirmed Type clopidogrel 75 mg tablet 75 mg PO QAM 05/30/19 09/30/22 History levothyroxine 50 mcg tablet 50 mcg PO QAM 05/30/19 09/30/22 History polyethylene glycol 3350 17 17 g PO QAM 05/30/19 09/30/22 History gram/dose oral powder pravastatin 10 mg tablet 10 mg PO QPM 05/30/19 09/30/22 History acetaminophen 325 mg tablet 650 mg PO Q6H PRN Pain 06/26/19 09/30/22 History (Tylenol) gabapentin 300 mg capsule See Rx Instructions .Route .COMPLEX 06/26/19 09/30/22 History Magic Mouthwash Liquid 15 ml PO Q2H PRN MOUTH ULCERS 09/30/22 09/30/22 History cyclobenzaprine 5 mg tablet 5 mg PO DIRECTED PRN RIGHT SIDE 09/30/22 09/30/22 History NECK PAIN diclofenac sodium 1 % topical gel 4 g topical Q12H PRN Pain 09/30/22 09/30/22 History famotidine 20 mg tablet 20 mg PO HS 09/30/22 09/30/22 History nystatin 100,000 unit/gram topical 1 applic topical BID PRN SKIN 09/30/22 History powder IRRITATION UNDER BREASTS nystatin-triamcinolone 100,000 1 applic topical BID PRN 09/30/22 09/30/22 History unit/g-0.1 % topical cream CANDIDIASIS ondansetron HCl 4 mg tablet 4 mg PO Q8H PRN NAUSEA/VOMITING 09/30/22 09/30/22 History oxymetazoline 0.05 % nasal spray 3 spray intranasal Q8H PRN 09/30/22 09/30/22 History (Afrin (oxymetazoline)) EPISTAXIS psyllium husk 0.52 gram capsule 0.52 g PO DAILY PRN Constipation 09/30/22 09/30/22 History (Fiber (psyllium husk)) sodium chloride-aloe vera nasal 1 applic topical Q6H PRN EPISTAXIS 09/30/22 09/30/22 History gel ([place] Saline nasal gel) alprazolam 0.5 mg tablet (Xanax) 0.5 mg PO DIRECTED PRN 10/04/22 09/30/22 Rx NERVOUSNESS/SLEEP #7 tabs cholecalciferol (vitamin D3) 25 25 mcg PO DAILY #30 tabs 10/04/22 Rx mcg (1,000 unit) tablet enoxaparin 40 mg/0.4 mL 40 mg (0.4 mL) subcut DAILY #12 mL 10/04/22 Rx subcutaneous syringe (Lovenox) oxycodone-acetaminophen 2.5 mg-325 1 tab PO DAILY PRN BREAKTHROUGH 10/04/22 09/30/22 Rx mg tablet (Percocet) PAIN #7 tabs oxycodone-acetaminophen 5 mg-325 0.5 tab PO BID #7 tabs 10/04/22 09/30/22 Rx mg tablet (Percocet) oxycodone-acetaminophen 7.5 mg-325 1 tab PO TID PRN Pain #7 tabs 10/04/22 09/30/22 Rx mg tablet (Percocet) Patient History Medical History Allergic rhinitis due to dust Bilateral sensorineural hearing loss DVT (deep venous thrombosis) History of small bowel obstruction Lumbosacral radiculopathy at L5 Peripheral vascular disease Sensorineural hearing loss of both ears Small vessel disease, cerebrovascular Surgical History History of back surgery History of cholecystectomy History of ear surgery History of hip replacement History of tubal ligation Family History Sister FHx: deafness or hearing loss Mother Breast cancer Cardiac disorder Father Cardiac disorder Other Family history non-contributory Social History Smoking Status: Never smoker Tobacco Type: Cigarettes Second Hand Exposure: No; Hx Alcohol Use: No Hx Substance Use: No Preferred Language: [place]er 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: Effective Make Up Editor Required: No Beliefs That Will Affect Care: None marital status: Current Living Situation: Personal Care Facility Current Living Situation Comment: assisted living at [facility] current occupational status: retired Feels Safe at Home: Yes Assistive Devices: Walker Assistive Devices Comment: RLE immobilizer Review of Systems Review of Systems: Other (patient confused) Gastrointestinal: + abdominal pain Physical Exam Constitutional: well nourished Respiratory: normal respiratory effort Cardiovascular: Rate/Rhythm: regular rate Gastrointestinal (Abdomen): normal bowel sounds, soft, nontender, no hepatosplenomegaly Musculoskeletal: Head/Neck/Chest: normocephalic Psychiatric: Orientation: alert and oriented x 3 PG Care Time/CCT Total # of Minutes Spent Total Time Spent with Patient: Total time spent is greater than 50% in coordination of care (as documented) at patient's floor/unit and/or counseling patient: Coding Level of Care Code 93328 INT INP/OBS CARE 3/75MIN Diagnoses Partial small bowel obstruction K56.600
--- NOTE | 2022-12-02 16:15 | Psychiatric Consultation ---
Date of Consultation December 02, 2022 Impression / Recommendations Impression Elderly and, apparently, increasingly frail woman with significant recent losses, chronic and recently-worsening anxiety, worsening memory problems, and apparent depression. She uses a large number of medications, many of which are known to be risky in her age group but may be difficult to avoid in the face of her symptoms (such as opioid analgesics and benzodiazepines). (1) Dementia: (2) LORNE (generalized anxiety disorder): (3) Depression: Plan I agree with stopping the buspirone she'd been taking at home - while this is effective for anxiety, it's very slow to act and is difficult to take in the doses (30+ mg/day) and on the schedule (TID) needed for success. I agree with limiting benzodiazepines with a goal of eliminating use altogether, though this may be challenging. Consider a trial of mirtazaine 15 mg PO QPM. This antidepressant is often used in the elderly due to its relative safety and its most common side effects of appetite stimulation and somnolence could be beneficial in this instance. Consider adjusting the gabapentin. This can be remarkably effective for some cases of neuropathic pain, though usually of scant benefit for other types of pain. It seems to me that some of her pain is likely nociceptive and thus unlikely to respond to gabapentin and it's unclear to me to what degree it's been established that much of her pain is neuropathic other than by a lack of clear nociceptive etiologies. However, it's often anxiolytic, which could be shaquille eficial for her. The primary limiting side effect is likely to be sedation, but she's apparently tolerated a much higher dose in the past. It may be worth a trial of increasing gabapentin to a300 mg PO BID and 600 mg PO QHS. I spoke with family about a possible trial of a cholinesterase inhibitor following discharge. This would not be a priority during an acute hospital stay, and given her current medication list it would be optimal to introduce as few confounding factors as possible while other interventions are being made. Psych History Identifying Data Ariadna Lance is an 87-year-old F with a history of depressed mood and anxiety, admitted on 12/01/2022 for confusion. Consult is by the hospitalist service for "depression/ family request". Chief Complaint "Oh, you know...". History of Present Illness 66 y/o F who was born in [facility]. Her daughter and son-in-law (retired physician) were present in her room throughout my assessment. The pt. presents as a frail-appearing woman wearing a hospital gown lying in bed with IV in place. She makes variable eye contact. She has difficulty hearing, but at some points repeats my questions verbatim (indicating she heard it) yet still answers in a way reflecting poor understanding. She is oriented to person only. She gives the place, after multiple attempts to elicit this as "[place]" but gives the state as "[place], [place], [place]". She is not able to identify that she's in a hospital. She won't guess at the day, date, month, or season and gives the year as "[id number]". She is not able to tell me where she lives. She says she is here because of pain and tells me her appetite is "great" but only for foods she likes, such as tacos. She was not able to tell me what kinds of tacos she likes other than that they have "ingredients". She says her sleep is poor without alprazolam. She denies depressed mood but can't identify any interests or anything from which she derives pleasure. The pt. registers 3 objects (apple, table, sofía) after 3 attempts. After a brief delay, she recalls "apple, tree, bird". At the end of the assessment, she reminds me that I'd asked her to remember "apple and some other things". I obtained further information from her visiting daughter and son-in-law. They report significant recent losses ( of a brother and more recently of her . They report that she has been increasingly forgetful and confused. She has been inactive, spending a lot of time in bed and as a result has some pressure sores. They think this is in part due to pain on walking and in part due to depression. They report her appetite is poor, despite her disagreement, since when they bring her preferred foods from home she doesn't eat them, either. Family relate a long history of anxiety, often reflected in somatic complaints. For example, there was a notable pattern of severe abdominal pain requiring ED visits right before planned absences of the daughter and son-in-law. She has be en calling her daughter many times a day, often every few minutes. Their impression is that this is partially attributable to anxiety and need for reassurance and partially to forgetting that she's already called and a need for reorientation. The pt has used alprazolam for sleep and anxiety and has been being encouraged to use less. Initial insomnia has been a chronic complaint. She has been on buspirone 5 mg BID for a few weeks. She has long focused on pain and has been using oxycodone along with gabapentin. The dose of the latter has been as high as 2,400 mg/day but has been reduced to 300 mg QAM & 600 mg QHS. Past Psychiatric History Previous Psych History: unclear what working diagnoses have been but prescriptions for alprazolam and buspirone are strongly indicative that anxiety was a focus of treatment Current Psychiatric Diagnosis: unclear Outpatient Services: prescriptions from PCP Previous Psych Admissions: none History of Previous Suicide Attempt: No Allergies Allergy/AdvReac Type Severity Reaction Status Date / Time adhesive Allergy Mild skin Verified 09/30/22 16:24 irritation Home Medications Medication Instructions Recorded Confirmed Type clopidogrel 75 mg tablet 75 mg PO QAM 05/30/19 09/30/22 History levothyroxine 50 mcg tablet 50 mcg PO QAM 05/30/19 09/30/22 History polyethylene glycol 3350 17 17 g PO QAM 05/30/19 09/30/22 History gram/dose oral powder pravastatin 10 mg tablet 10 mg PO QPM 05/30/19 09/30/22 History acetaminophen 325 mg tablet 650 mg PO Q6H PRN Pain 06/26/19 09/30/22 History (Tylenol) gabapentin 300 mg capsule See Rx Instructions .Route .COMPLEX 06/26/19 09/30/22 History Magic Mouthwash Liquid 15 ml PO Q2H PRN MOUTH ULCERS 09/30/22 09/30/22 History cyclobenzaprine 5 mg tablet 5 mg PO DIRECTED PRN RIGHT SIDE 09/30/22 09/30/22 History NECK PAIN diclofenac sodium 1 % topical gel 4 g topical Q12H PRN Pain 09/30/22 09/30/22 History famotidine 20 mg tablet 20 mg PO HS 09/30/22 09/30/22 History nystatin 100,000 unit/gram topical 1 applic topical BID PRN SKIN 09/30/22 09/30/22 History powder IRRITATION UNDER BREASTS nystatin-triamcinolone 100,000 1 applic topical BID PRN 09/30/22 09/30/22 History unit/g-0.1 % topical cream CANDIDIASIS ondansetron HCl 4 mg tablet 4 mg PO Q8H PRN NAUSEA/VOMITING 09/30/22 09/30/22 History oxymetazoline 0.05 % nasal spray 3 spray intranasal Q8H PRN 09/30/22 09/30/22 History (Afrin (oxymetazoline)) EPISTAXIS psyllium husk 0.52 gram capsule 0.52 g PO DAILY PRN Constipation 09/30/22 09/30/22 History (Fiber (psyllium husk)) sodium chloride-aloe vera nasal 1 applic topical Q6H PRN EPISTAXIS 09/30/22 09/30/22 History gel ([place] Saline nasal gel) alprazolam 0.5 mg tablet (Xanax) 0.5 mg PO DIRECTED PRN 10/04/22 09/30/22 Rx NERVOUSNESS/SLEEP #7 tabs cholecalciferol (vitamin D3) 25 25 mcg PO DAILY #30 tabs 10/04/22 Rx mcg (1,000 unit) tablet enoxaparin 40 mg/0.4 mL 40 mg (0.4 mL) subcut DAILY #12 mL 10/04/22 Rx subcutaneous syringe (Lovenox) oxycodone-acetaminophen 2.5 mg-325 1 tab PO DAILY PRN BREAKTHROUGH 10/04/22 09/30/22 Rx mg tablet (Percocet) PAIN #7 tabs oxycodone-acetaminophen 5 mg-325 0.5 tab PO BID #7 tabs 10/04/22 09/30/22 Rx mg tablet (Percocet) oxycodone-acetaminophen 7.5 mg-325 1 tab PO TID PRN Pain #7 tabs 10/04/22 09/30/22 Rx mg tablet (Percocet) Patient History Medical History Allergic rhinitis due to dust Bilateral sensorineural hearing loss DVT (deep venous thrombosis) History of small bowel obstruction Lumbosacral radiculopathy at L5 Peripheral vascular disease Sensorineural hearing loss of both ears Small vessel disease, cerebrovascular Surgical History History of back surgery History of cholecystectomy History of ear surgery History of hip replacement History of tubal ligation Family History Sister FHx: deafness or hearing loss Mother Breast cancer Cardiac disorder Father Cardiac disorder Other Family history non-contributory Social History Smoking Status: Never smoker Tobacco Type: Cigarettes Second Hand Exposure: No; Hx Alcohol Use: No Hx Substance Use: No Preferred Language: Lao 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: Effective 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 Beliefs That Will Affect Care: None marital status: Current Living Situation: Personal Care Facility Current Living Situation Comment: assisted living at [facility] current occupational status: retired Feels Safe at Home: Yes Assistive Devices: Walker Assistive Devices Comment: RLE immobilizer Physical Exam Psychiatric: Orientation: oriented to person; + not oriented to place and + not oriented to time Apperance: appropriately dressed, appropriately groomed and appeared stated age (and frail) Eye Contact: + fair eye contact Motor Behavior: + psychomotor retardation slow, quiet, brief with clear word-finding difficulty Affect: + constricted affect Mood: + depressed mood and + anxious mood Thought Process: + tangential thought process and + perseveration Thought Content: reality based without delusions Suicidal Thoughts: denies suicidal thoughts Homicidal Thoughts: denies homicidal thoughts Hallucinations: no auditory hallucinations and no visual hallucinations Cognition: + recent memory not intact, + remote memory not intact, + attention not intact and + language not intact Estimated Intelligence: average estimated intelligence Insight: + poor insight Judgment: + poor judgement Vital Signs (Past 24 Hours): Last Vital Signs Temp 36.8 C 12/02/22 15:21 Pulse 87 12/02/22 15:21 Resp 18 12/02/22 15:21 BP 151/74 H 12/02/22 15:21 Pulse Ox 100 12/02/22 15:21 O2 Del Method Room Air 12/02/22 15:21 Exam Statement: I reviewed the physical exam that was performed by the hospitalist. Review of Systems Psychiatric: + anhedonia, + abnormal sleep pattern, + change in appetite, + anxiety and + confusion Results & Data (PSY) Medications Administered Acetaminophen (Acetaminophen 325 Mg Tab) 650 mg PO Q4H PRN PRN Reason: pain/fever Stop: 12/31/22 07:10 Last Admin: 12/02/22 08:24 Dose: 650 mg Documented By: Admin: 12/01/22 21:04 Dose: 650 mg Documented By: Admin: 12/01/22 15:13 Dose: 650 mg Documented By: Admin: 12/01/22 09:16 Dose: 650 mg Documented By: MAGI Alprazolam (Alprazolam 0.5 Mg Tablet) 0.5 mg PO Q12H PRN PRN Reason: Anxiety Stop: 12/31/22 15:34 Last Admin: 12/02/22 10:34 Dose: 0.5 mg Documented By: Admin: 12/01/22 21:04 Dose: 0.5 mg Documented By: Admin: 12/01/22 17:25 Dose: 0.5 mg Documented By: MAGI Enoxaparin Sodium (Enoxaparin Inj 40 Mg/0.4 Ml Syr) 40 mg SQ Q24H ROLLY Stop: 12/31/22 07:10 Last Admin: 12/02/22 08:24 Dose: 40 mg Documented By: Admin: 12/01/22 09:04 Dose: 40 mg Documented By: MAGI Piperacillin Sod/Tazobactam (Sod 4.5 gm/ Dextrose) 120 mls @ 30 mls/hr IV Q8H ROLLY; Protocol Stop: 12/08/22 13:59 Last Admin: 12/02/22 14:59 Dose: 30 mls/hr Documented By: Infusion: 12/02/22 10:05 Dose: 0 mls/hr Documented By: Admin: 12/02/22 05:57 Dose: 30 mls/hr Documented By: Infusion: 12/02/22 01:22 Dose: 0 mls/hr Documented By: Admin: 12/01/22 21:22 Dose: 30 mls/hr Documented By: Infusion: 12/01/22 18:20 Dose: 0 mls/hr Documented By: Admin: 12/01/22 14:19 Dose: 30 mls/hr Documented By: MAGI Potassium Chloride/Sodium Chloride (Normal Saline W/20 Meq Kcl) 20 meq in 1,000 mls @ 80 mls/hr IV .[id number] ROLLY; Protocol Stop: 12/31/22 07:10 Last Admin: 12/02/22 09:35 Dose: 80 mls/hr Documented By: Infusion: 12/02/22 09:35 Dose: 80 mls/hr Documented By: Admin: 12/01/22 21:05 Dose: 80 mls/hr Documented By: Infusion: 12/01/22 21:05 Dose: 80 mls/hr Documented By: Admin: 12/01/22 09:05 Dose: 80 mls/hr Documented By: MAGI Lidocaine (Lidocaine 5% 1 Patch) 2 patch TD QAM [facility] Stop: 01/01/23 09:29 Last Admin: 12/02/22 10:20 Dose: 2 patch Documented By: MAGI Coding Level of Care Code INP/OBS CONSULT LVL 5, 80 MIN Diagnoses Dementia F03.90 LORNE (generalized anxiety disorder) F41.1 Depression F32.9 Time Spent (min) 92 Comment on floor with pt, team, and in coordination of care
[2022-12-02] MEDS: oxyCODONE HCL IR 5 MG TAB (IMMEDIATE RELEASE) PO SCH (17:03)
[2022-12-02] MEDS: MIRTAZAPINE TAB 15 MG TAB PO SCH (20:43)
--- NOTE | 2022-12-02 22:45 | Hospitalist Progress Note ---
Date of Service December 02, 2022 Assessment & Plan (1) Acute confusion: Plan: acute confusion/abdominal pain- Obtaining history with family, It appears her main concern is her delirium, with dementia and coping with her depression. I suggested perhaps to add mirtazapine, however will await to see psych. Family would like patient placed to inpatient psych. In regards to her delirium, narcotics may also be playing a role, however difficult to ascertain as she has been on this chronically. Family does not want this to be tapered. She received about 27 mg daily of oxycodone. Patient does not appear to be in withdrawal given her clinical presentation is not pointing towards this. Scores low on severity scale. Placed her on oxycodone 5 mg PO q6h and will monitor. In regards to her current pain, she is mainly complaining of musculoskeletal pain of her chest and will place on lidocaine patch. will resume diet. consult psych. GI/antral gastritis/distal esophagitis/enteritis/terminal ileitis/mesenteric adenitis- May be secondary to viral process, however, in conjunction with bronchitis/pneumonitis, there may be a bacterial component as well Continue famotidine 20 mg at bedtime Bronchitis/pneumonitis- Noted on CT, and patient is mildly hypoxic with a pulse ox of 90-92% on room air Unfortunately patient is confused, and cannot give an adequate description of her specific symptoms To cover GI and pulmonary issues, patient was placed on ceftriaxone IV in the ED for UTI, however, would for empiric treatment place on Zosyn 4.5 g IV every 8 hours and follow symptoms Hypothyroidism- Continue levothyroxine 50 mcg every morning Peripheral vascular disease/widely patent femoral-femoral bypass graft- Continue clopidogrel 75 mg daily DVT prophylaxis- Continue Lovenox 40 mg subcu daily (2) Enteritis: (3) Gastritis: (4) Mesenteric adenitis: (5) Esophagitis: (6) Sensorineural hearing loss of both ears: (7) History of DVT (deep vein thrombosis): (8) Hypothyroidism: (9) Peripheral vascular disease: (10) Hypertension: (11) Depression: (12) SBO (small bowel obstruction): Admission and Anticipated Discharge Date Admission Date: December 01, 2022 Subjective Patient is a poor historian. When at bedside, patient patient reports pain in her lower chest wall bilaterally. Overnight patient had multiple stools as per nursing staff. Spoke to family in the AM Called daughter, and met with her and Son in Law, Dr. Nair. State that patient has not been having any constipation. Has been having stools daily, and patient has been having a hard time coping with stresses such as loss of her . Patient's anxiety has been elevated and has been calling family 15 times per day. Patient has also been on chronic narcotics. Review of Systems Review of Systems: Unobtainable due to cognitive status Physical Exam Constitutional: well developed, well nourished and + ill appearing Eyes: PERRL, conjunctivae normal, anicteric sclerae ENMT: external ear and nose normal, oropharynx normal Neck: trachea midline, no thyromegaly Respiratory: normal respiratory effort, lungs clear to auscultation Cardiovascular: RRR, no murmur, no edema Chest (Breasts): Additional Comments: tender to palpation on lower chest wall Gastrointestinal (Abdomen): Inspection/Auscultation: + abdomen distended (mild ly distended) Musculoskeletal: no cyanosis or clubbing, extremities motor strength 5/5 Skin: no rashes, warm and dry Neurologic: awake Psychiatric: Orientation: alert and oriented to person Results & Data Results & Data ([facility]) Vital Signs (Past 12 Hours) Vital Signs Temp Pulse Resp BP Pulse Ox O2 Del Method 12/02/22 22:20 36.3 C L 16 157/77 H 99 Room Air 12/02/22 15:21 36.8 C 87 18 151/74 H 100 Room Air PG Care Time/CCT Total # of Minutes Spent Total Time Spent with Patient: Total time spent is greater than 50% in coordination of care (as documented) at patient's floor/unit and/or counseling patient: Coding Level of Care Code 59976 SUB INP/OBS CARE 3/50MIN Diagnoses Acute confusion R41.0 Enteritis K52.9 Gastritis K29.70 Mesenteric adenitis I88.0 Esophagitis K20.90 Sensorineural hearing loss of both ears H90.3 History of DVT (deep vein thrombosis) Z86.718 Hypothyroidism E03.9 Peripheral vascular disease I73.9 Hypertension I10 Depression F32.9 SBO (small bowel obstruction) K56.609
[2022-12-03] MEDS: oxyCODONE HCL IR 5 MG TAB (IMMEDIATE RELEASE) PO SCH ×5 (00:12→23:16)
[2022-12-03] MEDS: PIPERACILLIN/TAZOBACTAM 4.5 GM in DEXTROSE 5% 100 ML IV SCH ×2 (05:12→14:41)
[2022-12-03] MEDS: ENOXAPARIN INJ 40 MG/0.4 ML SYR SQ SCH (08:14)
[2022-12-03] MEDS: LIDOCAINE 5% 1 PATCH TD SCH (08:15)
[2022-12-03 08:39] LABS: Hematocrit (blood only) 37.1 % (37.0-47.0); Hemoglobin 12.8 g/dl (12.0-16.0); Mean Corpuscular Hemoglobin 29.1 pg (25.0-34.0); Mean Corpuscular Hgb Conc 34.5 g/dL (32.0-36.0); Mean Corpuscular Volume 84.3 fL (80.0-100.0); Platelet Count 98 K/uL (130-400); RDW Coefficient of Variation 13.4 % (11.5-14.5); RDW Standard Deviation 41.8 fL (36.4-46.3); White Blood Count 4.19 K/ul (4.8-10.8)
[2022-12-03 08:58] LABS: Albumin Globulin Ratio 1.3 (0.9-2); Albumin Level 3.5 gm/dl (3.4-5.0); BUN Creatinine Ratio 6.9 (10-20); Bilirubin,Total 0.5 mg/dl (0.2-1.0); Calcium 8.3 mg/dl (8.5-10.1); Creatinine Clr Calc Pharmacy 47.2 ml/min; Est GFR (African American) 94.7 ml/min; Est GFR (Non-African American) 81.7 ml/min; Globulin 2.6 gm/dl (2.5-4.0); Magnesium 1.9 mg/dl (1.7-2.4); Potassium 3.3 mmol/L (3.5-5.1); Total Protein 6.1 gm/dl (6.0-8.3)
[2022-12-03 09:01] LABS: Basophils # (auto) 0.03 K/uL (0-0.2); Basophils % (auto) 0.7 %; Eosinophils # (auto) 0.05 K/uL (0-0.50); Eosinophils % (auto) 1.2 %; Immature Granulocytes # (auto) 0.04 K/uL (0.01-0.20); Lymphocytes # (auto) 1.31 K/uL (1.2-3.4); Lymphocytes % (auto) 31.3 %; Monocytes # (auto) 0.84 K/uL (0.11-0.59); Neutrophils # (auto) 1.92 K/uL (1.40-6.50); Neutrophils % (auto) 45.8 %
[2022-12-03] MEDS: NSS + 20MEQ KCL 20 MEQ/1,000 ML BAG IV SCH (09:39)
[2022-12-03] MEDS: PANTOprazole 40 MG in SYRINGE 0 ML IV SCH (10:23)
--- NOTE | 2022-12-03 11:16 | Gastroenterology Progress Note ---
Date of Service December 03, 2022 Assessment & Plan (1) Abnormal CT of the abdomen: Plan: CT shows possible PSBO vs enteritis. Patient is now moving her bowels. Her mental status is significantly improved today. -Await KUB result -Supportive care per primary team -Appreciate psych involvement -Discussed plan of care at bedside with daughter -Discussed care with hospitalist as well. Suspicious for viral enteritis, so biofire is ordered. Admission and Anticipated Discharge Date Admission Date: December 01, 2022 Subjective Patient is an 87 yo female with PSBO vs enteritis. Since admission, she has moved her bowels 4-6 times with loose stool. She is passing gas. She does not have an NG in place any longer. She is more lucid today and notes that she is struggling with grief. Daughter is at the bedside and offers support. No GI bleeding, no significant abdominal pain. No new GI symptoms have developed in the interim since my visit yesterday. Review of Systems Constitutional: + fatigue and + malaise; no fever and no chills Respiratory: no cough and no dyspnea Cardiovascular: no chest pain Gastrointestinal: no abdominal pain, no constipation and no blood in stools Physical Exam Constitutional: well developed Respiratory: normal respiratory effort Gastrointestinal (Abdomen): Inspection/Auscultation: + abdomen distended (distention improved) and normal bowel sounds Percussion/Palpation: abdomen soft; abdomen nontender Psychiatric: Orientation: alert and oriented x 3 Results & Data Results & Data ([facility]) Vital Signs (Past 12 Hours) Vital Signs Temp Pulse Resp BP Pulse Ox O2 Del Method 12/03/22 07:06 36.7 C 82 18 152/71 H 96 Room Air PG Care Time/CCT Total # of Minutes Spent Total Time Spent with Patient: Total time spent is greater than 50% in coordination of care (as documented) at patient's floor/unit and/or counseling patient: Coding Level of Care Code 90231 SUB INP/OBS CARE 2/35MIN Diagnoses Abnormal CT of the abdomen R93.5
[2022-12-03] MEDS: ALPRAZolam 0.5 MG TABLET PO PRN (12:32)
--- NOTE | 2022-12-03 13:57 | XRay Report ---
KUB CLINICAL HISTORY: Follow-up distended small bowel loops. FINDINGS: 2 AP, portable, supine abdominal radiographs are compared to abdominal radiographs and CT d ated 12/01/2022. There is no radiographic evidence of high-grade bowel obstruction. Distention of the small bowel loops appears modestly improved from previous. No evidence of intraperitoneal free air is seen on these supine images. Cholecystectomy clips are noted in the right upper quadrant. There are no abnormal abdominal calcifications. The skeletal structures are osteopenic and appear intact. Posts urgical change is seen in the lumbar spine. A right hip arthroplasty is in place. Advanced arthritic change is seen in the right hip. IMPRESSION: 1. There is no radiographic evidence of high-grade bowel obstruction. 2. Distention of the small bowel loops appears modestly improved from previous. Electronically signed by: El Baez M.D. 12/03/2022 1:55 PM
[2022-12-03] MEDS ORDERED: POTASSIUM CHLORIDE CRTAB 20 MEQ TABCR PO STA (14:12)
--- NOTE | 2022-12-03 14:14 | Hospitalist Progress Note ---
Date of Service December 03, 2022 Assessment & Plan (1) Enteritis: Plan: pSBO vs enteritis. present on admission. resolving. suspect this was infectious enteritis. multiple family members were sick with viral gastroenteritis symptoms simultaneously. stools are loose c/w diarrheal illness. we have been attempting to get a stool sample for stool [employer] without success. [id number] she is improving. KUB x-ray today improving. [place] [facility] [place] [facility] [place]. allow diet - change to low fiber. replace low K. can d/c IV fluids tonight as she is eating/drinking. labs in am. since this is likely viral will stop zosyn IV. (2) Gastritis: Plan: on CT a/p there was fluid in her esophagus and stomach. uncertain if related to #1 above or GERD. admitting physician placed her on IV PPI. continue for now. resume her HS pepcid 20mg. (3) Esophagitis: Plan: see #2 above. IV PPI. H2 ranjit. (4) History of DVT (deep vein thrombosis): Plan: in 2016 the patient had extensive DVT of the RLE. I cannot access a summary that speaks to this in more detail about what she took at that time for such. A 2019 d/c summary mentions lovenox for her RLE DVT. will need to inquire with family about time line of her DVT history. 2020 and 2021 RLE venous dopplers indeed show considerable chronic thrombus of the RLE. (5) Peripheral vascular disease: Plan: s/p bypass of RLE by Dr Pritchard in 2017 resume plavix resume pravastatin (6) Sensorineural hearing loss of both ears: (7) Hypothyroidism: Plan: TSH 09/2022 was wnl cont synthroid (8) Hypertension: Plan: this dx is on her problem list, but it does not appear she is on meds for such BPs are stable at this time (9) Depression: Plan: long-standing by report she is willing to try mirtazapine at HS appreciate psych input at this time she is also grieving the of her resumed xanax for anxiety to be used prn (10) Hypokalemia: Plan: replace repeat BMP am mag level today wnl (11) History of femur fracture: Plan: distal R femur fracture 09/2022 treated nonoperatively - first in a long cast, then recently changed to a knee immobilizer cont non-weightbearing status to RLE (12) Thrombocytopenia: Plan: bone marrow suppression from viral process ? (same virus causing #1 above) other? repeat CBC am (13) DVT prophylaxis: Plan: lovenox 40mg once daily it appears she has been on this chronically - uncertain how long will need to inquire with family (14) Chronic prescription opiate use: Plan: has been taking such for 7-8 years takes 5mg oxy's about 5x's each day currently getting 4x's/day and pain control seems satisfactory at this time (15) Lumbosacral radiculopathy at L5: Plan: cont gabapentin resume at 300mg BID need to clarify her chronic dose at [facility] (16) Abnormal findings on imaging test: Plan: right hip with fluid in joint on CT this admission she previously had the right hip replaced family is aware of this and has had attempts at arthrocentesis of the right hip in the past at [facility] chronic, low-grade infection? sterile fluid? defer on additional w/u for now since it is chronic Plan PTLUCITA requested daughter extensively updated at bedside son-in-law updated by phone this evening Admission and Anticipated Discharge Date Admission Date: December 01, 2022 Subjective during my rounds the pt's daughter was present at bedside Mrs Lance reports she is tolerating a regular diet without nausea or emesis no further abdominal pain has had multiple stools since yesterday - loose/diarrhea - per staff green in color patient denies any cough or dyspnea no headache no chest discomfort her daughter reports she has been on oxycodone for 7-8 years and takes 5 tablets each day has chronic back pain and right leg pain also takes xanax prn sleep and anxiety denies any chronic right hip pain or right groin pain daughter confirms that they have known about the right hip fluid for several years [facility] tried to aspirate some of the fluid out in the past w/o success since her distal Right Femur fracture in September she has been non weightbearing she was recently taken out of a long cast and placed in a knee immobilizer lastly, Mr Lance - pt's - last week Mrs Lance is grieving - they were 66 years Review of Systems Review of Systems: gen - no fevers or chills cv - no orthopnea or chest pain pulm - no dyspnea, no wheezing GI - no abd pain musculo - no myalgias Physical Exam Physical Exam: gen - NAD, very pleasant mouth - MMM neck - no JVD heart - RRR, s1 s2, no murmur lungs - CTA b/l, no rales or wheeze abd - mildly distended but nontender; BS+; no HSM ext - right leg is larger than the left leg; knee immobilizer in place on right leg; pulses 2+ b/l feet; <1+ edema RLE, none on left psych - pleasant, awake, alert, mild confusion for dates and events at times Results & Data Results & Data ([facility]) Vital Signs (Past 12 Hours) Vital Signs Temp Pulse Resp BP Pulse Ox O2 Del Method 12/03/22 07:06 36.7 C 82 18 152/71 H 96 Room Air Laboratory Results Laboratory Results - last 24 hr 12/03/22 12/03/22 07:54 07:54 WBC 4.19 L RBC 4.40 Hgb 12.8 Hct 37.1 MCV 84.3 MCH 29.1 MCHC 34.5 RDW Std Deviation 41.8 RDW Coeff of Apollo 13.4 Plt Count 98 L MPV 11.0 Immature Gran % (Auto) 1.0 Neut % (Auto) 45.8 Lymph % (Auto) 31.3 [place] % (Auto) 20.0 Eos % (Auto) 1.2 Baso % (Auto) 0.7 Neut # (Auto) 1.92 Lymph # (Auto) 1.31 [place] # (Auto) 0.84 H Eos # (Auto) 0.05 Baso # (Auto) 0.03 Immature Gran # (Auto) 0.04 Sodium 141 Potassium 3.3 L Chloride 110 H Carbon Dioxide 26 Anion Gap 5 BUN 4 L Creatinine 0.58 L Est Cr Clr Drug Dosing 47.2 Est GFR ( Amer) 94.7 Est GFR (Non-Af Amer) 81.7 BUN/Creatinine Ratio 6.9 L Glucose 87 Calcium 8.3 L Magnesium 1.9 Total Bilirubin 0.5 AST 17 ALT 26 Alkaline Phosphatase 73 Total Protein 6.1 Albumin 3.5 Globulin 2.6 Albumin/Globulin Ratio 1.3 Diagnostic Findings KUB X-Ray 12/03/22 10:52 KUB CLINICAL HISTORY: Follow-up distended small bowel loops. FINDINGS: 2 AP, portable, supine abdominal radiographs are compared to abdominal radiographs and CT dated 12/01/2022. There is no radiographic evidence of high- grade bowel obstruction. Distention of the small bowel loops appears modestly improved from previous. No evidence of intraperitoneal free air is seen on these supine images. Cholecystectomy clips are noted in the right upper quadrant. There are no abnormal abdominal calcifications. The skeletal structures are osteopenic and appear intact. Postsurgical change is seen in the lumbar spine. A right hip arthroplasty is in place. Advanced arthritic change is seen in the right hip. IMPRESSION: 1. There is no radiographic evidence of high-grade bowel obstruction. 2. Distention of the small bowel loops appears modestly improved from previous. Electronically signed by: El Baez M.D. 12/03/2022 1:55 PM PG Care Time/CCT Total # of Minutes Spent Total Time Spent with Patient: Total time spent is greater than 50% in coordination of care (as documented) at patient's floor/unit and/or counseling patient: Coding Level of Care Code 31977 SUB INP/OBS CARE 3/50MIN Diagnoses Enteritis K52.9 Gastritis K29.70 Esophagitis K20.90 History of DVT (deep vein thrombosis) Z86.718 Peripheral vascular disease I73.9 Sensorineural hearing loss of both ears H90.3 Hypothyroidism E03.9 Hypertension I10 Depression F32.9 Hypokalemia E87.6 History of femur fracture Z87.81 Thrombocytopenia D69.6 DVT prophylaxis Z29.9 Chronic prescription opiate use Z79.891 Lumbosacral radiculopathy at L5 M54.17 Abnormal findings on imaging test R93.89
[2022-12-03] MEDS: CLOPIDOGREL BISULFATE 75 MG TAB PO SCH (15:04)
[2022-12-03] MEDS: GABAPENTIN 300 MG CAP PO SCH ×2 (15:05→21:51)
[2022-12-03] MEDS: LEVOTHYROXINE SODIUM 50 MCG TABLET PO SCH (15:05)
[2022-12-03] MEDS: PRAVASTATIN SOD 10 MG TAB PO SCH (21:50)
[2022-12-03] MEDS: MIRTAZAPINE TAB 15 MG TAB PO SCH (21:51)
[2022-12-03] MEDS: FAMOTIDINE 20 MG TAB PO SCH (21:51)
[2022-12-04] MEDS: LEVOTHYROXINE SODIUM 50 MCG TABLET PO SCH (05:42)
[2022-12-04] MEDS: oxyCODONE HCL IR 5 MG TAB (IMMEDIATE RELEASE) PO SCH ×4 (05:42→22:15)
[2022-12-04] MEDS: GABAPENTIN 300 MG CAP PO SCH ×2 (07:37→20:58)
[2022-12-04] MEDS: CLOPIDOGREL BISULFATE 75 MG TAB PO SCH (07:37)
[2022-12-04] MEDS: ENOXAPARIN INJ 40 MG/0.4 ML SYR SQ SCH (07:39)
[2022-12-04] MEDS: LIDOCAINE 5% 1 PATCH TD SCH (07:39)
[2022-12-04 08:31] LABS: Basophils # (auto) 0.04 K/uL (0-0.2); Basophils % (auto) 0.9 %; Eosinophils # (auto) 0.09 K/uL (0-0.50); Hematocrit (blood only) 38.2 % (37.0-47.0); Immature Granulocytes # (auto) 0.03 K/uL (0.01-0.20); Immature Granulocytes % (auto) 0.7 %; Lymphocytes # (auto) 1.81 K/uL (1.2-3.4); Lymphocytes % (auto) 40.4 %; Mean Corpuscular Volume 85.3 fL (80.0-100.0); Mean Platelet Volume 11.1 fL (9.4-12.4); Monocytes # (auto) 0.92 K/uL (0.11-0.59); Monocytes % (auto) 20.5 %; Neutrophils # (auto) 1.59 K/uL (1.40-6.50); Neutrophils % (auto) 35.5 %; Platelet Count 105 K/uL (130-400); RDW Coefficient of Variation 13.4 % (11.5-14.5); Red Blood Count 4.48 M/uL (4.20-5.40); White Blood Count 4.48 K/ul (4.8-10.8)
[2022-12-04 08:39] LABS: BUN Creatinine Ratio 11.1 (10-20); Calcium 8.7 mg/dl (8.5-10.1); Creatinine Clr Calc Pharmacy 60.9 ml/min; Est GFR (Non-African American) 88.8 ml/min; Magnesium 2.1 mg/dl (1.7-2.4); Potassium 3.6 mmol/L (3.5-5.1)
[2022-12-04] MEDS: PANTOprazole 40 MG in SYRINGE 0 ML IV SCH (10:17)
--- NOTE | 2022-12-04 14:08 | Hospitalist Progress Note ---
Date of Service December 04, 2022 Assessment & Plan (1) Enteritis: Plan: pSBO vs enteritis. present on admission. resolved. suspect this was infectious enteritis - likely viral. today's cbc findings support viral etiology - mild leukopenia, lymphocytosis (relative), low platelets (resolving, however). multiple family members were sick with viral gastroenteritis symptoms simultaneously as well. appreciate [facility] assistance. cont low fiber diet. tolerating such without N/V/diarrhea. labs today very acceptable. (2) Gastritis: Plan: on CT a/p there was fluid in her esophagus and stomach. uncertain if related to #1 above or GERD. admitting physician placed her on IV PPI. change to PO PPI. continue for now. cont HS pepcid 20mg. (3) Esophagitis: Plan: possible. CT a/p at admission showed a fluid-filled & dilated esophagus. remains on PPI + H2 ranjit. fortunately no symptoms at this time. (4) History of DVT (deep vein thrombosis): Plan: in 2016 the patient had extensive DVT of the RLE. I cannot access a summary that speaks to this in more detail about what she took for anticoagulation at that time for such. A 2019 d/c summary mentions lovenox for her RLE DVT. 2020 and 2021 RLE venous dopplers indeed show considerable chronic thrombus of the RLE. from what I can see she was d/c from [facility] in Sep 2022 with daily lovenox. took this until late 10/2022, then changed to Eliquis 2.5mg BID. will make this change in the am. I would likely advise the Eliquis to be used chronically due to the chronicity of her RLE DVTs. (5) Peripheral vascular disease: Plan: s/p bypass of RLE by Dr Pritchard in 2017 cont plavix and pravastatin (6) Sensorineural hearing loss of both ears: (7) Hypothyroidism: Plan: TSH 09/2022 was wnl cont synthroid (8) Hypertension: Plan: this dx is on her problem list, but it does not appear she is on meds for such BPs cont to remain stable at this time (9) Depression: Plan: long-standing by report she is willing to try mirtazapine at HS; this has been ordered, she is taking, and thus far no side effects appreciate psych input at this time she is also grieving the of her resumed xanax for anxiety to be used prn (10) Hypokalemia: Plan: replaced resolved (11) History of femur fracture: Plan: distal R femur fracture 09/2022 treated nonoperatively - first in a long cast, then recently changed to a knee immobilizer cont non-weightbearing status to RLE follows with Dr Dimitri Reza, [facility] (12) Thrombocytopenia: Plan: suspect bone marrow suppression from viral process (same virus causing #1 above) platelets starting to trend up repeat CBC am (13) DVT prophylaxis: Plan: change lovenox to Eliquis 2.5mg BID starting tomorrow see discussion above (14) Chronic prescription opiate use: Plan: has been taking such for 7-8 years takes 5mg oxy's about 5x's each day currently getting 4x's/day and pain control seems satisfactory at this time (15) Lumbosacral radiculopathy at L5: Plan: cont gabapentin - resume TID dosing (300mg TID) then consider increase in dose to 300mg qam, 300mg qafternoon, and 600mg HS as per psych recs (16) Abnormal findings on imaging test: Plan: right hip with fluid in joint on CT this admission she previously had the right hip replaced family is aware of this and has had attempts at arthrocentesis of the right hip in the past at [facility] chronic, low-grade infection? sterile fluid? defer on additional w/u for now since it is chronic Plan PT, OT sushmaals requested both advising short-term rehab at [facility] with ultimate return to [facility] daughter extensively updated at bedside again today Admission and Anticipated Discharge Date Admission Date: December 01, 2022 Subjective no BM since yesterday daughter asks about resuming her usual miralax patient with NO nausea, emesis, abd pain, or intolerance to her meals her daughter comments that the amount of food her mother is now taking is about baseline for her we discussed that PT is recommending short-term SNF for rehab rather than returning to assisted living understandably she is not happy about this and wants to wait to see what OT suggests during the visit we discussed DVT prophylaxis and that she had extensive DVTs of the RLE several years ago thus, given her current condition, she is at high risk of recurrent DVT of that leg her daughter couldn't recall what she had taken in the distant past; she did comment that her lovenox was stopped in the last 1-2 months I later found out from her son-in-law that after she took a course of lovenox in following her R femur fracture and then Dr Reza from orthopedics placed her on Eliquis 2.5mg BID for prophylaxis starting late Oct Review of Systems Review of Systems: gen - no fevers or chills cv - no chest pain pulm - no cough or dyspnea GI - no abd pain Physical Exam Physical Exam: gen - NAD, looks well mouth - MMM neck - no JVD heart - RRR, s1 s2, no murmur lungs - CTA b/l, minimal dry rales R base abd - soft, NT, ND, BS+, no HSM ext - right leg is larger than the left leg; knee immobilizer in place on right leg; pulses 2+ b/l feet; 1+ edema RLE, none on left psych - pleasant, awake, alert, participates in conversation Results & Data Results & Data ([facility]) Vital Signs (Past 12 Hours) Vital Signs Temp Pulse Resp BP Pulse Ox O2 Del Method 12/04/22 08:00 Room Air 12/04/22 07:07 36.5 C 80 16 129/67 95 Room Air Laboratory Results Laboratory Results - last 24 hr 12/04/22 12/04/22 07:27 07:27 WBC 4.48 L RBC 4.48 Hgb 13.0 Hct 38.2 MCV 85.3 MCH 29.0 MCHC 34.0 RDW Std Deviation 42.0 RDW Coeff of Apollo 13.4 Plt Count 105 L MPV 11.1 Immature Gran % (Auto) 0.7 Neut % (Auto) 35.5 Lymph % (Auto) 40.4 [place] % (Auto) 20.5 Eos % (Auto) 2.0 Baso % (Auto) 0.9 Neut # (Auto) 1.59 Lymph # (Auto) 1.81 [place] # (Auto) 0.92 H Eos # (Auto) 0.09 Baso # (Auto) 0.04 Immature Gran # (Auto) 0.03 Sodium 142 Potassium 3.6 Chloride 111 H Carbon Dioxide 24 Anion Gap 7 BUN 5 L Creatinine 0.45 L Est Cr Clr Drug Dosing 60.9 Est GFR ( Amer) 103.0 Est GFR (Non-Af Amer) 88.8 BUN/Creatinine Ratio 11.1 Glucose 92 Calcium 8.7 Magnesium 2.1 PG Care Time/CCT Total # of Minutes Spent Total Time Spent with Patient: Total time spent is greater than 50% in coordination of care (as documented) at patient's floor/unit and/or counseling patient: Coding Level of Care Code 63961 SUB INP/OBS CARE 235MIN Diagnoses Enteritis K52.9 Gastritis K29.70 Esophagitis K20.90 History of DVT (deep vein thrombosis) Z86.718 Peripheral vascular disease I73.9 Sensorineural hearing loss of both ears H90.3 Hypothyroidism E03.9 Hypertension I10 Depression F32.9 Hypokalemia E87.6 History of femur fracture Z87.81 Thrombocytopenia D69.6 DVT prophylaxis Z29.9 Chronic prescription opiate use Z79.891 Lumbosacral radiculopathy at L5 M54.17 Abnormal findings on imaging test R93.89
[2022-12-04] MEDS ORDERED: GABAPENTIN 600 MG TAB PO STA (15:09)
[2022-12-04] MEDS: POLYETHYLENE (MIRALAX) 17 GM PACK PO SCH (15:10)
[2022-12-04] MEDS: ALPRAZolam 0.5 MG TABLET PO PRN (15:48)
[2022-12-04] MEDS: FAMOTIDINE 20 MG TAB PO SCH (20:58)
[2022-12-04] MEDS: MIRTAZAPINE TAB 15 MG TAB PO SCH (20:58)
[2022-12-04] MEDS: PRAVASTATIN SOD 10 MG TAB PO SCH (20:58)
[2022-12-05] MEDS: oxyCODONE HCL IR 5 MG TAB (IMMEDIATE RELEASE) PO SCH ×2 (05:45→11:40)
[2022-12-05] MEDS: LEVOTHYROXINE SODIUM 50 MCG TABLET PO SCH (05:45)
[2022-12-05 07:57] LABS: Basophils # (auto) 0.03 K/uL (0-0.2); Basophils % (auto) 0.7 %; Eosinophils # (auto) 0.07 K/uL (0-0.50); Eosinophils % (auto) 1.6 %; Hematocrit (blood only) 41.7 % (37.0-47.0); Hemoglobin 14.3 g/dl (12.0-16.0); Immature Granulocytes # (auto) 0.03 K/uL (0.01-0.20); Immature Granulocytes % (auto) 0.7 %; Lymphocytes # (auto) 1.59 K/uL (1.2-3.4); Lymphocytes % (auto) 36.2 %; Mean Corpuscular Hemoglobin 29.1 pg (25.0-34.0); Mean Corpuscular Hgb Conc 34.3 g/dL (32.0-36.0); Mean Corpuscular Volume 84.8 fL (80.0-100.0); Mean Platelet Volume 10.4 fL (9.4-12.4); Monocytes # (auto) 0.79 K/uL (0.11-0.59); Neutrophils # (auto) 1.88 K/uL (1.40-6.50); Neutrophils % (auto) 42.8 %; Platelet Count 113 K/uL (130-400); RDW Coefficient of Variation 13.4 % (11.5-14.5); RDW Standard Deviation 41.3 fL (36.4-46.3); Red Blood Count 4.92 M/uL (4.20-5.40); White Blood Count 4.39 K/ul (4.8-10.8)
[2022-12-05 08:16] LABS: BUN Creatinine Ratio 15.2 (10-20); Calcium 8.9 mg/dl (8.5-10.1); Creatinine Clr Calc Pharmacy 59.6 ml/min; Est GFR (African American) 102.2 ml/min; Est GFR (Non-African American) 88.2 ml/min; Potassium 3.2 mmol/L (3.5-5.1)
[2022-12-05] MEDS: GABAPENTIN 300 MG CAP PO SCH ×2 (08:35→14:22)
[2022-12-05] MEDS: POLYETHYLENE (MIRALAX) 17 GM PACK PO SCH (08:35)
[2022-12-05] MEDS: CLOPIDOGREL BISULFATE 75 MG TAB PO SCH (08:35)
[2022-12-05] MEDS: LIDOCAINE 5% 1 PATCH TD SCH (08:37)
[2022-12-05] MEDS ORDERED: APIXABAN 2.5 MG TAB PO SCH (09:00)
[2022-12-05] MEDS: POTASSIUM CHLORIDE CRTAB 20 MEQ TABCR PO SCH ×2 (09:20→14:22)
--- NOTE | 2022-12-05 14:02 | Discharge Summary ---
Date of Service date of admission - December 01, 2022 date of discharge - December 05, 2022 Admission HPI Per Admitting Provider The patient is an 87-year-old female with a past medical history including right femur fracture, urinary tract infection, eustachian tube dysfunction, sensori neural hearing loss bilaterally, history of DVT, history of partial small bowel obstruction, intestinal adhesions, depression, hypertension, peripheral vascular disease, hypothyroidism, small bowel obstruction and cerebrovascular small vessel disease. She presents to the emergency department with severe abdominal pain, described as intermittent cramping that is slowly worsening over the past 3 to 4 days, with last bowel movement being 3 days ago. She has had nausea but no vomiting. CT scan of abdomen and pelvis with contrast revealed the following: Concerns for bronchitis with pneumonitis and tiny consolidation of the right lung base, antral gastritis and distal esophagitis, enteritis and terminal ileitis which may be of infectious or inflammatory etiologies, sitting or mesenteric adenitis, and hepatic steatosis, 5 mm fat-containing umbilical hernia. Patient is also status post femorofemoral bypass with widely patent graft The patient was given by the ED the following: Ceftriaxone 1 g IV, Tylenol 1 g IV, normal saline at 125 mils per hour. Principal Diagnosis 1. severe abdominal pain due to enteritis 2. esophagitis/fluid-filled esophagus on CT abdomen 3. hypokalemia 4. healing right femur fracture 5. history of extensive DVT of the right leg 6. history of PAD of the right leg 7. hypothyroidism 8. acute encephalopathy - resolved; suspected due to #1 9. mild thrombocytopenia & mild leukopenia - likely due to viral process 10. incidentally noted kidney stones Discharge Exam gen - NAD, looks well mouth - MMM neck - no JVD heart - RRR, s1 s2, no murmur lungs - CTA b/l, minimal dry rales R base abd - soft, NT, ND, BS+, no HSM ext - right leg is larger than the left leg (chronic); knee immobilizer in place on right leg; pulses 2+ b/l feet; 1+ edema RLE, none on left psych - pleasant, awake, alert Discharge Data Allergies Allergy/AdvReac Type Severity Reaction Status Date / Time adhesive Allergy Mild skin Verified 09/30/22 16:24 irritation Consultations Psychiatry [facility] PT, OT Ordered Studies Abdomen/Pelvis CT 11/30/22 21:[address] WITH IV CONTRAST CT DOSE: 266.59 mGy.cm HISTORY: Acute generalized abdominal pain abd pain TECHNIQUE: Multiaxial CT images of the abdomen and pelvis were performed following the IV administration of 84 cc of Optiray, A dose lowering technique was utilized adhering to the principles of ALARA. COMPARISON STUDY: Hip radiographs 10/01/2022, CT abdomen and pelvis 06/26/2019 FINDINGS: Mild cardiomegaly. Subsegmental bibasilar atelectasis with mild bronchial wall thickening and mucous plugging. No pneumatosis or pneumoperitoneum. The spleen measures within the upper limits of normal at 12 cm. Mildly atrophic pancreas. The pancreatic duct measures up to 4 mm, stable from prior. Cholecystectomy is likely postsurgical biliary ductal dilation. The liver is otherwise unremarkable. Patent portal vein. Unremarkable adrenal glands. 3 mm nonobstructing calculus of the inferior pole right kidney. There are a few small cysts of the kidneys bilaterally. There are approximately 3 nonobstructing calculi of the inferior pole left kidney measure up to approximately 2 to 3 mm. No ureteral calculi or hydronephrosis identified. Urinary bladder wall thi ckening with partial distention. Atherosclerosis of the aorta and branch vessels. 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 No lymphadenopathy identified. Asymmetric atrophy of the right psoas and iliacs muscles. Asymmetric heterogeneity with calcifications within the right iliacus muscle on image 333 series 3. Streak artifact from the right hip arthroplasty limits evaluation of the adjacent tissues. There is a complex right hip joint effusion with stranding extending into the abductor musculature. Suggested loosening of the acetabular cup again noted. A spacer is noted between the spinous processes at L3-L4. Likely chronic T9 compression deformity. Fluid-filled distal esophagus and stomach. Numerous fluid-filled loops of small bowel measure within the upper limits of normal at 2.6 cm. No discrete transition point identified. Mild circumferential wall thickening is noted involving several loops of small bowel. Mild colonic fecal retention. Hyperdense material noted within a noninflamed appendix. IMPRESSION: 1. Numerous air and fluid-filled loops of small bowel with associated small bowel wall thickening and borderline dilation is suggestive of a partial small bowel obstruction versus nonspecific enteritis. Follow-up is needed. 2. No pneumoperitoneum. 3. 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 4. Nonobstructing bilateral nephrolithiasis. 5. Additional findings as above. ACT 112: Negative or not required by law. The above report was generated using voice recognition software. It may contain grammatical, syntax or spelling errors. Electronically signed by: Robin Monets M.D. 12/01/2022 7:56 AM [facility] X-Ray 12/01/22 17:13 KUB CLINICAL HISTORY: Abdominal pain. COMPARISON STUDY: [facility] June 28, [address] of the abdomen and pelvis performed earlier today. FINDINGS: Cholecystectomy clips, right hip arthroplasty and lumbar spine Coflex device are incidentally noted. On the initial images, the nasogastric tube is coiled back upon itself. On subsequent images, the tip projects over the body of the stomach. The tube could be advanced an additional 3 cm. A few prominent right lower quadrant small bowel loops are noted. Moderate stool within the rectum is present. IMPRESSION: 1. Tip of nasogastric tube projects over the body of the stomach. The tube could be advanced an additional 3 cm. 2. Several prominent small bowel loops, as shown on prior CT. Findings could reflect a nonspecific enteritis or partial small bowel obstruction. ACT 112: Negative or not required by law. Electronically signed by: Meño Goncalves M.D. 12/01/2022 6:46 PM [facility] X-Ray 12/03/22 10:52 KUB CLINICAL HISTORY: Follow-up distended small bowel loops. FINDINGS: 2 AP, portable, supine abdominal radiographs are compared to abdominal radiographs and CT dated 12/01/2022. There is no radiographic evidence of high- grade bowel obstruction. Distention of the small bowel loops appears modestly improved from previous. No evidence of intraperitoneal free air is seen on these supine images. Cholecystectomy clips are noted in the right upper quadrant. There are no abnormal abdominal calcifications. The skeletal structures are osteopenic and appear intact. Postsurgical change is seen in the lumbar spine. A right hip arthroplasty is in place. Advanced arthritic change is seen in the right hip. IMPRESSION: 1. There is no radiographic evidence of high-grade bowel obstruction. 2. Distention of the small bowel loops appears modestly improved from previous. Electronically signed by: El Baez M.D. 12/03/2022 1:55 PM Hospital Course (1) Enteritis: The patient presented with several days of worsening crampy abdominal pain and nausea with poor appetite. CT abd/pelvis at admission showed pSBO vs enteritis. She briefly had an NG tube on 12/01 and this was lost early in the AM of 12/02. The NG tube was not replaced. [facility] was consulted who felt that her symptoms and constellation of findings was most c/w a viral gastroenteritis process rather than pSBO. Even her mild leukopenia and mild thrombocytopenia would argue for a viral process. Supportive care was advised. Her abdominal pain and other symptoms slowly resolved. As her GI symptoms improved she was resumed on a clear liquid diet. She began to have liquid stools. Unfortunately a stool BioFire could not be obtained. Diet was advanced to low fiber and she tolerated such without difficulty. The patient was well-hydrated at time of discharge and labs were stable. (2) Gastritis: on CT a/p there was fluid in her esophagus and stomach. uncertain if related to #1 above or GERD. she received both PPI + H2 ranjit while here. at discharge she was continued on HS pepcid 20mg only. (3) Esophagitis: possible. CT a/p at admission showed a fluid-filled & dilated esophagus. again was on both PPI + H2 ranjit while here. she was continued on H2 ranjit at discharge. could consider changing over to PPI if necessary for any upper GI symptoms that don't respond to H2 ranjit. (4) History of DVT (deep vein thrombosis): in 2016 the patient had extensive DVT of the RLE. 2020 and 2021 RLE venous dopplers indeed showed considerable chronic thrombus of the RLE. from what I can see she was d/c from [facility] in Sep 2022 with daily lovenox. took this until late 10/2022, then changed to Eliquis 2.5mg BID. I would recommend that the Eliquis be used indefinitely moving forward since her most recent imaging studies show ongoing, chronic DVT. (5) Peripheral vascular disease: s/p bypass of RLE by Dr Pritchard in 2017 cont plavix and pravastatin (6) Sensorineural hearing loss of both ears: (7) Hypothyroidism: TSH 09/2022 was wnl cont synthroid (8) Hypertension: this diagnosis is on her problem list, but it does not appear she is on meds for such BPs were stable while here without any treatment (9) Depression: long-standing she was seen by psychiatry during her stay she was willing to try mirtazapine at HS; this was initiated at 15mg HS and she experienced no side effects from such during the stay she was grieving the recent of her she was continued on xanax for anxiety prn the psychiatrist had discussed the possibility of weaning off the xanax in the future but for now will leave as is (0.5mg q12h prn) (10) Hypokalemia: replaced resolved (11) History of femur fracture: distal R femur fracture 09/2022 treated nonoperatively - first in a long cast, then recently changed to a knee immobilizer cont non-weightbearing status to RLE follows with Dr Dimitri Reza, [facility] for DVT proph - Eliquis 2.5mg BID (12) Thrombocytopenia: suspect bone marrow suppression from viral process (same virus causing #1 above) platelets started to trend up prior to discharge (was 90 at its lowest; now >110 at discharge recommend a repeat CBC in about 1 week post-discharge to ensure normalization that CBC check can also ensure normalization of her mildly low WBC count (13) DVT prophylaxis: cont Eliquis 2.5mg BID (14) Chronic prescription opiate use: has been taking oxycodone for 7-8 years for chronic back and chronic right leg pain was receiving such 4x's/day while here and pain control seemed satisfactory during the stay continue oxycodone as previous (15) Lumbosacral radiculopathy at L5: cont gabapentin 300mg TID then consider increase in dose to 300mg qam, 300mg qafternoon, and 600mg HS as per psych recs sometime in the 1-2 weeks post-discharge (16) Abnormal findings on imaging test: right hip with fluid in joint on CT this admission she previously had the right hip replaced family is aware of this right hip abnormality patient has had attempts at arthrocentesis of the right hip in the past at [facility] chronic, low-grade infection? sterile fluid? other? defer on additional w/u for now since it is chronic (17) Acute metabolic encephalopathy: patient had very mild confusion at presentation, likely due to #1 above mental status was at baseline prior to discharge Plan PT, OT evals were completed and patient was felt to be a candidate to return to the personal senior living portion of [facility] as previous Total Time Total Time Spent Total Time Spent (In Minutes): 40 Discharge Plan Discharge Items Patient Disposition: Personal Longterm Reason For Visit: ENTERITIS Discharge Diagnosis: 1. severe abdominal pain due to enteritis (inflammation of the small intestines) - resolved 2. esophagitis/fluid-filled esophagus on CT scan of abdomen 3. low potassium 4. healing right femur fracture 5. history of extensive DVT of the right leg 6. history of peripheral arterial disease of the right leg 7. hypothyroidism 8. mild confusion - resolved; due to #1 above? 9. mildly low platelets and mildly low white blood cell count - likely due to viral process that caused your enteritis - improving 10. incidentally noted tiny kidney stones in both kidneys on CT scan - nothing to do at this time; the stones are stable and not causing problems Condition on Discharge: Good Activity: As commented below Activity Comment: gradually increase activities over the next week Weightbearing: Right non-weightbearing Weightbearing Comment: continue right knee immobilizer per Dr Reza Non-emergency contact: Primary Care Provider Call non-emergency contact if: you have any medication questions, your symptoms worsen and you have a fever Follow-up/Referrals: Norma Cao CRNP [Primary Care Provider] - (3-5 days with your primary care provider ) Dimitri Reza MD [Surgeon] - (see Dr Reza as scheduled ) Diet: Low Fiber Addtl Attending Provider Instructions: Mrs Lance, [place] were hospitalized for severe abdominal pain. A CT scan of the abdomen & pelvis showed "enteritis" which is inflammation of the intestines. Enteritis is often caused by a virus. You had some mild confusion when you came to the hospital as well. With supportive care - IV fluids, bowel rest, etc - your pain improved and then resolved. You were resumed on a diet and this was advanced to low fiber diet without difficulty. You are now moving your bowels well. [facility] saw you in consult and felt that your symptoms were likely due to a viral enteritis. In addition, the psychiatrist saw you in consult and recommended the initiation of mirtazapine. This is an antidepressant. Side effects include mild sedation (thus, people take it at bedtime and it helps them sleep better) and increased appetite. So far you are doing well on this medication. Your potassium was a little low while here due to your recent GI tract issues. We are prescribing a brief course of potassium to you to take at home. Recommendations - 1. mirtazapine 15mg once daily at bedtime; take your first dose tonight, 12/05/22 2. potassium supplement 20meq once daily x 3 days, first dose tomorrow, 12/05/22 3. we kept your gabapentin at 300mg three times daily while here. At some point in the near-future you can go back to 300mg in the morning, 300mg in the afternoon, and 600mg at bedtime. Please speak to your family provider about this. 4. Low-fiber diet for another 5-7 days, then resume normal diet thereafter. Please see handout. 5. Repeat CBC and BMP in 5-7 days; your family provider can order these labs for you. 6. If you are having difficulty with your anxiety and/or feeling depressed please reach out to your customs collector or a counselor for help. You are going through a lot right now with your health, your 's passing, etc. Return to [facility] if - * you have fevers over 100 degrees * you have recurrent abdominal pains * you have severe nausea and/or vomiting * you have uncontrolled pain * you have severe diarrhea * any other concerns It was our pleasure to care for you at [facility]! Please continue to feel better, Elkin Batista Pending Studies at Discharge: No Stand-Alone Forms: My [facility], Smoking Cessation Skilled Items Patient informed of condition?: Yes DNR: No Discharge Level of Care: Other Communicable Disease: No Discharge Prognosis: Stable Lines: None Urinary Catheter: No Medications and DC Order Prescriptions: New Eliquis 2.5 mg Tablet 2.5 mg PO BID Qty: 60 5RF Rx Instructions: for prevention of new DVT mirtazapine 15 mg Tablet 15 mg PO HS Qty: 30 2RF Continued polyethylene glycol 3350 17 gram/dose powder 17 g PO QAM levothyroxine 50 mcg tablet 50 mcg PO QAM pravastatin 10 mg tablet 10 mg PO QPM clopidogrel 75 mg tablet 75 mg PO QAM acetaminophen [Tylenol] 325 mg Tablet 650 mg PO Q6H PRN (Reason: Pain) ondansetron HCl 4 mg Tablet 4 mg PO Q8H PRN (Reason: NAUSEA/VOMITING) Rx Instructions: SELF ADMINISTER famotidine 20 mg Tablet 20 mg PO HS nystatin-triamcinolone 100,000-0.1 unit/g-% Cream 1 applic TOPICAL BID PRN (Reason: CANDIDIASIS) Rx Instructions: SELF ADMINISTER nystatin 100,000 unit/gram Powder 1 applic TOPICAL BID PRN (Reason: SKIN IRRITATION UNDER BREASTS) cyclobenzaprine 5 mg Tablet 5 mg PO DIRECTED PRN (Reason: RIGHT SIDE NECK PAIN) oxymetazoline [Afrin (oxymetazoline)] 0.05 % Windfall,Non-Aerosol 3 spray INTRANASAL Q8H PRN (Reason: EPISTAXIS) Paicines Saline Gel 1 applic TOPICAL Q6H PRN (Reason: EPISTAXIS) diclofenac sodium 1 % Gel 4 g TOPICAL Q12H PRN (Reason: Pain) Rx Instructions: SELF ADMINISTERED Magic Mouthwash Liquid 15 ml PO Q2H PRN (Reason: MOUTH ULCERS) cholecalciferol (vitamin D3) 25 mcg (1,000 unit) tablet 25 mcg PO DAILY Qty: 30 0RF oxycodone-acetaminophen [Percocet] 5-325 mg Tablet 0.5 tab PO BID Qty: 7 0RF oxycodone-acetaminophen [Percocet] 7.5-325 mg Tablet 1 tab PO TID PRN (Reason: Pain) Qty: 7 0RF Rx Instructions: SELF ADMINISTER Changed alprazolam [Xanax] 0.5 mg tablet 0.5 mg PO Q12H PRN (Reason: anxiety) Qty: 15 0RF gabapentin 300 mg Capsule 300 mg PO TID Qty: 30 0RF Discontinued psyllium husk [Fiber (psyllium husk)] 0.52 gram Capsule 0.52 g PO DAILY PRN (Reason: Constipation) enoxaparin [Lovenox] 40 mg/0.4 mL syringe 40 mg subcut DAILY Qty: 12 0RF oxycodone-acetaminophen [Percocet] 2.5-325 mg Tablet 1 tab PO DAILY PRN (Reason: BREAKTHROUGH PAIN ) Qty: 7 0RF Rx Instructions: GIVEN ONLY BETWEEN [id number]. Discharge Orders: Discharge Order (Routine); Ordered 12/05/22 Ordered By: Elkin Davidson/Other Patient Handouts: Low-Fiber Diet Admission Data Admit Date/Time: 12/01/22 01:46 Attending Provider: Elkin Batista Admit Provider: Bari Gaston Primary Care Provider: Norma Cao Other Providers: Raphael Vasquez ; Terri Juan ; Bro Leger ; Denzel Crump Other Interventions: Discharge Summary Assessment (RN) Last Done: 12/05/22 15:01 Coding Level of Care Code HOSP INP/OBS DISCH >30 MIN Diagnoses Enteritis K52.9 Gastritis K29.70 Esophagitis K20.90 History of DVT (deep vein thrombosis) Z86.718 Peripheral vascular disease I73.9 Sensorineural hearing loss of both ears H90.3 Hypothyroidism E03.9 Hypertension I10 Depression F32.9 Hypokalemia E87.6 History of femur fracture Z87.81 Thrombocytopenia D69.6 DVT prophylaxis Z29.9 Chronic prescription opiate use Z79.891 Lumbosacral radiculopathy at L5 M54.17 Abnormal findings on imaging test R93.89 Acute metabolic encephalopathy G93.41
--- NOTE | 2022-12-08 10:12 | Coding Query ---
To promote full compliance with coding requirements relating to patient care, provider participation is requested in all cases of brake repairer hydraulic uncertainty. Please assist us with the question(s) below: Coding Question(s): The diagnosis(es) below was documented in the record, then subsequently fell off all further documentation. Please indicate if it is still a possible diagnosis or ruled out. Physician's Response(s): ACUTE METABOLIC VS TOXIC ENCEPHALOPATHY (documented on 12/03 Progress Note on Addendum) ( x ) Diagnosed and POA - metabolic encephalopathy only; will fix all of this on the d/c summary. ( ) Diagnosed and not POA ( ) Ruled out ( ) Other (please specify) PNEUMONITIS (documented on H&P and 12/02 Progress Note) ( ) Diagnosed and POA ( ) Diagnosed and not POA ( x ) Ruled out ( ) Other (please specify) UTI (documented on ER, H&P and 12/02 Progress Note) ( ) Diagnosed and POA ( ) Diagnosed and not POA ( x ) Ruled out ( ) Other (please specify) MTDD
== END 2022-12-05 15:02 | disposition home or self-care (01) ==
LOC: ED 20:21 → INTOOBSV 12-01 01:46 → 3W 12-01 01:46 → SUATTDRO 12-01 01:46 → 3W 12-01 06:18